=== PATIENT | female | born 2000 | race Asian ===

== ENCOUNTER 2022-08-09 16:42 | Emergency (ER) | payer BC, SELFPAY ==
[2022-08-09 17:17] VITALS: BP 107/71; PULSE 72; RESP 20; TEMP 36.7; O2SAT 100; BMI 38.1
[2022-08-09] MEDS: KETOROLAC 30 MG/ML inj IVP (18:17)
[2022-08-09] MEDS: 0.9 % SODIUM CHLORIDE 500 ML 500 ML IV (18:19)
[2022-08-09] MEDS: ONDANSETRON 2 MG/ML inj 4 MG IVP (18:19)
[2022-08-09] MEDS: diphenhydrAMINE 50 MG/ML inj 25 MG IVP (18:19)
--- NOTE | 2022-08-09 18:35 | ED_ITS ---
HPI - General Adult General Chief complaint: Headache/Migraine Stated complaint: Migraine Time Seen by Provider: 08/09/22 17:04 Source: patient Mode of arrival: ambulatory Limitations: no limitations History of Present Illness HPI narrative: 21-year-old female coming in today complaining of a migraine headache. States that she gets very frequently. States that she does have abortive medicine at home and that about 50% of the time and does not work. She feels that this headache is not unusual or different from her previous migraines. She denies any neurologic deficits. She complains of feeling slightly nauseated, sensitive to light. Related Data Home Medications Medication Instructions Recorded Confirmed buspirone 10 mg tablet mg 08/09/22 clindamycin phosphate 1 % topical topical 08/09/22 solution clonazepam 0.5 mg tablet mg 08/09/22 desvenlafaxine succinate 100 mg mg PO 08/09/22 tablet,extended release 24 hr duloxetine 30 mg capsule,delayed mg PO 08/09/22 release erenumab-aooe 140 mg/mL mg subcut 08/09/22 subcutaneous auto-injector (Aimovig Autoinjector) famotidine 20 mg tablet mg 08/09/22 gabapentin 600 mg tablet mg 08/09/22 methylphenidate 25.9 mg ER,IR mg PO 08/09/22 disintegrating 24 hr tablet (Cotempla XR-ODT) metoprolol succinate 25 mg mg PO 08/09/22 tablet,extended release 24 hr naratriptan 1 mg tablet mg 08/09/22 tacrolimus 0.1 % topical ointment topical 08/09/22 tazarotene 0.1 % topical cream applic topical 08/09/22 topiramate 50 mg tablet mg 08/09/22 Allergies Allergy/AdvReac Type Severity Reaction Status Date / Time No Known Drug Allergies Allergy Verified 08/09/22 17:14 Review of Systems Status of ROS: Reports: 10 or more systems reviewed and unremarkable except as noted in History and below Exam Narrative: Exam Narrative: Overweight, well-developed patient in no acute distress. Alert and oriented. Answers questions appropriately. Mood and affect are appropriate. Thoughts are goal oriented and rational. No tangential or magical thinking noted. Patient speaks in full sentences without needing to catch their breath. Speech is not slurred or pressured. Voice sounds normal. HEENT: Normocephalic atraumatic. Pupils are equally round reactive to light. Extraocular muscles are intact. Conjunctivae are moist without any icterus noted. Moist mucous membranes. Posterior pharynx is normal. Neck is soft without any lymphadenopathy or thyromegaly. No masses are appreciated. Cardiovascular: Heart is regular rate and rhythm S1 and S2 are present without any murmurs. Lungs: Clear to auscultation bilaterally no wheezes rhonchi or rales are appreciated. Patient takes deep breaths without any discomfort. Skin is well perfused without any rashes. Strength is 5/5 of the upper and lower extremities. Reflexes are 2+ and symmetric at the knees. Cranial nerves 3-12 are normal. There is no nystagmus either horizontally or vertically. Gait is normal. Const: Vital Signs, click to edit/add: Vital Signs - 24 hr 08/09/22 17:17 Temperature 98.0 F Pulse Rate [Right Pulse Oximeter] 72 Respiratory Rate 20 Blood Pressure [Ri ght Upper Arm] 107/71 Pulse Oximetry 100 Oxygen Delivery Me thod Room Air Course Course Hospital Course: Patient received IV fluids, Toradol, Zofran, and Benadryl. This helped her symptoms quite a bit and she felt much better. Vital Signs Vital signs: Initial Vital Signs Temperature 98.0 F 08/09/22 17:17 Temperature Source Temporal Artery Scan 08/09/22 17:17 Pulse Rate 72 08/09/22 17:17 Respiratory Rate 20 08/09/22 17:17 Blood Pressure 107/71 08/09/22 17:17 Blood Pressure Mean 83 08/09/22 17:17 Blood Pressure Position Sitting 08/09/22 17:17 Pulse Oximetry 100 08/09/22 17:17 Oxygen Delivery Method 08/09/22 17:17 Vital Signs Temperature 98.0 F 08/09/22 17:17 Pulse Rate 72 08/09/22 17:17 Respiratory Rate 20 08/09/22 17:17 Blood Pressure 107/71 08/09/22 17:17 Pulse Oximetry 100 08/09/22 17:17 Oxygen Delivery Method 08/09/22 17:17 Temperature 98.0 F 08/09/22 17:17 Pulse Rate 72 08/09/22 17:17 Respiratory Rate 20 08/09/22 17:17 Blood Pressure 107/71 08/09/22 17:17 Pulse Oximetry 100 08/09/22 17:17 Oxygen Delivery Method 08/09/22 17:17 Medical Decision Making MDM Narrative Medical decision making narrative: 21-year-old female migraine headache treated per above. Patient discharged in improved condition. Discharge Plan Discharge Clinical Impression: Migraine Patient Disposition: Home, Self-Care Condition: Improved Additional Instructions: Follow-up with primary care provider or neurologist as needed. Prescriptions: No Action gabapentin 600 mg tablet clonazepam 0.5 mg tablet Label Comments: TAKE TWO TABLETS BY MOUTH EVERY NIGHT AT BEDTIME famotidine 20 mg tablet Label Comments: TAKE 1 TABLET BY MOUTH IN THE MORNING AND 1 TABLET IN THE EVENING. tazarotene 0.1 % cream TOPICAL tacrolimus 0.1 % ointment TOPICAL Label Comments: APPLY TWICE A DAY FOR BREAST RASH buspirone 10 mg tablet metoprolol succinate 25 mg tablet extended release 24 hr PO naratriptan 1 mg tablet Label Comments: TAKE 1 TABLET BY MOUTH AT ONSET OF MIGRAINEMAY REPEAT AFTER FOUR HOURS clindamycin phosphate 1 % solution TOPICAL Label Comments: APPLY TWICE A DAY FOR ACTIVE ACNE topiramate 50 mg tablet duloxetine 30 mg capsule,delayed release(DR/EC) PO Label Comments: TAKE 3 CAPSULES BY MOUTH BY MOUTH EVERY MORNING desvenlafaxine succinate 100 mg tablet extended release 24 hr PO Cotempla XR-ODT 25.9 mg tablet,disinteg ER biphase 24h PO Aimovig Autoinjector 140 mg/mL auto-injector SUBCUT Follow Up/Referrals: Marissa Wesley MD [Primary Care Provider] - Stand Alone Forms: [id number] Info Instructions
== END 2022-08-09 19:20 | disposition home or self-care (01) ==
PROVIDERS: Emergency Provider Family Medicine; PCP Internal Medicine
DX: G43.909 Migraine, unspecified, not intractable, without status migrainosus (principal)
CPT/HCPCS: 96361; 96374; 96375; 99283; 99284; J1200; J1885; J2405; J7120

== ENCOUNTER 2022-09-12 15:33 | Emergency (ER) | payer BC, SELFPAY ==
[2022-09-12 15:45] VITALS: BP 106/73; PULSE 83; RESP 20; TEMP 36.8; O2SAT 100; BMI 36.0
--- NOTE | 2022-09-12 16:07 | ED.HA ---
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 She states that this is typical for her headache disorder which she describes as migraine headaches. Pt has no photophobia, nausea or vomiting. No aura of other significant symptoms. Pt took her typical naratriptan and medical marijuana with no improvement. Pt has been in in ER's in the past and treated successfully with saline, reglan, benadryl and toradol and would like a similar intervention today. No aggravating. She has no stiff neck or signs of infection. Severity is 6/10 and sharp. Related Data Home Medications Medication Instructions Recorded Confirmed buspirone 10 mg tablet mg 08/09/22 clindamycin phosphate 1 % topical topical 08/09/22 solution clonazepam 0.5 mg tablet mg 08/09/22 desvenlafaxine succinate 100 mg mg PO 08/09/22 tablet,extended release 24 hr duloxetine 30 mg capsule,delayed mg PO 08/09/22 release erenumab-aooe 140 mg/mL mg subcut 08/09/22 subcutaneous auto-injector (Aimovig Autoinjector) famotidine 20 mg tablet mg 08/09/22 gabapentin 600 mg tablet mg 08/09/22 methylphenidate 25.9 mg ER,IR mg PO 08/09/22 disintegrating 24 hr tablet (Cotempla XR-ODT) metoprolol succinate 25 mg mg PO 08/09/22 tablet,extended release 24 hr naratriptan 1 mg tablet mg 08/09/22 tacrolimus 0.1 % topical ointment topical 08/09/22 tazarotene 0.1 % topical cream applic topical 08/09/22 topiramate 50 mg tablet mg 08/09/22 Allergies Allergy/AdvReac Type Severity Reaction Status Date / Time No Known Drug Allergies Allergy Verified 09/12/22 15:50 Review of Systems Status of ROS: Reports: 10 or more systems reviewed and unremarkable except as noted in History and below [facility] Medical History (Updated 09/12/22 @ 17:11 by Solis Adams MD) Anxiety Stanford-Danlos disease Headache syndrome Social History Smoking Status: Former smoker Do you use any of these nicotine containing products: None Second hand tobacco smoke exposure: No How often do you have a drink containing alcohol: never How often do you have six or more drinks on one occasion: Never AUDIT-C Alcohol total score: 0 Non-prescribed substance use: denies use service: No Exam Narrative: Exam Narrative: EXAM GENERAL: Patient appears comfortable and well. EYES: No scleral icterus. ENT: Tympanic membranes and oropharynx normal. THYROID: no thyroid nodules or thyromegaly. LYMPH: No supraclavicular or cervical lymphadenopathy. SKIN: Visible skin seen during exam normal or with benign process only. EXT: No dependent lower extremity pedal edema. HEART: Regular rate and rhythm with no murmurs, rubs, or gallops. LUNGS: Clear to auscultation bilaterally with no crackles or wheezes. ABD: Soft, non tender, non distended. PSYCH: Good eye contact, speech is not pressured. Neurologic cranial nerves 2-12 grossly intact no focal defects. Const: Vital Signs, click to edit/add: Vital Signs - 24 hr 09/12/22 15:45 Temperature 98.3 F Pulse Rate [Right Pulse Oximeter] 83 Respiratory Rate 20 Blood Pressure [Ri ght Upper Arm] 106/73 Pulse Oximetry 100 Oxygen Delivery Me thod Room Air Course Course Hospital Course: Pt seen and examined. Pt given 1 liter ns, 4 mg of zofran, 30 mg of toradol and 50 mg of benadryl Reevaluation(s) Reevaluation #1: Pt feeling better and is ready to be discharged to home. Time: 17:09 Vital Signs Vital signs: Initial Vital Signs Temperature 98.3 F 09/12/22 15:45 Temperature Source Temporal Artery Scan 09/12/22 15:45 Pulse Rate 83 09/12/22 15:45 Pulse Rhythm 09/12/22 15:45 Respiratory Rate 20 09/12/22 15:45 Blood Pressure 106/73 09/12/22 15:45 Blood Pressure Mean 84 09/12/22 15:45 Blood Pressure Position Sitting 09/12/22 15:45 Pulse Oximetry 100 09/12/22 15:45 Oxygen Delivery Method 09/12/22 15:45 Vital Signs Temperature 98.3 F 09/12/22 15:45 Pulse Rate 83 09/12/22 15:45 Respiratory Rate 20 09/12/22 15:45 Blood Pressure 106/73 09/12/22 15:45 Pulse Oximetry 100 09/12/22 15:45 Oxygen Delivery Method 09/12/22 15:45 Temperature 98.3 F 09/12/22 15:45 Pulse Rate 83 09/12/22 15:45 Respiratory Rate 20 09/12/22 15:45 Blood Pressure 106/73 09/12/22 15:45 Pulse Oximetry 100 09/12/22 15:45 Oxygen Delivery Method 09/12/22 15:45 MDM - Headache MDM Narrative Medical decision making narrative: Pt with a long history of headache disorder presents with typical headache symptoms. Pt tried tryptan and cannabis earlier in the day without effect. Pt had normal vital signs and an unremarkable exam. Pt treated with Zofran, toradol, normal saline, benadryl and discharged to home with outpt follow up. Differential Diagnosis Differential diagnosis: Likely migraine, tension headache, subarachnoid hemorrhage, headache, meningitis and sinusitis Discharge Plan Discharge Clinical Impression: Headache syndrome Condition: Stable Instructions: Acute Headache (ED) Additional Instructions: Resume previous care Follow up with your doctor as needed Activity Level: No Restrictions Discharge Diet: Regular Prescriptions: No Action gabapentin 600 mg tablet clonazepam 0.5 mg tablet Label Comments: TAKE TWO TABLETS BY MOUTH EVERY NIGHT AT BEDTIME famotidine 20 mg tablet Label Comments: TAKE 1 TABLET BY MOUTH IN THE MORNING AND 1 TABLET IN THE EVENING. tazarotene 0.1 % cream TOPICAL tacrolimus 0.1 % ointment TOPICAL Label Comments: APPLY TWICE A DAY FOR BREAST RASH buspirone 10 mg tablet metoprolol succinate 25 mg tablet extended release 24 hr PO naratriptan 1 mg tablet Label Comments: TAKE 1 TABLET BY MOUTH AT ONSET OF MIGRAINEMAY REPEAT AFTER FOUR HOURS clindamycin phosphate 1 % solution TOPICAL Label Comments: APPLY TWICE A DAY FOR ACTIVE ACNE topiramate 50 mg tablet duloxetine 30 mg capsule,delayed release(DR/EC) PO Label Comments: TAKE 3 CAPSULES BY MOUTH BY MOUTH EVERY MORNING desvenlafaxine succinate 100 mg tablet extended release 24 hr PO Cotempla XR-ODT 25.9 mg tablet,disinteg ER biphase 24h PO Aimovig Autoinjector 140 mg/mL auto-injector SUBCUT Follow Up/Referrals: Marissa Wesley MD [Primary Care Provider] - Stand Alone Forms: [employer] Info Instructions
[2022-09-12] MEDS: diphenhydrAMINE 50 MG/ML inj IVP (16:39)
[2022-09-12] MEDS: KETOROLAC 30 MG/ML inj IVP (16:39)
[2022-09-12] MEDS: 0.9 % SODIUM CHLORIDE 1000 ml 1,000 ML IV (16:39)
[2022-09-12] MEDS: ONDANSETRON 2 MG/ML inj 4 MG IVP (16:40)
--- OUTSIDE RECORDS SUMMARY | 2022-09-12 16:41 | XMS_ITS | Encounter Summary ---
:2000 Author Organization [facility] Address [address] [place] [id number] Care Team Providers Name Role Phone Unavailable Primary Care Provider Unavailable Reason for Visit Reason Comments Pre-visit Intake Encounter Details Date Type Department Care Team Description 02/17/2021 Clinical Communication Department of R[facility] Irby [facility] [place] [place] [address] [facility] [address] [place] [phone] Social History Tobacco Use Types Packs/Day Years Used Date Smoking Tobacco: Never Smokeless Tobacco: Never Sex Assigned at Date Recorded Not on file documented as of this encounter Plan of Treatment Upcoming Encounters Date Type Specialty Care Team Description 09/18/2022 Clinical Communication Admitting/Central Scheduling 09/21/2022 Office Visit Neurology Rc Irby M.D. [address] [place] [address] documented as of this encounter Visit Diagnoses Not on filedocumented in this encounter
--- OUTSIDE RECORDS SUMMARY | 2022-09-12 16:41 | XMS_ITS | Encounter Summary ---
:2000 Author Organization [facility] Address [address] [place] [address] Care Team Providers Name Role Phone Unavailable Primary Care Provider Unavailable Reason for Visit Reason Comments COVID Inquiry Encounter Details Date Type Department Care Team Description 12/24/2020 Clinical Communication Department of Rc Irby COVI D Inquiry Neurology in .. [place], [place] [address] [facility] [address] [place] [phone] Social History Tobacco Use Types Packs/Day Years Used Date Smoking Tobacco: Never Smokeless Tobacco: Never Sex Assigned at Date Recorded Not on file documented as of this encounter Miscellaneous Notes Telephone Encounter - Ifrah Gore - 12/24/2020 4:10 PM CST What is the purpose of the call?: Standard Appointment Process Standard Appointment Process Have you tested positive for COVID-19 in the last 20 days OR do you have a pending COVID-19 test because you had symptoms?: No, neither apply What region is the appointment being requested?: More than 20 days [facility], [facility] or [facility] In the past 14 days have you had close contact* with a person who has a LABORATORY CONFIRMED case ofCOVID-19?: No exposure noted. Follow local process (End Screening) Testing Recommendation Endpoint Is testing recommended? : Not recommended to test Plan: Endpoint recommendation: Followed regional OTG *Reminder if sending patient for testing in [facility] or [facility], route encounter to the correct testing pool. 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 [address] [place] [address] documented as of this encounter Visit Diagnoses Not on filedocumented in this encounter
--- OUTSIDE RECORDS SUMMARY | 2022-09-12 16:41 | XMS_ITS | Encounter Summary ---
:2000 Author Organization [facility] Address [address] [place] [address] Care Team Providers Name Role Phone Unavailable Primary Care Provider Unavailable Reason for Referral Outpatient (Routine) - Authorized Specialty Diagnoses / Procedures Referred By Contact Refer red To Contact Neurology Rc Irby M.D. [facility] [address] [place] [phone] Referral ID Status Reason Start Date Expiration Date Visits V isits Requested Authorized [id number] Authorized 08/02/2022 08/01/2025 1 1 Scheduling Instructions 60 minutes Reason for Visit Reason Comments WENDY/Mahamed Encounter Details Date Type Department Care Team Description 07/27/2022 Clinical Communication Department of Neurology Rc Irby [facility]amed in [facility] gela Velasco [address] [place] [address] [place] [phone] Social History Tobacco Use Types Packs/Day Years Used Date Smoking Tobacco: Never Smokeless Tobacco: Never Sex Assigned at Date Recorded Not on file documented as of this encounter Plan of Treatment Upcoming Encounters Date Type Specialty Care Team Description 09/18/2022 Clinical Communication Admitting/Central Scheduling 09/21/2022 Office Visit Neurology Rc Irby M.D. [address] [place] [phone] Scheduled Referrals Name Type Priority Associated Diagnoses Order S [facility] Neurology office Outpatient Referral Routine Expe cted: visit (clinic) 08/02/2022 (Approximate), Expires: 11/01/2023 documented as of this encounter Visit Diagnoses Not on filedocumented in this encounter Additional Health Concerns Assessment Noted Time PHQ-9 Depression Total Score: 3 02/22/2021 12:24 PM CD T documented as of this encounter
--- OUTSIDE RECORDS SUMMARY | 2022-09-12 16:41 | XMS_ITS | Encounter Summary ---
:2000 Author Organization [facility] Address [address] [place] [address] Care Team Providers Name Role Phone Unavailable Primary Care Provider Unavailable Reason for Visit Appointment Request (Routine) - Closed Specialty Diagnoses / Procedures Referred By Contact Refer red To Contact Neurology Diagnoses Migraine Headache Referral ID Status Reason Start Date Expiration Date Visits Requ ested Visits Authorized [id number] Closed 09/19/2020 09/19/2021 1 1 Encounter Details Date Type Department Care Team Description 02/22/2021 Comprehensive Visit Department of Rc Irby Migrain e Headache Neurology in [facility] (Primary Dx) [place], [place] [address] [facility] [address] [place] [phone] Social History Tobacco Use Types Packs/Day Years Used Date Smoking Tobacco: Never Smokeless Tobacco: Never Sex Assigned at Date Recorded Not on file documented as of this encounter Last Filed Vital Signs Vital Sign Reading Time Taken Comments Blood Pressure - - Pulse - - Temperature 36.7 ??C (98.1 ??F) 02/22/2021 12:42 PM CDT Respiratory Rate - - Oxygen Saturation - - Inhaled Oxygen Concentration - - Weight 109 kg (240 lb 4.8 oz) 02/22/2021 12:42 PM CDT Height 167.2 cm (5' 5.83) 02/22/2021 12:42 PM CDT Body Mass Index 38.99 02/22/2021 12:42 PM CDT documented in this encounter Consult Notes Rc Irby M.D. - 02/22/2021 1:00 PM CDT SUBJECTIVE Referring Provider: No ref. provider found CHIEF COMPLAINT / REASON FOR VISIT Beryl Medel is a 20 y.o. female who presents for evaluation of 1. Migraine Headache Chronic HISTORY OF PRESENT ILLNESS She has a history of unprovoked headaches since she was 15 or 16 years old. There is family history of migraine in her sister. Since headache started they have not changed much. She now reports about 20 headache days per month and this has been the frequency for several years. Headaches can be precipitated by weather changes and they start while awake or asleep in both occipital regions. Some headaches day mild but some gradually get to be severe and spread to the whole head with throbbing pain, nausea and sensitivity to light and sound. Although there is no vomiting severe headaches can be worsened by routine physical activity but there is no migraine aura. Without treatment severe headaches willlast all day. She currently denies any Valsalva induced headache or pulsatile tinnitus. She has history of anxietyand depression but she reports them being under good control. She last had a brain MRI October 19, 2020 which was normal. She is currently using Fioricet about 4 5 days per month. She uses Zofran and prochlorperazine as needed for nausea. The Advil is enough to control mild headaches if she treats them early. She has beenon Aimovig 70 mg every month for the last 3 months and this has significantly decrease the frequencyof severe headaches. She is on topiramate at an unclear dose over the last for 5 months but this hasnot clearly helped her. She is not sure about the dose of topiramate. 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 In the past she tried sumatriptan but this transiently exacerbated her headache. She also has tried Toradol, Excedrin and cyproheptadine. The following portions of the patient's history were reviewed and updated as appropriate: allergies,current medications, family history, medical history, social history, surgical history and problem list. Ten point review of systems was completed and was negative other than as noted in the HPI. OBJECTIVE I have reviewed vital signs as recorded in the EPIC record. For details of the neurologic examination, please see the neurologic examination form. In summary: She has a normal neurologic exam. ASSESSMENT / PLAN #1 Chronic migraine without aura I have recommended to discontinue Fioricet because of its high risk for medication overuse headache.She is not really sure topiramate has helped her so she could consider gradually getting off this also. Although she was not sure about the topiramate does a higher dose could potentially cause cognitive difficulties that could interfere with her college studies. For migraine prophylaxis I recommend starting either one of the following agents in decreasing orderof preference: A) she could increase Aimovig to 140 mg every month and see how she does over 3 months. B) she could consider gradually going up on gabapentin, up by 300 mg every week as tolerated and as needed to not more than 900 mg 3 times a day. C) Botox following the PREEMPT treatment paradigm, giving it at least 3 tries with 12 weeks in between injections. An oral prophylactic should be tried one at a time for at least three months at the highest tolerated dose (within the above specified goal dose range) before believing it has failed. A successful preventive is commonly defined as one that decreases the headache frequency and/or intensity by approximately 50%. Once a successful preventive is found, I suggest continuing it for at least 6-24 months before attempting to gradually taper off it. For the acute treatment of mild to moderate headaches, I recommend to continue ibuprofen as needed but this should not be used more than 14 days a month. For headaches that do not respond to this, or for severe headaches from onset, I recommend 2.5 mg of oral naratriptan at onset and this can be repeated every 4 hours if needed (maximum 5 mg/24 hours) and this should not be used more than 9 days a month (2 days per week) to prevent medication overuse headache. I suspect naratriptan will be better tolerated than sumatriptan. For nausea associated with migraine, I recommend to continue antiemetics abida as needed basis under the care of her local neurologist. The patient will follow the above recommendations with her local neurologist per her preference. Shehas an appointment over the next few days with Dr. Fields. PATIENT EDUCATION Ready to learn, no apparent learning barriers were identified; learning preferences include listening. Explained diagnosis and treatment plan; patient expressed understanding of the content. documented in this encounter Plan of Treatment Upcoming Encounters Date Type Specialty Care Team Description 09/18/2022 Clinical Communication Admitting/Central Scheduling 09/21/2022 Office Visit Neurology Rc Irby M.D. [address] [place] [address] documented as of this encounter Visit Diagnoses Diagnosis Migraine Headache Chronic - Primary documented in this encounter Additional Health Concerns Assessment Noted Time PHQ-9 Depression Total Score: 3 02/22/2021 12:24 PM CD T documented as of this encounter
--- OUTSIDE RECORDS SUMMARY | 2022-09-12 16:41 | XMS_ITS | Clinical Summary ---
:2000 Author Organization [facility] Address [address] [place] [address] Care Team Providers Name Role Phone Unavailable Primary Care Provider Unavailable Source Comments Patient records contain information from all sites at [facility]. For routine questions regarding patient records, call [phone] during business hours, M-F 8:00 AM - 5:00 PM Central Time. Record requests for emergency care only can be directed to [phone] at any time.[facility] Allergies Active Allergy Reactions Severity Noted Date Comments Cantaloupe Other (see comments) 11/23/2011 [place] Other (see comments) 11/23/2011 Lamotrigine Hives 12/22/2014 Tree Nut Anaphylaxis, Anxiety, Hives, Itching, High Palpitations, Rash, Shortness of breath Tree Nuts Other (see comments) 09/29/2011 unknown Medications Medication Sig Dispensed Refills Start Date End Date Status medical cannabis Take 1 capsule by 0 Active capsule mouth as needed. 6 mg daily, and other strains/dosages as needed butalbital-acetamino Take 1 capsule by 0 Active phen-caff (Fioricet) mouth as needed. 50-300-40 mg per capsule triamcinolone Apply 1 application 0 12/27/2020 Active (KENALOG) 0.5 % topically as needed. cream tazarotene (TAZORAC) Apply 1 application 0 1 Active 0.1 % cream topically as needed. topiramate (TOPAMAX) Take 50 mg by mouth 0 1 Active 50 mg tablet daily. triamcinolone Administer 2 sprays 0 Active (NASACORT) 55 into nostril(s) as mcg/actuation nasal needed. spray tacrolimus Apply 1 application 0 12/27/2020 Active (PROTOPIC) 0.1 % topically as needed. ointment olopatadine daily. 0 01/28/2021 Active (PATADAY) 0.2 % ophthalmic solution ondansetron ODT Take 4 mg by mouth as 0 Active (Zofran ODT) 4 mg needed. disintegrating tablet mometasone (ELOCON) Apply 1 application 0 11/11/2020 Active 0.1 % cream topically as needed. metoprolol succinate Take 25 mg by mouth 0 1 Active (TOPROL-XL) 25 mg 24 daily. hr tablet Cotempla XR-ODT 25.9 Take 1 tablet by 0 02/01/2021 Active mg tablet,disintig mouth daily. ER biphase 24h levonorgestreL 52 mg by intrauterine 0 Active (Liletta) 20.1 route once. mcg/24 hrs (6 yrs) 52 mg IUD gabapentin Take 600 mg by mouth 0 08/20/2020 Active (NEURONTIN) 600 mg 3 (three) times a tablet day. Aimovig Autoinjector Inject 70 mg under 0 02/07/2021 Active 70 mg/mL injection the skin every 30 (thirty) days. EPINEPHrine 0.3 Inject 0.3 mg 0 09/25/2014 Active mg/0.3 mL injection intramuscularly as syringe needed. econazole nitrate Apply 1 application 0 12/22/2020 Active (SPECTAZOLE) 1 % topically as needed. cream DULoxetine Take 90 mg by mouth 0 02/08/2021 Active (CYMBALTA) [address] every morning. capsule doxycycline Take 100 mg by mouth 0 02/02/2021 Active monohydrate daily. (MONODOX) 100 mg capsule clindamycin Apply 1 application 0 02/15/2021 Active (CLINDAGEL) 1 % gel topically as needed. busPIRone (BUSPAR) Take 10 mg by mouth 0 01/10/2021 Active 10 mg tablet daily. azelastine (ASTELIN) Administer 2 sprays 0 1 Active 137 mcg/spray (0.1 into each nostril %) nasal spray daily. adapalene (DIFFERIN) Apply 1 application 0 0 Active 0.3 % gel topically as needed. benztropine Take 1 mg by mouth as 0 02/12/2021 Active (COGENTIN) 1 mg needed. tablet Active Problems Problem Noted Date Migraine Headache Chronic 02/22/2021 Encounters Date Type Specialty Care Team Description 07/27/2022 Clinical Communication Neurology Rc Irby M.D. [facility] from Last 3 Months Family History Medical History Relation Name Comments Migraines Sister Relation Name Status Comments Sister Social History Tobacco Use Types Packs/Day Years Used Date Smoking Tobacco: Never Smokeless Tobacco: Never Sex Assigned at Date Recorded Not on file Last Filed Vital Signs Vital Sign Reading [...] Mass Index 38.99 02/22/2021 12:42 PM CDT Plan of Treatment Upcoming Encounters Date Type Specialty Care Team Description 09/18/2022 Clinical Communication Admitting/Central Scheduling 09/21/2022 Office Visit Neurology Rc Irby M.D. [address] [place] [address] Health Maintenance Due Date Last Done Comments Anemia/Iron Deficiency 2001 Screening During Well Child Visit (if High Risk Menstruating Female) Chlamydia and Gonorrhea 2001 Screening HIV Screening 2001 Hearing Screening during 2001 Well Child Visit Hepatitis B Vaccines (1 of 3 2001 - 3-dose series) Hepatitis C Screening 2001 1 week Well Child Check-Up 2001 1 month Well Child Check-Up 2001 2 month Well Child Check-Up 01/11/2002 4 month Well Child Check-Up 02/24/2002 6 month Well Child / 04/26/2002 Alternative Check-Up 9 month Well Child Check-Up 07/27/2002 12 month Well Child / 10/26/2002 Alternative Check-Up 15 month Well Child Check-Up 01/24/2003 18 month Well Child 04/26/2003 2 year Well Child Check-Up 10/26/2003 30 month Well Child Check-Up 04/26/2004 3 year Well Child Check-Up 10/26/2004 4 year Well Child Check-Up 10/26/2005 5 year Well Child Check-Up 10/26/2006 6 year Well Child Check-Up 10/26/2007 7 year Well Child / 10/26/2008 Alternative Check-Up 8 year Well Child Check-Up 10/26/2009 9 year Well Child Check-Up 10/26/2010 10 year Well Child Check-Up 10/26/2011 11 year Well Child Check-Up 10/26/2012 12 year Well Child Check-Up 10/26/2013 13 year Well Child Check-Up 10/26/2014 14 year Well Child Check-Up 10/26/2015 Vision Screening during Well 2015 Child Visit 16 year Well Child Check-Up 10/26/2016 16 year Well Child Check-Up 10/26/2017 17 year Well Child Check-Up 10/26/2018 18 year Well Child Check-Up 10/26/2019 19 year Well Child Check-Up 10/26/2020 COVID-19 Vaccine (3 - 04/23/2021 02/26/2021, 02/05/2021 Booster for Pfizer series) 20 year Well Child Check-Up 10/26/2021 Well Child Check-Up ([facility]) 10/26/2021 Depression Screening (Annual 11/19/2021 PHQ-2) Influenza Vaccine (#1) 2022 07/19/2021, 08/31/2020, 08/19/2018, Additional history exists DTaP,Tdap,and Td Vaccines (7 01/02/2023 01/02/2013, 006, - Td or Tdap) 08/10/2003, Additional history exists HPV Vaccines Completed 08/11/2014, 04/10/2014, 02/05/2014 Meningococcal Vaccine Completed 06/21/2018, 01/02/2013 Pneumococcal vaccine (0-64 Aged Out No lo nger eligible years) based on patient 's age to complete this topic Medical Devices Implanted Type Area Basin Cleaner Device Shelf Model / Identifier Expiration Serial / Date Lot Hardware E.G. Pins/Screws/Rods-02/17/2018 Hardware e.g. Mouth Implanted: 02/17/2018 (Quantity not on file) pins/screws/r ods Description: Permanent retainer Intrauterine Device Intrauterine Device Uterus Description: liletta IUD Insurance Payer Benefit Plan / Subscriber ID Effective Dates Phone Addre ss Type Group BLUE CROSS BCBS MD [id number] 2019-[place] [phone] [address] [facility] [address] [place] [address]
[2022-09-12 17:22] VITALS: BP 107/74; O2SAT 99
== END 2022-09-12 17:26 | disposition home or self-care (01) ==
PROVIDERS: Emergency Provider Internal Medicine; PCP Internal Medicine
DX: R51.9 Headache, unspecified (principal)
CPT/HCPCS: 96374; 96375; 99283; J1200; J1885; J2405; J7030

== ENCOUNTER 2022-09-19 14:17 | Emergency (ER) | payer BC, SELFPAY ==
[2022-09-19 14:33] VITALS: BP 111/73; PULSE 91; RESP 16; TEMP 36.3; O2SAT 99; BMI 37.1
[2022-09-19] MEDS: 0.9 % SODIUM CHLORIDE 1000 ml 1,000 ML IV (17:57)
--- OUTSIDE RECORDS SUMMARY | 2022-09-19 17:58 | XMS_ITS | Encounter Summary ---
:2001 Author Organization [facility] Address [address] [place] [address] Care Team Providers Name Role Phone Unavailable Primary Care Provider Unavailable Reason for Referral Outpatient (Routine) - Authorized Specialty Diagnoses / Procedures Referred By Contact Refer red To Contact Neurology Rc Irby M.D. [facility] [address] [place] [phone] Referral ID Status Reason Start Date Expiration Date Visits V isits Requested Authorized [id number] Authorized 08/02/2022 08/01/2025 1 1 Scheduling Instructions 60 minutes Reason for Visit Reason Comments WENDY/Mahamed Encounter Details Date Type Department Care Team Description 07/27/2022 Clinical Communication Department of Neurology Rc Irby [facility]amed in [facility] gela Velasco [address] [place] [address] [place] [phone] Social History Tobacco Use Types Packs/Day Years Used Date Smoking Tobacco: Never Smokeless Tobacco: Never Sex Assigned at Date Recorded Not on file documented as of this encounter Plan of Treatment Upcoming Encounters Date Type Specialty Care Team Description 09/21/2022 Office Visit Neurology Rc Irby M.D . [address] [place] [phone] (Wo rk) Scheduled Referrals Name Type Priority Associated Diagnoses [facility] Outpatient Referral Routine Expe cted: visit (clinic) 08/02/2022 (Approximate), Expires: 11/01/2023 documented as of this encounter Visit Diagnoses Not on filedocumented in this encounter Additional Health Concerns Assessment Noted Time PHQ-9 Depression Total Score: 3 02/22/2021 12:24 PM CD T documented as of this encounter
--- OUTSIDE RECORDS SUMMARY | 2022-09-19 17:58 | XMS_ITS | Encounter Summary ---
:2001 Author Organization [facility] Address [address] [place] [address] Care Team Providers Name Role Phone Unavailable Primary Care Provider Unavailable Reason for Visit Reason Comments COVID Inquiry Encounter Details Date Type Department Care Team Description 12/24/2020 Clinical Communication Department of Rc Irby COVI D Inquiry Neurology in .. 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 [address] [place], [place] [phone] (Wo rk) documented as of this encounter Visit Diagnoses Not on filedocumented in this encounter
--- OUTSIDE RECORDS SUMMARY | 2022-09-19 17:58 | XMS_ITS | Encounter Summary ---
:2001 Author Organization [facility] Address [address] [place] [address] Care Team Providers Name Role Phone Unavailable Primary Care Provider Unavailable Reason for Visit Appointment Request (Routine) - Closed Specialty Diagnoses / Procedures Referred By Contact Refer red To Contact Neurology Diagnoses Migraine Headache Referral ID Status Reason Start Date Expiration Date Visits Requ ested Visits Authorized [id number] Closed 09/19/2020 09/19/2021 1 1 Encounter Details Date Type Department Care Team Description 02/22/2021 Comprehensive Visit Department of Rc Irby Migrain e Headache Neurology in [place] (Primary Dx) [place], [place] [address] [facility] [address] [place] [phone] Social History Tobacco Use Types Packs/Day Years [...] Neurology Rc Irby M.D . [address] [place], [place] [phone] (Wo rk) documented as of this encounter Visit Diagnoses Diagnosis Migraine Headache Chronic - Primary documented in this encounter Additional Health Concerns Assessment Noted Time PHQ-9 Depression Total Score: 3 02/22/2021 12:24 PM CD T documented as of this encounter
--- OUTSIDE RECORDS SUMMARY | 2022-09-19 17:58 | XMS_ITS | Encounter Summary ---
:2001 Author Organization [facility] Address [address] [place] [address] Care Team Providers Name Role Phone Unavailable Primary Care Provider Unavailable Reason for Visit Reason Comments Pre-visit Intake Encounter Details Date Type Department Care Team Description 09/18/2022 Clinical Communication Visit Review in Pr e-visit Intake [place], [place] 200 [place], [place] [address] Social History Tobacco Use Types Packs/Day Years Used Date Smoking Tobacco: Never Smokeless Tobacco: Never Tobacco Cessation: Counseling Given: Not Answered Sex Assigned at Date Recorded Not on file documented as of this encounter Plan of Treatment Upcoming Encounters Date Type Specialty Care Team Description 09/21/2022 Office Visit Neurology Rc Irby M.D . [address] [place] [phone] (Wo rk) documented as of this encounter Visit Diagnoses Not on filedocumented in this encounter Additional Health Concerns Assessment Noted Time PHQ-9 Depression Total Score: 3 02/22/2021 12:24 PM CD T documented as of this encounter
--- OUTSIDE RECORDS SUMMARY | 2022-09-19 17:58 | XMS_ITS | Clinical Summary ---
:2001 Author Organization [facility] Address [address] [place] [address] Care Team Providers Name Role Phone Unavailable Primary Care Provider Unavailable Source Comments Patient records contain information from all sites at [facility]. For routine questions regarding patient records, call [phone] during business hours, M-F 8:00 AM - 5:00 PM Central Time. Record requests for emergency care only can be directed to [phone] at any time.[facility] Allergies Active Allergy Reactions Severity Noted Date Comments Cantaloupe GI intolerance 11/23/2011 [place] GI intolerance 11/23/2011 Lamotrigine Hives 12/22/2014 Nut - Unspecified Anaphylaxis High 12/31/2021 Ragweed Pollen Itching 09/18/2022 Tree Nut Anaphylaxis, Anxiety, Hives, High 07/14/2014 Itching, Palpitations, Rash, Shortness of breath Tree Nuts Other (see comments) 09/29/2011 unknown Tree nuts Medications Medication Sig Dispensed Refills Start Date End Date Status medical cannabis Take 1 capsule by 0 Active capsule mouth as needed. 6 mg daily, and other strains/dosages as needed butalbital-acetamino Take 1 capsule by 0 Active phen-caff (FIORICET) mouth as needed. 50-300-40 mg per capsule triamcinolone Apply 1 application 0 12/27/2020 Active (KENALOG) 0.5 % topically as needed. cream tazarotene (TAZORAC) Apply 1 application 0 Active 0.1 % cream topically as needed. topiramate (TOPAMAX) Take 50 mg by mouth 2 0 021 Active 50 mg tablet (two) times a day. triamcinolone Administer 2 sprays 0 Active (NASACORT) 55 into nostril(s) as mcg/actuation nasal needed. spray tacrolimus Apply 1 application 0 12/27/2020 Active (PROTOPIC) 0.1 % topically as needed. ointment olopatadine daily. 0 01/28/2021 Active (PATADAY) 0.2 % ophthalmic solution ondansetron ODT Take 4 mg by mouth as 0 Active (ZOFRAN-ODT) 4 mg needed. disintegrating tablet mometasone (ELOCON) [...] 02/12/2021 Active (COGENTIN) 1 mg needed. tablet busPIRone (BUSPAR) 0 08/09/2022 Active 10 mg tablet clindamycin (CLEOCIN 0 08/09/2022 Active T) 1 % external solution clonazePAM 0 08/09/2022 Active (KlonoPIN) 0.5 mg tablet Active Problems Problem Noted Date Migraine Headache Chronic 02/22/2021 Encounters Date Type Specialty Care Team Description 09/18/2022 Clinical Communication Admitting/Central Pre-visit Intake Scheduling 07/27/2022 Clinical Communication Neurology Rc Irby WEST/ Mahamed Velasco from Last 3 Months Family History Medical [...] Neurology Rc Irby M.D . [address] [place], [place] [phone] (Wo rk) Health Maintenance Due Date Last Done Comments [...] Well Child Check-Up 10/26/2021 Well Child Check-Up ([facility]) 10/26/2021 Depression Screening (Annual 11/19/2021 [...] this topic Medical Devices Implanted Type Area Relocation Coordinator Device Shelf Model / Identifier Expiration Serial / Date Lot Hardware E.G. Pins/Screws/Rods-02/17/2018 Hardware e.g. Mouth Implanted: 02/17/2018 (Quantity not on file) pins/screws/r ods Description: Permanent retainer Intrauterine Device Intrauterine Device Uterus Description: liletta IUD Insurance Payer Benefit Plan / Subscriber ID Effective Dates Phone Addre ss Type Group BLUE CROSS [facility] [id number] 2019-[place] [phone] [address] [facility] [address] [place] [address]
--- OUTSIDE RECORDS SUMMARY | 2022-09-19 17:59 | XMS_ITS ---
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, Oct, Rash R21 [place] [phone] [facility] [place] [address] [facility], Jan, Sinusitis J32.9 ; [place] [phone] Bronchitis J40 a nd Stanford-Danlos sy ndrome Q79.6 IMMUNIZATIONS No Known Immunizations SOCIAL HISTORY Qualifiers Date Never Smoker REASON FOR REFERRAL FUNCTIONAL STATUS PLAN OF CARE Activity Details Follow Up prn Reason:prn if not needed VITAL SIGNS Height 64.5 in 2018-10-25 Height 64.5 in 2016-01-20 Weight 224 lbs 2018-10-25 Weight 187 lbs 2016-01-20 BMI 37.85 kg/m2 2018-10-25 BMI 31.60 kg/m2 2016-01-20 Temperature 98.7 degrees Fahrenheit 2016-01-20 Heart Rate 72 /min 2018-10-25 Heart Rate 72 /min 2016-01-20 Blood pressure systolic 100 mm HG 2018-10-25 Blood pressure diastolic 80 mm HG 2018-10-25 MEDICATIONS Medication Instructions Dosage Frequency Start End Duration Statu s Date Date Cymbalta 60 MG Orally Once a 1 capsule 24h N ot-Taki day ng Cotempla XR-ODT Orally Once a 1 tablet in 24h Active 25.9 MG day the morning Ondansetron HCl 4 Orally every 6 2 tablets Active MG hours prn Midodrine HCl 2.5 Orally q am and 1 tablet Not-Taki MG noon ng Metoprolol Orally Once a half 24h Active Succinate 25 MG day capsule EpiPen 1 MG/ML Active Metadate CD 40 mg Orally Once a 1 capsule 24h Active day in the morning Cymbalta 30 mg Orally once a 1 capsule 24h N ot-Taki day ng Desvenlafaxine Orally Once a 1 tablet 24h Ac tive Succinate ER 100 day MG Fluticasone Nasally Once a 1 spray in 24h No t-Taki Propionate 50 day each ng MCG/ACT nostril DULoxetine HCl 30 Orally Once a 3 capsule 24h Active MG day Gabapentin 600 MG Orally 4 times 1 capsule Active per day Augmentin 875-125 Orally every 12 1 tablet 12h Jan, 10 da y(s) Not-Taki MG hrs 2015 ng Amantadine HCl Orally q am 2 capsules No t-Taki 100 mg ng Lidocaine & Externally four as directed Oct, days Active Menthol 4-4 % times a day 2017 (qid) SUMAtriptan Orally Once a 1 tablet as 24h Ac tive Succinate 100 MG day needed PROCEDURES No Known procedures RESULTS No Results REASON FOR VISIT Skin reaction, sick Insurance Providers [facility]ly [facility] Health Member Patient Patient Patient Patient Patient Subscriber Subscriber Subscriber Group Insurance Plan Plan Plan Plan ID Relationship Address Phone Name Date of ID Name Date of No Type Insurance Insurance Insurance Coverage to Subscriber Address Phone Name Dates BLUE CROSS [address] BL[employer]OSS [id number] Beryl 2000 [id number] OF [id number] Gianfranco 6 [facility] [id number] BLUE CROSS [address] BLUE CROSS self Beryl 2000 [id number] OF Gianfranco 00 [facility] [id number]
[2022-09-19] MEDS: ONDANSETRON 2 MG/ML inj 4 MG IVP (18:02)
[2022-09-19] MEDS: KETOROLAC 30 MG/ML inj IVP (18:04)
[2022-09-19 18:05] VITALS: BP 119/69
[2022-09-19] MEDS: diphenhydrAMINE 50 MG/ML inj 25 MG IVP (18:05)
--- NOTE | 2022-09-19 18:06 | ED_ITS ---
HPI - General Adult General Chief complaint: Headache/Migraine Stated complaint: Migraine Time Seen by Provider: 09/19/22 17:39 Source: patient Mode of arrival: ambulatory Limitations: no limitations History of Present Illness HPI narrative: 21-year-old female coming in today complaining of migraine started yesterday. Patient states that she does have regular migraines. She took a regular migraine medication and did not work. She denies anything new or different about this particular headache. She denies any neurologic deficits. She has mild nausea but no vomiting. Feels sensitive to lights but not necessarily loud sounds. She denies chest pain, abdominal discomfort, shortness of breath. She feels slightly lightheaded. Related Data Home Medications Medication Instructions Recorded Confirmed buspirone 10 mg tablet mg 08/09/22 clindamycin phosphate 1 % topical topical 08/09/22 solution clonazepam 0.5 mg tablet mg 08/09/22 desvenlafaxine succinate 100 mg mg PO 08/09/22 tablet,extended release 24 hr duloxetine 30 mg capsule,delayed mg PO 08/09/22 release erenumab-aooe 140 mg/mL mg subcut 08/09/22 subcutaneous auto-injector (Aimovig Autoinjector) famotidine 20 mg tablet mg 08/09/22 gabapentin 600 mg tablet mg 08/09/22 methylphenidate 25.9 mg ER,IR mg PO 08/09/22 disintegrating 24 hr tablet (Cotempla XR-ODT) metoprolol succinate 25 mg mg PO 08/09/22 tablet,extended release 24 hr naratriptan 1 mg tablet mg 08/09/22 tacrolimus 0.1 % topical ointment topical 08/09/22 tazarotene 0.1 % topical cream applic topical 08/09/22 topiramate 50 mg tablet mg 08/09/22 Allergies Allergy/AdvReac Type Severity Reaction Status Date / Time No Known Drug Allergies Allergy Verified 09/12/22 15:50 Review of Systems Status of ROS: Reports: 10 or more systems reviewed and unremarkable except as noted in History and below [facility] Medical History Anxiety Stanford-Danlos disease Headache syndrome Social History Smoking Status: Former smoker Do you use any of these nicotine containing products: None Second hand tobacco smoke exposure: No How often do you have a drink containing alcohol: never How often do you have six or more drinks on one occasion: Never AUDIT-C Alcohol total score: 0 Non-prescribed substance use: denies use service: No Exam Narrative: Exam Narrative: Well-nourished well-developed patient in no acute distress. Alert and oriented. Answers questions appropriately. Mood and affect are appropriate. Thoughts are goal oriented and rational. No tangential or magical thinking noted. Patient speaks in full sentences without needing to catch their breath. HEENT: Normocephalic atraumatic. Pupils are equally round reactive to light. Extraocular muscles are intact. Conjunctivae are moist without any icterus noted. Moist mucous membranes. Posterior pharynx is normal. Neck is soft without any lymphadenopathy or thyromegaly. No masses are appreciated. Cardiovascular: Heart is regular rate and rhythm S1 and S2 are present without any murmurs. Lungs: Clear to auscultation bilaterally no wheezes rhonchi or rales are appreciated. Patient takes deep breaths without any discomfort. Abdomen: Soft and nontender nondistended with normal bowel sounds. No guarding or rebound. No masses or organomegaly appreciated. Extremities: Bilateral lower extremities are without edema. Normal DP and PT pulses. Skin: Well perfused without any obvious rashes. Strength is 5/5 of the upper and lower extremities. Cranial nerves 3-12 are grossly normal. There is no nystagmus either horizontally or vertically. Gait is normal. Const: Vital Signs, click to edit/add: Vital Signs - 24 hr 09/19/22 14:33 Temperature 97.3 F L Pulse Rate [Pulse Oximeter] 91 Respiratory Rate 16 Blood Pressure [Ri ght Upper Arm] 111/73 Pulse Oximetry 99 Course Course Hospital Course: IV was established patient received a L of normal saline, Toradol, Zofran, Benadryl. Patient felt improvement after treatment and was ready to go home. Vital Signs Vital signs: Initial Vital Signs Temperature 97.3 F L 09/19/22 14:33 Temperature Source Temporal Artery Scan 09/19/22 14:33 Pulse Rate 91 09/19/22 14:33 Respiratory Rate 16 09/19/22 14:33 Blood Pressure 111/73 09/19/22 14:33 Blood Pressure Mean 85 09/19/22 14:33 Blood Pressure Position Supine 09/19/22 14:33 Pulse Oximetry 99 09/19/22 14:33 Vital Signs Temperature 97.3 F L 09/19/22 14:33 Pulse Rate 91 09/19/22 14:33 Respiratory Rate 16 09/19/22 14:33 Blood Pressure 111/73 09/19/22 14:33 Pulse Oximetry 99 09/19/22 14:33 Temperature 97.3 F L 09/19/22 14:33 Pulse Rate 91 09/19/22 14:33 Respiratory Rate 16 09/19/22 14:33 Blood Pressure 111/73 09/19/22 14:33 Pulse Oximetry 99 09/19/22 14:33 Medical Decision Making MDM Narrative Medical decision making narrative: 21-year-old female with migraine headaches treated per above. Discharged home in improved condition. Follow-up as needed. Discharge Plan Discharge Clinical Impression: Migraine Patient Disposition: Home, Self-Care Condition: Improved Additional Instructions: Follow-up as needed. Prescriptions: No Action gabapentin 600 mg tablet clonazepam 0.5 mg tablet Label Comments: TAKE TWO TABLETS BY MOUTH EVERY NIGHT AT BEDTIME famotidine 20 mg tablet Label Comments: TAKE 1 TABLET BY MOUTH IN THE MORNING AND 1 TABLET IN THE EVENING. tazarotene 0.1 % cream TOPICAL tacrolimus 0.1 % ointment TOPICAL Label Comments: APPLY TWICE A DAY FOR BREAST RASH buspirone 10 mg tablet metoprolol succinate 25 mg tablet extended release 24 hr PO naratriptan 1 mg tablet Label Comments: TAKE 1 TABLET BY MOUTH AT ONSET OF MIGRAINEMAY REPEAT AFTER FOUR HOURS clindamycin phosphate 1 % solution TOPICAL Label Comments: APPLY TWICE A DAY FOR ACTIVE ACNE topiramate 50 mg tablet duloxetine 30 mg capsule,delayed release(DR/EC) PO Label Comments: TAKE 3 CAPSULES BY MOUTH BY MOUTH EVERY MORNING desvenlafaxine succinate 100 mg tablet extended release 24 hr PO Cotempla XR-ODT 25.9 mg tablet,disinteg ER biphase 24h PO Aimovig Autoinjector 140 mg/mL auto-injector SUBCUT Follow Up/Referrals: Marissa Wesley MD [Primary Care Provider] - Stand Alone [facility] Info Inst[facility]
[2022-09-19 18:30] VITALS: BP 116/73; PULSE 76; O2SAT 100
[2022-09-19 19:00] VITALS: PULSE 81; O2SAT 100
== END 2022-09-19 19:08 | disposition home or self-care (01) ==
PROVIDERS: Emergency Provider Family Medicine; PCP Internal Medicine
DX: G43.909 Migraine, unspecified, not intractable, without status migrainosus (principal); Z79.899 Other long term (current) drug therapy
CPT/HCPCS: 96361; 96374; 96375; 99284; J1200; J1885; J2405; J7030

== ENCOUNTER 2023-01-03 10:22 | Emergency (ER) | payer BC, SELFPAY ==
[2023-01-03 10:28] VITALS: BP 122/80; PULSE 73; RESP 18; TEMP 36.2; O2SAT 98; BMI 37.3
--- NOTE | 2023-01-03 11:00 | ED_ITS ---
HPI - Extremity Injury (Upper) General Time Seen by Provider: 11:00 Date Seen: 01/03/23 Chief Complaint: Extremity Pain/Injury, Upper Stated Complaint: Fell out of bed/right arm pain Time Seen by Provider: 01/03/23 11:00 Source: patient, RN notes reviewed and old records reviewed Mode of arrival: ambulatory Limitations: no limitations History of Present Illness HPI narrative: Patient is a very pleasant 22-year-old female from [facility] with a history of Stanford-Danlos, chronic pain syndrome and migraines who comes to the emergency room for evaluation regarding pain in the right elbow and right leg. Patient notes that she fell out of her loft yesterday morning. She states this was about a 4 ft fall. She notes that this has happened once in the past. Of she notes that she woke up on the ground and had right elbow pain and right knee pain. This morning she was able to go to class after taking Tylenol and ibuprofen. Since then she has noticed she now also has swelling in her right ankle. She did not lose consciousness nor has she had any headache or neck pain. She denies any vomiting. In regards to her elbow pain it is mostly on the posterior aspect near the olecranon. She notes that it hurts to straighten out her arm. She states that the pain radiates down the back of her forearm and into her wrist. She states that hurts to move her fingers. She denies any change in sensation. In regards to her leg she has pain on her right knee and has noticed this morning swelling of her ankle and feels that her ankle is sore. She has been walking on that leg since the injury yesterday morning. Patient states that she did have elbow fracture or arm fracture when she was in grade school. This healed without any problem. Related Data Home Medications Medication Instructions Recorded Confirmed clindamycin phosphate 1 % topical topical 08/09/22 10/19/22 solution desvenlafaxine succinate 100 mg mg PO 08/09/22 10/19/22 tablet,extended release 24 hr erenumab-aooe 140 mg/mL mg subcut 08/09/22 10/19/22 subcutaneous auto-injector (Aimovig Autoinjector) tacrolimus 0.1 % topical ointment topical 08/09/22 10/19/22 tazarotene 0.1 % topical cream applic topical 08/09/22 10/19/22 azelastine 137 mcg (0.1 %) nasal ml intranasal 10/19/22 10/19/22 spray aerosol buspirone 10 mg tablet 10 mg PO QDAY 10/19/22 10/19/22 clonazepam 0.5 mg tablet 1 mg PO QHS 10/19/22 10/19/22 duloxetine 30 mg capsule,delayed 90 mg PO QDAY 10/19/22 10/19/22 release famotidine 20 mg tablet 20 mg PO BID 10/19/22 10/19/22 gabapentin 600 mg tablet 600 mg PO QDAY 10/19/22 10/19/22 methylphenidate 25.9 mg ER,IR 25.9 mg PO QDAY 10/19/22 10/19/22 disintegrating 24 hr tablet (Cotempla XR-ODT) metoprolol succinate 25 mg 25 mg PO QDAY 10/19/22 10/19/22 tablet,extended release 24 hr naratriptan 1 mg tablet 1 mg PO PRN 10/19/22 10/19/22 olopatadine 0.7 % eye drops ml ophthalmic (eye) 10/19/22 10/19/22 (Pataday Once Daily Relief) prazosin 1 mg capsule 1 - 2 mg PO QPM 10/19/22 10/19/22 quetiapine 25 mg tablet 25 mg PO QDAY 10/19/22 10/19/22 topiramate 50 mg tablet 50 mg PO QDAY 10/19/22 10/19/22 triamcinolone acetonide 0.5 % g topical 10/19/22 10/19/22 topical cream Allergies Allergy/AdvReac Type Severity Reaction Status Date / Time tree nut Allergy Severe Verified 10/19/22 15:59 lamotrigine Allergy Unknown Verified 10/19/22 15:59 Review of Systems Status of ROS: Reports: 6 or more systems reviewed and unremarkable except as noted in History and below Const: Denies: fever or chills Eyes: Denies: change in vision ENMT: Denies: neck pain Cardio: Reports: swelling of feet/ankles; Denies: chest pain or shortness of breath with exertion Resp: Denies: shortness of breath GI: Denies: abdominal pain, nausea or vomiting Musculo: Reports: extremity pain, extremity swelling and limited range of motion (Right elbow); Denies: back pain or neck pain Neuro: Denies: headache or numbness in extremities [facility] Medical History High vitamin D level (2020) Social History Smoking Status: Never smoker Do you use any of these nicotine containing products: None Second hand tobacco smoke exposure: No How often do you have a drink containing alcohol: monthly or less How often do you have six or more drinks on one occasion: Never AUDIT-C Alcohol total score: 1 Non-prescribed substance use: denies use and marijuana (any form) service: No Exam Narrative: Exam Narrative: Patient is alert and oriented. Mentating normally with a GCS of 15 EOM is full. Head is atraumatic normocephalic. Neck is without discomfort with movement. Range of motion is full. No midline cervical tenderness. Heart with regular rate and rhythm and lungs are clear to auscultation. Palpation down thoracic and lumbar spine without discomfort. Patient has point tenderness noted over the right olecranon. No evidence of edema or ecchymosis here. She is able to extend her arm but not into full extension. She is able to move her fingers and sensation is fully intact. She has discomfort with palpation down arm and wrist. Pelvis stable. Slight pain with palpation over right hip. However range of motion is full. Examination of the right knee shows no ecchymosis no obvious deformity. Patient is able to flex and extend. She has tenderness noted over the tibial plateau and the medial joint line however. No pain with palpation down tibia. She has discomfort noted on the medial malleolus. There is mild swelling compared to the left on the right ankle. Sensation is fully intact. Const: Vital Signs, click to edit/add: Vital Signs - 24 hr 01/03/23 10:28 01/03/23 12:39 Temperature 97.1 F L Pulse Rate [Right Pulse Oximeter] 73 68 Respiratory Rate 18 18 Blood Pressure [Ri ght Upper Arm] 122/80 99/71 Pulse Oximetry 98 100 Oxygen Delivery Me thod Room Air Documenting provider has reviewed patient's vital signs: yes Course Course Hospital Course: Patient has agreed to undergo x-rays of the right elbow forearm wrist as well as right knee and right ankle. Patient denies any possibility of Reevaluation(s) Reevaluation #1: Discussed with patient results of x-ray. They do include a small bony fragment distal to the fibula. Patient has some tenderness there but more tenderness on the distal fibula and malleolus body. Patient does have snuffbox tenderness on examination of the right wrist. No pain with palpation over the radial head. Vital Signs Vital signs: Initial Vital Signs Temperature 97.1 F L 01/03/23 10:28 Temperature Source Temporal Artery Scan 01/03/23 10:28 Pulse Rate 73 01/03/23 10:28 Respiratory Rate 18 01/03/23 10:28 Blood Pressure 122/80 01/03/23 10:28 Blood Pressure Mean 94 01/03/23 10:28 Blood Pressure Position Sitting 01/03/23 10:28 Pulse Oximetry 98 01/03/23 10:28 Oxygen Delivery Method 01/03/23 10:28 Vital Signs Temperature 97.1 F L 01/03/23 10:28 Pulse Rate 73 01/03/23 10:28 Respiratory Rate 18 01/03/23 10:28 Blood Pressure 122/80 01/03/23 10:28 Pulse Oximetry 98 01/03/23 10:28 Oxygen Delivery Method 01/03/23 10:28 Temperature 97.1 F L 01/03/23 10:28 Pulse Rate 68 01/03/23 12:39 Respiratory Rate 18 01/03/23 12:39 Blood Pressure 99/71 01/03/23 12:39 Pulse Oximetry 100 01/03/23 12:39 Oxygen Delivery Method 01/03/23 10:28 MDM - Extremity Injury (Upper) MDM Narrative Medical decision making narrative: 1. Right wrist injury- patient has no obvious fractures noted on x-ray but certainly has right snuffbox tenderness. She is placed in a thumb spica and will follow-up with orthopedic clinic for recheck. Sensation motor is distally intact. 2. Right elbow injury-no evidence of fracture. Patient is having difficulty with full extension. Palpation over radial head without discomfort. 3. Right knee injury-no evidence of fracture. Patient has been ambulating for 24 hours after the initial injury. 4. Right ankle chip fracture-appearance of this small bony fragment appears to be somewhat callus. Radiology notes difficult to know if this is acute verses old. Will place patient in cam boot for more support. She would not be able to use crutches given her right arm injury. 5. [id number]-ag with ortho clinic here in town. Phone number given the patient. Patient may use ibuprofen or Tylenol as needed for discomfort. Dictation done with voice recognition, and as a result, wrong word or [id number] substitutions may have occurred.? There may be errors in the script that have gone undetected.? Please consider this when interpreting information found in this chart. Medical Records Attestation: I reviewed the patient's medical records. Imaging Data Right knee x-ray: Attestation: I have reviewed the pertinent imaging results. My impression: No evidence of fracture. Radiologist's impression: No acute fracture or dislocation. Joint spaces are preserved. No knee joint effusion. Soft tissues are unremarkable. IMPRESSION: No acute findings. Right ankle x-ray: Attestation: I have reviewed the pertinent imaging results. My impression: There is a small bony fragment distal to the lateral malleolus. This does not appear to be acute given its appearance. Radiologist's impression: Findings/Impression: Bones: A fracture is present through an os subfibulare bone fragment. This fracture may or may not be acute. No other osseous abnormality. Bony alignment is normal. Joint spaces: Unremarkable. Soft tissues: Unremarkable. Right elbow x-ray: Attestation: I have reviewed the pertinent imaging results. My impression: I do not note any acute fractures. Radiologist's impression: Findings/Impression: Bones: Alignment is normal. No fractures or bone lesions. No sign of acute injury. Joint spaces: Unremarkable. No joint effusion. Soft tissues: Unremarkabl Right wrist x-ray: Attestation: I have reviewed the pertinent imaging results. My impression: I do not note any fractures. Radiologist's impression: Bones: Alignment is normal. No fractures or bone lesions. Joint spaces: Unremarkable. Soft tissues: Mild soft tissue swelling surrounding the wrist.. Impression: No acute fractures or dislocations. Discharge Plan Discharge Clinical Impression: Injury of right ankle, Injury of right wrist Patient Disposition: Home, Self-Care Condition: Improved Additional Instructions: Recommend follow-up with orthopedic clinic for recheck of elbow, right wrist and right ankle. The phone number is [phone] Ibuprofen or Tylenol may be used for pain. Keep splint on right wrist. Please cover when showering. Cam boot for support when walking. You would not be tolerant of crutches at this time. Please be careful on the ice. Contact your [facility] to let them know your situation which could include difficulty getting to class, difficulty completing homework assignments because it inability to E type with right hand. Prescriptions: No Action quetiapine 25 mg tablet 25 mg PO QDAY azelastine 137 mcg (0.1 %) aerosol,spray intranasal prazosin 1 mg capsule 1 - 2 mg PO QPM Label Comments: TAKE 1 TO 2 CAPSULES BY MOUTH AT BEDTIME Pataday Once Daily Relief 0.7 % drops ophthalmic (eye) Label Comments: INSTILL 1 DROP IN BOTH EYES DAILY. triamcinolone acetonide 0.5 % cream topical Label Comments: APPLY AT BEDTIME FOR THUMBS tazarotene 0.1 % cream TOPICAL tacrolimus 0.1 % ointment TOPICAL Label Comments: APPLY TWICE A DAY FOR BREAST RASH clindamycin phosphate 1 % solution TOPICAL Label Comments: APPLY TWICE A DAY FOR ACTIVE ACNE desvenlafaxine succinate 100 mg tablet extended release 24 hr PO Aimovig Autoinjector 140 mg/mL auto-injector SUBCUT metoprolol succinate 25 mg tablet extended release 24 hr 25 mg PO QDAY gabapentin 600 mg tablet 600 mg PO QDAY naratriptan 1 mg tablet 1 mg PO PRN Label Comments: TAKE 1 TABLET BY MOUTH AT ONSET OF MIGRAINEMAY REPEAT AFTER FOUR HOURS topiramate 50 mg tablet 50 mg PO QDAY Cotempla XR-ODT 25.9 mg tablet,disinteg ER biphase 24h 25.9 mg PO QDAY famotidine 20 mg tablet 20 mg PO BID Label Comments: TAKE 1 TABLET BY MOUTH IN THE MORNING AND 1 TABLET IN THE EVENING. duloxetine 30 mg capsule,delayed release(DR/EC) 90 mg PO QDAY Label Comments: TAKE 3 CAPSULES BY MOUTH BY MOUTH EVERY MORNING buspirone 10 mg tablet 10 mg PO QDAY clonazepam 0.5 mg tablet 1 mg PO QHS Label Comments: TAKE TWO TABLETS BY MOUTH EVERY NIGHT AT BEDTIME Follow Up/Referrals: Marissa Wesley MD [Primary Care Provider] - Stand Alone [facility]
--- NOTE | 2023-01-03 11:07 | CRLHL7_ITS ---
For Patients: As a result of the Century Cures Act, medical imaging exams and procedure reports are released immediately into your electronic medical record. You may view this report before your referring provider. If you have questions, please contact your health care provider. Indication: Fall with pain. Technique: Right elbow 2 views. Comparison: None. Findings/Impression: Bones: Alignment is normal. No fractures or bone lesions. No sign of acute injury. Joint spaces: Unremarkable. No joint effusion. Soft tissues: Unremarkable. Dictated by Anton Del Valle MD @ 01/03/2023 12:54:03 PM (Electronically Signed)
--- NOTE | 2023-01-03 11:07 | CRLHL7_ITS ---
For Patients: As a result of the Cures Act, medical imaging exams and procedure reports are released immediately into your electronic medical record. You may view this report before your referring provider. If you have questions, please contact your health care provider. Indication: Fall with pain from elbow to distal wrist.. Technique: Right wrist, 3 views. Comparison: None. Findings: Bones: Alignment is normal. No fractures or bone lesions. Joint spaces: Unremarkable. Soft tissues: Mild soft tissue swelling surrounding the wrist.. Impression: No acute fractures or dislocations. Dictated by Kendall Paz MD @ 01/03/2023 12:49:59 PM (Electronically Signed)
--- NOTE | 2023-01-03 11:17 | CRLHL7_ITS ---
For Patients: As a result of the Cures Act, medical imaging exams and procedure reports are released immediately into your electronic medical record. You may view this report before your referring provider. If you have questions, please contact your health care provider. Indication: Fall with pain. Technique: Right ankle 3 views. Comparison: None. Findings/Impression: Bones: A fracture is present through an os subfibulare bone fragment. This fracture may or may not be acute. No other osseous abnormality. Bony alignment is normal. Joint spaces: Unremarkable. Soft tissues: Unremarkable. Dictated by Anton Del Valle MD @ 01/03/2023 12:53:01 PM (Electronically Signed)
--- NOTE | 2023-01-03 11:17 | CRLHL7_ITS ---
For Patients: As a result of the Century Cures Act, medical imaging exams and procedure reports are released immediately into your electronic medical record. You may view this report before your referring provider. If you have questions, please contact your health care provider. INDICATION: Fall with medial joint pain. TECHNIQUE: Right knee 2 views. COMPARISON: None. FINDINGS: No acute fracture or dislocation. Joint spaces are preserved. No knee joint effusion. Soft tissues are unremarkable. IMPRESSION: No acute findings. Dictated by Coretta Gibson MD @ 01/03/2023 12:44:11 PM (Electronically Signed)
--- OUTSIDE RECORDS SUMMARY | 2023-01-03 11:20 | XMS_ITS ---
:2001 Author Organization [facility]. Address [address] [place] [address] Care Team Providers Name Role Phone MICHELLE HARRELL Unavailable Unavailable PROBLEMS Type Condition ICD9-CM [id number] Onset Condition SNOMED Cod e Code Code Dates Status Problem Chronic pain G89.4 Active 2388766 06 syndrome Problem Intractable G43.719 Active 88394224 7351491 chronic migraine without aura and without status migrainosus ALLERGIES Substance Reaction Event Type Date Status Tree Nuts Unknown Drug Allergy Jun, Active ENCOUNTERS Encounter Location Date Diagnosis [facility] [address] [facility] Jun, Intractable chronic [address] [place], [place] migraine without aura [place] [address] without status migrainosus G43. 719 and Chronic pain syn drome G89.4 IMMUNIZATIONS No Known Immunizations SOCIAL HISTORY Qualifiers Date Never Smoker REASON FOR REFERRAL FUNCTIONAL STATUS PLAN OF CARE Activity Details Follow Up prn Reason:refered out VITAL SIGNS Heart Rate 73 /min 2022-07-05 Respiratory Rate 16 /min 2022-07-05 Height 66 in 2022-07-05 Weight 221 lbs 2022-07-05 BMI 35.67 kg/m2 2022-07-05 Temperature 97.6 degrees Fahrenheit 2022-07-05 Oximetry 98 % 2022-07-05 Blood pressure systolic 140 mm Hg 2022-07-05 Blood pressure diastolic 78 mm Hg 2022-07-05 MEDICATIONS Medication Instructions Dosage Frequency Start End Duration Statu s Date Date Marijuana Active Desvenlafaxine 30 Active Succinate ER 100 MG Pataday 0.7 % Ophthalmic 1 drop into 24h Act matt Once a day affected eye EPINEPHrine 0.3 as directed Acti ve MG/0.3ML Tazarotene 0.1 % Externally 1 application 24h Active Once a day in the evening Topiramate 50 MG TAKE TWO Active TABLETS BY MOUTH AT BEDTIME Prochlorperazine Rectal Twice a 1 suppository 12h Active 25 MG day as needed busPIRone HCl 10 TAKE ONE 30 Active MG TABLET BY MOUTH TWICE A DAY Co Q-10 100 MG as directed Activ e Azelastine HCl 0.1 INSTILL 2 25 Act matt % SPRAYS INTO EACH NOSTRIL TWICE A DAY ZOLMitriptan 5 MG as directed Ac tive Benztropine Orally Once a 1 tablet 24h 30 day(s) Act matt Mesylate 1 MG day Vitamin B12 1000 Orally Once a 1 tablet 24h 30 day(s ) Active MCG day Naratriptan HCl 1 Orally Once a 1 tablet 24h 1 day(s ) Active MG day DULoxetine HCl 30 TAKE THREE Act matt MG CAPSULES BY MOUTH EVERY MORNING Gabapentin 600 MG TAKE 1 TABLET Active BY MOUTH IN THE MORNING AND 1 TABLET AT NOON AND 1 TABLET BEFORE BEDTIME. clonazePAM 0.5 MG 30 Active Cyproheptadine HCl Orally Once a 1 tablet 24h Active 4 MG day Clindamycin Phos & as directed A ctive Cleanser 1 % Aimovig 140 MG/ML Active Metoprolol Orally Once a 1 capsule 24h 30 day(s) Act matt Succinate 25 MG day Famotidine 20 MG Orally Once a 1 tablet at 24h 30 da y(s) Active day bedtime as needed Ondansetron 4 MG Orally Once a 1 tablet on 24h 30 da y(s) Active day the tongue and allow to dissolve PROCEDURES No Known procedures RESULTS No Results REASON FOR VISIT New patient: Migraines Insurance Providers [facility] Health Member Patient Patient Patient Patient Patient Subscriber Subscriber Subscriber Group Insurance Plan Plan Plan Plan ID Relationship Address Phone Name Date of ID Name Date of No Type Insurance Insurance Insurance Coverage to Subscriber Address Phone Name Dates BHARGAVI CROSS [phone] BLUE CROSS self Beryl 2000 107 [id number] BHARGAVI [id number] BHARGAVI Medel [address] [place] [address] [facility]
--- OUTSIDE RECORDS SUMMARY | 2023-01-03 11:20 | XMS_ITS ---
:2001 Author Organization [facility] [place] Address [address] [place], [place] [address] Care Team Providers Name Role Phone Flavia Chris Unavailable Unavailable PROBLEMS Type Condition ICD9-CM Code [id number] Code Onset Condition SNO MED Code Dates Status Problem Bronchitis J40 Active 13544342 Problem Sinusitis J32.9 Active 30858165 Problem Stanford-Danlos Q79.6 Active 636316 001 syndrome ALLERGIES No Known Allergies ENCOUNTERS Encounter Location Date Diagnosis Chris [place] [address] [facility], Oct, Rash R21 [place] [phone] Chris [place] [address] [facility], Jan, Sinusitis J32.9 ; [place] [id number] Bronchitis J40 a nd Stanford-Danlos sy ndrome [...] FOR VISIT Skin reaction, sick Insurance Providers [facility] Health Member Patient Patient Patient Patient Patient Subscriber Subscriber Subscriber Group Insurance Plan Plan Plan Plan ID Relationship Address Phone Name Date of ID Name Date of No Type Insurance Insurance Insurance Coverage to Subscriber Address Phone Name Dates BLUE CROSS [phone] BLUE CROSS [id number] Beryl 2000 [id number] OF [id number] Gianfranco 6 [facility] [id number] BLUE CROSS [address] BLUE CROSS self Beryl 2000 [id number] OF Gian[address]anco 00 [facility] [id number]
[2023-01-03 12:39] VITALS: BP 99/71; PULSE 68; RESP 18; O2SAT 100
== END 2023-01-03 13:18 | disposition home or self-care (01) ==
PROVIDERS: Emergency Provider Family Medicine; PCP Internal Medicine
DX: S59.901A Unspecified injury of right elbow, initial encounter (principal); S69.91XA Unspecified injury of right wrist, hand and finger(s), initial encounter; S89.91XA Unspecified injury of right lower leg, initial encounter; S99.911A Unspecified injury of right ankle, initial encounter; W17.89XA Other fall from one level to another, initial encounter
CPT/HCPCS: 29125; 73070; 73110; 73560; 73610; 99283

== ENCOUNTER 2023-01-25 09:12 | Emergency (ER) | payer BC, SELFPAY ==
[2023-01-25 09:18] VITALS: BP 103/67; PULSE 66; RESP 18; TEMP 36.3; BMI 36.3
--- NOTE | 2023-01-25 09:33 | ED_ITS ---
HPI - Headache General Chief Complaint: Headache/Migraine Stated Complaint: Migraine Time Seen by Provider: 01/25/23 09:16 History of Present Illness HPI Narrative: Pt is a 22 year old woman with a long history of migraine headaches who presents with right sided headache involving the posterior, top and front portion of her head. This is a typical migraine for her with the exception that her usual triptan did not help with the pain. Pain is moderate and dull. No radiation. Pt has mild nausea but no vomiting. She has photophobia. Pt has been seen in the ED with previous headaches and has done well with typical treatment. Pt has no concerning change in the quality or character of today's headache. Related Data Home Medications Medication Instructions Recorded Confirmed clindamycin phosphate 1 % topical topical 08/09/22 01/09/23 solution desvenlafaxine succinate 100 mg mg PO 08/09/22 01/09/23 tablet,extended release 24 hr erenumab-aooe 140 mg/mL mg subcut 08/09/22 01/09/23 subcutaneous auto-injector ([employer] Autoinjector) tacrolimus 0.1 % topical ointment topical 08/09/22 01/09/23 tazarotene 0.1 % topical cream applic topical 08/09/22 01/09/23 azelastine 137 mcg (0.1 %) nasal ml intranasal 10/19/22 01/09/23 spray aerosol buspirone 10 mg tablet 10 mg PO QDAY 10/19/22 01/09/23 clonazepam 0.5 mg tablet 1 mg PO QHS 10/19/22 01/09/23 duloxetine 30 mg capsule,delayed 90 mg PO QDAY 10/19/22 01/09/23 release famotidine 20 mg tablet 20 mg PO BID 10/19/22 01/09/23 gabapentin 600 mg tablet 600 mg PO QDAY 10/19/22 01/09/23 methylphenidate 25.9 mg ER,IR 25.9 mg PO QDAY 10/19/22 01/09/23 disintegrating 24 hr tablet (Cotempla XR-ODT) metoprolol succinate 25 mg 25 mg PO QDAY 10/19/22 01/09/23 tablet,extended release 24 hr naratriptan 1 mg tablet 1 mg PO PRN 10/19/22 01/09/23 olopatadine 0.7 % eye drops ml ophthalmic (eye) 10/19/22 01/09/23 (Pataday Once Daily Relief) prazosin 1 mg capsule 1 - 2 mg PO QPM 10/19/22 01/09/23 quetiapine 25 mg tablet 25 mg PO QDAY 10/19/22 01/09/23 topiramate 50 mg tablet 50 mg PO QDAY 10/19/22 01/09/23 triamcinolone acetonide 0.5 % g topical 10/19/22 01/09/23 topical cream Allergies Allergy/AdvReac Type Severity Reaction Status Date / Time tree nut Allergy Severe Verified 01/25/23 09:18 lamotrigine Allergy Unknown Verified 01/25/23 09:18 Review of Systems Status of ROS: Reports: 10 or more systems reviewed and unremarkable except as noted in History and below [facility] Medical History (Updated 01/25/23 @ 10:40 by Solis Adams MD) Stanford-Danlos syndrome, type 3 Generalized anxiety disorder with panic attacks High vitamin D level (2020) Migraine without aura Obesity with body mass index 30 or greater Postural orthostatic tachycardia syndrome Social History Smoking Status: Never smoker Do you use any of these nicotine containing products: None Second hand tobacco smoke exposure: No How often do you have a drink containing alcohol: monthly or less How often do you have six or more drinks on one occasion: Never AUDIT-C Alcohol total score: 1 Non-prescribed substance use: marijuana (any form) Non-prescribed substance use details: medical use service: No Exam Narrative: Exam Narrative: EXAM GENERAL: Patient appears comfortable and well. EYES: No scleral icterus. ENT: Tympanic membranes and oropharynx normal. THYROID: no thyroid nodules or thyromegaly. LYMPH: No supraclavicular or cervical lymphadenopathy. SKIN: Visible skin seen during exam normal or with benign process only. EXT: No dependent lower extremity pedal edema. HEART: Regular rate and rhythm with no murmurs, rubs, or gallops. LUNGS: Clear to auscultation bilaterally with no crackles or wheezes. ABD: Soft, non tender, non distended. PSYCH: Good eye contact, speech is not pressured. Neurologic cranial nerves 2-12 grossly intact no focal neurologic defects. Const: Vital Signs, click to edit/add: Vital Signs - 24 hr 01/25/23 09:18 Temperature 97.4 F L Pulse Rate [Pulse Oximeter] 66 Respiratory Rate 18 Blood Pressure [Ri ght Upper Arm] 103/67 Oxygen Delivery Me thod Room Air Course Course Hospital Course: Pt seen and examined. No focal neurological defects. Pt given Zofran 4 mg, NS 1L, Benadry 25 and Toradol 30 mg IV. Reevaluation(s) Reevaluation #1: Pt feeling much better and would like to go home. Time: 10:37 Vital Signs Vital signs: Initial Vital Signs Temperature 97.4 F L 01/25/23 09:18 Temperature Source Temporal Artery Scan 01/25/23 09:18 Pulse Rate 66 01/25/23 09:18 Pulse Rhythm 01/25/23 09:18 Respiratory Rate 18 01/25/23 09:18 Blood Pressure 103/67 01/25/23 09:18 Blood Pressure Mean 79 01/25/23 09:18 Blood Pressure Position Supine 01/25/23 09:18 Oxygen Delivery Method 01/25/23 09:18 Vital Signs Temperature 97.4 F L 01/25/23 09:18 Pulse Rate 66 01/25/23 09:18 Respiratory Rate 18 01/25/23 09:18 Blood Pressure 103/67 01/25/23 09:18 Oxygen Delivery Method 01/25/23 09:18 Temperature 97.4 F L 01/25/23 09:18 Pulse Rate 66 01/25/23 09:18 Respiratory Rate 18 01/25/23 09:18 Blood Pressure 103/67 01/25/23 09:18 Oxygen Delivery Method 01/25/23 09:18 MDM - Headache MDM Narrative Medical decision making narrative: Pt is a 22 year old woman who presents with a typical headache for her with the exception that her tryptan did not help with the symptoms today. Pt has no concerning neurological findings. Pt feels much better after Toradol, Zofran, Benadryl and Saline. Ready for discharge. Differential Diagnosis Differential diagnosis: Likely migraine, tension headache, subarachnoid hemorrhage, headache, meningitis and sinusitis Medical Records Attestation: I reviewed the patient's medical records. Discharge Plan Discharge Clinical Impression: Migraine without aura Condition: Stable Instructions: Migraine Headache (ED) Additional Instructions: Continue current medications Rest Follow up with your neurologist if symtoms persist. Activity Level: No Restrictions Discharge Diet: Regular Prescriptions: No Action quetiapine 25 mg tablet 25 mg PO QDAY azelastine 137 mcg (0.1 %) aerosol,spray intranasal prazosin 1 mg capsule 1 - 2 mg PO QPM Label Comments: TAKE 1 TO 2 CAPSULES BY MOUTH AT BEDTIME Pataday Once Daily Relief 0.7 % drops ophthalmic (eye) Label Comments: INSTILL 1 DROP IN BOTH EYES DAILY. triamcinolone acetonide 0.5 % cream topical Label Comments: APPLY AT BEDTIME FOR THUMBS tazarotene 0.1 % cream TOPICAL tacrolimus 0.1 % ointment TOPICAL Label Comments: APPLY TWICE A DAY FOR BREAST RASH clindamycin phosphate 1 % solution TOPICAL Label Comments: APPLY TWICE A DAY FOR ACTIVE ACNE desvenlafaxine succinate 100 mg tablet extended release 24 hr PO Aimovig Autoinjector 140 mg/mL auto-injector SUBCUT metoprolol succinate 25 mg tablet extended release 24 hr 25 mg PO QDAY gabapentin 600 mg tablet 600 mg PO QDAY naratriptan 1 mg tablet 1 mg PO PRN Label Comments: TAKE 1 TABLET BY MOUTH AT ONSET OF MIGRAINEMAY REPEAT AFTER FOUR HOURS topiramate 50 mg tablet 50 mg PO QDAY Cotempla XR-ODT 25.9 mg tablet,disinteg ER biphase 24h 25.9 mg PO QDAY famotidine 20 mg tablet 20 mg PO BID Label Comments: TAKE 1 TABLET BY MOUTH IN THE MORNING AND 1 TABLET IN THE EVENING. duloxetine 30 mg capsule,delayed release(DR/EC) 90 mg PO QDAY Label Comments: TAKE 3 CAPSULES BY MOUTH BY MOUTH EVERY MORNING buspirone 10 mg tablet 10 mg PO QDAY clonazepam 0.5 mg tablet 1 mg PO QHS Label Comments: TAKE TWO TABLETS BY MOUTH EVERY NIGHT AT BEDTIME Follow Up/Referrals: Marissa Wesley MD [Primary Care Provider] - Stand Alone Forms: [facility] Info Instructions
--- OUTSIDE RECORDS SUMMARY | 2023-01-25 09:46 | XMS_ITS ---
:2001 Author Organization [facility]. Address [address] [place] [address] Care Team Providers Name Role Phone MICHELLE HARRELL Unavailable Unavailable PROBLEMS Type Condition ICD9-CM [id number] Onset Condition SNOMED Cod e Code Code Dates Status Problem Chronic pain G89.4 Active 4729841 06 syndrome Problem Intractable G43.719 Active 98945518 7145363 chronic migraine without aura and without status migrainosus ALLERGIES Substance Reaction Event Type Date Status Tree Nuts Unknown Drug Allergy Jun, Active ENCOUNTERS Encounter Location Date Diagnosis [facility] [address] [facility] Jun, Intractable chronic [address] [place], [place] migraine without aura and [address] without status migrainosus G43. 719 and Chronic [...] FOR VISIT New patient: Migraines Insurance Providers [facility] Health Member Patient Patient Patient Patient Patient Subscriber Subscriber Subscriber Group Insurance Plan Plan Plan Plan ID Relationship Address Phone Name Date of ID Name Date of No Type Insurance Insurance Insurance Coverage to Subscriber Address Phone Name Dates BHARGAVI CROSS [phone] BLUE CROSS self Beryl 2000 107 [id number] BHARGAVI [id number] BHARGAVI Medel [address] [place] [address] [facility]
--- OUTSIDE RECORDS SUMMARY | 2023-01-25 09:46 | XMS_ITS ---
:2001 Author Organization Chris Alejandro [facility] [place] Address [address] [place], [place] [phone] Care Team Providers Name Role Phone Flavia Chris Unavailable Unavailable PROBLEMS Type Condition ICD9-CM Code [id number] Code Onset Condition SNO MED Code Dates Status Problem Bronchitis J40 Active 16401998 Problem Sinusitis J32.9 Active 38951589 Problem Stanford-Danlos Q79.6 Active 675547 001 syndrome ALLERGIES No Known Allergies ENCOUNTERS Encounter Location Date Diagnosis Chris Alejandro MD [place] [address] [facility], Oct, Rash R21 [place] [phone] Chris Alejandro MD [place] [address] [facility], Jan, Sinusitis J32.9 ; [place] [phone] Bronchitis J40 a nd Stanford-Danlos sy ndrome [...] FOR VISIT Skin reaction, sick Insurance Providers [facility] Health Member Patient Patient Patient Patient Patient Subscriber Subscriber Subscriber Group Insurance Plan Plan Plan Plan ID Relationship Address Phone Name Date of ID Name Date of No Type Insurance Insurance Insurance Coverage to Subscriber Address Phone Name Dates BLUE CROSS [phone] BLUE CROSS self Beryl 2000 [address] [id number] 88 OF Gianfranco 00 [facility] [id number] BLUE CROSS [phone] BLUE CROSS [id number] Beryl [id number] OF [id number] Gianfranco 6 [facility] [id number]
[2023-01-25] MEDS: ONDANSETRON 2 MG/ML inj 4 MG IVP (09:57)
[2023-01-25] MEDS: KETOROLAC 30 MG/ML inj IVP (09:57)
[2023-01-25] MEDS: diphenhydrAMINE 50 MG/ML inj 25 MG IVP (09:57)
[2023-01-25] MEDS: 0.9 % SODIUM CHLORIDE 1000 ml 1,000 ML IV (09:57)
[2023-01-25 10:02] VITALS: PULSE 61; O2SAT 100
[2023-01-25 10:03] VITALS: BP 109/75; PULSE 78; O2SAT 97
[2023-01-25 10:15] VITALS: PULSE 60; O2SAT 100
[2023-01-25 10:30] VITALS: PULSE 71; O2SAT 100
[2023-01-25 10:31] VITALS: BP 116/75; PULSE 71; O2SAT 100
== END 2023-01-25 10:45 | disposition home or self-care (01) ==
PROVIDERS: Emergency Provider Internal Medicine; PCP Internal Medicine
DX: G43.009 Migraine without aura, not intractable, without status migrainosus (principal)
CPT/HCPCS: 96374; 96375; 99283; 99284; J1200; J1885; J2405; J7030

== ENCOUNTER 2023-02-04 17:54 | Emergency (ER) | payer BC, SELFPAY ==
[2023-02-04 17:56] VITALS: BP 121/79; RESP 18; TEMP 36.3; O2SAT 100; BMI 36.0
--- NOTE | 2023-02-04 18:10 | ED.GENADULT ---
HPI - General Adult General Chief complaint: Headache/Migraine Stated complaint: Migraine Time Seen by Provider: 02/04/23 17:58 Source: patient Mode of arrival: ambulatory Limitations: no limitations History of Present Illness HPI narrative: 22-year-old female coming in today complaining of a migraine headache. Describes it as her typical migraines. Patient ran out of her triptans and has been having a 5 day long headache. States that she has not yet called her doctor for a refill. Denies any neurologic deficits. No fevers or chills. Related Data Home Medications Medication Instructions Recorded Confirmed clindamycin phosphate 1 % topical topical 08/09/22 01/30/23 solution desvenlafaxine succinate 100 mg mg PO 08/09/22 01/30/23 tablet,extended release 24 hr erenumab-aooe 140 mg/mL mg subcut 08/09/22 01/30/23 subcutaneous auto-injector ([employer] Autoinjector) tacrolimus 0.1 % topical ointment topical 08/09/22 01/30/23 tazarotene 0.1 % topical cream applic topical 08/09/22 01/30/23 azelastine 137 mcg (0.1 %) nasal ml intranasal 10/19/22 01/30/23 spray aerosol buspirone 10 mg tablet 10 mg PO QDAY 10/19/22 01/30/23 clonazepam 0.5 mg tablet 1 mg PO QHS 10/19/22 01/30/23 duloxetine 30 mg capsule,delayed 90 mg PO QDAY 10/19/22 01/30/23 release famotidine 20 mg tablet 20 mg PO BID 10/19/22 01/30/23 gabapentin 600 mg tablet 600 mg PO QDAY 10/19/22 01/30/23 methylphenidate 25.9 mg ER,IR 25.9 mg PO QDAY 10/19/22 01/30/23 disintegrating 24 hr tablet (Cotempla XR-ODT) metoprolol succinate 25 mg 25 mg PO QDAY 10/19/22 01/30/23 tablet,extended release 24 hr naratriptan 1 mg tablet 1 mg PO PRN 10/19/22 01/30/23 olopatadine 0.7 % eye drops ml ophthalmic (eye) 10/19/22 01/30/23 (Pataday Once Daily Relief) prazosin 1 mg capsule 1 - 2 mg PO QPM 10/19/22 01/30/23 quetiapine 25 mg tablet 25 mg PO QDAY 10/19/22 01/30/23 topiramate 50 mg tablet 50 mg PO QDAY 10/19/22 01/30/23 triamcinolone acetonide 0.5 % g topical 10/19/22 01/30/23 topical cream Allergies Allergy/AdvReac Type Severity Reaction Status Date / Time tree nut Allergy Severe Verified 02/04/23 17:59 lamotrigine Allergy Unknown Verified 02/04/23 17:59 Review of Systems Status of ROS: Reports: 10 or more systems reviewed and unremarkable except as noted in History and below [facility] Medical History Stanford-Danlos syndrome, type 3 Generalized anxiety disorder with panic attacks High vitamin D level (2020) Migraine without aura Obesity with body mass index 30 or greater Postural orthostatic tachycardia syndrome Social History Smoking Status: Never smoker Do you use any of these nicotine containing products: None Second hand tobacco smoke exposure: No How often do you have a drink containing alcohol: monthly or less How often do you have six or more drinks on one occasion: Never AUDIT-C Alcohol total score: 1 Non-prescribed substance use: marijuana (any form) Non-prescribed substance use details: medical use service: No Exam Narrative: Exam Narrative: Overweight, well-developed patient in no acute distress. Alert and oriented. Answers questions appropriately. Mood and affect are appropriate. Thoughts are goal oriented and rational. No tangential or magical thinking noted. Patient speaks in full sentences without needing to catch her breath. Speech is not slurred or pressured. HEENT: Normocephalic atraumatic. Pupils are equally round reactive to light. Extraocular muscles are intact. Conjunctivae are moist without any icterus noted. Moist mucous membranes. Cardiovascular: Heart is regular rate and rhythm S1 and S2 are present without any murmurs. Lungs: Clear to auscultation bilaterally no wheezes rhonchi or rales are appreciated. Patient takes deep breaths without any discomfort. Skin: Well perfused without any obvious rashes. Const: Vital Signs, click to edit/add: Vital Signs - 24 hr 02/04/23 17:56 Temperature 97.4 F L Respiratory Rate 18 Blood Pressure [Ri ght Upper Arm] 121/79 Pulse Oximetry 100 Oxygen Delivery Me thod Room Air Course Course Hospital Course: IV was established. Patient received 500 mL of normal saline, Zofran, Toradol and Benadryl. Vital Signs Vital signs: Initial Vital Signs Temperature 97.4 F L 02/04/23 17:56 Temperature Source Temporal Artery Scan 02/04/23 17:56 Respiratory Rate 18 02/04/23 17:56 Blood Pressure 121/79 02/04/23 17:56 Blood Pressure Mean 93 02/04/23 17:56 Blood Pressure Position Sitting 02/04/23 17:56 Pulse Oximetry 100 02/04/23 17:56 Oxygen Delivery Method 02/04/23 17:56 Vital Signs Temperature 97.4 F L 02/04/23 17:56 Respiratory Rate 18 02/04/23 17:56 Blood Pressure 121/79 02/04/23 17:56 Pulse Oximetry 100 02/04/23 17:56 Oxygen Delivery Method 02/04/23 17:56 Temperature 97.4 F L 02/04/23 17:56 Respiratory Rate 18 02/04/23 17:56 Blood Pressure 121/79 02/04/23 17:56 Pulse Oximetry 100 02/04/23 17:56 Oxygen Delivery Method 02/04/23 17:56 Medical Decision Making MDM Narrative Medical decision making narrative: 22-year-old female for current migraine headaches. Relieved with treatment above. Patient instructed to call her physician for medication refill. Discharge Plan Discharge Clinical Impression: Migraine Patient Disposition: Home, Self-Care Condition: Improved Additional Instructions: Follow-up with your provider for medication refill. Prescriptions: No Action quetiapine 25 mg tablet 25 mg PO QDAY azelastine 137 mcg (0.1 %) aerosol,spray intranasal prazosin 1 mg capsule 1 - 2 mg PO QPM Label Comments: TAKE 1 TO 2 CAPSULES BY MOUTH AT BEDTIME Pataday Once Daily Relief 0.7 % drops ophthalmic (eye) Label Comments: INSTILL 1 DROP IN BOTH EYES DAILY. triamcinolone acetonide 0.5 % cream topical Label Comments: APPLY AT BEDTIME FOR THUMBS tazarotene 0.1 % cream TOPICAL tacrolimus 0.1 % ointment TOPICAL Label Comments: APPLY TWICE A DAY FOR BREAST RASH clindamycin phosphate 1 % solution TOPICAL Label Comments: APPLY TWICE A DAY FOR ACTIVE ACNE desvenlafaxine succinate 100 mg tablet extended release 24 hr PO Aimovig Autoinjector 140 mg/mL auto-injector SUBCUT metoprolol succinate 25 mg tablet extended release 24 hr 25 mg PO QDAY gabapentin 600 mg tablet 600 mg PO QDAY naratriptan 1 mg tablet 1 mg PO PRN Label Comments: TAKE 1 TABLET BY MOUTH AT ONSET OF MIGRAINEMAY REPEAT AFTER FOUR HOURS topiramate 50 mg tablet 50 mg PO QDAY Cotempla XR-ODT 25.9 mg tablet,disinteg ER biphase 24h 25.9 mg PO QDAY famotidine 20 mg tablet 20 mg PO BID Label Comments: TAKE 1 TABLET BY MOUTH IN THE MORNING AND 1 TABLET IN THE EVENING. duloxetine 30 mg capsule,delayed release(DR/EC) 90 mg PO QDAY Label Comments: TAKE 3 CAPSULES BY MOUTH BY MOUTH EVERY MORNING buspirone 10 mg tablet 10 mg PO QDAY clonazepam 0.5 mg tablet 1 mg PO QHS Label Comments: TAKE TWO TABLETS BY MOUTH EVERY NIGHT AT BEDTIME Follow Up/Referrals: Marissa Wesley MD [Primary Care Provider] - Stand Alone Forms: [facility] Info Instructions
[2023-02-04] MEDS: diphenhydrAMINE 50 MG/ML inj 25 MG IVP (18:22)
[2023-02-04] MEDS: 0.9 % SODIUM CHLORIDE 500 ML 500 ML IV (18:22)
[2023-02-04] MEDS: ONDANSETRON 2 MG/ML inj 4 MG IVP (18:22)
[2023-02-04] MEDS: KETOROLAC 30 MG/ML inj IVP (18:22)
[2023-02-04 18:36] VITALS: PULSE 78; O2SAT 100
--- OUTSIDE RECORDS SUMMARY | 2023-02-04 18:38 | XMS_ITS ---
:2000 Author Organization Chris Alejandro MD [place] Address [address] [place], [place] [id number] Care Team Providers Name Role Phone Flavia Chris Unavailable Unavailable PROBLEMS Type Condition ICD9-CM Code EQZ72-GD Code Onset Condition SNO MED Code Dates Status Problem Bronchitis J40 Active 21812797 Problem Sinusitis J32.9 Active 95964236 Problem Stanford-Danlos Q79.6 Active 304364 001 syndrome ALLERGIES No Known Allergies ENCOUNTERS Encounter Location Date Diagnosis Chris Alejandro [place] [address] [facility], Oct, Rash R[address] [place] [phone] Chris Alejandro [place] [address] [facility], Jan, Sinusitis J32.9 ; [place] [id number] Bronchitis J40 a nd Stanford-Danlos sy ndrome [...] FOR VISIT Skin reaction, sick Insurance Providers [facility] Health Member Patient Patient Patient Patient Patient Subscriber Subscriber Subscriber Group Insurance Plan Plan Plan Plan ID Relationship Address Phone Name Date of ID Name Date of No Type Insurance Insurance Insurance Coverage to Subscriber Address Phone Name Dates BLUE CROSS [phone] BLUE CROSS self Beryl 2000 [id number] [address] OF [address] [facility] [id number] BLUE CROSS [phone] BLUE CROSS [id number] Beryl [id number] OF [id number] [facility] [id number]
--- OUTSIDE RECORDS SUMMARY | 2023-02-04 18:38 | XMS_ITS ---
:2000 Author Organization [facility]. Address [address] [place] [address] Care Team Providers Name Role Phone MICHELLE HARRELL Unavailable Unavailable PROBLEMS Type Condition ICD9-CM FRX66-KB Onset Condition SNOMED Cod e Code Code Dates Status Problem Chronic pain G89.4 Active 1016437 06 syndrome Problem Intractable G43.719 Active 77553506 [id number] chronic migraine without aura and without status migrainosus ALLERGIES Substance Reaction Event Type Date Status Tree Nuts Unknown Drug Allergy Jun, Active ENCOUNTERS Encounter Location Date Diagnosis [facility] [address] [facility] Jun, Intractable chronic [address] [place], [place] migraine without aura and [id number] without status migrainosus G43. 719 and Chronic [...] [phone] BLUE CROSS self Beryl 2001 107 [id number] BHARGAVI [id number] BHARGAVI Medel [address] [place] [id number] [facility]
[2023-02-04 18:45] VITALS: PULSE 75; O2SAT 100
== END 2023-02-04 19:00 | disposition home or self-care (01) ==
LOC: ED 18:36
PROVIDERS: Emergency Provider Family Medicine; PCP Internal Medicine
DX: G43.909 Migraine, unspecified, not intractable, without status migrainosus (principal)
CPT/HCPCS: 96374; 96375; 99283; 99284; J1200; J1885; J2405; J7120

== ENCOUNTER 2023-03-01 09:34 | Emergency (ER) | payer BC, SELFPAY ==
[2023-03-01 09:43] VITALS: BP 116/75; PULSE 96; RESP 18; TEMP 36.6; O2SAT 78; BMI 36.0
--- NOTE | 2023-03-01 09:59 | ED.HA ---
HPI - Headache General Chief Complaint: Headache/Migraine Stated Complaint: migraine Time Seen by Provider: 03/01/23 09:49 History of Present Illness HPI Narrative: Patient is a 22-year-old woman with chronic migraine headaches who unfortunately has refractory headache. She has been on triptan ends at home with no improvement. She has no focal neurologic symptoms or headaches are bitemporal and similar to previous headaches. She has no other focal neurologic complaints or concerns. Patient has had no nausea no vomiting or photophobia. Is a good outcomes with normal saline Zofran Toradol and Benadryl in the emergency room in the past. She is otherwise in her usual state of health with no other concerns. She states the pain is severe. Related Data Home Medications Medication Instructions Recorded Confirmed clindamycin phosphate 1 % topical topical 08/09/22 01/30/23 solution desvenlafaxine succinate 100 mg mg PO 08/09/22 01/30/23 tablet,extended release 24 hr erenumab-aooe 140 mg/mL mg subcut 08/09/22 01/30/23 subcutaneous auto-injector (Gooddlerovig Autoinjector) tacrolimus 0.1 % topical ointment topical 08/09/22 01/30/23 tazarotene 0.1 % topical cream applic topical 08/09/22 01/30/23 azelastine 137 mcg (0.1 %) nasal ml intranasal 10/19/22 01/30/23 spray aerosol buspirone 10 mg tablet 10 mg PO QDAY 10/19/22 01/30/23 clonazepam 0.5 mg tablet 1 mg PO QHS 10/19/22 01/30/23 duloxetine 30 mg capsule,delayed 90 mg PO QDAY 10/19/22 01/30/23 release famotidine 20 mg tablet 20 mg PO BID 10/19/22 01/30/23 gabapentin 600 mg tablet 600 mg PO QDAY 10/19/22 01/30/23 methylphenidate 25.9 mg ER,IR 25.9 mg PO QDAY 10/19/22 01/30/23 disintegrating 24 hr tablet (Cotempla XR-ODT) metoprolol succinate 25 mg 25 mg PO QDAY 10/19/22 01/30/23 tablet,extended release 24 hr naratriptan 1 mg tablet 1 mg PO PRN 10/19/22 01/30/23 olopatadine 0.7 % eye drops ml ophthalmic (eye) 10/19/22 01/30/23 (Pataday Once Daily Relief) prazosin 1 mg capsule 1 - 2 mg PO QPM 10/19/22 01/30/23 quetiapine 25 mg tablet 25 mg PO QDAY 10/19/22 01/30/23 topiramate 50 mg tablet 50 mg PO QDAY 10/19/22 01/30/23 triamcinolone acetonide 0.5 % g topical 10/19/22 01/30/23 topical cream Allergies Allergy/AdvReac Type Severity Reaction Status Date / Time tree nut Allergy Severe Verified 02/04/23 17:59 lamotrigine Allergy Unknown Verified 02/04/23 17:59 Review of Systems Status of ROS: Reports: 6 or more systems reviewed and unremarkable except as noted in History and below [facility] Medical History Stanford-Danlos syndrome, 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.62 - Hypermobile Stanford-Danlos syndrome (ICD-10) Generalized anxiety disorder with panic attacks ?F41.1 - Generalized anxiety disorder (ICD-10) ?F41.0 - Panic disorder [episodic paroxysmal anxiety] (ICD-10) High vitamin D level (2020) ?E67.3 - Hypervitaminosis D (ICD-10) Migraine without aura ?G43.009 - Migraine without aura, not intractable, without status migrainosus (ICD-10) Obesity with body mass index 30 or greater ?E66.9 - Obesity, unspecified (ICD-10) Postural orthostatic tachycardia syndrome ?G90.A - Postural orthostatic tachycardia syndrome [POTS] (ICD-10) Social History Smoking Status: Never smoker Do you use any of these nicotine containing products: None Second hand tobacco smoke exposure: No How often do you have a drink containing alcohol: monthly or less How often do you have six or more drinks on one occasion: Never AUDIT-C Alcohol total score: 1 Non-prescribed substance use: marijuana (any form) Non-prescribed substance use details: medical use edibles service: No Exam Narrative: Exam Narrative: EXAM GENERAL: Patient appears comfortable and well. EYES: No scleral icterus. LYMPH: No supraclavicular or cervical lymphadenopathy. SKIN: Visible skin seen during exam normal or with benign process only. EXT: No dependent lower extremity pedal edema. HEART: Regular rate and rhythm with no murmurs, rubs, or gallops. LUNGS: Clear to auscultation bilaterally with no crackles or wheezes. ABD: Soft, non tender, non distended. PSYCH: Good eye contact, speech is not pressured. Const: Vital Signs, click to edit/add: Vital Signs - 24 hr 03/01/23 09:43 Temperature 97.8 F Pulse Rate [Pulse Oximeter] 96 Respiratory Rate 18 [facility]] 116/75 Pulse Oximetry 78 L Oxygen Delivery Me thod Room Air Course Vital Signs Vital signs: Initial Vital Signs Temperature 97.8 F 03/01/23 09:43 Temperature Source Temporal Artery Scan 03/01/23 09:43 Pulse Rate 96 03/01/23 09:43 Respiratory Rate 18 03/01/23 09:43 Blood Pressure 116/75 03/01/23 09:43 Blood Pressure Mean 88 03/01/23 09:43 Blood Pressure Position Supine 03/01/23 09:43 Pulse Oximetry 78 L 03/01/23 09:43 Oxygen Delivery Method Room Air 03/01/23 09:43 Vital Signs Temperature 97.8 F 03/01/23 09:43 Pulse Rate 96 03/01/23 09:43 Respiratory Rate 18 03/01/23 09:43 Blood Pressure 116/75 03/01/23 09:43 Pulse Oximetry 78 L 03/01/23 09:43 Oxygen Delivery Method Room Air 03/01/23 09:43 Temperature 97.8 F 03/01/23 09:43 Pulse Rate 96 03/01/23 09:43 Respiratory Rate 18 03/01/23 09:43 Blood Pressure 116/75 03/01/23 09:43 Pulse Oximetry 78 L 03/01/23 09:43 Oxygen Delivery Method Room Air 03/01/23 09:43 MDM - Headache MDM Narrative Medical decision making narrative: Patient is a 22-year-old woman who comes in with a very typical migraine headache. She has failed tripped hands and in the past has done well with intravenous medications as above. We did provide her with Toradol 30 mg Zofran 4 mg Benadryl 25 mg and 1 L of normal saline IV. She will be discharged home to follow-up with primary physician continue her outpatient care. No there are no unusual or concerning findings on today's presentation. Differential Diagnosis Differential diagnosis: Likely migraine, tension headache, subarachnoid hemorrhage, headache, meningitis and sinusitis Discharge Plan Discharge Clinical Impression: Migraine without aura Patient Disposition: Home, Self-Care Condition: Stable Instructions: Migraine Headache (ED) Additional Instructions: Continue current cares Follow-up with your doctor Activity Level: No Restrictions Discharge Diet: Regular Prescriptions: No Action quetiapine 25 mg tablet 25 mg PO QDAY azelastine 137 mcg (0.1 %) aerosol,spray intranasal prazosin 1 mg capsule 1 - 2 mg PO QPM Patient Comments: TAKE 1 TO 2 CAPSULES BY MOUTH AT BEDTIME Pataday Once Daily Relief 0.7 % drops ophthalmic (eye) Patient Comments: INSTILL 1 DROP IN BOTH EYES DAILY. triamcinolone acetonide 0.5 % cream topical Patient Comments: APPLY AT BEDTIME FOR THUMBS tazarotene 0.1 % cream TOPICAL tacrolimus 0.1 % ointment TOPICAL Patient Comments: APPLY TWICE A DAY FOR BREAST RASH clindamycin phosphate 1 % solution TOPICAL Patient Comments: APPLY TWICE A DAY FOR ACTIVE ACNE desvenlafaxine succinate 100 mg tablet extended release 24 hr PO Aimovig Autoinjector 140 mg/mL auto-injector SUBCUT metoprolol succinate 25 mg tablet extended release 24 hr 25 mg PO QDAY gabapentin 600 mg tablet 600 mg PO QDAY naratriptan 1 mg tablet 1 mg PO PRN Patient Comments: TAKE 1 TABLET BY MOUTH AT ONSET OF MIGRAINEMAY REPEAT AFTER FOUR HOURS topiramate 50 mg tablet 50 mg PO QDAY Cotempla XR-ODT 25.9 mg tablet,disinteg ER biphase 24h 25.9 mg PO QDAY famotidine 20 mg tablet 20 mg PO BID Patient Comments: TAKE 1 TABLET BY MOUTH IN THE MORNING AND 1 TABLET IN THE EVENING. duloxetine 30 mg capsule,delayed release(DR/EC) 90 mg PO QDAY Patient Comments: TAKE 3 CAPSULES BY MOUTH BY MOUTH EVERY MORNING buspirone 10 mg tablet 10 mg PO QDAY clonazepam 0.5 mg tablet 1 mg PO QHS Patient Comments: TAKE TWO TABLETS BY MOUTH EVERY NIGHT AT BEDTIME Follow Up/Referrals: Marissa Wesley MD [Primary Care Provider] - Stand Alone Forms: [employer] Info Instructions
--- OUTSIDE RECORDS SUMMARY | 2023-03-01 10:12 | XMS_ITS ---
Author Name Chris Alejandro Address [address] [place], [place] [id number] Organization [facility] [place] Address [address] [place], [place] [id number] Care Team Providers Care Drill Rig Operator Name Role Phone Chris Alejandro Unavailable [phone] PROBLEMS Type Condition ICD9-CM Code [id number] Code Onset Dates Condition Status SNOMED Code Problem Bronchitis J40 Active 81417746 Problem Sinusitis J32.9 Active 41424913 Problem Stanford-Danlos syndrome Q79.6 Active 790701798 ALLERGIES No Known Allergies ENCOUNTERS Encounter Location Date Diagnosis [facility] [address] [place], [place] [id number] Oct, Rash R21 [facility] [place] [address] [place], [place] [id number] Jan, Sinusitis J32.9 ; Bronchitis J40 and Stanford-Danlos syndrome Q79.6 IMMUNIZATIONS No Known Immunizations SOCIAL HISTORY Qualifiers Date Never Smoker REASON FOR REFERRAL FUNCTIONAL STATUS PLAN OF CARE Activity Details VITAL SIGNS Height 64.5 in 2018-10-25 Height 64.5 in 2016-01-20 Weight 224 lbs 2018-10-25 Weight 187 lbs 2016-01-20 BMI 37.85 kg/m2 2018-10-25 BMI 31.60 kg/m2 2016-01-20 Temperature 98.7 degrees Fahrenheit Heart Rate 72 /min 2018-10-25 Heart Rate 72 /min 2016-01-20 Blood pressure systolic 100 mm HG Blood pressure diastolic 80 mm HG 2018-10 MEDICATIONS Medication Instructions Dosage Frequency Start Date End Date Duration Status Cymbalta 60 MG Orally Once a day 1 capsule 24h Not-Taki ng Cotempla XR-ODT 25.9 MG Orally Once a day 1 tablet in the morning 24h Active Ondansetron HCl 4 MG Orally every 6 hours prn 2 tablets Active Midodrine HCl 2.5 MG Orally q am and noon 1 tablet Not-Taki ng Metoprolol Succinate 25 MG Orally Once a day half capsule 24h Active EpiPen 1 MG/ML A ctive Metadate CD 40 mg Orally Once a day 1 capsule in the morning 24h Active Cymbalta 30 mg Orally once a day 1 capsule 24h Not-Taki ng Desvenlafaxine Succinate ER 100 MG Orally Once a day 1 tablet 24h Active Fluticasone Propionate 50 MCG/ACT Nasally Once a day 1 spray in each nostril 24h Not-Taki ng DULoxetine HCl 30 MG Orally Once a day 3 capsule 24h Active Gabapentin 600 MG Orally 4 times per day 1 capsule Active Augmentin 875-125 MG Orally every 12 hrs 1 tablet 12h Jan, 10 day(s) Not-Taki ng Amantadine HCl 100 mg Orally q am 2 capsules Not-Buck i ng Lidocaine & Menthol 4-4 % Externally four times a day (qid) as directed Oct, 10 days Active SUMAtriptan Succinate 100 MG Orally Once a day 1 tablet as needed 24h Active PROCEDURES No Known procedures RESULTS No Results REASON FOR VISIT Skin reaction, sick Insurance Providers Health Insurance Type Health Plan Insurance Address Health Plan Insurance Phone Health Plan Insurance Name Health Plan Coverage Dates Member ID Patient Relationship to Subscriber Patient Address Patient Phone Patient Name Patient Date of Subscriber ID Subscriber Name Subscriber Date of Group No [facility] [address] [facility] [id number] [facility] joy Medel [id number] [facility] [address] [facility] [id number] 88 [facility] [id number] Beryl Medel [id number]
--- OUTSIDE RECORDS SUMMARY | 2023-03-01 10:12 | XMS_ITS ---
Author Name MICHELLE HARRELL Address [address] [place] [address] Organization [facility]. Address [address] [place] [address] Care Team Providers Care Teacher Theater Arts Name Role Phone SHADIALEORandolphMICHELLE Unavailable [phone] PROBLEMS Type Condition ICD9-CM Code CSA87-AS Code Onset Dates Condition Status SNOMED Code Problem Chronic pain syndrome G89.4 Active 481196413 Problem Intractable chronic migraine without aura and without status migrainosus G43.719 Active [id number] ALLERGIES Substance Reaction Event Type Date Status Tree Nuts Unknown Drug Allergy Jun, Active ENCOUNTERS Encounter Location Date Diagnosis [facility]. [address] [facility] [address] [place] [address] Jun, Intractable chronic migraine without aura and without status migrainosus G43.719 and Chronic pain syndrome G89.4 IMMUNIZATIONS No Known Immunizations SOCIAL HISTORY Qualifiers Date Never Smoker REASON FOR REFERRAL FUNCTIONAL STATUS PLAN OF CARE Activity Details VITAL SIGNS Heart Rate 73 /min 2022-07-05 Respiratory Rate 16 /min 2022-07-05 Height 66 in 2022-07-05 Weight 221 lbs 2022-07-05 BMI 35.67 kg/m2 2022-07-05 Temperature 97.6 degrees Fahrenheit Oximetry 98 % 2022-07-05 Blood pressure systolic 140 mm Hg Blood pressure diastolic 78 mm Hg 2022-06 MEDICATIONS Medication Instructions Dosage Frequency Start Date End Date Duration Status Marijuana Active Desvenlafaxine Succinate ER 100 MG 30 Active Pataday 0.7 % Ophthalmic Once a day 1 drop into affected eye 24h Active EPINEPHrine 0.3 MG/0.3ML as directed Active Tazarotene 0.1 % Externally Once a day 1 application in the evening 24h Active Topiramate 50 MG TAKE TWO TABLETS BY MOUTH AT BEDTIME Active Prochlorperazine 25 MG Rectal Twice a day 1 suppository as needed 12h Active busPIRone HCl 10 MG TAKE ONE TABLET BY MOUTH TWICE A DAY 30 Active Co Q-10 100 MG as directed Active Azelastine HCl 0.1 % INSTILL 2 SPRAYS INTO EACH NOSTRIL TWICE A DAY 25 Active ZOLMitriptan 5 MG as directed Active Benztropine Mesylate 1 MG Orally Once a day 1 tablet 24h 30 day(s) Active Vitamin B12 1000 MCG Orally Once a day 1 tablet 24h 30 day(s) Active Naratriptan HCl 1 MG Orally Once a day 1 tablet 24h 1 day(s) Active DULoxetine HCl 30 MG TAKE THREE CAPSULES BY MOUTH EVERY MORNING Active Gabapentin 600 MG TAKE 1 TABLET BY MOUTH IN THE MORNING AND 1 TABLET AT NOON AND 1 TABLET BEFORE BEDTIME. Active clonazePAM 0.5 MG 30 Active Cyproheptadine HCl 4 MG Orally Once a day 1 tablet 24h Active Clindamycin Phos & Cleanser 1 % as directed Activ e Aimovig 140 MG/ML Active Metoprolol Succinate 25 MG Orally Once a day 1 capsule 24h 30 day(s) Active Famotidine 20 MG Orally Once a day 1 tablet at bedtime as needed 24h 30 day(s) Active Ondansetron 4 MG Orally Once a day 1 tablet on the tongue and allow to dissolve 24h 30 day(s) Active PROCEDURES No Known procedures RESULTS No Results REASON FOR VISIT New patient: Migraines Insurance Providers Health Insurance Type Health Plan Insurance Address Health Plan Insurance Phone Health Plan Insurance Name Health Plan Coverage Dates Member ID Patient Relationship to Subscriber Patient Address Patient Phone Patient Name Patient Date of Subscriber ID Subscriber Name Subscriber Date of Group No [employer] [facility] [address] [facility] [address] [facility] self Beryl Medel [id number]
[2023-03-01] MEDS: KETOROLAC 30 MG/ML inj IVP (10:20)
[2023-03-01] MEDS: 0.9 % SODIUM CHLORIDE 1000 ml 1,000 ML IV (10:20)
[2023-03-01] MEDS: diphenhydrAMINE 50 MG/ML inj 25 MG IVP (10:21)
[2023-03-01] MEDS: ONDANSETRON 2 MG/ML inj 4 MG IVP (10:21)
[2023-03-01 10:32] VITALS: PULSE 77; RESP 18; O2SAT 98
== END 2023-03-01 11:15 | disposition home or self-care (01) ==
LOC: ED 10:10
PROVIDERS: Emergency Provider Internal Medicine; PCP Internal Medicine
DX: G43.009 Migraine without aura, not intractable, without status migrainosus (principal)
CPT/HCPCS: 96374; 96375; 99283; 99284; J1200; J1885; J2405; J7030

== ENCOUNTER 2023-03-07 10:05 | Emergency (ER) | payer BC, SELFPAY ==
[2023-03-07 10:16] VITALS: BP 111/80; PULSE 79; RESP 18; TEMP 36; O2SAT 98; BMI 36.0
--- NOTE | 2023-03-07 10:28 | ED.GENADULT ---
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 This is been present now about 3 days. Has photophobia and mild nausea. Not been vomiting. She was treated in this department about 6 days ago and notes that headache did resolve at that time. Does have a diagnosis of migraines and early this week used her triptan and does not feel she can use it anymore. She has tried otherwise ibuprofen and acetaminophen. Headache is described as severe in her eye sockets radiating to her temples and broadly over the top of her head stopping above the occiput. Has not had any fever or apparent rashes. She does struggle with seasonal allergies and think those might be going on now. [place] after a shower earlier that she might have some fluid in her ears and notes that had trouble with that once in the past. Feels buzzing in her head at the moment. Otherwise no numbness or tingling. Week somewhat due to recent injuries to her right leg an arm --sprained. The other thing that might be aggravating her headaches is that she had left her Aimovig monthly injection in [place]. Last taken in December. Mother has mailed it to her as of today. This is not an atypical headache for her. Related Data Home Medications Medication Instructions Recorded Confirmed clindamycin phosphate 1 % topical topical 08/09/22 01/30/23 solution desvenlafaxine succinate 100 mg mg PO 08/09/22 01/30/23 tablet,extended release 24 hr erenumab-aooe 140 mg/mL mg subcut 08/09/22 01/30/23 subcutaneous auto-injector (Aimovig Autoinjector) tacrolimus 0.1 % topical ointment topical 08/09/22 01/30/23 tazarotene 0.1 % topical cream applic topical 08/09/22 01/30/23 azelastine 137 mcg (0.1 %) nasal ml intranasal 10/19/22 01/30/23 spray aerosol buspirone 10 mg tablet 10 mg PO QDAY 10/19/22 01/30/23 clonazepam 0.5 mg tablet 1 mg PO QHS 10/19/22 01/30/23 duloxetine 30 mg capsule,delayed 90 mg PO QDAY 10/19/22 01/30/23 release famotidine 20 mg tablet 20 mg PO BID 10/19/22 01/30/23 gabapentin 600 mg tablet 600 mg PO QDAY 10/19/22 01/30/23 methylphenidate 25.9 mg ER,IR 25.9 mg PO QDAY 10/19/22 01/30/23 disintegrating 24 hr tablet (Cotempla XR-ODT) metoprolol succinate 25 mg 25 mg PO QDAY 10/19/22 01/30/23 tablet,extended release 24 hr naratriptan 1 mg tablet 1 mg PO PRN 10/19/22 01/30/23 olopatadine 0.7 % eye drops ml ophthalmic (eye) 10/19/22 01/30/23 (Pataday Once Daily Relief) prazosin 1 mg capsule 1 - 2 mg PO QPM 10/19/22 01/30/23 quetiapine 25 mg tablet 25 mg PO QDAY 10/19/22 01/30/23 topiramate 50 mg tablet 50 mg PO QDAY 10/19/22 01/30/23 triamcinolone acetonide 0.5 % g topical 10/19/22 01/30/23 topical cream Allergies Allergy/AdvReac Type Severity Reaction Status Date / Time tree nut Allergy Severe Verified 02/04/23 17:59 lamotrigine Allergy Unknown Verified 02/04/23 17:59 Review of Systems Status of ROS: Reports: 6 or more systems reviewed and unremarkable except as noted in History and below [facility] Medical History Stanford-Danlos syndrome, type 3 ?Q79.62 - Hypermobile Stanford-Danlos syndrome (ICD-10) Generalized anxiety disorder with panic attacks ?F41.1 - Generalized anxiety disorder (ICD-10) ?F41.0 - Panic disorder [episodic paroxysmal anxiety] (ICD-10) High vitamin D level (2020) ?E67.3 - Hypervitaminosis D (ICD-10) Migraine without aura ?G43.009 - Migraine without aura, not intractable, without status migrainosus (ICD-10) Obesity with body mass index 30 or greater ?E66.9 - Obesity, unspecified (ICD-10) Postural orthostatic tachycardia syndrome ?G90.A - Postural orthostatic tachycardia syndrome [POTS] (ICD-10) Social History Smoking Status: Never smoker Do you use any of these nicotine containing products: None Second hand tobacco smoke exposure: No How often do you have a drink containing alcohol: monthly or less How often do you have six or more drinks on one occasion: Never AUDIT-C Alcohol total score: 1 Non-prescribed substance use: marijuana (any form) Non-prescribed substance use details: medical use edibles service: No Exam Narrative: Exam Narrative: Pleasant. NAD. Photophobia demonstrated. Looks a little uncomfortable. Cranial nerves 2-12 look to be intact. Well perfused peripherally. Moving all extremities without difficulty though she does have a cam boot on her right leg. Is breathing easily. Lungs appear to be clear. Heart in regular rate and rhythm. Skin is warm and dry. Neck is supple. Const: Vital Signs, click to edit/add: Vital Signs - 24 hr 03/07/23 10:16 Temperature 96.8 F L Pulse Rate [Right Pulse Oximeter] 79 Respiratory Rate 18 Blood Pressure [Ri ght Upper Arm] 111/80 Pulse Oximetry 98 Oxygen Delivery Me thod Room Air Documenting provider has reviewed patient's vital signs: yes Course Vital Signs Vital signs: Initial Vital Signs Temperature 96.8 F L 03/07/23 10:16 Temperature Source Temporal Artery Scan 03/07/23 10:16 Pulse Rate 79 03/07/23 10:16 Respiratory Rate 18 03/07/23 10:16 Blood Pressure 111/80 03/07/23 10:16 Blood Pressure Mean 90 03/07/23 10:16 Blood Pressure Position Sitting 03/07/23 10:16 Pulse Oximetry 98 03/07/23 10:16 Oxygen Delivery Method Room Air 03/07/23 10:16 Vital Signs Temperature 96.8 F L 03/07/23 10:16 Pulse Rate 79 03/07/23 10:16 Respiratory Rate 18 03/07/23 10:16 Blood Pressure 111/80 03/07/23 10:16 Pulse Oximetry 98 03/07/23 10:16 Oxygen Delivery Method Room Air 03/07/23 10:16 Temperature 96.8 F L 03/07/23 10:16 Pulse Rate 79 03/07/23 10:16 Respiratory Rate 18 03/07/23 10:16 Blood Pressure 111/80 03/07/23 10:16 Pulse Oximetry 98 03/07/23 10:16 Oxygen Delivery Method Room Air 03/07/23 10:16 Medical Decision Making MDM Narrative Medical decision making narrative: This is not an unusual headache for Beryl. Does not appear to have infectious etiology i.e. meningitis. Is not demonstrating meningeal signs. This point will treat with usual in a cocktail. Might add dexamethasone; will discuss further. On re-evaluation has overall improved. Given the recurrence do discuss potential dexamethasone benefit; she would like to proceed with that. This is given prior to departure. See patient discharge plan Discharge Plan Discharge Clinical Impression: Migraine Patient Disposition: Home, Self-Care Condition: Improved Additional Instructions: Continue to focus on hydration. Try to get in a little heart pumping exercise daily. Restart your Aimovig when it arrives. Return as needed. Prescriptions: No Action quetiapine 25 mg tablet 25 mg PO QDAY azelastine 137 mcg (0.1 %) aerosol,spray intranasal prazosin 1 mg capsule 1 - 2 mg PO QPM Patient Comments: TAKE 1 TO 2 CAPSULES BY MOUTH AT BEDTIME Pataday Once Daily Relief 0.7 % drops ophthalmic (eye) Patient Comments: INSTILL 1 DROP IN BOTH EYES DAILY. triamcinolone acetonide 0.5 % cream topical Patient Comments: APPLY AT BEDTIME FOR THUMBS tazarotene 0.1 % cream TOPICAL tacrolimus 0.1 % ointment TOPICAL Patient Comments: APPLY TWICE A DAY FOR BREAST RASH clindamycin phosphate 1 % solution TOPICAL Patient Comments: APPLY TWICE A DAY FOR ACTIVE ACNE desvenlafaxine succinate 100 mg tablet extended release 24 hr PO Aimovig Autoinjector 140 mg/mL auto-injector SUBCUT metoprolol succinate 25 mg tablet extended release 24 hr 25 mg PO QDAY gabapentin 600 mg tablet 600 mg PO QDAY naratriptan 1 mg tablet 1 mg PO PRN Patient Comments: TAKE 1 TABLET BY MOUTH AT ONSET OF MIGRAINEMAY REPEAT AFTER FOUR HOURS topiramate 50 mg tablet 50 mg PO QDAY Cotempla XR-ODT 25.9 mg tablet,disinteg ER biphase 24h 25.9 mg PO QDAY famotidine 20 mg tablet 20 mg PO BID Patient Comments: TAKE 1 TABLET BY MOUTH IN THE MORNING AND 1 TABLET IN THE EVENING. duloxetine 30 mg capsule,delayed release(DR/EC) 90 mg PO QDAY Patient Comments: TAKE 3 CAPSULES BY MOUTH BY MOUTH EVERY MORNING buspirone 10 mg tablet 10 mg PO QDAY clonazepam 0.5 mg tablet 1 mg PO QHS Patient Comments: TAKE TWO TABLETS BY MOUTH EVERY NIGHT AT BEDTIME Follow Up/Referrals: Marissa Wesley MD [Primary Care Provider] - Stand Alone Forms: [employer] Info Instructions
--- OUTSIDE RECORDS SUMMARY | 2023-03-07 12:16 | XMS_ITS ---
Author Name Chris Alejandro Address [address], [place] [id number] Organization Chris aMson [place] Address [address], [place] [address] Care Team Providers Care Hog Trader Name Role Phone Chris Alejandro Unavailable [phone] PROBLEMS Type Condition ICD9-CM Code ZWS94-GB Code Onset Dates Condition Status SNOMED Code Problem Bronchitis J40 Active 01599281 Problem Sinusitis J32.9 Active 78364057 Problem Stanford-Danlos syndrome Q79.6 Active 289399587 ALLERGIES No Known Allergies ENCOUNTERS Encounter Location Date Diagnosis Chris Alej[facility] [address] [place], [place] [id number] Oct, Rash R21 Chris Alejandro [facility] [address] [place], [place] [id number] Jan, Sinusitis J32.9 ; Bronchitis J40 and [...] Subscriber Name Subscriber Date of Group No [facility] [address] [facility] [id number] [facility] [id number] Beryl Medel [id number] [facility] [address] [facility] [id number] [facility] Beryl Medel [id number]
--- OUTSIDE RECORDS SUMMARY | 2023-03-07 12:16 | XMS_ITS ---
Author Name MICHELLE HARRELL Address [address] [place] [address] Organization [facility]. Address [address] [place] [address] Care Team Providers Care Asian Art Curator Name Role Phone SHADIALEORandolphMICHELLE Unavailable [phone] PROBLEMS Type Condition ICD9-CM Code TOF43-SN Code Onset Dates Condition Status SNOMED Code Problem Chronic pain syndrome G89.4 Active 162335331 Problem Intractable chronic migraine without aura and without status migrainosus G43.719 Active 381133063578514 ALLERGIES Substance Reaction Event Type Date Status Tree Nuts Unknown Drug Allergy Jun, Active ENCOUNTERS Encounter Location Date Diagnosis [facility]. [address] [facility] [address] [place] [address] Jun, Intractable chronic migraine without aura and [...] Subscriber Date of Group No [facility] [address] [facility] [address] [facility] self Beryl Medel [id number]
[2023-03-07] MEDS: KETOROLAC 30 MG/ML inj IVP (12:37)
[2023-03-07] MEDS: ONDANSETRON 2 MG/ML inj 4 MG IVP (12:38)
[2023-03-07] MEDS: dexAMETHasone 10 MG/ML inj IVP (13:35)
== END 2023-03-07 13:41 | disposition home or self-care (01) ==
PROVIDERS: Emergency Provider Family Medicine; PCP Internal Medicine
DX: G43.909 Migraine, unspecified, not intractable, without status migrainosus (principal)
CPT/HCPCS: 96374; 96375; 99283; 99284; J1100; J1885; J2405

== ENCOUNTER 2023-03-16 11:18 | Emergency (ER) | payer BC, SELFPAY ==
[2023-03-16 11:39] VITALS: BP 113/70; PULSE 76; RESP 20; TEMP 36.8; O2SAT 97; BMI 36.0
--- NOTE | 2023-03-16 11:55 | ED_ITS ---
HPI - Headache General Chief Complaint: Headache/Migraine Stated Complaint: Migraine Time Seen by Provider: 03/16/23 11:23 History of Present Illness HPI Narrative: This 22-year-old female comes in with recurrent migraine headache. She states that this headache started 4 days ago. She has been having headaches every week or 2 such that she has come in here for recurrent treatments. She states that this headache is similar to previous and does not report any neurologic deficit her other symptoms. She does have sensitivity to light and has had some nausea and vomiting. She misplaced her migraine medicine in [place] which contributed its to some of the previous visits but states that she now has this medicine and has been taking it as prescribed. Related Data Home Medications Medication Instructions Recorded Confirmed clindamycin phosphate 1 % topical topical 08/09/22 01/30/23 solution desvenlafaxine succinate 100 mg mg PO 08/09/22 01/30/23 tablet,extended release 24 hr erenumab-aooe 140 mg/mL mg subcut 08/09/22 01/30/23 subcutaneous auto-injector (NumberFour Autoinjector) tacrolimus 0.1 % topical ointment topical 08/09/22 01/30/23 tazarotene 0.1 % topical cream applic topical 08/09/22 01/30/23 azelastine 137 mcg (0.1 %) nasal ml intranasal 10/19/22 01/30/23 spray aerosol buspirone 10 mg tablet 10 mg PO QDAY 10/19/22 01/30/23 clonazepam 0.5 mg tablet 1 mg PO QHS 10/19/22 01/30/23 duloxetine 30 mg capsule,delayed 90 mg PO QDAY 10/19/22 01/30/23 release famotidine 20 mg tablet 20 mg PO BID 10/19/22 01/30/23 gabapentin 600 mg tablet 600 mg PO QDAY 10/19/22 01/30/23 methylphenidate 25.9 mg ER,IR 25.9 mg PO QDAY 10/19/22 01/30/23 disintegrating 24 hr tablet (Cotempla XR-ODT) metoprolol succinate 25 mg 25 mg PO QDAY 10/19/22 01/30/23 tablet,extended release 24 hr naratriptan 1 mg tablet 1 mg PO PRN 10/19/22 01/30/23 olopatadine 0.7 % eye drops ml ophthalmic (eye) 10/19/22 01/30/23 (Pataday Once Daily Relief) prazosin 1 mg capsule 1 - 2 mg PO QPM 10/19/22 01/30/23 quetiapine 25 mg tablet 25 mg PO QDAY 10/19/22 01/30/23 topiramate 50 mg tablet 50 mg PO QDAY 10/19/22 01/30/23 triamcinolone acetonide 0.5 % g topical 10/19/22 01/30/23 topical cream Allergies Allergy/AdvReac Type Severity Reaction Status Date / Time tree nut Allergy Severe Verified 02/04/23 17:59 lamotrigine Allergy Unknown Verified 02/04/23 17:59 Review of Systems Status of ROS: Reports: 10 or more systems reviewed and unremarkable except as noted in History and below Narrative: Constitutional: No fevers, no weight gain or loss. Eyes: No discharge. No vision changes. Photophobia. HENT: No congestion, no sore throat, no ear pain. Cardiovascular: No chest pain, no palpitations. Respiratory: No shortness of breath, no wheezes, no cough. Gastrointestinal: No abdominal pain, no diarrhea. Nausea with vomiting related to the headache. Genitourinary: No dysuria, no hematuria. Musculoskeletal: Normal range of motion. Skin: No rashes, no pruritis. Neurological: No dizziness, weakness, sensory change, speech change. Endo/Heme/Allergies: No bruising or bleeding. No polydipsia. Pysch: no suicidality, no anxiety, no insomnia. All other systems reviewed and are negative. 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 (ICD-10) Generalized anxiety disorder with panic attacks ?F41.1 - Generalized anxiety disorder (ICD-10) ?F41.0 - Panic disorder [episodic paroxysmal anxiety] (ICD-10) High vitamin D level (2020) ?E67.3 - Hypervitaminosis D (ICD-10) Migraine without aura ?G43.009 - Migraine without aura, not intractable, without status migrainosus (ICD-10) Obesity with body mass index 30 or greater ?E66.9 - Obesity, unspecified (ICD-10) Postural orthostatic tachycardia syndrome ?G90.A - Postural orthostatic tachycardia syndrome [POTS] (ICD-10) Social History Smoking Status: Never smoker Do you use any of these nicotine containing products: None Second hand tobacco smoke exposure: No How often do you have a drink containing alcohol: monthly or less How often do you have six or more drinks on one occasion: Never AUDIT-C Alcohol total score: 1 Non-prescribed substance use: marijuana (any form) Non-prescribed substance use details: medical use edibles service: No Exam Narrative: Exam Narrative: Constitutional: Well-developed, well-nourished, no acute distress. HEENT: Normocephalic, atraumatic. Neck: Normal range of motion. Nontender. Supple. Heart: Regular. No murmurs. Normal rate. Intact distal pulses. Lungs: Clear to auscultation. No chest discomfort. No wheezes, rhonchi, or rales. Abdomen: Normal bowel sounds. Nontender. No rebound tenderness. Genitalia: Deferred. Back: No midline tenderness. Normal range of motion. Extremities: Normal range of motion. No injury. Skin: Intact. No rash. Warm. No erythema or pallor. Neurologic: No altered sensation. No weakness. Alert and oriented. Psychiatric: No suicidality. No anxiety or depression. No insomnia. Nursing notes and vitals signs are reviewed. Const: Vital Signs, click to edit/add: Vital Signs - 24 hr 03/16/23 11:39 Temperature 98.2 F Pulse Rate [Pulse Oximeter] 76 Respiratory Rate 20 Blood Pressure [Ri ght Upper Arm] 113/70 Pulse Oximetry 97 Oxygen Delivery Me thod Room Air Course Vital Signs Vital signs: Initial Vital Signs Temperature 98.2 F 03/16/23 11:39 Temperature Source Temporal Artery Scan 03/16/23 11:39 Pulse Rate 76 03/16/23 11:39 Pulse Rhythm Regular 03/16/23 11:39 Respiratory Rate 20 03/16/23 11:39 Blood Pressure 113/70 03/16/23 11:39 Blood Pressure Mean 84 03/16/23 11:39 Pulse Oximetry 97 03/16/23 11:39 Oxygen Delivery Method Room Air 03/16/23 11:39 Vital Signs Temperature 98.2 F 03/16/23 11:39 Pulse Rate 76 03/16/23 11:39 Respiratory Rate 20 03/16/23 11:39 Blood Pressure 113/70 03/16/23 11:39 Pulse Oximetry 97 03/16/23 11:39 Oxygen Delivery Method Room Air 03/16/23 11:39 Temperature 98.2 F 03/16/23 11:39 Pulse Rate 76 03/16/23 11:39 Respiratory Rate 20 03/16/23 11:39 Blood Pressure 113/70 03/16/23 11:39 Pulse Oximetry 97 03/16/23 11:39 Oxygen Delivery Method Room Air 03/16/23 11:39 MDM - Headache MDM Narrative Medical decision making narrative: This patient comes in with recurrent migraine symptoms. These are typical for other times that she has presented here which is been more frequently over the past couple months. An IV was established and she received normal saline 500 mL, Toradol 30 mg, Zofran 25 mg, and Zofran 4 mg. This brought sufficient relief to her symptoms. She is okay to be discharged home to resume current plans. Discharge Plan Discharge Clinical Impression: Migraine Patient Disposition: Home, Self-Care Condition: Improved Additional Instructions: Use current medicines as needed and directed. Follow up with MD or return if worsening. Prescriptions: No Action quetiapine 25 mg tablet 25 mg PO QDAY azelastine 137 mcg (0.1 %) aerosol,spray intranasal prazosin 1 mg capsule 1 - 2 mg PO QPM Patient Comments: TAKE 1 TO 2 CAPSULES BY MOUTH AT BEDTIME Pataday Once Daily Relief 0.7 % drops ophthalmic (eye) Patient Comments: INSTILL 1 DROP IN BOTH EYES DAILY. triamcinolone acetonide 0.5 % cream topical Patient Comments: APPLY AT BEDTIME FOR THUMBS tazarotene 0.1 % cream TOPICAL tacrolimus 0.1 % ointment TOPICAL Patient Comments: APPLY TWICE A DAY FOR BREAST RASH clindamycin phosphate 1 % solution TOPICAL Patient Comments: APPLY TWICE A DAY FOR ACTIVE ACNE desvenlafaxine succinate 100 mg tablet extended release 24 hr PO Aimovig Autoinjector 140 mg/mL auto-injector SUBCUT metoprolol succinate 25 mg tablet extended release 24 hr 25 mg PO QDAY gabapentin 600 mg tablet 600 mg PO QDAY naratriptan 1 mg tablet 1 mg PO PRN Patient Comments: TAKE 1 TABLET BY MOUTH AT ONSET OF MIGRAINEMAY REPEAT AFTER FOUR HOURS topiramate 50 mg tablet 50 mg PO QDAY Cotempla XR-ODT 25.9 mg tablet,disinteg ER biphase 24h 25.9 mg PO QDAY famotidine 20 mg tablet 20 mg PO BID Patient Comments: TAKE 1 TABLET BY MOUTH IN THE MORNING AND 1 TABLET IN THE EVENING. duloxetine 30 mg capsule,delayed release(DR/EC) 90 mg PO QDAY Patient Comments: TAKE 3 CAPSULES BY MOUTH BY MOUTH EVERY MORNING buspirone 10 mg tablet 10 mg PO QDAY clonazepam 0.5 mg tablet 1 mg PO QHS Patient Comments: TAKE TWO TABLETS BY MOUTH EVERY NIGHT AT BEDTIME Follow Up/Referrals: Marissa Wesley MD [Primary Care Provider] - Stand Alone Forms: [facility] Info Instructions
[2023-03-16] MEDS: diphenhydrAMINE 50 MG/ML inj 25 MG IVP (12:09)
[2023-03-16] MEDS: KETOROLAC 30 MG/ML inj IVP (12:09)
[2023-03-16] MEDS: ONDANSETRON 2 MG/ML inj 4 MG IVP (12:09)
[2023-03-16] MEDS: 0.9 % SODIUM CHLORIDE 500 ML 500 ML IV (12:09)
--- OUTSIDE RECORDS SUMMARY | 2023-03-16 12:24 | XMS_ITS ---
Author Name Chris Alejandro Address [address] [place], [place] [address] Organization Chris Mason [place] Address [address], [place] [address] Care Team Providers Care Transfer Professor Name Role Phone Chris Alejandro Unavailable [phone] PROBLEMS Type Condition ICD9-CM Code XWK54-QL Code Onset Dates Condition Status SNOMED Code Problem Bronchitis J40 Active 62881626 Problem Sinusitis J32.9 Active 27313711 Problem Stanford-Danlos syndrome Q79.6 Active 497318598 ALLERGIES No Known Allergies ENCOUNTERS Encounter Location Date Diagnosis Chris [place]andro [place] [address] [place], [place] [id number] Oct, Rash R21 Chris [place] [address] [place], [place] [id number] Jan, Sinusitis J32.9 ; Bronchitis J40 and [...] Subscriber Name Subscriber Date of Group No [facility] [id number] [facility] [id number] [facility] joy Medel [id number] [facility] [address] [facility] [id number] [facility] [id number] d6c Beryl Medel [id number]
--- OUTSIDE RECORDS SUMMARY | 2023-03-16 12:24 | XMS_ITS ---
Author Name MICHELLE HARRELL Address [address] [place] [address] Organization [facility]. Address [address] [place] [address] Care Team Providers Care Ton Container Filler Name Role Phone SHADIALEORandolphMICHELLE Unavailable [phone] PROBLEMS Type Condition ICD9-CM Code RUY91-GQ Code Onset Dates Condition Status SNOMED Code Problem Chronic pain syndrome G89.4 Active 190182282 Problem Intractable chronic migraine without aura and without status migrainosus G43.719 Active 713658628904234 ALLERGIES Substance Reaction Event Type Date Status Tree Nuts Unknown Drug Allergy Jun, Active ENCOUNTERS Encounter Location Date Diagnosis [facility]. [address] [facility] [address] [place] [address] Jun, Intractable chronic migraine without aura and [...] Subscriber Date of Group No [facility] [address] [facility] [address] [facility] self Beryl Medel [id number]
== END 2023-03-16 13:06 | disposition home or self-care (01) ==
PROVIDERS: Emergency Provider Emergency Medicine Emergency Medical Services; PCP Internal Medicine
DX: G43.909 Migraine, unspecified, not intractable, without status migrainosus (principal)
CPT/HCPCS: 96374; 96375; 99284; J1200; J1885; J2405; J7120

== ENCOUNTER 2023-03-23 15:28 | Emergency (ER) | payer BC, SELFPAY ==
[2023-03-23 15:44] VITALS: BP 100/73; PULSE 87; RESP 16; TEMP 35.9; O2SAT 97; BMI 36.0
[2023-03-23 17:05] VITALS: BP 125/80; PULSE 88; RESP 16; TEMP 36.8; O2SAT 98
--- NOTE | 2023-03-23 20:02 | ED_ITS ---
HPI - Headache General Chief Complaint: Headache/Migraine Stated Complaint: Migraine Time Seen by Provider: 03/23/23 19:57 History of Present Illness HPI Narrative: Patient is a 22-year-old woman with long history of chronic migraine headaches. She presents today with a 12 hours of unremitting headache. She has had some nausea and some mild photophobia but there are no unusual findings today's migraine versus previous. She is taking her home medications including her medical marijuana with no affect. She has had no other neurologic symptoms no numbness tingling no confusion no headaches no stiff neck no recent trauma no other recent complaints or concerns. Related Data Home Medications Medication Instructions Recorded Confirmed clindamycin phosphate 1 % topical 1 applic topical 08/09/22 01/30/23 solution desvenlafaxine succinate 100 mg 100 mg PO 08/09/22 01/30/23 tablet,extended release 24 hr erenumab-aooe 140 mg/mL 140 mg subcut 08/09/22 01/30/23 subcutaneous auto-injector (Aimovig Autoinjector) tacrolimus 0.1 % topical ointment 1 applic topical 08/09/22 01/30/23 tazarotene 0.1 % topical cream 1 applic topical 08/09/22 01/30/23 azelastine 137 mcg (0.1 %) nasal 1 spray intranasal 10/19/22 01/30/23 spray aerosol buspirone 10 mg tablet 10 mg PO QDAY 10/19/22 03/23/23 clonazepam 0.5 mg tablet 1 mg PO QHS 10/19/22 03/23/23 duloxetine 30 mg capsule,delayed 90 mg PO QDAY 10/19/22 03/23/23 release famotidine 20 mg tablet 20 mg PO BID 10/19/22 03/23/23 gabapentin 600 mg tablet 600 mg PO QDAY 10/19/22 03/23/23 methylphenidate 25.9 mg ER,IR 25.9 mg PO QDAY 10/19/22 03/23/23 disintegrating 24 hr tablet (Cotempla XR-ODT) metoprolol succinate 25 mg 25 mg PO QDAY 10/19/22 03/23/23 tablet,extended release 24 hr naratriptan 1 mg tablet 1 mg PO Q4H PRN 10/19/22 03/23/23 olopatadine 0.7 % eye drops ml ophthalmic (eye) 10/19/22 01/30/23 (Pataday Once Daily Relief) prazosin 1 mg capsule 1 - 2 mg PO QPM 10/19/22 03/23/23 quetiapine 25 mg tablet 25 mg PO QDAY 10/19/22 03/23/23 topiramate 50 mg tablet 50 mg PO QDAY 10/19/22 03/23/23 triamcinolone acetonide 0.5 % 1 applic topical 10/19/22 01/30/23 topical cream Allergies Allergy/AdvReac Type Severity Reaction Status Date / Time tree nut Allergy Severe Verified 03/23/23 15:50 lamotrigine Allergy Unknown Verified 03/23/23 15:50 Review of Systems Status of ROS: Reports: 10 or more systems reviewed and unremarkable except as noted in History and below [facility] Medical History Obesity with body mass index 30 or greater ?E66.9 - Obesity, unspecified (ICD-10) Postural orthostatic tachycardia syndrome ?G90.A - Postural orthostatic tachycardia syndrome [POTS] (ICD-10) Migraine without aura ?G43.009 - Migraine without aura, not intractable, without status migrainosus (ICD-10) High vitamin D level (2020) ?E67.3 - Hypervitaminosis D (ICD-10) Generalized anxiety disorder with panic attacks ?F41.1 - Generalized anxiety disorder (ICD-10) ?F41.0 - Panic disorder [episodic paroxysmal anxiety] (ICD-10) Stanford-Danlos syndrome, 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 EYES: No scleral icterus. LYMPH: No supraclavicular or cervical lymphadenopathy. SKIN: Visible skin seen during exam normal or with benign process only. EXT: No dependent lower extremity pedal edema. HEART: Regular rate and rhythm with no murmurs, rubs, or gallops. LUNGS: Clear to auscultation bilaterally with no crackles or wheezes. ABD: Soft, non tender, non distended. PSYCH: Good eye contact, speech is not pressured. Const: Vital Signs, click to edit/add: Vital Signs - 24 hr 03/23/23 15:44 03/23/23 17:05 Temperature 96.7 F L 98.2 F Pulse Rate [Pulse Oximeter] 87 88 Respiratory Rate 16 16 Blood Pressure [[facility] Upper Arm] 100/73 125/80 Pulse Oximetry 97 98 Oxygen Delivery Me thod Room Air Room Air Course Course Hospital Course: Patient presents with a typical migraine for her. Patient given 1 L of normal saline 4 mg of IV Zofran 50 mg of IV Benadryl 30 mg of IV Toradol. Vital Signs Vital signs: Initial Vital Signs Temperature 96.7 F L 03/23/23 15:44 Temperature Source Temporal Artery Scan 03/23/23 15:44 Pulse Rate 87 03/23/23 15:44 Pulse Rhythm Regular 03/23/23 15:44 Pulse Strength 3+ Normal 03/23/23 15:44 Respiratory Rate 16 03/23/23 15:44 Blood Pressure 100/73 03/23/23 15:44 Blood Pressure Mean 82 03/23/23 15:44 Blood Pressure Position Sitting 03/23/23 15:44 Pulse Oximetry 97 03/23/23 15:44 Oxygen Delivery Method Room Air 03/23/23 15:44 Vital Signs Temperature 96.7 F L 03/23/23 15:44 Pulse Rate 87 03/23/23 15:44 Respiratory Rate 16 03/23/23 15:44 Blood Pressure 100/73 03/23/23 15:44 Pulse Oximetry 97 03/23/23 15:44 Oxygen Delivery Method Room Air 03/23/23 15:44 Temperature 98.2 F 03/23/23 17:05 Pulse Rate 88 03/23/23 17:05 Respiratory Rate 16 03/23/23 17:05 Blood Pressure 125/80 03/23/23 17:05 Pulse Oximetry 98 03/23/23 17:05 Oxygen Delivery Method Room Air 03/23/23 17:05 MDM - Headache MDM Narrative Medical decision making narrative: Patient presents with a typical migraine in the setting of chronic migraine headaches. There are no focal neurologic signs. Neurological exam is normal. Rest exam is normal. Vital signs are all stable. Medications are carefully reviewed. Patient's medical record carefully reviewed. Differential includes migraine headache cluster headache tumor sepsis meningitis. Patient given 1 L of normal saline 4 mg of Zofran 30 mg of Toradol 50 mg of Benadryl. Patient feeling better will follow up with her neurologist on Sunday which point they are discussing Botox injections. Differential Diagnosis Differential diagnosis: Likely migraine, tension headache, subarachnoid hemorrhage, headache, meningitis and sinusitis Discharge Plan Discharge Clinical Impression: Migraine Patient Disposition: Home, Self-Care Condition: Stable Instructions: Migraine Headache (ED) Additional Instructions: Continue current medications Follow-up with neurology on Sunday. Return if symptoms worsen. Activity Level: Activity as Tolerated Discharge Diet: Regular Prescriptions: No Action quetiapine 25 mg tablet 25 mg PO QDAY azelastine 137 mcg (0.1 %) aerosol,spray 1 spray intranasal prazosin 1 mg capsule 1 - 2 mg PO QPM Patient Comments: TAKE 1 TO 2 CAPSULES BY MOUTH AT BEDTIME Pataday Once Daily Relief 0.7 % drops ophthalmic (eye) Patient Comments: INSTILL 1 DROP IN BOTH EYES DAILY. triamcinolone acetonide 0.5 % cream 1 applic topical Patient Comments: APPLY AT BEDTIME FOR THUMBS tazarotene 0.1 % cream 1 applic TOPICAL tacrolimus 0.1 % ointment 1 applic TOPICAL Patient Comments: APPLY TWICE A DAY FOR BREAST RASH clindamycin phosphate 1 % solution 1 applic TOPICAL Patient Comments: APPLY TWICE A DAY FOR ACTIVE ACNE desvenlafaxine succinate 100 mg tablet extended release 24 hr 100 mg PO Aimovig Autoinjector 140 mg/mL auto-injector 140 mg SUBCUT metoprolol succinate 25 mg tablet extended release 24 hr 25 mg PO QDAY gabapentin 600 mg tablet 600 mg PO QDAY naratriptan 1 mg tablet 1 mg PO Q4H PRN Patient Comments: TAKE 1 TABLET BY MOUTH AT ONSET OF MIGRAINEMAY REPEAT AFTER FOUR HOURS topiramate 50 mg tablet 50 mg PO QDAY Cotempla XR-ODT 25.9 mg tablet,disinteg ER biphase 24h 25.9 mg PO QDAY famotidine 20 mg tablet 20 mg PO BID Patient Comments: TAKE 1 TABLET BY MOUTH IN THE MORNING AND 1 TABLET IN THE EVENING. duloxetine 30 mg capsule,delayed release(DR/EC) 90 mg PO QDAY Patient Comments: TAKE 3 CAPSULES BY MOUTH BY MOUTH EVERY MORNING buspirone 10 mg tablet 10 mg PO QDAY clonazepam 0.5 mg tablet 1 mg PO QHS Patient Comments: TAKE TWO TABLETS BY MOUTH EVERY NIGHT AT BEDTIME Follow Up/Referrals: Marissa Wesley MD [Primary Care Provider] - Stand Alone Forms: [facility] Info Instructions
[2023-03-23] MEDS: 0.9 % SODIUM CHLORIDE 1000 ml 1,000 ML IV (20:19)
[2023-03-23] MEDS: diphenhydrAMINE 50 MG/ML inj IVP (20:19)
[2023-03-23] MEDS: KETOROLAC 30 MG/ML inj IVP (20:19)
[2023-03-23] MEDS: ONDANSETRON 2 MG/ML inj 4 MG IVP (20:19)
--- OUTSIDE RECORDS SUMMARY | 2023-03-23 20:54 | XMS_ITS ---
Author Name Chris Alejandro Address [address] [place], [place] [id number] Organization Chris Mason [place] Address [address] [place], [place] [address] Care Team Providers Care Manager Agricultural Name Role Phone Chris Alejandro Unavailable [phone] PROBLEMS Type Condition ICD9-CM Code DAG67-NF Code Onset Dates Condition Status SNOMED Code Problem Bronchitis J40 Active 79873008 Problem Sinusitis J32.9 Active 83024864 Problem Stanford-Danlos syndrome Q79.6 Active 931318675 ALLERGIES No Known Allergies ENCOUNTERS Encounter Location Date Diagnosis Chris [facility]andro [facility] [place] [address] [place], [place] [id number] Oct, Rash R21 Chris Ale[place]andro [place] [address] [place], [place] [id number] Jan, Sinusitis J32.9 ; Bronchitis J40 and Stanford-Danlos syndrome Q79.6 IMMUNIZATIONS No Known Immunizations SOCIAL HISTORY Qualifiers Date Never Smoker REASON FOR REFERRAL FUNCTIONAL STATUS PLAN OF CARE Activity Details Follow Up prn Reason:prn if no t needed VITAL SIGNS Height 64.5 in 2018-10-25 [...] Subscriber Name Subscriber Date of Group No [facility] [address] [facility] [id number] [facility] [id number] Beryl Medel [id number] [facility] [address] [facility] [id number] [facility] Beryl Medel [id number]
--- OUTSIDE RECORDS SUMMARY | 2023-03-23 20:54 | XMS_ITS ---
Author Name MICHELLE HARRELL Address [address] [place] [address] Organization [facility]. Address [address] [place] [address] Care Team Providers Care C Wpf Developer Name Role Phone SHADIALEORandolphMICHELLE Unavailable [phone] PROBLEMS Type Condition ICD9-CM Code DYB70-RS Code Onset Dates Condition Status SNOMED Code Problem Chronic pain syndrome G89.4 Active 609557011 Problem Intractable chronic migraine without aura and without status migrainosus G43.719 Active [id number] ALLERGIES Substance Reaction Event Type Date Status Tree Nuts Unknown Drug Allergy Jun, Active ENCOUNTERS Encounter Location Date Diagnosis [facility]. [address] [facility] [address] [place] [address] Jun, Intractable chronic migraine without aura and without status migrainosus G43.719 and Chronic pain syndrome G89.4 IMMUNIZATIONS No Known Immunizations SOCIAL HISTORY Qualifiers Date Never Smoker REASON FOR REFERRAL FUNCTIONAL STATUS PLAN OF CARE Activity Details Follow Up prn Reason:refered o ut VITAL SIGNS Heart Rate 73 /min 2022-07-05 [...] Subscriber Date of Group No [facility] [address] [facility] [address] [facility] self Beryl Medel [id number]
[2023-03-23 21:03] VITALS: BP 118/76; PULSE 64; RESP 16; TEMP 36.9
== END 2023-03-23 21:04 | disposition home or self-care (01) ==
LOC: ED 20:51
PROVIDERS: Emergency Provider Internal Medicine; PCP Internal Medicine
DX: G43.909 Migraine, unspecified, not intractable, without status migrainosus (principal)
CPT/HCPCS: 96374; 96375; 99283; J1200; J1885; J2405; J7030

== ENCOUNTER 2023-09-08 18:50 | Emergency (ER) | payer BC, SELFPAY ==
[2023-09-08 18:54] VITALS: BP 126/83; PULSE 70; RESP 18; TEMP 36.2; O2SAT 99; BMI 35.9
--- NOTE | 2023-09-08 19:13 | ED.HA ---
HPI - Headache General Date Seen: 09/08/23 Chief Complaint: Headache/Migraine Stated Complaint: migraine Time Seen by Provider: 09/08/23 18:51 Source: patient Mode of arrival: ambulatory Limitations: no limitations History of Present Illness HPI Narrative: Patient is a 22-year-old female with history of earlier stand low syndrome, migraines presenting to the emergency department for a headache. She states this has been going on for about a week. States it feels like a previous migraines. She has previously been emergency department several times for her migraines insert was given a migraine cocktail and symptoms resolved. Says the headaches starts of PI under eyes and goes to her forehead around to the back of her head. States this feels just like her previous migraines. Denies any lightheadedness, dizziness, vision changes, weakness, numbness, chest pain, shortness of breath. No other complaints at this time. Related Data Home Medications Medication Instructions Recorded Confirmed clindamycin phosphate 1 % topical 1 applic topical 08/09/22 01/30/23 solution desvenlafaxine succinate 100 mg 100 mg PO 08/09/22 01/30/23 tablet,extended release 24 hr erenumab-aooe 140 mg/mL 140 mg subcut 08/09/22 01/30/23 subcutaneous auto-injector (Aimovig Autoinjector) tacrolimus 0.1 % topical ointment 1 applic topical 08/09/22 01/30/23 tazarotene 0.1 % topical cream 1 applic topical 08/09/22 01/30/23 azelastine 137 mcg (0.1 %) nasal 1 spray intranasal 10/19/22 01/30/23 spray aerosol buspirone 10 mg tablet 10 mg PO QDAY 10/19/22 03/23/23 clonazepam 0.5 mg tablet 1 mg PO QHS 10/19/22 03/23/23 duloxetine 30 mg capsule,delayed 90 mg PO QDAY 10/19/22 03/23/23 release famotidine 20 mg tablet 20 mg PO BID 10/19/22 03/23/23 gabapentin 600 mg tablet 600 mg PO QDAY 10/19/22 03/23/23 methylphenidate 25.9 mg ER,IR 25.9 mg PO QDAY 10/19/22 03/23/23 disintegrating 24 hr tablet (Cotempla XR-ODT) metoprolol succinate 25 mg 25 mg PO QDAY 10/19/22 03/23/23 tablet,extended release 24 hr naratriptan 1 mg tablet 1 mg PO Q4H PRN 10/19/22 03/23/23 olopatadine 0.7 % eye drops ml ophthalmic (eye) 10/19/22 01/30/23 (Pataday Once Daily Relief) prazosin 1 mg capsule 1 - 2 mg PO QPM 10/19/22 03/23/23 quetiapine 25 mg tablet 25 mg PO QDAY 10/19/22 03/23/23 topiramate 50 mg tablet 50 mg PO QDAY 10/19/22 03/23/23 triamcinolone acetonide 0.5 % 1 applic topical 10/19/22 01/30/23 topical cream Allergies Allergy/AdvReac Type Severity Reaction Status Date / Time tree nut Allergy Severe Verified 04/06/23 14:28 lamotrigine Allergy Unknown Verified 04/06/23 14:28 Review of Systems Status of ROS: Reports: 10 or more systems reviewed and unremarkable except as noted in History and below [facility] Medical History Obesity with body mass index 30 or greater ?E66.9 - Obesity, unspecified (ICD-10) Postural orthostatic tachycardia syndrome ?G90.A - Postural orthostatic tachycardia syndrome [POTS] (ICD-10) Migraine without aura ?G43.009 - Migraine without aura, not intractable, without status migrainosus (ICD-10) High vitamin D level (2020) ?E67.3 - Hypervitaminosis D (ICD-10) Generalized anxiety disorder with panic attacks ?F41.1 - Generalized anxiety disorder (ICD-10) ?F41.0 - Panic disorder [episodic paroxysmal anxiety] (ICD-10) Stanford-Danlos syndrome, type 3 ?Q79.62 - Hypermobile Stanford-Danlos syndrome (ICD-10) Social History Smoking Status: Never smoker Do you use any of these nicotine containing products: None Second hand tobacco smoke exposure: No How often do you have a drink containing alcohol: monthly or less How often do you have six or more drinks on one occasion: Never AUDIT-C Alcohol total score: 1 Non-prescribed substance use: marijuana (any form) Non-prescribed substance use details: medical use edibles service: No Exam Narrative: Exam Narrative: Const: Well-nourished, Well-developed, in mild distress Eyes: PERRL, no conjunctival injection, and symmetrical lids HENT: Atraumatic external nose and ears. Moist mucous membranes. Neck: Symmetric, trachea midline, No thyromegaly. CVS: RRR, No murmurs or gallops. Peripheral pulses 2+ and equal in all extremities RESP: Unlabored respiratory effort. Clear to auscultation bilaterally. GI: Nontender/Nondistended, No rebound or guarding. MSK:Extremities w/o deformity, Normal Active ROM Skin: Warm, Dry. No rashes or lesions. Neuro: Normal Muscle tone, No focal neurological deficits. Psych: Awake, Alert, & Oriented x3. Appropriate mood and affect. Const: Vital Signs, click to edit/add: Vital Signs - 24 hr 09/08/23 18:54 Temperature 97.2 F L Pulse Rate [Right Pulse Oximeter] 70 Respiratory Rate 18 Blood Pressure [Ri ght Upper Arm] 126/83 Pulse Oximetry 99 Oxygen Delivery Me thod Room Air Course Vital Signs Vital signs: Initial Vital Signs Temperature 97.2 F L 09/08/23 18:54 Temperature Source Temporal Artery Scan 09/08/23 18:54 Pulse Rate 70 09/08/23 18:54 Respiratory Rate 18 09/08/23 18:54 Blood Pressure 126/83 09/08/23 18:54 Blood Pressure Mean 97 09/08/23 18:54 Blood Pressure Position Sitting 09/08/23 18:54 Pulse Oximetry 99 09/08/23 18:54 Oxygen Delivery Method Room Air 09/08/23 18:54 Vital Signs Temperature 97.2 F L 09/08/23 18:54 Pulse Rate 70 09/08/23 18:54 Respiratory Rate 18 09/08/23 18:54 Blood Pressure 126/83 09/08/23 18:54 Pulse Oximetry 99 09/08/23 18:54 Oxygen Delivery Method Room Air 09/08/23 18:54 Temperature 97.2 F L 09/08/23 18:54 Pulse Rate 70 09/08/23 18:54 Respiratory Rate 18 09/08/23 18:54 Blood Pressure 126/83 09/08/23 18:54 Pulse Oximetry 99 09/08/23 18:54 Oxygen Delivery Method Room Air 09/08/23 18:54 MDM - Headache MDM Narrative Medical decision making narrative: Patient is doing year old female presenting emergency department for headache. This is just like a previous headache she states. Has been going on for a week. Since this is like her previous headaches is not necessary to get head imaging at this time. We will give her fluids, Reglan, Benadryl, Toradol. Patient's symptoms resolved with a migraine cocktail. She is doing well now and would like to be discharged home. Discharge Plan Discharge Clinical Impression: Headache Patient Disposition: Home, Self-Care Condition: Improved Instructions: Acute Headache (DC) Additional Instructions: Take Tylenol ibuprofen for pain. Follow up with the primary care provider if symptoms persist. Return for new worsening symptoms Prescriptions: No Action quetiapine 25 mg tablet 25 mg PO QDAY azelastine 137 mcg (0.1 %) aerosol,spray 1 spray intranasal prazosin 1 mg capsule 1 - 2 mg PO QPM Patient Comments: TAKE 1 TO 2 CAPSULES BY MOUTH AT BEDTIME Pataday Once Daily Relief 0.7 % drops ophthalmic (eye) Patient Comments: INSTILL 1 DROP IN BOTH EYES DAILY. triamcinolone acetonide 0.5 % cream 1 applic topical Patient Comments: APPLY AT BEDTIME FOR THUMBS tazarotene 0.1 % cream 1 applic TOPICAL tacrolimus 0.1 % ointment 1 applic TOPICAL Patient Comments: APPLY TWICE A DAY FOR BREAST RASH clindamycin phosphate 1 % solution 1 applic TOPICAL Patient Comments: APPLY TWICE A DAY FOR ACTIVE ACNE desvenlafaxine succinate 100 mg tablet extended release 24 hr 100 mg PO Aimovig Autoinjector 140 mg/mL auto-injector 140 mg SUBCUT metoprolol succinate 25 mg tablet extended release 24 hr 25 mg PO QDAY gabapentin 600 mg tablet 600 mg PO QDAY naratriptan 1 mg tablet 1 mg PO Q4H PRN Patient Comments: TAKE 1 TABLET BY MOUTH AT ONSET OF MIGRAINEMAY REPEAT AFTER FOUR HOURS topiramate 50 mg tablet 50 mg PO QDAY Cotempla XR-ODT 25.9 mg tablet,disinteg ER biphase 24h 25.9 mg PO QDAY famotidine 20 mg tablet 20 mg PO BID Patient Comments: TAKE 1 TABLET BY MOUTH IN THE MORNING AND 1 TABLET IN THE EVENING. duloxetine 30 mg capsule,delayed release(DR/EC) 90 mg PO QDAY Patient Comments: TAKE 3 CAPSULES BY MOUTH BY MOUTH EVERY MORNING buspirone 10 mg tablet 10 mg PO QDAY clonazepam 0.5 mg tablet 1 mg PO QHS Patient Comments: TAKE TWO TABLETS BY MOUTH EVERY NIGHT AT BEDTIME Follow Up/Referrals: Marissa Wesley MD [Primary Care Provider] - Stand Alone Forms: Tangible Play Info Instructions
--- OUTSIDE RECORDS SUMMARY | 2023-09-08 19:14 | XMS_ITS | Continuity of Care Document ---
Author Name Unknown Organization [facility] Address [address] [place] [address] Care Team Providers Care Packer Fuser Name Role Phone Doctor, Unknown Primary Care Physician Unavailab le Encounter [facility] [phone] Date(s): 05/23/23 - 05/23/23 [place] [address] [place], [place] [address] Encounter Diagnosis Headache disorder(Discharge Diagnosis) - 05/23/23 Discharge Disposition: Home or Self Care Attending Physician: Valerio Londono MD Referring Physician: Valerio Londono MD Allergies, Adverse Reactions, Alerts No Known Medication Allergies Substance Reaction Severity Status Nuts Anaphylactic reaction Severe Active Assessment and Plan Extracted from: Title:Headache Author:Kenneth Caceres MD Date:05/23 Impression and Plan Diagnosis Headache disorder ([id number] R51.9, Discharge, Medical) Plan Condition: Improved, Stable. Disposition: Medically cleared, Discharged: to home. Patient was given the following educational materials: Self-Care for Headaches, Self-Care for Headaches. Follow up with: ; Return to Emergency Department Return to ED if symptoms worsen.. Counseled: Patient, Regarding diagnosis, Regarding diagnostic results, Regarding treatment plan, Patient indicated understanding of instructions. Orders: Launch Orders Patient Care: Discharge Patient (Order): 05/23/2023 16:55 CDT. Medications adapalene 0.3% topical gel 1 ge, TOP, HS, # 45 gm, 0 Refill(s) Start Date: 05/14/23 Status: Ordered Aimovig SureClick Autoinjector Subcutaneous, qMonth, 0 Refill(s) Start Date: 05/14/23 Status: Ordered benztropine 1 mg oral tablet mg tab(s), Oral, BID, 0 Refill(s) Start Date: 05/14/23 Status: Ordered Clindagel 1% topical gel TOP, BID, 0 Refill(s) Start Date: 05/14/23 Status: Ordered Cotempla XR-ODT 25.9 mg oral tablet, disintegrating, extended release mg tab(s), Oral, qAM, 0 Refill(s) Start Date: 05/14/23 Status: Ordered desvenlafaxine (as succinate) 100 mg oral tablet, extended release 100 mg = 1 tab(s), Oral, Daily, # 30 tab(s), 0 Refill(s) Start Date: 05/14/23 Status: Ordered DULoxetine 30 mg oral delayed release capsule 30 mg = 1 cap(s), Oral, BID, (do not crush or chew), # 60 cap(s), 0 Refill(s) Start Date: 05/14/23 Status: Ordered EpiPen 2-Akira mg, IM, Once, 0 Refill(s) Start Date: 05/14/23 Status: Ordered gabapentin 600 mg oral tablet mg tab(s), Oral, TID, 0 Refill(s) Start Date: 05/14/23 Status: Ordered metoprolol succinate 25 mg oral tablet, extended release mg tab(s), Oral, Daily, 0 Refill(s) Start Date: 05/14/23 Status: Ordered Mirena 52 mg intrauterine device 52 mg = 1 EA, Intrauteral, Once, # 1 EA, 0 Refill(s) Start Date: 05/14/23 Status: Ordered naratriptan Oral, Daily, 0 Refill(s) Start Date: 05/14/23 Status: Ordered prochlorperazine 25 mg rectal suppository 25 mg = 1 supp(s), NE, BID, for nausea/vomiting, # 12 supp(s), 0 Refill(s) Start Date: 05/14/23 Status: Ordered tacrolimus 0.1% topical ointment TOP, BID, 0 Refill(s) Start Date: 05/14/23 Status: Ordered tazarotene 0.1% topical cream TOP, qPM, 0 Refill(s) Start Date: 05/14/23 Status: Ordered topiramate Oral, 0 Refill(s) Start Date: 05/14/23 Status: Ordered Vitamin D3 0 Refill(s) Start Date: 05/14/23 Status: Ordered Zofran 0 Refill(s) Start Date: 05/14/23 Status: Ordered Problem List Diagnosis Diagnosis Type Effective Dates Health Status Cl inical Service Informant Headache disorder Discharge Diagnosis 05/23/23 Non-Specified Vital Signs Most recent to oldest [Reference Range]: 1 Temperature Oral [35.8-37.3 DegC] 36.7 D egC (05/23/23 3:53 PM) Peripheral Pulse Rate [60-100 bpm] 72 bp m (05/23/23 3:53 PM) Blood Pressure [90-140/60-90 mmHg] 111/7 9mmHg (05/23/23 3:53 PM) Respiratory Rate [14-20 br/min] 18 br/mi n (05/23/23 3:53 PM) SpO2 [89 %] 98 % (05/23/23 3:53 PM) Social History Social History Type Response Smoking Status Never (less than 100 in lifetime); Type: Cigarettes; Cessation Counseling Intervention None entered on: 05/23/23 Sex Female Hospital Discharge Instructions Patient Education 05/23/2023 16:55:19 Self-Care for Headaches Self-Care for Headaches Most headaches aren't serious and can be relieved with self-care. But some headaches may be a sign of another health problem like eye trouble or high blood pressure. To find the best treatment, learnwhat kind of headaches you get. For tension headaches, self-care will usually help. To treat migraines, ask your??healthcare provider??for advice. It's also possible to get both tension and migraine headaches. Self-care involves relieving the pain and avoiding headache triggers if you can. Ways to reduce pain and tension Try these steps: ???Apply a cold compress or ice pack to the pain site. ???Drink fluids. If nausea makes it hard to drink, try sucking on ice. ???Rest. Protect yourself from bright light and loud noises. ???Calm your emotions by imagining a peaceful scene. ???Massage tight neck, shoulder, and head muscles. ???To relax muscles, soak in a hot bath or use a hot shower. Use medicines Aspirin or other vbso-skc-ipwvwmh (OTC) pain medicines such as ibuprofen and acetaminophen can relieve headache. Remember: Never give aspirin to anyone 18 years old or younger because of the risk of getting Kim syndrome. Use pain medicines only when needed. Certain prescription and OTC medicines can lead to rebound headaches if they are taken too often. Check with your healthcare provider or pharmacist about your medicines. Track your headaches Keeping a headache diary can help you and your??healthcare provider??identify what's causing your headaches: ???Note when each headache happens. ???Identify your activities and the foods you've eaten??6 to 8??hours before the headache began. ???Look for any trends or triggers. ???Bring the information to your next medical appointment. Signs of tension headache Any of the following can be signs: ???Dull pain or feeling of pressure in a tight band around your head ???Pain in your neck or shoulders ???Headache without a definite beginning or end ???Headache after an activity such as driving or working on a computer Signs of migraine Any of the following can be signs: ???Throbbing pain on one or both sides of your head ???Nausea or vomiting ???Extreme sensitivity to light, sound, and smells ???Bright spots, flashes, or other visual changes ???Pain or nausea so severe that you can't continue your daily activities When to call your??healthcare provider?? Call your healthcare provider if any of these occur: ???A headache that lingers after a recent injury or bump to the head ???A headache that lasts for more than??3 days ???Frequent headaches,??especially in the morning Get medical care right away if you have: ???A headache along with slurred speech, changes in your vision, or numbness or weakness in your arms or legs ???Headaches with seizures ???A fever with a stiff neck or pain when you bend your head toward your chest ???A headache that you would call the worst headache you have ever had or a severe, persistent headache that gets worse or doesn't get better with treatment ?? [employer]. All rights reserved. This information is not intended as a substitute for professional medical care. Always follow your healthcare professional's instructions. Emergency department Discharge summary * Casey Morris RN: SIGN Casey Morris RN: SIGN, PERFORM Casey Morris RN: PERFORM, SIGN Casey Morris RN: SIGN, VERIFY Casey Morris RN: Dedra Michelle RN: SIGN Event Display: ED Patient Summary Authored Date: [id number] Emergency Department [address] [place], [place] [id number] Patient Visit Summary: Name: TRIXIE DIANA Age: 22 Years Date of : 2000 Patient Phone#: Patient Address: [address] [place] [phone] Care Provider: Doctor, Unknown Care Contact: Follow-up Instructions: With: Address: When: Return to Emergency Department Comments: Return to ED if symptoms worsen. Dear: WEI DIANALA, Thank you for choosing [facility] for your care. The examination and treatment you have received in the emergency department today have been rendered on an emergency basis only & are not intended to be a substitute for an effort to provide complete medical care. You should contact your follow-upphysician as it is important that you let him/her check you & report any new or remaining problems since it is impossible to recognize & treat all elements of an injury or illness in a single emergency care visit. Diagnosis: Headache disorder Allergies: - No Known Medication Allergies - Nuts(Anaphylactic reaction) Diagnostic Tests Performed: Laboratory Orders No Laboratory Orders Were Placed Radiology Orders No Radiology Orders Were Placed Medication Information: [facility] ED Physicians provided this patient with a complete list of medications post discharge. If this patient has been instructed to stop taking a medication, please ensure this patient also follow up with this information to his/her Primary Care Physician. Unless otherwise noted, this patient will continue to take medications as prescribed prior to the emergency room visit. Any specific questions regarding this patients? chronic medications & dosages should be discussed with his/her physician(s) & pharmacist. Thank You. Medications that have not changed Other Medications adapalene topical (adapalene 0.3% topical gel) 1 Application Topical once a day (at bedtime). Last Dose: benztropine (benztropine 1 mg oral tablet) Oral 2 times a day. Last Dose: cholecalciferol (Vitamin D3) Last Dose: clindamycin topical (Clindagel 1% topical gel) Topical 2 times a day. Last Dose: desvenlafaxine (desvenlafaxine (as succinate) 100 mg oral tablet, extended release) 1 Tab(s) Oral every day. Last Dose: DULoxetine (DULoxetine 30 mg oral delayed release capsule) 1 Capsule(s) Oral 2 times a day. (do notcrush or chew). Last Dose: EPINEPHrine (EpiPen 2-Akira) Intramuscular once. Last Dose: erenumab (Aimovig SureClick Autoinjector) Subcutaneous once a month. Last Dose: gabapentin (gabapentin 600 mg oral tablet) Oral 3 times a day. Last Dose: levonorgestrel (Mirena 52 mg intrauterine device) 1 Each Intrauteral once for 1 Dose(s). Last Dose: methylphenidate (Cotempla XR-ODT 25.9 mg oral tablet, disintegrating, extended release) Oral once aday (in the morning). Last Dose: metoprolol (metoprolol succinate 25 mg oral tablet, extended release) Oral every day. Last Dose: naratriptan Oral every day. Last Dose: ondansetron (Zofran) Last Dose: prochlorperazine (prochlorperazine 25 mg rectal suppository) 1 Suppository(ies) Per rectum 2 times a day as needed for nausea/vomiting. Last Dose: tacrolimus topical (tacrolimus 0.1% topical ointment) Topical 2 times a day. Last Dose: tazarotene topical (tazarotene 0.1% topical cream) Topical once a day (in the evening). Last Dose: topiramate Oral. Last Dose: Patient Education Materials: Self-Care for Headaches Most headaches aren't serious and can be relieved with self-care. But some headaches may be a sign of another health problem like eye trouble or high blood pressure. To find the best treatment, learnwhat kind of headaches you get. For tension headaches, self-care will usually help. To treat migraines, ask your??healthcare provider??for advice. It's also possible to get both tension and migraine headaches. Self-care involves relieving the pain and avoiding headache triggers if you can. Ways to reduce pain and tension Try these steps: ???Apply a cold compress or ice pack to the pain site. ???Drink fluids. If nausea makes it hard to drink, try sucking on ice. ???Rest. Protect yourself from bright light and loud noises. ???Calm your emotions by imagining a peaceful scene. ???Massage tight neck, shoulder, and head muscles. ???To relax muscles, soak in a hot bath or use a hot shower. Use medicines Aspirin or other iyxl-gzq-dyujaax (OTC) pain medicines such as ibuprofen and acetaminophen can relieve headache. Remember: Never give aspirin to anyone 18 years old or younger because of the risk of getting Kim syndrome. Use pain medicines only when needed. Certain prescription and OTC medicines can lead to rebound headaches if they are taken too often. Check with your healthcare provider or pharmacist about your medicines. Track your headaches Keeping a headache diary can help you and your??healthcare provider??identify what's causing your headaches: ???Note when each headache happens. ???Identify your activities and the foods you've eaten??6 to 8??hours before the headache began. ???Look for any trends or triggers. ???Bring the information to your next medical appointment. Signs of tension headache Any of the following can be signs: ???Dull pain or feeling of pressure in a tight band around your head ???Pain in your neck or shoulders ???Headache without a definite beginning or end ???Headache after an activity such as driving or working on a computer Signs of migraine Any of the following can be signs: ???Throbbing pain on one or both sides of your head ???Nausea or vomiting ???Extreme sensitivity to light, sound, and smells ???Bright spots, flashes, or other visual changes ???Pain or nausea so severe that you can't continue your daily activities When to call your??healthcare provider?? Call your healthcare provider if any of these occur: ???A headache that lingers after a recent injury or bump to the head ???A headache that lasts for more than??3 days ???Frequent headaches,??especially in the morning Get medical care right away if you have: ???A headache along with slurred speech, changes in your vision, or numbness or weakness in your arms or legs ???Headaches with seizures ???A fever with a stiff neck or pain when you bend your head toward your chest ???A headache that you would call the worst headache you have ever had or a severe, persistent headache that gets worse or doesn't get better with treatment ?? [employer]. All rights reserved. This information is not intended as a substitute for professional medical care. Always follow your healthcare professional's instructions. How to Correctly Dispose of Medications: ?- Remove or rosmery over labels, including all personal information. ?- If available, take all unused medication to a designated drop off site. ?- If unable to take to a drop off site, crush or dissolve your medication as much as possible. ??Then place it in an unappealing ?substance like coffee grounds or cat litter, sealed in a discrete sealed bag or container& placed in the garbage. ?- If possible, reduce the amount of medications. Use all medications as prescribed & onlybuy the amount needed of any ?etdi-ldn-tdbhuzi medications. How NOT to Dispose of Your Medications: ?- Do not flush down the toilet or put down the drain. ?- Do not throw medication in the trash in its original form ??? follow recommendations on this sheet. ?- Do not burn medication. Medication Drop Off Locations: Turn in old prescriptions, samples & ifeb-wwb-byteijq medications at the following locations. Chemotherapy drugs, sharps & illegal substances are not allowed. [facility] Police Department?[facility] Police Department [address] [place] [address]???Open 24/7?[address] [facility]???Open M-F 8am-4pm [place] Police Department?[facility] [address]???Open 24/7?[address] [place]???Open 24/7 [facility]?[place] Police Department [address]???Open business hrs?[address] [place]???Open 24/7 [place] Police Department?[place] [employer] [address]???Open 24/7?[address] [place]???Open business [facility] Department?[place] [address] [facility]???Open M-F 8am- 5pm?[address] [facility]???Open 24/7 [facility]???s Department?[facility] Police District Station [address] [facility]???Open M-F 8am- 5pm?[address] [place]???Open M-F 8am-5pm [place] Police Department?[address] [facility]???Open M-F 8am- 5pm?[address] [place]???Open [facility] Police Department?[place] Police Department [address] [facility]???Open 24/7?[address] [place]???Open M-F 8am-5pm How to Dispose of Sharps: ?- If available, pickle processor a designated sharps container from a participating pharmacy. ?- If unable to get a sharps container, put used sharps in a plastic container, such as a laundry detergent bottle or coffee ?container, No soda or milk containers. ?- Place all sharps, even those that retract or very small ones such as lancets,in the container.?? When the designated container ?is full, seal it & return it to the participating pharmacy & obtain a new container. ?- If using your own container, when it is ?? full, put a lid on it, seal it with duct tape and label ???DO NOT RECYCLE?? . [place] residents - bring to a registered sharps collection station. [place] residents - place the container in the trash. Pharmacies in [place] to Drop Off Sharps: ?-??[facility] ?-??[facility] ?-??[facility] pharmacies (require proof of residency) ?-??[facility] ?-[facility] ?-??[place] Pharmacies in Other Areas to Drop Off Sharps: ?-??[facility] ??? [place], [place], [place] ?-??[facility] ?-??[facility] There are currently no sharps drop off sites in [place] or [place] Medication safety???it???s your responsibility! ED Discharge Instructions: The emergency department is for people experiencing an emergency medical condition. An emergency medical condition is defined as a condition that is new and presents in a severe way such that absenceof immediate medical attention could reasonably be expected to result in placing the individual???shealth (or health of an unborn child) in serious jeopardy, serious impairment of bodily functions, or serious dysfunction of bodily organs. Some available options for non-urgent medical conditions are doctor offices, convenient care and immediate care. A non-emergency medical condition is defined as a condition for which a delay of several hours would not increase the likelihood of an adverse outcome. What is MyHealth? MyHealth is an online patient health-management tool provided by [employer]. MyHealth empowers you to more effectively manage your health in one secure,convenient location. MyHealth allows you to send secure messages to your providers, request medication refills, view most lab results & request appointments. How do I sign up for MyHealth? You can sign up for MyHealth by using our self-enrollment feature at this website - [email or web address] You will need to have your Medical Record Number which is listed on the bottom of each page of this Patient Visit Summary. You can also sign up for MyHealth at any Registration desk at any [facility] location. How do I access MyHealth? Once you have an account set up, you can access [employer] anywhere you have Internet. Simply log on to [email or web address]??from home, work, school, the library, etc. Emergency Department [address] [place], [place] [id number] ??Name: ?ADALGISA,??TRIXIE ??Date??of??: ?2000 ??Patient??Phone: ?[phone] ??Patient??Address: ?[address] ?[place], [place]??[id number] ??Provider??Name: ?Bry??,??Valerio ??Provider??Fax: ?[phone] * Alexandra VAZQUEZ, Casey: SIGN Alexandra VAZQUEZ, Casey: SIGN, PERFORM Alexandra VAZQUEZ, Casey: PERFORM, SIGN Alexandra VAZQUEZ, Casey: SIGN, VERIFY Alexandra VAZQUEZ, Casey: VERIFY Christi VAZQUEZ, Dedra: SIGN Event Display: ED Clinical Summary Authored Date: [id number] Emergency Department [address] [place], [place] [id number] Transfer of Care: Name: TRIXIE DIANA Age: 22 Years Date of : 2000 Patient Phone#: Patient Address: [facility] [place] [id number] Care Provider: Doctor, Unknown Care Contact: Please take this Transition of Care Summary & give it to your PCP or Provider you were referredto. [facility] would like to thank you for allowing us to assist you with your healthcare needs. Checkin date/time:?05/23/23 15:40:03 Checkout date/time: 05/23/23 17:10:00 Diagnosis: Headache disorder Allergies: - No Known Medication Allergies - Nuts(Anaphylactic reaction) Medication List: Medications that have not changed Other Medications adapalene topical (adapalene 0.3% topical gel) 1 Application Topical once a day (at bedtime). Last Dose: benztropine (benztropine 1 mg oral tablet) Oral 2 times a day. Last Dose: cholecalciferol (Vitamin D3) Last Dose: clindamycin topical (Clindagel 1% topical gel) Topical 2 times a day. Last Dose: desvenlafaxine (desvenlafaxine (as succinate) 100 mg oral tablet, extended release) 1 Tab(s) Oral every day. Last Dose: DULoxetine (DULoxetine 30 mg oral delayed release capsule) 1 Capsule(s) Oral 2 times a day. (do notcrush or chew). Last Dose: EPINEPHrine (EpiPen 2-Akira) Intramuscular once. Last Dose: erenumab (Aimovig SureClick Autoinjector) Subcutaneous once a month. Last Dose: gabapentin (gabapentin 600 mg oral tablet) Oral 3 times a day. Last Dose: levonorgestrel (Mirena 52 mg intrauterine device) 1 Each Intrauteral once for 1 Dose(s). Last Dose: methylphenidate (Cotempla XR-ODT 25.9 mg oral tablet, disintegrating, extended release) Oral once aday (in the morning). Last Dose: metoprolol (metoprolol succinate 25 mg oral tablet, extended release) Oral every day. Last Dose: naratriptan Oral every day. Last Dose: ondansetron (Zofran) Last Dose: prochlorperazine (prochlorperazine 25 mg rectal suppository) 1 Suppository(ies) Per rectum 2 times a day as needed for nausea/vomiting. Last Dose: tacrolimus topical (tacrolimus 0.1% topical ointment) Topical 2 times a day. Last Dose: tazarotene topical (tazarotene 0.1% topical cream) Topical once a day (in the evening). Last Dose: topiramate Oral. Last Dose: Problems & Health Issues: -No Problems or Health Issues where Documented Immunizations: -No Immunizations are Documented Procedures: -No Procedures are Documented ?Immunology/Serology ?05/14/23 16:15:00 ?Urine POC:??Negative??a Tobacco Use: -Never (less than 100 in lifetime) Vitals: Measurement Result Timestamp ?Temp??Oral ?98??`F ?05/23/23??15:53:30 ?Blood??Pressure ?111??/??79 ?05/23/23??15:53:30 Follow-Up: With: Address: When: Return to Emergency Department Comments: Return to ED if symptoms worsen. Care Plan Team: -?PCP: Doctor, Unknown -?Admitting Doc: -?Attending Doc:Valerio Londono MD -?Consulting Doc: Impression and Plan Diagnosis Headache disorder (JSO30-ZS R51.9, Discharge, Medical) Plan Condition: Improved, Stable. Disposition: Medically cleared, Discharged: to home. Patient was given the following educational materials: Self-Care for Headaches, Self-Care for Headaches. Follow up with: ; Return to Emergency Department Return to ED if symptoms worsen.. Counseled: Patient, Regarding diagnosis, Regarding diagnostic results, Regarding treatment plan, Patient indicated understanding of instructions. Orders: Launch Orders Patient Care: Discharge Patient (Order): 05/23/2023 16:55 CDT. Emergency department Education note * Alexandra VAZQUEZ, Casey: TYLER Morris RN, Casey: SIGN PERFORM Alexandra VAZQUEZ, Casey: PERFORM, SIGN Alexandra VAZQUEZ, Casey: SIGN, VERIFY Alexandra VAZQUEZ, Casey: VERIFY, SIGN Morris HIDALGO, Kenneth: SIGN Miryam VAZQUEZ, Lizandro: Dedra Mcdonald RN: SIGN Event Display: ED Patient Education Note Authored Date: [id number] Patient Education Materials Follows: Self-Care for Headaches Most headaches aren't serious and can be relieved with self-care. But some headaches may be a sign of another health problem like eye trouble or high blood pressure. To find the best treatment, learnwhat kind of headaches you get. For tension headaches, self-care will usually help. To treat migraines, ask your??healthcare provider??for advice. It's also possible to get both tension and migraine headaches. Self-care involves relieving the pain and avoiding headache triggers if you can. Ways to reduce pain and tension Try these steps: ???Apply a cold compress or ice pack to the pain site. ???Drink fluids. If nausea makes it hard to drink, try sucking on ice. ???Rest. Protect yourself from bright light and loud noises. ???Calm your emotions by imagining a peaceful scene. ???Massage tight neck, shoulder, and head muscles. ???To relax muscles, soak in a hot bath or use a hot shower. Use medicines Aspirin or other tnuk-kie-xbafpvn (OTC) pain medicines such as ibuprofen and acetaminophen can relieve headache. Remember: Never give aspirin to anyone 18 years old or younger because of the risk of getting Kim syndrome. Use pain medicines only when needed. Certain prescription and OTC medicines can lead to rebound headaches if they are taken too often. Check with your healthcare provider or pharmacist about your medicines. Track your headaches Keeping a headache diary can help you and your??healthcare provider??identify what's causing your headaches: ???Note when each headache happens. ???Identify your activities and the foods you've eaten??6 to 8??hours before the headache began. ???Look for any trends or triggers. ???Bring the information to your next medical appointment. Signs of tension headache Any of the following can be signs: ???Dull pain or feeling of pressure in a tight band around your head ???Pain in your neck or shoulders ???Headache without a definite beginning or end ???Headache after an activity such as driving or working on a computer Signs of migraine Any of the following can be signs: ???Throbbing pain on one or both sides of your head ???Nausea or vomiting ???Extreme sensitivity to light, sound, and smells ???Bright spots, flashes, or other visual changes ???Pain or nausea so severe that you can't continue your daily activities When to call your??healthcare provider?? Call your healthcare provider if any of these occur: ???A headache that lingers after a recent injury or bump to the head ???A headache that lasts for more than??3 days ???Frequent headaches,??especially in the morning Get medical care right away if you have: ???A headache along with slurred speech, changes in your vision, or numbness or weakness in your arms or legs ???Headaches with seizures ???A fever with a stiff neck or pain when you bend your head toward your chest ???A headache that you would call the worst headache you have ever had or a severe, persistent headache that gets worse or doesn't get better with treatment ?? [employer] All rights reserved. This information is not intended as a substitute for professional medical care. Always follow your healthcare professional's instructions. Patient Care team information Care Team Personnel Name: Doctor, Unknown Position: Physician Member Role: Primary Care Physician Name: Lizandro Witt RN Position: ED Charge Nurse Member Role: ED Nurse Name: Kenneth Caceres MD Position: Physician - ED Member Role: ED Physician Address: Address: [address] [phone] [place] [address] Name: Casey Morris RN Position: ED Nurse Member Role: ED Nurse Care Team Related Persons Name: SUJATHA LONG Address: Home Name: ADALGISA RODRIGUEZ
--- OUTSIDE RECORDS SUMMARY | 2023-09-08 19:14 | XMS_ITS | Patient Health Record ---
Author Name Unknown Organization [facility] Address [address] [place] [id number] Care Team Providers Care Sports Anchor Name Role Phone Dalia Narvaez MD Primary Care Provider MICHELLE Hudson Unavailable [phone] ALLERGIES Allergen (clinical drug ingredient) Drug/Non Drug Allergy documented on EMR Reaction Allergy Type Onset Date Status Tree Nuts Unknown Allergy Active REASON FOR REFERRAL No Information MEDICATIONS Medication SIG (Take, Route, Frequency, Duration) Notes Start Date End Date Status Topiramate 50 MG TAKE TWO TABLETS BY MOUTH AT BEDTIME Oral Active Metoprolol Succinate 25 MG 1 capsule Ora lly Once a day for 30 day(s) Active Marijuana Active Pataday 0.7 % 1 drop into affected eye Ophthalmic Once a day Active Benztropine Mesylate 1 MG 1 tablet Orall y Once a day for 30 day(s) Active Prochlorperazine 25 MG 1 suppository as needed Rectal Twice a day Active Clindamycin Phos & Cleanser 1 % as directed Externally Activ e Gabapentin 600 MG TAKE 1 TABLET BY MATY TH IN THE MORNING AND 1 TABLET AT NOON AND 1 TABLET BEFORE BEDTIME. Oral Active Naratriptan HCl 1 MG 1 tablet Orally Onc e a day for 1 day(s) Active Co Q-10 100 MG as directed Orally Active DULoxetine HCl 30 MG TAKE THREE CAPSULES BY MOUTH EVERY MORNING Oral Active Tazarotene 0.1 % 1 application in the evening Externally Once a day Active Vitamin B12 1000 MCG 1 tablet Orally Onc e a day for 30 day(s) Active clonazePAM 0.5 MG Oral for 30 Active Aimovig 140 MG/ML Subcutaneous Active EPINEPHrine 0.3 MG/0.3ML as directed Injection Active Azelastine HCl 0.1 % INSTILL 2 SPRAYS IN TO EACH NOSTRIL TWICE A DAY Nasal for 25 Active Famotidine 20 MG 1 tablet at bedtime as needed Orally Once a day for 30 day(s) Active busPIRone HCl 10 MG TAKE ONE TABLET BY M OUTH TWICE A DAY Oral for 30 Active Cyproheptadine HCl 4 MG 1 tablet Orally Once a day Active Ondansetron 4 MG 1 tablet on the tong ue and allow to dissolve Orally Once a day for 30 day(s) Active Desvenlafaxine Succinate ER 100 MG Oral for 30 Active ZOLMitriptan 5 MG as directed Nasally Active SOCIAL HISTORY Tobacco Use: Social History Observation Description Date Details (start date - stop date) Never Smoker NA - NA Sex Assigned At : Social History Observation Description Sex Assigned At Unknown Tobacco Use/Smoking Question Answer Notes Are you a nonsmoker PROBLEMS Problem Type ICD Code Onset Dates Problem Status W/U Status Risk SNOMED Code Notes Problem Intractable chronic migraine without aura and without status migrainosus (G43.719) Active confirmed 977750685544981 Problem Chronic pain syndrome (G89.4) Active confirmed [id number] PLAN OF TREATMENT No Information Insurance Providers Payer Name Payer Address Payer Phone Subscriber Number Group Number Insured Name Patient Relationship to Insured Coverage Start Date Coverage End Date [facility] [address] [place] [address] [phone] [id number] Beryl Medel Self - patient is the insured MEDICAL (GENERAL) HISTORY Medical History History ICD Code Head Injury Migraines Anxiety Depression Insomnia Ehlos-Danlos syndrome POTS Chronic pain Spinal instability chronic dizziness and nausea ADD PTSD Insomnia Foramination Surgical History Surgery Date(Month/Year)
--- OUTSIDE RECORDS SUMMARY | 2023-09-08 19:14 | XMS_ITS | Patient Health Record ---
Author Name Unknown Organization [facility] Address [address], [place] [id number] Care Team Providers Care Guitar Technician Name Role Phone Sapphire Coleman MD Primary Care Provider Unavaila ble REASON FOR REFERRAL No Information MEDICATIONS Medication SIG (Take, Route, Frequency, Duration) Notes Start Date End Date Status Metoprolol Succinate 25 MG half capsule Orally Once a day Active SUMAtriptan Succinate 100 MG 1 tablet as needed Orally Once a day Active Cymbalta 60 MG 1 capsule Orally Onc e a day Not-Taking Cotempla XR-ODT 25.9 MG 1 tablet in the morning Orally Once a day Active Cymbalta 30 mg 1 capsule Orally onc e a day Not-Taking EpiPen 1 MG/ML Intramuscular A ctive Amantadine HCl 100 mg 2 capsules Orally q am Not-Taking Gabapentin 600 MG 1 capsule Orally 4 times per day Active Fluticasone Propionate 50 MCG/ACT 1 spray in each nostril Nasally Once a day Not-Taking Metadate CD 40 mg 1 capsule in the morning Orally Once a day Active DULoxetine HCl 30 MG 3 capsule Orally On ce a day Active Midodrine HCl 2.5 MG 1 tablet Orally q a m and noon Not-Taking Desvenlafaxine Succinate ER 100 MG 1 tablet Orally Once a day Active Augmentin 875-125 MG 1 tablet Orally sita ry 12 hrs for 10 day(s) 01/20/2016 Not-Taking Lidocaine & Menthol 4-4 % as directed Ex ternally four times a day (qid) for 10 days 10/25/2018 Active Ondansetron HCl 4 MG 2 tablets Orally ev jose cruz 6 hours prn Active SOCIAL HISTORY Tobacco Use: Social History Observation Description Date Details (start date - stop date) Never Smoker NA - NA Sex Assigned At : Social History Observation Description Sex Assigned At Unknown TOBACCO USE - Question Answer Notes Are you a: never Tobacco user Alcohol Screen Question Answer Notes Did you have a drink containing alcohol in the p ast year? 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
--- OUTSIDE RECORDS SUMMARY | 2023-09-08 19:14 | XMS_ITS | Continuity of Care Document ---
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 [place], [place] [address] Encounter Diagnosis Acute confusional migraine(Discharge Diagnosis) - 05/14/23 Discharge Disposition: Home or Self Care Attending Physician: Lul Anaya MD Referring Physician: Lul Anaya MD Allergies, Adverse Reactions, Alerts No Known Medication Allergies Substance Reaction Severity Status Nuts Anaphylactic reaction Severe Active Assessment and Plan Extracted from: Title:ED Visit Note *ED Author:Valerio Londono MD te:05/14/23 Impression and Plan Diagnosis Acute confusional migraine (EHM11-DH G43.909, Discharge, Medical) Plan Patient was given the following educational materials: Headache, Migraine, Classic. Follow up with: Stevan Cano; Return to Emergency Department Return to ED if symptoms worsen especially if you develop confusion, vision changes, vomiting, numbness or weakness. Continue your previously prescribed migraine medications and follow-up with your primary care provider for long-term management.. Medications adapalene 0.3% topical gel 1 ge, [...] rectal suppository 25 mg = 1 supp(s), NC, BID, for nausea/vomiting, # 12 supp(s), 0 [...] 0 Refill(s) Start Date: 05/14/23 Status: Ordered Mental Status 05/14/23 Level of Consciousness Alert Orientation Assessment Oriented x 4 Problem List Diagnosis Diagnosis Type Effective Dates Health Status Clinical Service Informant Acute confusional migraine Discharge Diagnosis 05/14/23 Non-Specified Results Most recent to oldest [Reference Range]: 1 Urine POC Negative (05/14/23 4:15 PM) Vital Signs Most recent to oldest [Reference Range]: 1 2 Temperature Oral [35.8-37.3 DegC] 36.8 D egC (05/14/23 3:46 PM) Peripheral Pulse Rate [60-100 bpm] 67 bp m (05/14/23 4:09 PM) 75 bpm (05/14/23 3:46 PM) Blood Pressure [90-140/60-90 mmHg] 111/6 1mmHg (05/14/23 4:09 PM) Systolic Blood Pressure [90-140 mmHg] 10 4 mmHg (05/14/23 3:46 PM) Mean Arterial Pressure, Cuff 78 mmHg (05/14/23 4:09 PM) Respiratory Rate [14-20 br/min] 14 br/mi n (05/14/23 4:09 PM) 16 br/min (05/14/23 3:46 PM) SpO2 [89 %] 98 % (05/14/23 4:09 PM) 99 % (05/14/23 3:46 PM) Social History Social History Type Response Sex Female Hospital Discharge Instructions Patient Education 05/14/2023 16:23:50 Headache, Migraine, Classic Migraine Headache?? A migraine headache is an often severe type of headache. It's different from other types of headaches in that symptoms other than pain occur with the it. For instance, a classic migraine headache means visual symptoms (or aura) such as flashes of light, blind spots or other vision changes, warns you a headache is coming on. Nausea and vomiting, lightheadedness, sensitivity to light or sound, and other visual disturbances are common migraine symptoms.??The pain may last from a few hours to several days. It's not clear why migraines occur, but certain factors called triggers can raise the risk of having a migraine attack.??A migraine may be triggered by emotional stress??or depression, or by h ormone changes during the menstrual cycle. Other triggers include certain control pills, overuse of migraine medicines, alcohol or caffeine, foods with tyramine such as aged cheese and wine, eyestrain, weather changes, missed meals,??or too little or too much sleep. Home care Follow these tips when taking care of yourself at home: ???Don???t drive yourself home if you were given pain medicine for your headache or are having visual symptoms. Instead, have someone else drive you home. Try to sleep when you get home. You should feel much better when you wake up. ???Cold can help ease migraine symptoms. Put an ice pack wrapped in a thin towel on your forehead or at the base of your skull. Put heat on the back of your neck to help ease any neck spasm. ???Drink only clear liquids or eat a light diet until your symptoms get better. This will help you prevent nausea and vomiting. How to prevent migraines Pay attention to what seems to trigger your headache. Try to stay away from the triggers when you can. If you have headaches often, consider keeping a headache diary. In it, write down what you were doing, feeling, or eating in the hours before each headache. Show this to your healthcare provider to help find the cause of your headaches. If stress seems to be a trigger for your headaches, figure out what is causing stress in your life.Learn new ways to handle your stress. Ideas include regular exercise, biofeedback, self-hypnosis, yoga, and meditation. Talk with your healthcare provider to find out more information about managing stress. Many books and digital media are also available on this subject. Tyramine is a substance found in many foods. It can trigger a migraine in some people. These foods contain tyramine: ???Chocolate ???Yogurt ???All cheeses, but especially aged cheeses ???Smoked or pickled fish and meat, including kan, caviar, bologna, pepperoni, and salami ???Liver ???Avocados ???Bananas ???Figs ???Raisins ???Red wine Try staying away from these foods for 1 to 2 months to see if you have fewer headaches. How to treat future headaches ???Take time out at the first sign of a headache, if possible. Find a quiet, dark, comfortable place to sit or lie down. Let yourself relax or sleep. ???Put an ice pack wrapped in a thin towel on your forehead or on the area of greatest pain. A heating pad and massage may help if you are having a muscle spasm and tightness in your neck. ???If you have been prescribed a medicine to stop a migraine headache, use this at the first warning sign of the headache for best results. First signs may be an aura or pain. ???If you have been prescribed a medicine to prevent the headaches, it's important to take the medicine as directed. Many of these medicines may take a few weeks to start preventing headaches, so it's important to not give up on them right away. If you continue to have just as many headaches after taking these medicines for a while, talk with your doctor to see if the dose needs to be changed or if a different medicine is advised. ???If you need to take medicine often for your migraine, talk with your healthcare provider about other ways to prevent your headaches. Follow-up care Follow up with your healthcare provider, or as advised. Talk with your provider if you have frequent headaches. He or she can figure out a treatment plan. Ask if you can have medicine to take at homethe next time you get a bad headache. This may keep you from having to visit the emergency department in the future. You may need to see a headache specialist (neurologist) if you continue to have headaches. When to seek medical advice Call your healthcare provider right away??if any of these occur: ???Your head pain gets worse, or doesn???t get better within 24 hours ???You can???t keep liquids down (repeated vomiting) ???Pain in your sinuses, ears, or throat ???Fever of 100.4?? F (38?? C) or higher, or as directed by your healthcare provider ???Stiff neck ???Extreme drowsiness, confusion, or fainting ???Dizziness, or dizziness with spinning sensation (vertigo) ???Weakness or trouble feeling in an arm or leg, or on one side of your face ???Trouble talking or seeing ?? [id number] [employer]. All rights reserved. This information is not intended as a substitute for professional medical care. Always follow your healthcare professional's instructions. Emergency department Discharge summary * Rayne Francisco RN: SIGN, SIGN, SIGN, PERFORM, SIGN, VERIFY, SIGN Event Display: ED Patient Summary Authored Date: [id number] [place], [place] [id number] Patient Visit Summary: Name: TRIXIE DIANA Age: 22 Years Date of : 2000 Patient Phone#: Patient Address: [address] [place] [phone] Care Provider: Doctor, Unknown Care Contact: Follow-up Instructions: With: Address: When: Return to Emergency Department Comments: Return to ED if symptoms worsen especially if you develop confusion, vision changes, vomiting, numbness or weakness. Continue your previously prescribed migraine medications and follow-up with your primary care provider for long-term management. With: Address: When: Stevan Cano Dear: TRIXIE DIANA, Thank you for choosing [facility] for your care. The examination and [...] in a single emergency care visit. Diagnosis: Acute confusional migraine Allergies: - No Known Medication Allergies - Nuts(Anaphylactic reaction) Diagnostic Tests Performed: Laboratory Orders No Laboratory Orders Were Placed Radiology Orders No Radiology Orders Were Placed Medication Information: [facility] ED Physicians provided this patient with a [...] topiramate Oral. Last Dose: Patient Education Materials: Migraine Headache?? A migraine headache is an often severe type of headache. It's different from other types of headaches in that symptoms other than pain occur with the it. For instance, a classic migraine headache means visual symptoms (or aura) such as flashes of light, blind spots or other vision changes, warns you a headache is coming on. Nausea and vomiting, lightheadedness, sensitivity to light or sound, and other visual disturbances are common migraine symptoms.??The pain may last from a few hours to several days. It's not clear why migraines occur, but certain factors called triggers can raise the risk of having a migraine attack.??A migraine may be triggered by emotional stress??or depression, or by h ormone changes during the menstrual cycle. Other triggers include certain control pills, overuse of migraine medicines, alcohol or caffeine, foods with tyramine such as aged cheese and wine, eyestrain, weather changes, missed meals,??or too little or too much sleep. Home care Follow these tips when taking care of yourself at home: ???Don???t drive yourself home if you were given pain medicine for your headache or are having visual symptoms. Instead, have someone else drive you home. Try to sleep when you get home. You should feel much better when you wake up. ???Cold can help ease migraine symptoms. Put an ice pack wrapped in a thin towel on your forehead or at the base of your skull. Put heat on the back of your neck to help ease any neck spasm. ???Drink only clear liquids or eat a light diet until your symptoms get better. This will help you prevent nausea and vomiting. How to prevent migraines Pay attention to what seems to trigger your headache. Try to stay away from the triggers when you can. If you have headaches often, consider keeping a headache diary. In it, write down what you were doing, feeling, or eating in the hours before each headache. Show this to your healthcare provider to help find the cause of your headaches. If stress seems to be a trigger for your headaches, figure out what is causing stress in your life.Learn new ways to handle your stress. Ideas include regular exercise, biofeedback, self-hypnosis, yoga, and meditation. Talk with your healthcare provider to find out more information about managing stress. Many books and digital media are also available on this subject. Tyramine is a substance found in many foods. It can trigger a migraine in some people. These foods contain tyramine: ???Chocolate ???Yogurt ???All cheeses, but especially aged cheeses ???Smoked or pickled fish and meat, including kan, caviar, bologna, pepperoni, and salami ???Liver ???Avocados ???Bananas ???Figs ???Raisins ???Red wine Try staying away from these foods for 1 to 2 months to see if you have fewer headaches. How to treat future headaches ???Take time out at the first sign of a headache, if possible. Find a quiet, dark, comfortable place to sit or lie down. Let yourself relax or sleep. ???Put an ice pack wrapped in a thin towel on your forehead or on the area of greatest pain. A heating pad and massage may help if you are having a muscle spasm and tightness in your neck. ???If you have been prescribed a medicine to stop a migraine headache, use this at the first warning sign of the headache for best results. First signs may be an aura or pain. ???If you have been prescribed a medicine to prevent the headaches, it's important to take the medicine as directed. Many of these medicines may take a few weeks to start preventing headaches, so it's important to not give up on them right away. If you continue to have just as many headaches after taking these medicines for a while, talk with your doctor to see if the dose needs to be changed or if a different medicine is advised. ???If you need to take medicine often for your migraine, talk with your healthcare provider about other ways to prevent your headaches. Follow-up care Follow up with your healthcare provider, or as advised. Talk with your provider if you have frequent headaches. He or she can figure out a treatment plan. Ask if you can have medicine to take at homethe next time you get a bad headache. This may keep you from having to visit the emergency department in the future. You may need to see a headache specialist (neurologist) if you continue to have headaches. When to seek medical advice Call your healthcare provider right away??if any of these occur: ???Your head pain gets worse, or doesn???t get better within 24 hours ???You can???t keep liquids down (repeated vomiting) ???Pain in your sinuses, ears, or throat ???Fever of 100.4?? F (38?? C) or higher, or as directed by your healthcare provider ???Stiff neck ???Extreme drowsiness, confusion, or fainting ???Dizziness, or dizziness with spinning sensation (vertigo) ???Weakness or trouble feeling in an arm or leg, or on one side of your face ???Trouble talking or seeing ?? [employer]. All rights reserved. This information is not [...] & onlybuy the amount needed of any ?kxsh-qes-qhqhsqh medications. How NOT to Dispose of Your Medications: ?- Do not flush down the toilet or put down the drain. ?- Do not throw medication in the trash in its original form ??? follow recommendations on this sheet. ?- Do not burn medication. Medication Drop Off Locations: Turn in old prescriptions, samples & tnyd-bly-sscadys medications at the following locations. Chemotherapy drugs, sharps & illegal substances are not allowed. [facility] Police Department?[facility] Police Department [address] [place] [address]???Open /7?[address] [facility]???Open M-F 8am-4pm [place] Police Department?[facility] [address]???Open 24/7?[address] [place]???Open 24/7 [facility]?[place] Police Department [address]???Open business hrs?[address] [place]???Open 24/7 [place] Police Department?[place] [employer] Department [address]???Open 24/7?[address] [place]???Open business [facility] Health Department?[address] [facility]???Open M-F 8am- 5pm?[address] [facility]???Open 24/7 [facility]???s Department?[facility] Police District Station [address] [facility]???Open M-F 8am- 5pm?[address] [place]???Open M-F 8am-5pm [place] Police Department?[address] [facility]???Open M-F 8am- 5pm?[address] [place]???Open [facility] Police Department?[place] Police Department [address] [facility]???Open 24/7?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 . [place] residents - bring to a registered sharps collection station. [place] residents - place the container in the trash. Pharmacies in [place] to Drop Off Sharps: ?-??[facility] ?-[facility] ?-??[facility] pharmacies (require proof of residency) ?-??[facility] ?-[facility] ?-??[facility] Pharmacies in Other Areas to Drop Off Sharps: ?-??[facility] ??? [place], [place], [place] ?-??[facility] ?-??[facility] There are currently no sharps drop off sites in [place] or [place] Medication safety???it???s your responsibility! ED Discharge Instructions: [...] an online patient health-management tool provided by [place] [employer] [facility]. MyHealth empowers you to more effectively manage your health in one secure,convenient location. MyHealth allows you to send secure messages to your providers, request medication refills, view most lab results & request appointments. How do I sign up for MyHealth? You can sign up for MyHealth by using our self-enrollment feature at this website - [email or web address]?? You will need to have your Medical Record Number which is listed on the bottom of each page of this Patient Visit Summary. You can also sign up for MyHealth at any Registration desk at any [facility] location. How do I access MyHealth? Once you have an account set up, you can access MyHealth anywhere you have Internet. Simply log on to [email or web address]??from home, work, school, the library, etc. Emergency Department [address] [place], [place] [id number] ??Name: ?ADALGISA,??TRIXIE ??Date??of??: ?2000 ??Patient??Phone: ?[phone] ??Patient??Address: ?[address]??[id number] ??Provider??Name: ?Jaclyn??,??Lul ??Provider??Fax: ?[phone] * Rayne Francisco RN: SIGN, SIGN, SIGN, SIGN, PERFORM, SIGN, VERIFY Event Display: ED Clinical Summary Authored Date: [id number] Emergency Department [address] [place], [place] [id number] Transfer of Care: Name: TRIXIE DIANA Age: 22 Years Date of : 2000 Patient Phone#: Patient Address: [address] [place] [phone] Care Provider: Doctor, Unknown Care Contact: Please take this Transition of Care Summary & give it to your PCP or Provider you were referredto. [facility] would like to thank you for allowing us to assist you with your healthcare needs. Checkin date/time:?05/14/23 15:31:52 Checkout date/time: 05/14/23 17:29:00 Diagnosis: Acute confusional migraine Allergies: - No Known Medication Allergies - [...] ?Immunology/Serology ?05/14/23 16:15:00 ?Urine POC:??Negative??a Tobacco Use: -No Tobacco Use Documented Vitals: Measurement Result Timestamp ?Temp??Oral ?98??`F ?05/14/23??15:46:06 ?Blood??Pressure ?111??/??61 ?05/14/23??16:10:17 Follow-Up: With: Address: When: Return to Emergency Department Comments: Return to ED if symptoms worsen especially if you develop confusion, vision changes, vomiting, numbness or weakness. Continue your previously prescribed migraine medications and follow-up with your primary care provider for long-term management. With: Address: When: Stevan Cano Care Plan Team: -?PCP: Doctor, Unknown -?Admitting Doc: -?Attending Doc:Lul Anaya MD -?Consulting Doc: Impression and Plan Diagnosis Acute confusional migraine (CPS08-LL G43.909, Discharge, Medical) Plan Patient was given the following educational materials: Headache, Migraine, Classic. Follow up with: Stevan Cano; Return to Emergency Department Return to ED if symptoms worsen especially if you develop confusion, vision changes, vomiting, numbness or weakness. Continue your previously prescribed migraine medications and follow-up with your primary care provider for long-term management.. Emergency department Education note * Valerio Londono MD: SIGN Valerio Londono MD: SIGN, SIGN, SIGN, PERFORM, SIGN, VERIFY, SIGN Rayne Francisco RN: SIGN Event Display: ED Patient Education Note Authored Date: [id number] Patient Education Materials Follows: Migraine Headache?? A migraine headache is an often severe type of headache. It's different from other types of headaches in that symptoms other than pain occur with the it. For instance, a classic migraine headache means visual symptoms (or aura) such as flashes of light, blind spots or other vision changes, warns you a headache is coming on. Nausea and vomiting, lightheadedness, sensitivity to light or sound, and other visual disturbances are common migraine symptoms.??The pain may last from a few hours to several days. It's not clear why migraines occur, but certain factors called triggers can raise the risk of having a migraine attack.??A migraine may be triggered by emotional stress??or depression, or by h ormone changes during the menstrual cycle. Other triggers include certain control pills, overuse of migraine medicines, alcohol or caffeine, foods with tyramine such as aged cheese and wine, eyestrain, weather changes, missed meals,??or too little or too much sleep. Home care Follow these tips when taking care of yourself at home: ???Don???t drive yourself home if you were given pain medicine for your headache or are having visual symptoms. Instead, have someone else drive you home. Try to sleep when you get home. You should feel much better when you wake up. ???Cold can help ease migraine symptoms. Put an ice pack wrapped in a thin towel on your forehead or at the base of your skull. Put heat on the back of your neck to help ease any neck spasm. ???Drink only clear liquids or eat a light diet until your symptoms get better. This will help you prevent nausea and vomiting. How to prevent migraines Pay attention to what seems to trigger your headache. Try to stay away from the triggers when you can. If you have headaches often, consider keeping a headache diary. In it, write down what you were doing, feeling, or eating in the hours before each headache. Show this to your healthcare provider to help find the cause of your headaches. If stress seems to be a trigger for your headaches, figure out what is causing stress in your life.Learn new ways to handle your stress. Ideas include regular exercise, biofeedback, self-hypnosis, yoga, and meditation. Talk with your healthcare provider to find out more information about managing stress. Many books and digital media are also available on this subject. Tyramine is a substance found in many foods. It can trigger a migraine in some people. These foods contain tyramine: ???Chocolate ???Yogurt ???All cheeses, but especially aged cheeses ???Smoked or pickled fish and meat, including kan, caviar, bologna, pepperoni, and salami ???Liver ???Avocados ???Bananas ???Figs ???Raisins ???Red wine Try staying away from these foods for 1 to 2 months to see if you have fewer headaches. How to treat future headaches ???Take time out at the first sign of a headache, if possible. Find a quiet, dark, comfortable place to sit or lie down. Let yourself relax or sleep. ???Put an ice pack wrapped in a thin towel on your forehead or on the area of greatest pain. A heating pad and massage may help if you are having a muscle spasm and tightness in your neck. ???If you have been prescribed a medicine to stop a migraine headache, use this at the first warning sign of the headache for best results. First signs may be an aura or pain. ???If you have been prescribed a medicine to prevent the headaches, it's important to take the medicine as directed. Many of these medicines may take a few weeks to start preventing headaches, so it's important to not give up on them right away. If you continue to have just as many headaches after taking these medicines for a while, talk with your doctor to see if the dose needs to be changed or if a different medicine is advised. ???If you need to take medicine often for your migraine, talk with your healthcare provider about other ways to prevent your headaches. Follow-up care Follow up with your healthcare provider, or as advised. Talk with your provider if you have frequent headaches. He or she can figure out a treatment plan. Ask if you can have medicine to take at homethe next time you get a bad headache. This may keep you from having to visit the emergency department in the future. You may need to see a headache specialist (neurologist) if you continue to have headaches. When to seek medical advice Call your healthcare provider right away??if any of these occur: ???Your head pain gets worse, or doesn???t get better within 24 hours ???You can???t keep liquids down (repeated vomiting) ???Pain in your sinuses, ears, or throat ???Fever of 100.4?? F (38?? C) or higher, or as directed by your healthcare provider ???Stiff neck ???Extreme drowsiness, confusion, or fainting ???Dizziness, or dizziness with spinning sensation (vertigo) ???Weakness or trouble feeling in an arm or leg, or on one side of your face ???Trouble talking or seeing ?? [id number] [employer]. All rights reserved. This information is not intended as a substitute for professional medical care. Always follow your healthcare professional's instructions. Patient Care team information Care Team Personnel Name: Doctor, Unknown Position: Physician Member Role: Primary Care Physician Name: Rayne Francisco RN Position: ED Nurse Member Role: ED Nurse Name: Valerio Londono MD Position: Physician - ED Member Role: ED Physician Address: Address: [facility] [address] [facility] [address] [phone] F [phone] [place], [place] [address] Care Team Related Persons Name: SUJATHA LONG Address: Home
[2023-09-08] MEDS: LACTATED RINGERS 1000 ML 1,000 ML IV (19:23)
[2023-09-08] MEDS: KETOROLAC 15 MG/ML inj IVP (19:24)
[2023-09-08] MEDS: diphenhydrAMINE 50 MG/ML inj 25 MG IVP (19:24)
[2023-09-08] MEDS: METOCLOPRAMIDE HCL 5 MG/ML INJ 10 MG IVP (19:24)
[2023-09-08 20:44] VITALS: TEMP 36.2
[2023-09-08 20:55] VITALS: BP 118/74; PULSE 74; RESP 18; TEMP 36.8; O2SAT 99
== END 2023-09-08 20:49 | disposition home or self-care (01) ==
PROVIDERS: Emergency Provider Student in an Organized Health Care Education/Training Program; PCP Internal Medicine
DX: R51.9 Headache, unspecified (principal)
CPT/HCPCS: 96374; 96375; 99282; 99283; J1200; J1885; J2765; J7120

== ENCOUNTER 2023-10-17 11:17 | Emergency (ER) | payer BC, SELFPAY ==
[2023-10-17 11:29] VITALS: BP 108/75; PULSE 81; RESP 16; TEMP 36.2; O2SAT 98; BMI 34.7
--- NOTE | 2023-10-17 13:20 | ED.GENADULT ---
HPI - General Adult General Time Seen by Provider: 13:20 <Nedra Soriano - Last Filed: 10/17/23 14:41> Date Seen: 10/17/23 <Nedra Soriano Last Filed: 10/17/23 14:41> Chief complaint: Headache/Migraine <Nedra Soriano Last Filed: 10/17/23 14:41> Stated complaint: Migraine <Nedra Soriano Last Filed: 10/17/23 14:41> Time Seen by Provider: 10/17/23 11:19 <Nedra Soriano Last Filed: 10/17/23 14:41> Source: patient <Nedra Soriano Last Filed: 10/17/23 14:41> Mode of arrival: ambulatory <Nedra Soriano Filed: 10/17/23 14:41> Limitations: no limitations <Nedra Soriano Filed: 10/17/23 14:41> History of Present Illness HPI narrative: 22 yo female with a hx of migraines presents for a headache that started last night. She reports this is similar to her prior migraines and is currently 9/10 pain and that she is sensitive to light. Yesterday she took naratriptan, Advil, ibuprofen and benadryl without the relief. She describes the headache as behind her eyes and sinuses and radiating down the back of her head. She denies any recent falls or hitting her head. She reports that she has been congested the last two days with clear mucus production. She denies fever, sore throat or cough. She has felt a bit nauseous but denies vomiting and reports that she hasn't remembered to drink as much water as she usually does but has been able to eat and drink without difficulty. She does note mild dizziness and some ringing in her ears. <Nedra García Last Filed: 10/17/23 14:41> Related Data Home medications: Home Medications Medication Instructions Recorded Confirmed clindamycin phosphate 1 % topical 1 applic topical 08/09/22 09/18/23 solution desvenlafaxine succinate 100 mg 100 mg PO 08/09/22 09/18/23 tablet,extended release 24 hr erenumab-aooe 140 mg/mL 140 mg subcut 08/09/22 09/18/23 subcutaneous auto-injector (Aimovig Autoinjector) tacrolimus 0.1 % topical ointment 1 applic topical 08/09/22 09/18/23 tazarotene 0.1 % topical cream 1 applic topical 08/09/22 09/18/23 azelastine 137 mcg (0.1 %) nasal 1 spray intranasal 10/19/22 09/18/23 spray aerosol buspirone 10 mg tablet 10 mg PO QDAY 10/19/22 09/18/23 duloxetine 30 mg capsule,delayed 90 mg PO QDAY 10/19/22 09/18/23 release famotidine 20 mg tablet 20 mg PO BID 10/19/22 09/18/23 gabapentin 600 mg tablet 600 mg PO QDAY 10/19/22 09/18/23 methylphenidate 25.9 mg ER,IR 25.9 mg PO QDAY 10/19/22 09/18/23 disintegrating 24 hr tablet (Cotempla XR-ODT) metoprolol succinate 25 mg 25 mg PO QDAY 10/19/22 09/18/23 tablet,extended release 24 hr olopatadine 0.7 % eye drops ml ophthalmic (eye) 10/19/22 09/18/23 (Pataday Once Daily Relief) prazosin 1 mg capsule 1 - 2 mg PO QPM 10/19/22 09/18/23 topiramate 50 mg tablet 50 mg PO QDAY 10/19/22 09/18/23 triamcinolone acetonide 0.5 % 1 applic topical 10/19/22 09/18/23 topical cream methylphenidate HCl 10 mg tablet mg PO 09/18/23 09/18/23 naratriptan 2.5 mg tablet 2.5 mg PO ONCE PRN 09/18/23 09/18/23 <Nedra Bo - Last Filed: 10/17/23 14:41> Allergies/adverse reactions: Allergies Allergy/AdvReac Type Severity Reaction Status Date / Time tree nut Allergy Severe Verified 09/18/23 13:30 lamotrigine Allergy Unknown Verified 09/18/23 13:30 <Nedra [place] - Last Filed: 10/17/23 14:41> Review of Systems Status of ROS: Reports: 10 or more systems reviewed and unremarkable except as noted in History and below <Nedra Bo - Last Filed: 10/17/23 14:41> [facility] Medical History: Medical History (Updated 10/17/23 @ 15:17 by Homer Escobar DO) High vitamin D level (2020) ?E67.3 - Hypervitaminosis D (ICD-10) <Nedra Clark Last Filed: 10/17/23 14:41> Surgical History: Surgical History (Updated 09/18/23 @ 13:58 by Marissa Wesley MD) History of ankle surgery ?Z98.890 - Other specified postprocedural states (ICD-10) < Last Filed: 10/17/23 14:41> Social History: Social History Smoking Status: Never smoker Do you use any of these nicotine containing products: None Second hand tobacco smoke exposure: No How often do you have a drink containing alcohol: monthly or less How often do you have six or more drinks on one occasion: Never AUDIT-C Alcohol total score: 1 Non-prescribed substance use: marijuana (any form) Non-prescribed substance use details: medical use edibles service: No <Nedra Last Filed: 10/17/23 14:41> Exam Narrative: Exam Narrative: General: Lying down in a dark room, she is A&O x3 HEENT: PEERL, EOMi, b/l TM nml, mild tenderness to palpation over maxillary sinuses Cardiac: RRR, no M/R/G Lungs: CTAB Abdomen: Soft, nontender, +BS < Last Filed: 10/17/23 14:41> Const: Vital Signs, click to edit/add: Vital Signs - 24 hr 10/17/23 11:29 Temperature 97.2 F L Pulse Rate [Pulse Oximeter] 81 Respiratory Rate 16 Blood Pressure [Ri ght Upper Arm] 108/75 Pulse Oximetry 98 Oxygen Delivery Me thod Room Air <Nedra Last Filed: 10/17/23 14:41> Vital Signs, click to edit/add: Vital Signs - 24 hr 10/17/23 11:29 Temperature 97.2 F L Pulse Rate [Pulse Oximeter] 81 Respiratory Rate 16 Blood Pressure [Ri ght Upper Arm] 108/75 Pulse Oximetry 98 Oxygen Delivery Me thod Room Air <Homer Escobar DO - Last Filed: 10/17/23 15:17> Course Vital Signs Vital signs: Initial Vital Signs Temperature 97.2 F L 10/17/23 11:29 Temperature Source Temporal Artery Scan 10/17/23 11:29 Pulse Rate 81 10/17/23 11:29 Pulse Rhythm Regular 10/17/23 11:29 Respiratory Rate 16 10/17/23 11:29 Blood Pressure 108/75 10/17/23 11:29 Blood Pressure Mean 86 10/17/23 11:29 Blood Pressure Position Sitting 10/17/23 11:29 Pulse Oximetry 98 10/17/23 11:29 Oxygen Delivery Method Room Air 10/17/23 11:29 Vital Signs Temperature 97.2 F L 10/17/23 11:29 Pulse Rate 81 10/17/23 11:29 Respiratory Rate 16 10/17/23 11:29 Blood Pressure 108/75 10/17/23 11:29 Pulse Oximetry 98 10/17/23 11:29 Oxygen Delivery Method Room Air 10/17/23 11:29 Temperature 97.2 F L 10/17/23 11:29 Pulse Rate 81 10/17/23 11:29 Respiratory Rate 16 10/17/23 11:29 Blood Pressure 108/75 10/17/23 11:29 Pulse Oximetry 98 10/17/23 11:29 Oxygen Delivery Method Room Air 10/17/23 11:29 <Nedra Bo - Last Filed: 10/17/23 14:41> Initial Vital Signs Temperature 97.2 F L 10/17/23 11:29 Temperature Source Temporal Artery Scan 10/17/23 11:29 Pulse Rate 81 10/17/23 11:29 Pulse Rhythm Regular 10/17/23 11:29 Respiratory Rate 16 10/17/23 11:29 Blood Pressure 108/75 10/17/23 11:29 Blood Pressure Mean 86 10/17/23 11:29 Blood Pressure Position Sitting 10/17/23 11:29 Pulse Oximetry 98 10/17/23 11:29 Oxygen Delivery Method Room Air 10/17/23 11:29 Vital Signs Temperature 97.2 F L 10/17/23 11:29 Pulse Rate 81 10/17/23 11:29 Respiratory Rate 16 10/17/23 11:29 Blood Pressure 108/75 10/17/23 11:29 Pulse Oximetry 98 10/17/23 11:29 Oxygen Delivery Method Room Air 10/17/23 11:29 Temperature 97.2 F L 10/17/23 11:29 Pulse Rate 81 10/17/23 11:29 Respiratory Rate 16 10/17/23 11:29 Blood Pressure 108/75 10/17/23 11:29 Pulse Oximetry 98 10/17/23 11:29 Oxygen Delivery Method Room Air 10/17/23 11:29 <Homer Escobar DO - Last Filed: 10/17/23 15:17> Medications Administered Medications: Discontinued Medications Generic Name Dose Route Start Last Admin Trade Name Freq PRN Reason Stop Dose Admin Diphenhydramine HCl 25 mg 10/17/23 13:35 10/17/23 14:20 Diphenhydramine 50 Mg/Ml Inj IVP 10/17/23 13:36 25 mg ONCE ONE Administration Lactated Ringer's 1,000 mls @ 1,000 mls/hr 10/17/23 13:35 10/17/23 14:05 Lactated Ringers 1000 Ml IV 10/17/23 14:34 1,000 mls/hr .Q1H ONE Administration Ketorolac Tromethamine 15 mg 10/17/23 13:35 10/17/23 14:20 Ketorolac 15 Mg/Ml Inj IVP 10/17/23 13:36 15 mg ONCE ONE Administration Metoclopramide HCl 10 mg 10/17/23 13:35 10/17/23 14:20 Metoclopramide Hcl 5 Mg/Ml Inj IVP 10/17/23 13:36 10 mg ONCE ONE Administration <Nedra Soriano - Last Filed: 10/17/23 14:41> Discontinued Medications Generic Name Dose Route Start Last Admin Trade Name Freq PRN Reason Stop Dose Admin Diphenhydramine HCl 25 mg 10/17/23 13:35 10/17/23 14:20 Diphenhydramine 50 Mg/Ml Inj IVP 10/17/23 13:36 25 mg ONCE ONE Administration Lactated Ringer's 1,000 mls @ 1,000 mls/hr 10/17/23 13:35 10/17/23 14:05 Lactated Ringers 1000 Ml IV 10/17/23 14:34 1,000 mls/hr .Q1H ONE Administration Ketorolac Tromethamine 15 mg 10/17/23 13:35 10/17/23 14:20 Ketorolac 15 Mg/Ml Inj IVP 10/17/23 13:36 15 mg ONCE ONE Administration Metoclopramide HCl 10 mg 10/17/23 13:35 10/17/23 14:20 Metoclopramide Hcl 5 Mg/Ml Inj IVP 10/17/23 13:36 10 mg ONCE ONE Administration <Homer Escobar DO - Last Filed: 10/17/23 15:17> Medical Decision Making MDM Narrative Medical decision making narrative: 22 yo female w/ a hx of migraines presented with a migraine similar to previous ones that started last night and continued into the early afternoon today. Her vitals were stable and we gave a migraine cocktail of Toradol, Reglan, benadryl, and IVF with improvement. She has had two days of congestion and is mildly tender to palpation over the maxillary sinuses, we discussed that this is likely viral and may be contributing to the headache as well and that this can be treated symptomatically with hydration, Tylenol, ibuprofen, and decongestants OTC. Pt will return to the ED if she experiences a sudden onset headache that is worse/different that her prior migraines. She may follow up with her PCP if her congestion and sinus pressure does not improve within 10 days. <Nedra Soriano - Last Filed: 10/17/23 14:41> 22 yo female w/ a hx of migraines presented with a migraine similar to previous ones that started last night and continued into the early afternoon today. Her vitals were stable and we gave a migraine cocktail of Toradol, Reglan, benadryl, and IVF with improvement. She has had two days of congestion and is mildly tender to palpation over the maxillary sinuses, we discussed that this is likely viral and may be contributing to the headache as well and that this can be treated symptomatically with hydration, Tylenol, ibuprofen, and decongestants OTC. Pt will return to the ED if she experiences a sudden onset headache that is worse/different that her prior migraines. She may follow up with her PCP if her congestion and sinus pressure does not improve within 10 days. <Homer Escobar DO - Last Filed: 10/17/23 15:17> Discharge Plan Discharge Clinical Impression: Migraine Qualifiers: Migraine type: unspecified Status migrainosus presence: without status migrainosus Intractability: not intractable Qualified Code(s): G43.909 - Migraine, unspecified, not intractable, without status migrainosus Sinusitis Qualifiers: Sinusitis location: maxillary Chronicity: acute Recurrence: non-recurrent Qualified Code(s): J01.00 - Acute maxillary sinusitis, unspecified <Sefas Innovationan MiCarga Last Filed: 10/17/23 14:41> Patient Disposition: Home, Self-Care <Sefas Innovationan Last Filed: 10/17/23 14:41> Condition: Improved <Sefas Innovationan Last Filed: 10/17/23 14:41> Instructions: Migraine Headache (ED) <Sefas Innovationan MiCarga Filed: 10/17/23 14:41> Additional Instructions: Take Tylenol or ibuprofen for your headache. Also believe your having some sinusitis on the left. Symptoms persist for 10 days consider following up with the PCP for treatment for the sinusitis. Return for new worsening symptoms <Sefas Innovationan MiCarga Filed: 10/17/23 14:41> Prescriptions: No Action methylphenidate HCl 10 mg tablet PO naratriptan 2.5 mg tablet 2.5 mg PO ONCE PRN azelastine 137 mcg (0.1 %) aerosol,spray 1 spray intranasal prazosin 1 mg capsule 1 - 2 mg PO QPM Patient Comments: TAKE 1 TO 2 CAPSULES BY MOUTH AT BEDTIME Pataday Once Daily Relief 0.7 % drops ophthalmic (eye) Patient Comments: INSTILL 1 DROP IN BOTH EYES DAILY. triamcinolone acetonide 0.5 % cream 1 applic topical Patient Comments: APPLY AT BEDTIME FOR THUMBS tazarotene 0.1 % cream 1 applic TOPICAL tacrolimus 0.1 % ointment 1 applic TOPICAL Patient Comments: APPLY TWICE A DAY FOR BREAST RASH clindamycin phosphate 1 % solution 1 applic TOPICAL Patient Comments: APPLY TWICE A DAY FOR ACTIVE ACNE desvenlafaxine succinate 100 mg tablet extended release 24 hr 100 mg PO Aimovig Autoinjector 140 mg/mL auto-injector 140 mg SUBCUT metoprolol succinate 25 mg tablet extended release 24 hr 25 mg PO QDAY gabapentin 600 mg tablet 600 mg PO QDAY topiramate 50 mg tablet 50 mg PO QDAY Cotempla XR-ODT 25.9 mg tablet,disinteg ER biphase 24h 25.9 mg PO QDAY famotidine 20 mg tablet 20 mg PO BID Patient Comments: TAKE 1 TABLET BY MOUTH IN THE MORNING AND 1 TABLET IN THE EVENING. duloxetine 30 mg capsule,delayed release(DR/EC) 90 mg PO QDAY Patient Comments: TAKE 3 CAPSULES BY MOUTH BY MOUTH EVERY MORNING buspirone 10 mg tablet 10 mg PO QDAY <Nedra Soriano - Last Filed: 10/17/23 14:41> Follow Up/Referrals: Marissa Wesley MD [Primary Care Provider] - <Nedra Soriano - Last Filed: 10/17/23 14:41> Stand Alone Forms: [employer] Info Instructions <Nedra Soriano - Last Filed: 10/17/23 14:41>
--- OUTSIDE RECORDS SUMMARY | 2023-10-17 13:26 | XMS_ITS | Patient Health Record ---
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
[2023-10-17] MEDS: LACTATED RINGERS 1000 ML 1,000 ML IV (14:05)
[2023-10-17] MEDS: METOCLOPRAMIDE HCL 5 MG/ML INJ 10 MG IVP (14:20)
[2023-10-17] MEDS: diphenhydrAMINE 50 MG/ML inj 25 MG IVP (14:20)
[2023-10-17] MEDS: KETOROLAC 15 MG/ML inj IVP (14:20)
[2023-10-17 15:18] VITALS: BP 110/63; PULSE 71; RESP 16; O2SAT 97
== END 2023-10-17 15:22 | disposition home or self-care (01) ==
PROVIDERS: Emergency Provider Student in an Organized Health Care Education/Training Program; PCP Internal Medicine
DX: G43.909 Migraine, unspecified, not intractable, without status migrainosus (principal); J01.00 Acute maxillary sinusitis, unspecified
CPT/HCPCS: 96374; 96375; 99282; 99283; J1200; J1885; J2765; J7120

== ENCOUNTER 2023-12-16 13:14 | Emergency (ER) | payer BC, SELFPAY ==
[2023-12-16 13:36] VITALS: BP 103/69; PULSE 79; RESP 18; TEMP 36.3; O2SAT 97; BMI 34.7
--- NOTE | 2023-12-16 16:26 | ED.GENADULT ---
HPI - General Adult General Date Seen: 12/16/23 Chief complaint: Head Injury/Pain Stated complaint: hit head Time Seen by Provider: 12/16/23 16:25 History of Present Illness HPI narrative: This is a 23-year-old female with a past medical history migraine headaches, anxiety, chronic pain, POTS, Stanford-Danlos. She presents to the ER today for headache. She has hit her head twice in the past 2 weeks. During the 1st incident she hit her head against the wall of the bathroom getting off the toilet. She hit her head on a bathroom cabinet 2 days ago on Sunday. Since then she has been having headaches. She notes that activities such as reading on her phone her cause pain. Her headaches feel like a pressure. She is having a little bit of trouble thinking. She did smoke marijuana and drank alcohol on Sunday (half a beer and 1 hit of marijuana) but does not think her persistent headache and foggy thinking should be related to a hangover from that activity. She is not having any numbness or tingling in his face arms or legs. No weakness. No falls. No vomiting. She is not anticoagulated or coagulopathic. Related Data Home Medications Medication Instructions Recorded Confirmed clindamycin phosphate 1 % topical 1 applic topical 08/09/22 11/20/23 solution desvenlafaxine succinate 100 mg 100 mg PO 08/09/22 11/20/23 tablet,extended release 24 hr erenumab-aooe 140 mg/mL 140 mg subcut 08/09/22 11/20/23 subcutaneous auto-injector (Aimovig Autoinjector) tacrolimus 0.1 % topical ointment 1 applic topical 08/09/22 11/20/23 tazarotene 0.1 % topical cream 1 applic topical 08/09/22 11/20/23 azelastine 137 mcg (0.1 %) nasal 1 spray intranasal 10/19/22 11/20/23 spray aerosol buspirone 10 mg tablet 10 mg PO QDAY 10/19/22 12/16/23 duloxetine 30 mg capsule,delayed 90 mg PO QDAY 10/19/22 12/16/23 release famotidine 20 mg tablet 20 mg PO BID 10/19/22 12/16/23 gabapentin 600 mg tablet 600 mg PO QDAY 10/19/22 12/16/23 methylphenidate 25.9 mg ER,IR 25.9 mg PO QDAY 10/19/22 12/16/23 disintegrating 24 hr tablet (Cotempla XR-ODT) metoprolol succinate 25 mg 25 mg PO QDAY 10/19/22 12/16/23 tablet,extended release 24 hr olopatadine 0.7 % eye drops ml ophthalmic (eye) 10/19/22 11/20/23 (Pataday Once Daily Relief) prazosin 1 mg capsule 1 - 2 mg PO QPM 10/19/22 12/16/23 topiramate 50 mg tablet 50 mg PO QDAY 10/19/22 12/16/23 triamcinolone acetonide 0.5 % 1 applic topical 10/19/22 11/20/23 topical cream methylphenidate HCl 10 mg tablet mg PO 09/18/23 11/20/23 naratriptan 2.5 mg tablet 2.5 mg PO ONCE PRN 09/18/23 12/16/23 Allergies Allergy/AdvReac Type Severity Reaction Status Date / Time tree nut Allergy Severe Verified 12/16/23 13:42 lamotrigine Allergy Unknown Verified 12/16/23 13:42 [facility] Medical History (Updated 12/16/23 @ 18:45 by Obie Boucher MD) High vitamin D level (2020) ?E67.3 - Hypervitaminosis D (ICD-10) Surgical History (Updated 09/18/23 @ 13:58 by Marissa Wesley MD) History of ankle surgery ?Z98.890 - Other specified postprocedural states (ICD-10) Social History Smoking Status: Never smoker Do you use any of these nicotine containing products: None Second hand tobacco smoke exposure: No How often do you have a drink containing alcohol: monthly or less How often do you have six or more drinks on one occasion: Never AUDIT-C Alcohol total score: 1 Non-prescribed substance use: marijuana (any form) Non-prescribed substance use details: medical use edibles service: No Exam Narrative: Exam Narrative: Constitutional: Appears well-developed and well-nourished. Alert. Conversant. Non toxic. HENT: Head: Atraumatic. No depressed skull fracture, Raccoon Eyes, Tate's sign, or hemotympanum. Face normal. TMs normal Nose: Nose normal. Mouth/Throat: Oral mucosa is clear and moist. no trismus. Pharynx normal. Tonsils symmetric. No tonsillar enlargement, erythema, or exudate. Eyes: Conjunctivae normal. EOM normal. Pupils equal, round, and reactive to light. No scleral icterus. Neck: Normal range of motion. Neck supple. No tracheal deviation present. Cardiovascular: Normal rate, regular rhythm. No gallop. No friction rub. No murmur heard. Symmetric radial artery pulses Pulmonary/Chest: Effort normal. No stridor. No respiratory distress. No wheezes. No rales. No rhonchi . No tenderness. Abdominal: Soft. Bowel sounds normal. No distension. No mass. No tenderness. No rebound. No guarding. Musculoskeletal: RUE: Normal range of motion. No tenderness. No deformity LUE: Normal range of motion. No tenderness. No deformity RLE: Normal range of motion. No edema. No tenderness. No deformity LLE: Normal range of motion. No edema. No tenderness. No deformity Neurological: Mental status normal. Attention normal. Alert and oriented x3. GCS 15. Memory normal. Speech fluent. Cognition normal. Cranial Nerves intact II-XII except I did not formally test gag or visual acuity. EOMI. Palate elevates symmetrically and tongue protrudes in the midline. Strength: 5/5 trapezius on the right and left 5/5 deltoid on the right and left 5/5 biceps on the right and left 5/5 triceps on the right and left 5/5 optical instrument repairer on the right and left 5/5 thumb opposition on the right and left 5/5 finger abduction on the right and left 5/5 hip flexors (L3) on the right and left 5/5 quadriceps (L4) on the right and left 5/5 tibialis anterior on the right and left 5/5 EHL (L5) on the right and left 5/5 gastrocnemius (S1) on the right and left 5/5 hamstring on the right and left Sensation intact to light touch in both upper extremities (C4-T1) Sensation intact to light touch in Both lower extremities (L4-S1). Finger to nose and coordination normal. Gait normal. Skin: Skin is warm and dry. No rash noted. No pallor. Normal capillary refill. Psychiatric: Normal mood. Normal affect. Const: Vital Signs, click to edit/add: Vital Signs - 24 hr 12/16/23 13:36 Temperature 97.4 F L Pulse Rate [Pulse Oximeter] 79 Respiratory Rate 18 Blood Pressure [Ri ght Upper Arm] 103/69 Pulse Oximetry 97 Oxygen Delivery Me thod Room Air Course Vital Signs Vital signs: Initial Vital Signs Temperature 97.4 F L 12/16/23 13:36 Temperature Source Temporal Artery Scan 12/16/23 13:36 Pulse Rate 79 12/16/23 13:36 Respiratory Rate 18 12/16/23 13:36 Blood Pressure 103/69 12/16/23 13:36 Blood Pressure Mean 80 12/16/23 13:36 Blood Pressure Position Sitting 12/16/23 13:36 Pulse Oximetry 97 12/16/23 13:36 Oxygen Delivery Method Room Air 12/16/23 13:36 Vital Signs Temperature 97.4 F L 12/16/23 13:36 Pulse Rate 79 12/16/23 13:36 Respiratory Rate 18 12/16/23 13:36 Blood Pressure 103/69 12/16/23 13:36 Pulse Oximetry 97 12/16/23 13:36 Oxygen Delivery Method Room Air 12/16/23 13:36 Temperature 97.4 F L 12/16/23 13:36 Pulse Rate 79 12/16/23 13:36 Respiratory Rate 18 12/16/23 13:36 Blood Pressure 103/69 12/16/23 13:36 Pulse Oximetry 97 12/16/23 13:36 Oxygen Delivery Method Room Air 12/16/23 13:36 Medications Administered Medications: Discontinued Medications Generic Name Dose Route Start Last Admin Trade Name Freq PRN Reason Stop Dose Admin Diphenhydramine HCl 25 mg 12/16/23 16:44 12/16/23 17:06 Diphenhydramine 50 Mg/Ml Inj IVP 12/16/23 16:45 25 mg ONCE ONE Administration Sodium Chloride 500 mls @ 500 mls/hr 12/16/23 16:44 12/16/23 17:58 0.9 % Sodium Chloride 500 Ml IV 12/16/23 17:43 Infused .Q1H ONE Infusion Ketorolac Tromethamine 15 mg 12/16/23 16:44 12/16/23 17:07 Ketorolac 15 Mg/Ml Inj IVP 12/16/23 16:45 15 mg ONCE ONE Administration Metoclopramide HCl 10 mg 12/16/23 16:44 12/16/23 17:07 Metoclopramide Hcl 5 Mg/Ml Inj IVP 12/16/23 16:45 10 mg ONCE ONE Administration Medical Decision Making MDM Narrative Medical decision making narrative: This patient presents with blunt head trauma two nights ago on Sunday. Differential includes intracranial injuries (e.g. skull fracture, epidural hematoma, subdural hematoma, intracerebral hemorrhage, and traumatic subarachnoid hemorrhage), verses concussion or other traumatic brain injury. However clinical presentation is highly suggestive for concussion. Patient is low risk by the [place] head CT rules so will hold off on head CT imaging for now. At this time it appears that the patient's symptoms are due to a concussion. She did have ongoing headache here in the ER which was treated with a migraine cocktail with very good effect. She is feeling much better. The patient/family understand that they must return if any red flags appear/develop in the coming hours/days, as this may represent an indication to perform a repeat CT scan or further evaluation. I have noted that red flags include: headaches that get worse, increased drowsiness, strange behavior, repetitive speech, seizures, repeated vomiting, growing confusion, increased irritability, slurred speech, weakness or numbness, and loss of responsiveness. This information will also be provided in writing at discharge. I have discussed the second impact syndrome, and the importance of not sustaining repeated concussion in the next 1-2 weeks. Post concussive syndrome is also discussed. The patient's questions have been answered. They have a responsible adult to accompany them home. Discharge Plan Discharge Clinical Impression: Concussion, Headache Patient Disposition: Home, Self-Care Condition: Stable Instructions: Concussion (ED) Additional Instructions: As we discussed, please come back to the ER right away if you have worsening headache, confusion, vomiting, or any problems. It will take time for concussion to heal. Light activities are okay but avoid strenuous activities or any activities that are dangerous and might lead to another head injury. Try to limit screens, computers, and other activities that take a lot of concentration. Use Tylenol or ibuprofen or your regular medications for headaches. Please follow-up with your doctor for recheck within the next 5-7 days. Activity Level: No Restrictions Discharge Diet: Regular Prescriptions: No Action methylphenidate HCl 10 mg tablet PO naratriptan 2.5 mg tablet 2.5 mg PO ONCE PRN azelastine 137 mcg (0.1 %) aerosol,spray 1 spray intranasal prazosin 1 mg capsule 1 - 2 mg PO QPM Patient Comments: TAKE 1 TO 2 CAPSULES BY MOUTH AT BEDTIME Pataday Once Daily Relief 0.7 % drops ophthalmic (eye) Patient Comments: INSTILL 1 DROP IN BOTH EYES DAILY. triamcinolone acetonide 0.5 % cream 1 applic topical Patient Comments: APPLY AT BEDTIME FOR THUMBS tazarotene 0.1 % cream 1 applic TOPICAL tacrolimus 0.1 % ointment 1 applic TOPICAL Patient Comments: APPLY TWICE A DAY FOR BREAST RASH clindamycin phosphate 1 % solution 1 applic TOPICAL Patient Comments: APPLY TWICE A DAY FOR ACTIVE ACNE desvenlafaxine succinate 100 mg tablet extended release 24 hr 100 mg PO Aimovig Autoinjector 140 mg/mL auto-injector 140 mg SUBCUT metoprolol succinate 25 mg tablet extended release 24 hr 25 mg PO QDAY gabapentin 600 mg tablet 600 mg PO QDAY topiramate 50 mg tablet 50 mg PO QDAY Cotempla XR-ODT 25.9 mg tablet,disinteg ER biphase 24h 25.9 mg PO QDAY famotidine 20 mg tablet 20 mg PO BID Patient Comments: TAKE 1 TABLET BY MOUTH IN THE MORNING AND 1 TABLET IN THE EVENING. duloxetine 30 mg capsule,delayed release(DR/EC) 90 mg PO QDAY Patient Comments: TAKE 3 CAPSULES BY MOUTH BY MOUTH EVERY MORNING buspirone 10 mg tablet 10 mg PO QDAY Follow Up/Referrals: Marissa Wesley MD [Primary Care Provider] - Stand Alone Forms: [facility] Info Instructions
--- OUTSIDE RECORDS SUMMARY | 2023-12-16 17:00 | XMS_ITS | Clinical Summary ---
Author Name Unknown Organization [facility] Address [address] [place] [id number] Care Team Providers Care Die Cast Engineer Name Role Phone Unavailable Unavailable Unavailable Ifrah Gooden Primary Care Provider [phone] Ifrah Gooden Unavailable Demetria Giles Unavailable [phone] Allergies No known active allergies Medications Medication Sig Dispensed Refills Start Date End Date Status PRISTIQ 100 mg Oral 0 06/09/2015 Activ e Norgestimate-Ethiny l Estradiol (ORTHO-CYCLEN 28) 0.25-35 mg-mcg Oral tablet 0 06/10/2015 Active methylphenidate CD (METADATE CD) 40 mg Oral capsule 0 06/09/2015 Active GABAPENTIN (GRALISE ORAL) by Oral route. 0 Active CLONAZEPAM ORAL by Oral route. 0 Activ e DULoxetine delayed release (CYMBALTA) 20 mg Oral capsule by Oral route daily. 0 Active GABAPENTIN/DIETARY SUPPL NO.11 (GABAPENTIN-DIET. SUPP 11 ORAL) by Oral route daily. 0 A ctive amantadine HCl (SYMMETREL) 100 mg Oral cap 0 05/23/2016 Active metoprolol-XL (TOPROL-XL) 25 mg Oral extended-release tablet 0 05/23/2016 Active midodrine 2.5 mg Oral tab 0 05/23/2016 Active cetirizine (ZYRTEC) 10 mg Oral tablet by Oral route. 0 Act matt diphenhydrAMINE (BENADRYL) 25 mg Oral capsule by Oral route. 0 Active EPINEPHrine (EPIPEN) 0.3 mg/0.3 mL Inj injection by Intramuscular route. 0 09/25/2014 Active fluticasone (FLONASE) 50 mcg/Actuation NASAL nasal spray 2 sprays by Each Nare route daily. 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 Social History Tobacco Use Types Packs/Day Years Used Date Smoking Tobacco: Never Smokeless Tobacco: Never Sex and Gender Information Value Date Recorded Sex Assigned at Not on file Gender Identity Not on file Sexual Orientation Not on file Last Filed Vital Signs Vital Sign Reading Time Taken Comments Blood Pressure 120/75 10/08/2020 8:09 AM [employer] Pulse 83 10/08/2020 8:09 AM [employer] Temperature 36.1 ??C (97 ??F) 10/08/2020 8:09 AM [employer] Respiratory Rate - - Oxygen Saturation - - Inhaled Oxygen Concentration - - Weight 112.1 kg (247 lb 3.2 oz) 10/08/2020 8:09 AM [employer] Height 167.6 cm (5' 6) 10/08/2020 8:09 AM [employer] Body Mass Index 39.9 10/08/2020 8:09 AM [employer] Plan of Treatment Health Maintenance Due Date Last Done Comments CERVICAL CANCER SCREENING 2001 HEPATITIS C SCREENING 2001 COVID-19 VACCINE (#1) 05/26/2002 HPV VACCINE (1 - 2-dose series) 2012 TDAP/TD VACCINE (1 - Tdap) 2012 DEPRESSION SCREENING 2013 HIV SCREENING 2016 INFLUENZA VACCINE (#1) 2023 , 08/19/2018, 11/23/2017, Additional history exists ZOSTER SERIES VACCINE (1 of 2) 2051 Pneumococcal Vaccine: Childhood and At-Risk Adult <65 yo Series Aged Out No longer eligible based on patient's age to complete this topic Care Teams Die Cast Engineer Relationship Specialty Start Date End Date Ifrah Gooden [address] [place] [address] PCP - General 10/08/20 Referring Provider 08/31/15 Ifrah Gooden [facility] [place] [id number] Referring Provider Pediatrics 10/08/20 Demetria Giles, P.A. [address] [facility] [address] [place] [phone] Referring Provider Neurosurgery 10/08/20
--- OUTSIDE RECORDS SUMMARY | 2023-12-16 17:00 | XMS_ITS | Clinical Summary ---
Author Name Unknown Organization [facility] Address [address] [place] [address] Care Team Providers Care Coke Oven Mason Name Role Phone Sapphire Coleman MD Primary Care Provider Unavaila ble Allergies Active Allergy Reactions Criticality Noted Date Comments Tree Nut Anaphylaxis High 07/14/2014 Medications Medication Sig Dispensed Refills Start Date End Date Status cetirizine (ZYRTEC) 10 mg PO Tablet Tablet take 10 mg by mouth QHS Reported on 01/11/2017, 0 Active montelukast (SINGULAIR) 5 mg PO Tablet, Chewable take 1 tablet by mouth QPM. 30 tablet 6 07/18/2011 Active Additional Information Patient not taking.Reported on 01/04/2016 DULoxetine (CYMBALTA) 30 mg PO capsule,delayed release(DR/EC) take 90 mg by mouth 3 (three) times daily , 0 Active clonazePAM (KLONOPIN) 0.5 mg PO tablet take 0.5 mg by mouth daily. 0 Active diphenhydrAMINE (BENADRYL) 25 mg PO capsuleIndications:i tching take 25 mg by mouth Q6H PRN. Indications: itching 0 Active gabapentin (GRALISE) 600 mg PO tablet extended release 24 hr take 1,200 mg by mouth 4 (four) times a day , 0 Active hydrocortisone 1 % TP CreamIndications:itc mg by Topical route as needed. Apply to affected area as instructed. Indications: itching 0 Active triamcinolone (KENALOG) 0.1 % TP CreamIndications:con tact dermatitis Apply to affected area ( neck / arms) two times daily Indications: CONTACT DERMATITIS 90 g 0 02/24/2014 Active Additional Information Patient not taking.Reported on 07/02/2018 Levalbuterol Tartrate (XOPENEX HFA) 45 mcg/actuation Inhalation HFA Aerosol Inhaler inhale 2 puffs by mouth every 8 (eight) hours as needed (coughing, wheezing, shortness of breath). 1 Inhaler 0 07/14/2014 Active Additional Information Patient not taking.Reported on 01/04/2016 metoprolol (TOPROL-XL) 25 mg Oral tablet extended release 24 hr , 0 12/12/2015 Active Desvenlafaxine ER (PRISTIQ) 100 mg Oral tablet extended release 24 hr TABLET 0 06/21/2018 Acti ve COTEMPLA XR-ODT 25.9 mg Oral tablet,disinteg ER biphase 24h 0 06/25/2018 Active sumatriptan (IMITREX) 50 mg Oral tablet 1 07/01/2018 Active EPINEPHrine 0.3 mg/0.3 mL Injection auto-injectorIndicat ions:allergic reaction 0.3 mLs by Intramuscular route as needed, for Anaphylaxis 2 Syringe 6 07/02/2018 Active fluticasone (FLONASE) 50 mcg/Actuation Nasal spray,suspensionIndi cations:allergic rhinitis 2 sprays by Each Nare route daily Aim out toward ear, stop if nasal bleeding and call office, 1 Bottle 6 07/02/2018 Active olopatadine (PATANOL) 0.1 % Ophthalmic dropsIndications:all ergic conjunctivitis Place 1 drop in the eye 2 (two) times daily. An appointment is needed for more refills. 1 Bottle 0 07/29/2019 Active Active Problems Problem Noted Date Diagnosed Date Recurrent sinus infections 01/11/2011 Allergic rhinitis Overview: t,g,rw,w,dm,c,d,( 1 cat in home) Nut allergy Overview: RAST pos 2010 Worst rxn - at 4yo - loss of consciousness Anxiety attack Overview: depression Family History Medical History Relation Name Comments Genetic Disorder Father Diabetes Maternal Aunt Arthritis/Joint Maternal Grandfather Respiratory Maternal Grandfather Arthritis/Joint Maternal Grandmother Cancer Maternal Grandmother High Blood Pressure Maternal Grandmother Diabetes Mother Heart Disease Mother High Blood Pressure Mother Respiratory Other uncle Cancer Paternal Grandfather Blood disorder Paternal Grandmother Kidney Disease Paternal Grandmother Mental health problem Paternal Grandmother Thyroid Disease Paternal Grandmother Genetic Disorder Sister Headache Sister Respiratory Sister Relation Name Status Comments Father Maternal Aunt Maternal Grandfather Maternal Grandmother Mother Other uncle Alive Paternal Grandfather Paternal Grandmother Sister Social History Tobacco Use Types Packs/Day Years Used Date Smoking Tobacco: Never Smokeless Tobacco: Never Sex and Gender Information Value Date Recorded Sex Assigned at Not on file Gender Identity Not on file Sexual Orientation Not on file Last Filed Vital Signs Vital Sign Reading Time Taken Comments Blood Pressure 110/80 07/14/2014 4:15 PM CDT Pulse 104 07/02/2018 3:38 PM CDT Temperature 36.9 ??C (98.4 ??F) 01/24/2011 5:05 PM CS T Respiratory Rate - - Oxygen Saturation 99% 07/02/2018 3:38 PM CDT Inhaled Oxygen Concentration - - Weight 110.5 kg (243 lb 11.2 oz) 07/02/2018 3:38 PM CDT Height 167.6 cm (5' 6) 07/02/2018 3:38 PM CDT Body Mass Index 39.33 07/02/2018 3:38 PM CDT Plan of Treatment Health Maintenance Due Date Last Done Comments COVID-19 Vaccine (#1) 05/26/2002 HPV VACCINES (1 - 2-dose series) 2012 CHLAMYDIA SCREENING 2016 DTAP/TDAP/TD VACCINES (1 - Tdap) 2020 CERVICAL CANCER SCREENING 3 YEARS 2022 INFLUENZA VACCINE 07/20/2023 Pneumococcal Vaccine: Pediat rics (0 to 5 Years) and At-Risk Patients (6+ Years) Aged Out No longer eligible b ased on patient's age to complete this topic Care Teams Coke Oven Mason Relationship Specialty Start Date End Date Sapphire Coleman MD PCP - General 03/27/17
--- OUTSIDE RECORDS SUMMARY | 2023-12-16 17:01 | XMS_ITS | Patient Health Record ---
Author Name Unknown Organization [facility] Address [address] [place] [id number] Care Team Providers Care Prepress Proofer Name Role Phone Brice HIDALGO, Dalia Primary Care Provider MICHELLE Hudson Unavailable [phone] ALLERGIES Allergen (clinical drug ingredient) Drug/Non Drug [...] and without status migrainosus (G43.719) Active confirmed [id number] Problem Chronic pain syndrome (G89.4) Active confirmed [id number] Encounters Encounter Location Date Provider Diagnosis [facility] [address] [place] [address] 11/17/2023 MICHELLE HARRELL PLAN OF TREATMENT No Information Insurance Providers Payer Name Payer Address Payer Phone Subscriber Number Group Number Insured Name Patient Relationship to Insured Coverage Start Date Coverage End Date [facility] [address] [place] [address] [id number] Beryl Medel Self - patient is the insured MEDICAL (GENERAL) HISTORY Medical History History ICD Code Head Injury Migraines Anxiety Depression Insomnia Ehlos-Danlos syndrome POTS Chronic pain Spinal instability chronic dizziness and nausea ADD PTSD Insomnia Foramination Surgical History Surgery Date(Month/Year)
--- OUTSIDE RECORDS SUMMARY | 2023-12-16 17:01 | XMS_ITS | Encounter Summary ---
Author Name Unknown Organization [facility] Address [address] [place] [address] Care Team Providers Care Small Products Ii Assembler Name Role Phone Unavailable Primary Care Provider Unavailabl e Encounter Details Date Type Department Care Team (Late st Contact Info) Description 11/05/2023 12:00 PM FBI INVESTIGATOR Telemedicine Department of Nutrition and Diabetes Education in [place], [place] [address] [place] [phone] Veronica Garvin M.B., Ch.B. [address] [place] [phone] Ruth Ann Ruiz M.S., RDN, LD [address] [place] [phone] Obesity Body Mass Index 30-39.9 Adult Social History Tobacco Use Types Packs/Day Years Used Date Smoking Tobacco: Never Smokeless Tobacco: Never Alcohol Use Standard Drinks/Week Comments Not Currently 2 (1 standard drink = 0.6 oz pur e alcohol) Humiliation, Afraid, Rape, and Kick questionnair e Answer Date Recorded Within the last year, have y ou been afraid of your partner or ex-partner? No 04/12/2023 Within the last year, have y ou been humiliated or emotionally abused in other ways by your partner or ex-partner? No Within the last year, have y ou been kicked, hit, slapped, or otherwise physically hurt by your partner or ex-partner? No 04/12/2023 Within the last year, have y ou been raped or forced to have any kind of sexual activity by your partner or ex-partner? No 04/12/2023 Social Connection and Isolat ion Panel [NHANES] Answer Date Recorded In a typical week, how many times do you talk on the phone with family, friends, or neighbors? Twice a week 04/12/2023 How often do you get togethe r with friends or relatives? Twice a week 04/12/2023 How often do you attend chur or muslim services? More than 4 times per year 04/12/2023 Do you belong to any clubs o r organizations such as confucianism groups, unions, fraternal or athletic groups, or school groups? Yes 04/12/2023 How often do you attend meet ings of the clubs or organizations you belong to? More than 4 times per year 04/12/2023 Are you , , di vorced, , never , or living with a partner? Never 04/12/2023 AUDIT-C Answer Date Recorded Q1: How often do you have a drink containing alc ohol? Monthly or less 04/12/2023 Q2: How many drinks containi ng alcohol do you have on a typical day when you are drinking? 1 or 2 04/12/2023 Q3: How often do you have si x or more drinks on one occasion? Never 04/12/2023 Overall Financial Resource Strain (CARDIA) Answe r Date Recorded How hard is it for you to pa y for the very basics like food, housing, medical care, and heating? Not hard at all 04/12/2023 PHQ-2 Answer Date Recorded PHQ-2 Score 1 09/21/2022 [facility] - Occupational Stress Questionnaire Answer Date Recorded Do you feel stress - tense, restless, nervous, or anxious, or unable to sleep at night because your mind is troubled all the time - these days? Very much 04/12/2023 Exercise Vital Sign Answer Date Recorde d On average, how many days pe r week do you engage in moderate to strenuous exercise (like a brisk walk)? 2 days 04/12/2023 On average, how many minutes do you engage in exercise at this level? 20 min 04/12/2023 Hunger Vital Sign Answer Date Recorded Within the past 12 months, y ou worried that your food would run out before you got the money to buy more. Never true 04/12/20 23 Within the past 12 months, t he food you bought just didn't last and you didn't have money to get more. Never true 04/12/2023 PRAPARE - Transportation Answer Date Re corded In the past 12 months, has l ack of transportation kept you from medical appointments or from getting medications? Yes 03/20 In the past 12 months, has l ack of transportation kept you from meetings, work, or from getting things needed for daily living? Yes 04/12/2023 Housing Stability Vital Sign Answer Gabriel e Recorded In the last 12 months, was t here a time when you were not able to pay the mortgage or rent on time? No 04/12/2023 In the last 12 months, how many places have you lived? 3 04/12/2023 In the last 12 months, was t here a time when you did not have a steady place to sleep or slept in a custodial (including now)? No 04/12/2023 Depression Answer Date Recor ded PHQ-9 Total Score (max 27) 8 09/21 Nutrition Answer Date Recorded Nutrition: EVOO Fat Source No 04/12 On average, how many serving s of fruits and vegetables do you eat per day (serving size is equal to 1 cup or approximately the size of a tennis ball)? 2-3 04/12/2023 Dental Answer Date Recorded Dental: Regular Dentist Yes 09/21/20 Employment Answer Date Recorded Employment status Unemployed/not in th e paid workforce and NOT seeking employment 04/12/2023 Education Answer Date Recorded What is the highest level of school you have completed or the highest degree you have received? Some college, no degree 04/12/2023 Sex and Gender Information Value Date Recorded Sex Assigned at Female 09/21/2022 9:38 AM CDT Gender Identity Female 02/15/2021 2:30 PM CDT Sexual Orientation Bisexual 09/21/2022 9: 38 AM CDT documented as of this encounter Last Filed Vital Signs Vital Sign Reading Time Taken Comments Blood Pressure - - Pulse - - Temperature - - Respiratory Rate - - Oxygen Saturation - - Inhaled Oxygen Concentration - - Weight 98.2 kg (216 lb 7.9 oz) 11/05/2023 1:31 P M FBI INVESTIGATOR Height - - Body Mass Index 35.34 04/12/2023 12:53 PM CDT documented in this encounter Miscellaneous Notes * Group Note - Ruth Ann Ruiz M.S., SHELTON WOLFF - 11/05/2023 12:00 PM FBI INVESTIGATOR 11/05/2023 Start Time: 12:00 PM End Time: 1:00 PM Him Assistant: Ruth Ann Ruiz M.S., SHELTON WOLFF Today's Weight: 216 pounds The patient attended LEAD behavioral weight management group today. Individuals introduced themselves to the group, and limits to confidentiality were reviewed. Today's topic(s) included cognitive restructuring . At the end of this class group members should be able to identify how negative thoughts impact emotions and behavior, identify strategies for challenging negative thoughts, and understand how to maintain a positive attitude and build confidence. . Evidence of learning was demonstrated through appropriate questions and overall interaction during class. Progress towards previous goals: is eating at consistent times half of the time Patient's goal for next week: do PT exercises 4 times per week and walk 2 times per week Patient Census: 9 Total Group Time: 60 minutes The patient attended a virtual group class via real-time audio/video technology by Ruth Ann Ruiz M.S., SHELTON WOLFF in [facility] to patient in patient home. I introduced myself to the group and limits to confidentially were reviewed. INVESTIGATOR documented in this encounter Plan of Treatment Upcoming Encounters Date Type Department Care Team (Late st Contact Info) Description 12/18/2023 8:00 AM FBI INVESTIGATOR Telemedicine Department of Nutrition and Diabetes Education in [place], [place] [address] [place] [phone] Veronica Garvin M.B., Ch.B. [address] [place] [phone] 12/25/2023 8:00 AM FBI INVESTIGATOR Telemedicine Department of Nutrition and Diabetes Education in [place], [place] [address] [place] [phone] Veronica Garvin M.B., Ch.B. [address] [place] [phone] 01/07/2024 12:00 PM FBI INVESTIGATOR Telemedicine Department of Nutrition and Diabetes Education in [place], [place] [address] [place] [phone] Veronica Garvin M.B., Ch.B. [address] [place] [phone] 03/10/2024 12:00 PM CDT Telemedicine Department of Nutrition and Diabetes Education in [place], [place] [address] [place] [phone] Veronica Garvin M.B., Ch.B. [address] [place] [phone] 03/17/2024 12:00 PM CDT Telemedicine Department of Nutrition and Diabetes Education in [place], [place] [address] [place] [phone] Veronica Garvin M.B., Ch.B. [address] [place] [phone] documented as of this encounter Visit Diagnoses Diagnosis Obesity Body Mass Index 30-39.9 Adult documented in this encounter Additional Health Concerns Assessment Noted Time PHQ-9 Depression Total Score: 8 09/21/20 22 9:29 AM CDT documented as of this encounter
--- OUTSIDE RECORDS SUMMARY | 2023-12-16 17:01 | XMS_ITS | Clinical Summary ---
Author Name Unknown Organization [facility] Address [address] [place] [address] Care Team Providers Care Ditch Digger Name Role Phone Unavailable Primary Care Provider Unavailabl e Source Comments Patient records contain information from all sites at [facility]. For routine questions regarding patient records, call [phone] during business hours, M-F 8:00 AM - 5:00 PM Central Time. Record requests for emergency care only can be directed to [phone] at any time.[facility] Allergies Active Allergy Reactions Criticality Noted Date Comments Cantaloupe GI intolerance 11/23/2011 Worcester GI intolerance 11/23/2011 Lamotrigine Hives (Reselect Reaction) 12/22/2014 Nut - Unspecified Anaphylaxis High 12/31/2021 Ragweed Pollen Itching 09/18/2022 Tree Nut Anaphylaxis,Anxiety, Hive s (Reselect Reaction),Itching,Palpit ations,Rash,Shortness of breath (Reselect Reaction) High 07/14/2014 Tree Nuts Other (see comments) 09/29/2011 unknown Tree nuts Medications Medication Sig Dispensed Refills Start Date End Date Status medical cannabis capsule Take 1 capsule by mouth as needed. 6 mg daily, and other strains/dosages as needed 0 Active triamcinolone (KENALOG) 0.5 % cream Apply 1 application topically as needed. 0 12/27/2020 Active tazarotene (TAZORAC) 0.1 % cream Apply 1 application topically as needed. 0 12/27/2020 Active topiramate (TOPAMAX) 50 mg tablet Take 50 mg by mouth 2 (two) times a day. 0 01/31/2021 Active triamcinolone (NASACORT) 55 mcg/actuation nasal spray Administer 2 sprays into nostril(s) as needed. 0 Active tacrolimus (PROTOPIC) 0.1 % ointment Apply 1 application topically as needed. 0 12/27/2020 Active olopatadine (PATADAY) 0.2 % ophthalmic solution daily. 0 01/28/2021 Activ e ondansetron ODT (ZOFRAN-ODT) 4 mg disintegrating tablet Take 4 mg by mouth as needed. 0 Active mometasone (ELOCON) 0.1 % cream Apply 1 application topically as needed. 0 11/11/2020 Active metoprolol succinate (TOPROL-XL) 25 mg 24 hr tablet Take 25 mg by mouth daily. 0 11/27/2020 Active Cotempla XR-ODT 25.9 mg tablet,disintig ER biphase 24h Take 1 tablet by mouth daily. 0 02/01/2021 Active levonorgestreL (Liletta) 20.1 mcg/24 hrs (6 yrs) 52 mg IUD 52 mg by intrauterine route once. 0 Active gabapentin (NEURONTIN) 600 mg tablet Take 600 mg by mouth 3 (three) times a day. 0 08/20/2020 Active Aimovig Autoinjector 70 mg/mL injection Inject 70 mg under the skin every 30 (thirty) days. 0 02/07/2021 Active EPINEPHrine 0.3 mg/0.3 mL injection syringe Inject 0.3 mg intramuscularly as needed. 0 09/25/2014 Active econazole nitrate (SPECTAZOLE) 1 % cream Apply 1 application topically as needed. 0 12/22/2020 Active DULoxetine (CYMBALTA) [address] capsule Take 90 mg by mouth every morning. 0 02/08/2021 Active clindamycin (CLINDAGEL) 1 % gel Apply 1 application topically as needed. 0 02/15/2021 Active busPIRone (BUSPAR) 10 mg tablet Take 10 mg by mouth daily. 0 01/10/2021 Active azelastine (ASTELIN) 137 mcg/spray (0.1 %) nasal spray Administer 2 sprays into each nostril daily. 0 12/27/2020 Active adapalene (DIFFERIN) 0.3 % gel Apply 1 application topically as needed. 0 11/11/2020 Active benztropine (COGENTIN) 1 mg tablet Take 1 mg by mouth as needed. 0 02/12/2021 Active clindamycin (CLEOCIN T) 1 % external solution 0 08/09/2022 Active coenzyme Z78-mrdtzlb E 100-5 mg-unit capsule Take by mouth daily. 0 Acti ve riboflavin (VITAMIN B2) 100 mg tablet Take 100 mg by mouth daily. 0 Active QUEtiapine (SEROquel) 25 mg tablet Take 25 mg by mouth 2 (two) times a day. 0 Active naratriptan (AMERGE) 1 mg tablet as needed. 0 07/18/2021 Active fexofenadine (CAITLIN) 180 mg tablet Take 180 mg by mouth daily. 0 Active famotidine (PEPCID) 20 mg tablet Take 20 mg by mouth 2 (two) times a day. 0 12/18/2022 Active desvenlafaxine (PRISTIQ) 100 mg 24 hr tablet Take 100 mg by mouth every morning. 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 We will continue with active surveillance. Anxiety Disorder Unspecified 10/31/2011 Dizziness 10/31/2011 Overview: Last Assessment & Plan: As above. Encounters Date Type Department Care Team Description 12/11/2023 8:00 AM DATA LEAD Telemedicine Department of Nutrition and Diabetes Education in [place], [place] [address] [place] [phone] Veronica Garvin M.B., Baudilio. Petar Maria RDN, LD Obesity Body Mass Index 30-39.9 Adult 12/04/2023 8:00 AM DATA LEAD Telemedicine Department of Nutrition and Diabetes Education in [place], [place] [address] [place] [phone] Veronica Garvin M.B., Baudilio. Maria, Petar M, RDN, LD Obesity Body Mass Index 30-39.9 Adult 11/14/2023 2:00 PM DATA LEAD Telemedicine Department of Nutrition and Diabetes Education in [place], [place] [address] [place] [address] Veronica Garvin M.B., Ch.B. Fabio Lugo, NEW, LD Obesity Body Mass Index 30-39.9 Adult 11/05/2023 12:00 PM DATA LEAD Telemedicine Department of Nutrition and Diabetes Education in [place], [place] [address] [place] [phone] Veronica Garvin M.B., Ch.B. Ruth Ann Ruiz M.S., RDN, LD Obesity Body Mass Index 30-39.9 Adult from Last 3 Months Family History Medical History Relation Name Comments Anxiety disorder Father Lukass Depression Father Lukass Genetic disease Father Lukass stanford-danlo s syndrome Hyperlipidemia Father Lukass Hypertension Father Lukass Thyroid disease Father Lukass taking thyro id meds Anxiety disorder Maternal Grandmother [place]oe Breast cancer Maternal Grandmother [place] Depression Maternal Grandmother [place] Hyperlipidemia Maternal Grandmother [place] Hypertension Maternal Grandmother [place] Rheum arthritis Maternal Grandmother [place] ADD Mother Lorie Anxiety disorder Mother Lorie Asthma Mother Lorie Depression Mother Lorie Diabetes Mother Lorie type 2 on insul in Gestational diabetes Mother Lorie insulin during pregnacies to treat Hyperlipidemia Mother Lorie Hypertension Mother Lorie Obesity Mother Lorie Rheum arthritis Mother Lorie Anxiety disorder Paternal Grandfather Darnell Asthma Paternal Grandfather Darnell materna l grandfather Dementia Paternal Grandfather Darnell Prostate cancer Paternal Grandfather Darnell Tuberculosis Paternal Grandfather Darnell Anxiety disorder Paternal Grandmother Edite Depression Paternal Grandmother Edite Hypertension Paternal Grandmother Edite Thyroid disease Paternal Grandmother Edite Tuberculosis Paternal Grandmother Edite ADD Sister tija Anxiety disorder Sister tija Asthma Sister tija Genetic disease Sister tija Migraines Sister tija Obesity Sister tija Relation Name Status Comments Father Lukass Maternal Grandmother [place] Mother Lorie Paternal Grandfather Darnell Paternal Grandmother Edite Sister tija Social History Tobacco Use Types Packs/Day Years Used Date Smoking Tobacco: Never Smokeless Tobacco: Never Tobacco Cessation:Counseling Given: Not Answered Alcohol Use Standard Drinks/Week Comments Not Currently [...] week 04/12/2023 How often do you attend [facility] or lutheran services? More than 4 times per year 04/12/2023 Do you belong to any clubs o r organizations such as baptist groups, unions, fraternal or athletic groups, or [...] Answer Date Recorded PHQ-2 Score 1 09/21/2022 [facility] - Occupational [...] place to sleep or slept in a correction (including now)? No 04/12/2023 Depression Answer Date [...] Orientation Bisexual 09/21/2022 9: 38 AM CDT Last Filed Vital Signs Vital Sign Reading Time Taken Comments Blood Pressure 115/72 04/09/2023 1:52 PM CDT Pulse 76 04/09/2023 1:52 PM CDT Temperature 36.7 ??C (98.1 ??F) 02/22/2021 12:42 PM C DT Respiratory Rate - - Oxygen Saturation - - Inhaled Oxygen Concentration - - Weight 97.5 kg (215 lb) 12/11/2023 9:22 AM DATA LEAD Height 166.7 cm (5' 5.63) 04/12/2023 12:53 PM C DT Body Mass Index 35.09 04/12/2023 12:53 PM CDT Plan of Treatment Upcoming Encounters Date Type Department Care Team (Late st Contact Info) Description 12/18/2023 8:00 AM DATA LEAD Telemedicine Department of Nutrition and Diabetes Education in [place], [place] [address] [place] [phone] Veronica Garvin M.B., Ch.B. [address] [place] [phone] 12/25/2023 8:00 AM DATA LEAD Telemedicine Department of Nutrition and Diabetes Education in [place], [place] [address] [place] [phone] Veronica Garvin M.B., Ch.B. [address] [place] [phone] 01/07/2024 12:00 PM DATA LEAD Telemedicine Department of Nutrition and Diabetes Education in [place], [place] [address] [place] [phone] Veronica Garvin M.B., Ch.B. [address] [place] [phone] 03/10/2024 12:00 PM CDT Telemedicine Department of Nutrition and Diabetes Education in [place], [place] [address] [place] [phone] Veronica Garvin M.B., Ch.B. [address] [place] [phone] 03/17/2024 12:00 PM CDT Telemedicine Department of Nutrition and Diabetes Education in [place], [place] [address] [place] [address] Veronica Garvin M.B., Ch.B. [address] [place] [phone] Health Maintenance Due Date Last Done Comments Cervical Cancer Screening 2001 Hepatitis B Vaccines (1 of 3 - 3-dose series) 2001 Hepatitis C Screening 2001 COVID-19 Vaccine ( season) 2023 08/31/2022, 10/21/2021, 02/26/2021, Additional history exists Influenza Vaccine (#1) 2023 , 07/19/2021, 08/31/2020, Additional history exists Depression Screening (Annual PHQ-2) 11/19/2023 Glucose Test for Med Monitoring 04/09/2024 04/09/2023, 04/09/2023, 06/04/2022 DTaP,Tdap,and Td Vaccines (8 - Td or Tdap) 10/04/2031 10/04/2021, 01/02/2013, 07/13/2006, Additional history exists HPV Vaccines Completed 08/11/2014, 03/20, 02/05/2014 Meningococcal Vaccine Completed 06/21/2018, 013 Pneumococcal vaccine (0-64 years) Aged Out No longer eligible based on patient's age to complete this topic Medical Devices Implanted Type Area Structural Steel Erection Supervisor Device Identifier Shelf Expiration Date Model / Serial / Lot Hardware E.G. Pins/Screws/Mike s-02/17/2018 Implanted:02/17 (Quantity not on file) Hardware e.g. pins/screws/mike s Mouth Description:Permanent retain er Intrauterine Device Intrauterine Device Uterus Description:emersonetta IUD
--- OUTSIDE RECORDS SUMMARY | 2023-12-16 17:01 | XMS_ITS | Referral Summary ---
Author Name Unknown Organization [facility] Address [address] [facility] [address] Care Team Providers Care Jewelry Cutter Name Role Phone Marissa Wesley MD Primary Care Provider Allergies Active Allergy Reactions Criticality Noted Date Comments Food 05/01/2022 Cantalope, cucumber, tree nuts. Lamotrigine 05/01/2022 Nuts Anaphylaxis High 12/31/2021 Medications Medication Sig Dispensed Refills Start Date End Date Status levonorgestrel (LILETTA, 52 MG,) 20.1 MCG/DAY IUD 52 mg by Intrauterine route 0 Active medical cannabis (Patient's own supply) Take 1 capsule by mouth 0 Active adapalene (DIFFERIN) 0.3 % external gel Apply 1 Application topically 0 11/11/2020 Active azelastine (ASTELIN) 0.1 % nasal spray [place] 2 sprays in nostril 0 12/27/2020 Active benztropine (COGENTIN) 1 MG tablet Take 1 mg by mouth 0 02/12/2021 Active busPIRone (BUSPAR) 10 MG tablet 0 06/02/2020 Active busPIRone (BUSPAR) 10 MG tablet Take 10 mg by mouth 2 times daily 0 04/19/2022 Active clindamycin (CLEOCIN T) 1 % external solution 0 Active clonazePAM (KLONOPIN) 0.5 MG tablet 2 at bedtime 0 01/27/2022 Active co-enzyme Q-10 100 MG CAPS capsule 0 Active vitamin B-12 (CYANOCOBALAMIN) 100 MCG tablet Take 100 mcg by mouth 0 Active cyproheptadine (PERIACTIN) 4 MG tablet 1 bid 0 08/20/2020 Active desvenlafaxine (PRISTIQ) 100 MG 24 hr tablet Take 100 mg by mouth every morning 0 04/26/2022 Active econazole nitrate 1 % external cream Apply 1 Application topically 0 12/22/2020 Active EPINEPHrine (ANY BX GENERIC EQUIV) 0.3 MG/0.3ML injection 2-pack Inject 0.3 mg into the muscle 0 06/21/2020 Active erenumab-aooe (AIMOVIG) 70 MG/ML injection Inject 70 mg Subcutaneous every 30 days 0 02/07/2021 Active fexofenadine (CAITLIN) 180 MG tablet Take 180 mg by mouth 0 Acti ve gabapentin (NEURONTIN) 600 MG tablet Take 1 tablet by mouth 3 times daily 0 08/20/2020 Active Methylphenidate 25.9 MG TBED Take 25.9 mg by mouth 0 02/01/2021 Active metoprolol succinate ER (TOPROL XL) 25 MG 24 hr tablet 1 tab qam 0 11/27/2020 Active mometasone (ELOCON) 0.1 % external cream Apply 1 Application topically 0 11/11/2020 Active naratriptan (AMERGE) 1 MG tablet Take 1 tablet by mouth at onset of migraine. May repeat after 4 hours if needed. 0 07/18/2021 Active olopatadine (PATADAY) 0.2 % ophthalmic solution 0 06/12/2020 Activ e ondansetron (ZOFRAN ODT) 4 MG ODT tab Take 4 mg by mouth 0 Active prazosin (MINIPRESS) 1 MG capsule TAKE 1 TO 2 CAPSULES BY MOUTH AT BEDTIME 0 01/06/2022 Active prochlorperazine (COMPAZINE) [address] 25 mg rectally 0 Act matt vitamin B-2 (RIBOFLAVIN) 100 MG TABS tablet Take 100 mg by mouth 0 Act matt tacrolimus (PROTOPIC) 0.1 % external ointment 0 12/27/2020 Active tazarotene (TAZORAC) 0.1 % external cream Apply 1 Application topically 0 12/27/2020 Active triamcinolone (ARISTOCORT HP) 0.5 % external cream Apply 1 Application topically 0 12/27/2020 Active ZOLMitriptan (ZOMIG) 5 MG nasal spray [place] 1 spray in nostril 0 09/01/2021 Active topiramate (TOPAMAX) 50 MG tablet TAKE TWO TABLETS BY MOUTH AT BEDTIME 0 01/31/2021 Active triamcinolone (NASACORT) 55 MCG/ACT nasal aerosol [place] 2 sprays in nostril 0 Active DULoxetine (CYMBALTA) 30 MG capsule Take 90 mg by mouth 0 02/08/2021 Activ e Active Problems No known active problems Social History Tobacco Use Types Packs/Day Years Used Date Smoking Tobacco: Never Assessed Adolescent Education Answer Date Record ed Getting School Help Needed Not on file 08/11 Sex and Gender Information Value Date Recorded Sex Assigned at Not on file Gender Identity Not on file Sexual Orientation Not on file Last Filed Vital Signs Vital Sign Reading Time Taken Comments Blood Pressure 117/77 06/04/2022 1:55 PM CDT Pulse 62 06/04/2022 1:55 PM CDT Temperature 36.3 ??C (97.3 ??F) 06/04/2022 9:39 AM CD T Respiratory Rate 18 06/04/2022 9:39 AM CDT Oxygen Saturation 100% 06/04/2022 1:55 PM CDT Inhaled Oxygen Concentration - - Weight 104.3 kg (230 lb) 06/04/2022 9:39 AM CDT Height 167.6 cm (5' 6) 05/26/2022 1:45 PM CDT Body Mass Index 37.12 05/26/2022 1:45 PM CDT Plan of Treatment Not on file Care Teams Jewelry Cutter Relationship Specialty Start Date End Date Marissa Wesley MD [facility] [address] [place], [place] [id number] PCP - General Internal Medicine 12/31/21
--- OUTSIDE RECORDS SUMMARY | 2023-12-16 17:01 | XMS_ITS | Referral Summary ---
Author Name Unknown Organization [facility] Address [address] [place] [address] Care Team Providers Care Drywall Mechanic Name Role Phone Unavailable Primary Care Provider Unavailabl e Source Comments Patient records contain information from all sites at [facility]. For routine questions regarding patient records, call [phone] during business hours, M-F 8:00 AM - 5:00 PM Central Time. Record requests for emergency care only can be directed to [phone] at any time.[facility] Encounters Date Type Department Care Team Description 12/11/2023 8:00 AM OPTICAL LABORATORY MECHANIC Telemedicine Department of Nutrition and Diabetes Education in [place], [place] [address] [place] [address] Veronica Garvin M.B., Ch.B. Petar Maria RDN, LD Obesity Body Mass Index 30-39.9 Adult 12/04/2023 8:00 AM OPTICAL LABORATORY MECHANIC Telemedicine Department of Nutrition and Diabetes Education in [place], [place] [address] [place] [address] Veronica Garvin M.B., Ch.B. Petar Maria RDN, LD Obesity Body Mass Index 30-39.9 Adult 11/14/2023 2:00 PM OPTICAL LABORATORY MECHANIC Telemedicine Department of Nutrition and Diabetes Education in [place], [place] [address] [place] [address] Veronica Garvin M.B., Ch.B. Fabio Lugo, NEW, LD Obesity Body Mass Index 30-39.9 Adult 11/05/2023 12:00 PM OPTICAL LABORATORY MECHANIC Telemedicine Department of Nutrition and Diabetes Education in [place], [place] [address] [place] [address] Veronica Garvin M.B., Ch.B. Ruth Ann Ruiz MKarriS., RDN, LD Obesity Body Mass Index 30-39.9 Adult from Last 3 Months Allergies Active Allergy Reactions Criticality Noted Date Comments Cantaloupe GI intolerance 11/23/2011 Eva GI intolerance 11/23/2011 Lamotrigine Hives (Reselect Reaction) [...] % external solution 0 08/09/2022 Active coenzyme [id number] E 100-5 mg-unit capsule Take by mouth [...] Overview: Last Assessment & Plan: As above. Social History Tobacco Use Types Packs/Day Years [...] week 04/12/2023 How often do you attend [facility] or judaism services? More than 4 times per year 04/12/2023 Do you belong to any clubs o r organizations such as confucianist groups, unions, fraternal or athletic groups, or [...] Answer Date Recorded PHQ-2 Score 1 09/21/2022 [facility] - Occupational Stress Questionnaire Answer Date Recorded [...] place to sleep or slept in a skilled nursing (including now)? No 04/12/2023 Depression Answer Date [...] Answer Date Recorded Employment status Unemployed/not in [employer] paid workforce and NOT seeking employment 04/12/2023 [...] 97.5 kg (215 lb) 12/11/2023 9:22 AM OPTICAL LABORATORY MECHANIC Height 166.7 cm (5' 5.63) 04/12/2023 12:53 PM C DT Body Mass Index 35.09 04/12/2023 12:53 PM CDT Plan of Treatment Upcoming Encounters Date Type Department Care Team (Late st Contact Info) Description 12/18/2023 8:00 AM OPTICAL LABORATORY MECHANIC Telemedicine Department of Nutrition and Diabetes Education in [place], [place] [address] [place] [address] Veronica Garvin M.B., Ch.B. [address] [place] [phone] 12/25/2023 8:00 AM OPTICAL LABORATORY MECHANIC Telemedicine Department of Nutrition and Diabetes Education in [place], [place] [address] [place] [phone] Veronica Garvin M.B., Ch.B. [address] [place] [phone] 01/07/2024 12:00 PM OPTICAL LABORATORY MECHANIC Telemedicine Department of Nutrition and Diabetes Education in [place], [place] [address] [place] [phone] Veronica Garvin M.B., Ch.B. [address] [place] [phone] 03/10/2024 12:00 PM CDT Telemedicine Department of Nutrition and Diabetes Education in [place], [place] [address] [place] [phone] Veronica Garvin M.B., Ch.B. [address] [place] [phone] 03/17/2024 12:00 PM CDT Telemedicine Department of Nutrition and Diabetes Education in [address] [phone] Veronica Garvin M.B., Ch.B. [address] [place] [phone] Medical Devices Implanted Type Area Telecommunications Specialist Device Identifier Shelf Expiration Date Model / Serial / Lot Hardware E.G. Pins/Screws/Mike s-02/17/2018 Implanted:02/17 (Quantity not on file) Hardware e.g. pins/screws/mike s Mouth Description:Permanent retain er Intrauterine Device Intrauterine Device Uterus Description:liletta IUD
--- OUTSIDE RECORDS SUMMARY | 2023-12-16 17:01 | XMS_ITS | Encounter Summary ---
Author Name Unknown Organization [facility] Address [address] [place] [address] Care Team Providers Care Palliative Care Nurse Name Role Phone Unavailable Primary Care Provider Unavailabl e Encounter Details Date Type Department Care Team (Late st Contact Info) Description 12/11/2023 8:00 AM STAVE JOINTER Telemedicine Department of Nutrition and Diabetes Education in [place], [place] [address] [place] [phone] Veronica Garvin M.B., Ch.B. [address] [place] [phone] Petar Maria, LAURENN, LD [address] [place] [phone] Obesity Body Mass Index 30-39.9 Adult Social [...] often do you attend [facility] or advent services? More than 4 times per year 04/12/2023 Do you belong to any clubs o r organizations such as orthodoxy groups, unions, fraternal or athletic groups, or [...] Answer Date Recorded PHQ-2 Score 1 09/21/2022 [facility] - Occupational Stress [...] money to buy more. Never true 04/12/20 Within the past 12 months, t he [...] place to sleep or slept in a fpc (including now)? No 04/12/2023 Depression Answer Date [...] 97.5 kg (215 lb) 12/11/2023 9:22 AM STAVE JOINTER Height - - Body Mass Index 35.09 04/12/2023 12:53 PM CDT documented in this encounter Progress Notes * Petar Maria RDN, SHELTON - 12/11/2023 8:00 AM CST Today's Weight: Wt 97.5 kg The patient attended [facility] behavioral weight management group today. Individuals introduced themselves to the group, and limits to confidentiality were reviewed. Today's topic(s) included behavior chain and relapse prevention. At the end of this class group members should be able to work through overcoming or preventing undesirable habits, as shown in a behavior chain; distinguish between lapse and relapse, identify high risk situations, and brainstorm a potential plan. . Evidence of learning was demonstrated through appropriate questions and overall interaction during class. Progress towards previous goals: Actively grocery shopped for ingredients to make a new recipes. Patient reports it took longer than she thought it would- time for planning and executing Patient's goal for next week: Aim to exercise 3 days next week- PT exercises and muscle strengthening exercises Patient Census: 9 Total Group Time: 60 minutes The patient attended a virtual group class via real-time audio/video technology by Esa Maria RDN, SHELTON in [facility] to patient in patient home. I introduced myself to the group and limits to confidentially were reviewed. E JOINTER documented in this encounter Plan of Treatment Upcoming Encounters Date Type Department Care Team (Late st Contact Info) Description 12/18/2023 8:00 AM STAVE JOINTER Telemedicine Department of Nutrition and Diabetes Education in [place], [place] [address] [place] [address] Veronica Garvin M.B., Ch.B. [address] [place] [phone] 12/25/2023 8:00 AM STAVE JOINTER Telemedicine Department of Nutrition and Diabetes Education in [place], [place] [address] [place] [address] Veronica Garvin M.B., Ch.B. [address] [place] [address] 01/07/2024 12:00 PM STAVE JOINTER Telemedicine Department of Nutrition and Diabetes Education in [place], [place] [address] [place] [phone] Veronica Garvin M.B., Ch.B. [address] [place] [phone] 03/10/2024 12:00 PM CDT Telemedicine Department of Nutrition and Diabetes Education in [place], [place] [address] [place] [phone] Veronica Garvin M.B., Ch.B. [address] [place] [phone] 03/17/2024 12:00 PM CDT Telemedicine Department of Nutrition and Diabetes Education in [place], [place] [address] [place] [phone] Veronica Garvin M.B., Ch.B. [address] [place] [phone] documented as of this encounter Visit Diagnoses Diagnosis Obesity Body Mass Index 30-39.9 Adult documented in this encounter Additional Health Concerns Assessment Noted Time PHQ-9 Depression Total Score: 8 09/21/20 22 9:29 AM CDT documented as of this encounter
--- OUTSIDE RECORDS SUMMARY | 2023-12-16 17:01 | XMS_ITS ---
Author Name Unknown Organization [facility] Address [address] [place] [address] Care Team Providers Care Bookmaker'S Clerk Name Role Phone Unavailable Unavailable Unavailable Surgery Details Not on file Complications Check Surgery Details section. Procedure Estimated Blood Loss Check Surgery Details section. Procedure Findings Check Surgery Details section. Procedure Specimens Taken Check Surgery Details section.
--- OUTSIDE RECORDS SUMMARY | 2023-12-16 17:01 | XMS_ITS | Encounter Summary ---
Author Name Unknown Organization [facility] Address [address] [place] [address] Care Team Providers Care Boat Officer Name Role Phone Unavailable Primary Care Provider Unavailabl e Encounter Details Date Type Department Care Team (Late st Contact Info) Description 12/04/2023 8:00 AM COMPLIANCE PROJECT MANAGER Telemedicine Department of Nutrition and Diabetes Education in [place], [place] [address] [place] [phone] Veronica Garvin M.B., Ch.B. [address] [place] [phone] Petar Maria, LAURENN, LD [address] [place] [phone] Obesity Body Mass Index 30-39.9 Adult Social [...] week 04/12/2023 How often do you attend [facility] or methodist services? More than 4 times per year 04/12/2023 Do you belong to any clubs o r organizations such as orthodox groups, unions, fraternal or athletic groups, or [...] Answer Date Recorded PHQ-2 Score 1 09/21/2022 [facility] - Occupational [...] place to sleep or slept in a halfway (including now)? No 04/12/2023 Depression Answer Date [...] AM CDT documented as of this encounter Progress Notes * Petar Maria, NEW, LD - 12/04/2023 8:00 AM CST Today's Weight: WT: - no weight today The patient attended [facility] behavioral weight management group today. Individuals introduced themselves to the group, and limits to confidentiality were reviewed. Today's topic(s) included support systems. At the end of this class group members should be able to understand the different types of support and identify the differences between solo and social changers and what fits your style best. . Evidence of learning was demonstrated through appropriate questions and overall interaction during class. Progress towards previous goals: Did PT exercise twice over the last 2 weeks. Also shoveled to helpwith increased exercise. Patient's goal for next week: Intentional shop at the grocery store for ingredients for 2 new recipes Patient Census: 7 Total Group Time: 60 minutes The patient attended a virtual group class via real-time audio/video technology by Esa Maria RDN, SHELTON in [facility] to patient in patient home. I introduced myself to the group and limits to confidentially were reviewed. LIANCE PROJECT MANAGER documented in this encounter Plan of Treatment Upcoming Encounters Date Type Department Care Team (Late st Contact Info) Description 12/18/2023 8:00 AM COMPLIANCE PROJECT MANAGER Telemedicine Department of Nutrition and Diabetes Education in [place], [place] [address] [place] [phone] Veronica Garvin M.B., Ch.B. [address] [place] [phone] 12/25/2023 8:00 AM COMPLIANCE PROJECT MANAGER Telemedicine Department of Nutrition and Diabetes Education in [place], [place] [address] [place] [phone] Veronica Garvin M.B., Ch.B. [address] [place] [phone] 01/07/2024 12:00 PM COMPLIANCE PROJECT MANAGER Telemedicine Department of Nutrition and Diabetes Education in [place], [place] [address] [place] [phone] Veronica Garvin M.B., Ch.B. [address] [place] [phone] 03/10/2024 12:00 PM CDT Telemedicine Department of Nutrition and Diabetes Education in [place], [place] [address] [place] [phone] Veronica Garvin M.B., Ch.B. [address] [place] [phone] 03/17/2024 12:00 PM CDT Telemedicine Department of Nutrition and Diabetes Education in [place], [place] [address] [place] [address] Veronica Garvin M.B., Ch.B. [address] [place] [phone] documented as of this encounter Visit Diagnoses Diagnosis Obesity Body Mass Index 30-39.9 Adult documented in this encounter Additional Health Concerns Assessment Noted Time PHQ-9 Depression Total Score: 8 09/21/20 22 9:29 AM CDT documented as of this encounter
--- OUTSIDE RECORDS SUMMARY | 2023-12-16 17:01 | XMS_ITS | Clinical Summary ---
Author Name Unknown Organization [facility] Address [address] [facility] [place] [address] Care Team Providers Care Fuel Agent Name Role Phone Marissa Wesley MD Primary Care Provider [phone] Allergies Active Allergy Reactions Criticality Noted Date [...] Active azelastine (ASTELIN) 0.1 % nasal spray [place] 2 sprays in nostril 0 12/27/2020 Active [...] Active ZOLMitriptan (ZOMIG) 5 MG nasal spray [place] 1 spray in nostril 0 09/01/2021 Active topiramate (TOPAMAX) 50 MG tablet TAKE TWO TABLETS BY MOUTH AT BEDTIME 0 01/31/2021 Active triamcinolone (NASACORT) 55 MCG/ACT nasal aerosol [place] 2 sprays in nostril 0 Active DULoxetine [...] 05/26/2022 1:45 PM CDT Plan of Treatment Health Maintenance Due Date Last Done Comments ADVANCE CARE PLANNING 2001 ANNUAL REVIEW OF HM ORDERS 2001 HIV SCREENING 2016 HEPATITIS C SCREENING 2019 YEARLY PREVENTIVE VISIT 07/18/2022 07/18/2021, 06/21 PAP 2022 CHLAMYDIA SCREENING 06/04/2023 06/04/2022 COVID-19 Vaccine ( season) 2023 10/21/2021, 02/26/2021, 02/05/2021 INFLUENZA VACCINE (#1) 2023 , 08/31/2020, 08/15/2019, Additional history exists PHQ-2 (once per calendar year) 2023 DTAP/TDAP/TD IMMUNIZATION (8 - Td or Tdap) 10/04/2031 10/04/2021, 01/02/2013, 07/13/2006, Additional history exists HEPATITIS B IMMUNIZATION Completed 002, 01/21/2002, 2001 IPV IMMUNIZATION Completed 03/20/2012, , 09/01/2002, Additional history exists HPV IMMUNIZATION Completed 08/11/2014, , 02/05/2014 MENINGITIS IMMUNIZATION Completed 06/21/2018, 01/02 Pneumococcal Vaccine: Pediatrics (0 to 5 Years) and At-Risk Patients (6 to 64 Years) Aged Out No longer eligible based on patient's age to complete this topic RSV MONOCLONAL ANTIBODY Aged Out No l onger eligible based on patient's age to complete this topic Care Teams Fuel Agent Relationship Specialty Start Date End Date Marissa Wesley MD [facility] [address] [place] [address] PCP - General Internal Medicine 12/31/21
--- OUTSIDE RECORDS SUMMARY | 2023-12-16 17:01 | XMS_ITS | Encounter Summary ---
Author Name Unknown Organization [facility] Address [address] [place] [address] Care Team Providers Care Cable Inspector Name Role Phone Joseph Erickson M.D. Primary Care Provider [phone] Unavailable Unavailable Unavailable Ifrah Gooden Primary Care Provider [phone] Ifrah Gooden L Unavailable Demetria Giles Unavailable [phone] Encounter Details Date Type Department Care Team (Late st Contact Info) Description 03/12/2017 Orders Only [facility] [address] [place] [phone] Li Hamilton R.N. 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 [facility] [address] [phone] PCP - General 07/01/15 10/07/20 Ifrah Gooden [address] [place] [address] PCP - General 10/08/20 Referring Provider 08/31/15 Ifrah Gooden [address] [place] [phone] Referring Provider Pediatrics 10/08/20 Demetria Giles, P.A. [address] [facility] [address] [place] [phone] Referring Provider Neurosurgery 10/08/20 documented as of this encounter
--- OUTSIDE RECORDS SUMMARY | 2023-12-16 17:01 | XMS_ITS | Encounter Summary ---
Author Name Unknown Organization [facility] Address [address] [facility] [place] [address] Care Team Providers Care Municipal Engineer Name Role Phone Marissa Wesley MD Primary Care Provider [phone] Encounter Details Date Type Department Care Team (Late st Contact Info) Description 12/31/2021 Documentation Only INTERFACED REPORT Unknown, Provider Social History Tobacco Use Types Packs/Day Years Used Date Smoking Tobacco: Never Assessed Sex and Gender Information Value Date Recorded Sex Assigned at Not on file Gender Identity Not on file Sexual Orientation Not on file COVID-19 Exposure Response Date Recorded In the last month, have you been in contact with someone who was confirmed or suspected to have Coronavirus / COVID-19? No / Unsure 12/31/2021 5:11 PM SIZE CHANGER documented as of this encounter Plan of Treatment Not on file documented as of this encounter Visit Diagnoses Not on filedocumented in this encounter Care Teams Municipal Engineer Relationship Specialty Start Date End Date Marissa Wesley MD [facility] [address] [place] [address] PCP - General Internal Medicine 12/31/21 documented as of this encounter
--- OUTSIDE RECORDS SUMMARY | 2023-12-16 17:01 | XMS_ITS | Encounter Summary ---
Author Name Unknown Organization [facility] Address [address] [place] [id number] Care Team Providers Care Double Bass Player Name Role Phone Unavailable Primary Care Provider Unavailabl e Reason for Referral * Outpatient (Routine) - Authorized Specialty Diagnoses / Procedures Referred By Contac t Referred To Contact Tomer Laurent D.C. [address] [place] [phone] [facility] Referral ID Status Reason Start Date Expiration Date V isits Requested Visits Authorized [id number] Authorized 07/25/2023 07/24/2026 1 1 Reason for Visit * Outpatient (Routine) - Closed Specialty Diagnoses / Procedures Referred By Contac t Referred To Contact Tomer Laurent D.C. [address] [place] [phone] [facility] Referral ID Status Reason Start Date Expiration Date Visits Re quested Visits Authorized [id number] Closed 06/26/2023 06/25/2026 1 1 Encounter Details Date Type Department Care Team (Late st Contact Info) Description 07/25/2023 1:00 PM CDT Office Visit Department of Spine in [place], [place] [address] [place] [phone] Tomer George D.C. [address] [place] [phone] Pain Myofascial (Primary Dx); Cervicogenic Headache; Dysfunction Somatic Thoracic Region Social History Tobacco Use Types Packs/Day Years [...] How often do you attend chur or judaism services? More than 4 times per year 04/12/2023 Do you belong to any clubs o r organizations such as gnosticist groups, unions, fraternal or athletic groups, or [...] Date Recorded PHQ-2 Score 1 09/21/2022 [facility] - Occupational Stress Questionnaire Answer Date Recorded [...] place to sleep or slept in a retirement (including now)? No 04/12/2023 Depression Answer Date [...] Answer Date Recorded Employment status Unemployed/not in e paid workforce and NOT seeking employment [...] as of this encounter Progress Notes * Tomer George D.C. - 07/25/2023 1:00 PM CDT SUBJECTIVE HISTORY OF PRESENT ILLNESS Beryl is a 22 y.o. female who presents today for primary complaints of neck pain, upper shoulder and upper back pain with headache. She states that these are similar to what she has experienced in the past. She was last seen for care program resident 01/17/2023. She found the treatment provided to be helpful. She continues to have headaches that originate in the neck. She denies any radiation of symptoms to the arm or hands. She is not had any changes in her vision, speech, swallow, balance, or coordination. She denies any recent trauma to the head or neck. OBJECTIVE PHYSICAL EXAM GENERAL: 22 y.o. female in no acute distress. MUSCULOSKELETAL EXAM: Cervical rotation, flexion, and lateral flexion are provocative of contralateral pain. Myofascial restriction upper trapezius medially at the cervicothoracic junction, the suboccipital soft tissues bilaterally, and the cervicothoracic paraspinal connective tissue extending to t he level of T3. Restriction is noted at the C7-T3 motion segments in a prone position. NEUROLOGICAL EXAM: Gross neurological function is normal in the extremities. Observation of gait and balance is within normal limits. ASSESSMENT / PLAN #1 Pain Myofascial #2 Cervicogenic Headache #3 Dysfunction Somatic Thoracic Region Treatment today consisted of diversified manual manipulation to the C7-T3 motion segments in a prone position. Fascial manipulation was performed to the involved connective tissues as indicated in the physical examination. No complications with today's visit. We did review self mobilization exercises that have been prescribed in the past. Recommended chiropractic recheck in 3-4 weeks. documented in this encounter Plan of Treatment Upcoming Encounters Date Type Department Care Team (Late st Contact Info) Description 12/18/2023 8:00 AM MECHANICAL APPLICATIONS ENGINEER Telemedicine Department of Nutrition and Diabetes Education in [place], [place] [address] [place] [phone] Veronica Garvin M.B., Ch.B. [address] [place] [phone] 12/25/2023 8:00 AM MECHANICAL APPLICATIONS ENGINEER Telemedicine Department of Nutrition and Diabetes Education in [address] [phone] Veronica Garvin M.B., Ch.B. [address] [place] [phone] 01/07/2024 12:00 PM MECHANICAL APPLICATIONS ENGINEER Telemedicine Department of Nutrition and Diabetes Education in [place], [place] [address] [place] [phone] Veronica Garvin M.B., Ch.B. [address] [place] [phone] 03/10/2024 12:00 PM CDT Telemedicine Department of Nutrition and Diabetes Education in [address] [phone] Veronica Garvin M.B., Ch.B. [address] [place] [phone] 03/17/2024 12:00 PM CDT Telemedicine Department of Nutrition and Diabetes Education in [address] [phone] Veronica Garvin M.B., Ch.B. [address] [place] [phone] Scheduled Referrals Name Type Priority Associated Diagnoses Orde r Schedule Spine office visit (clinic) Outpatient Referral Routine Expected: 08/24/2023 (Approximate), Expires: 10/24/2024 documented as of this encounter Visit Diagnoses Diagnosis Pain Myofascial- Primary Cervicogenic Headache Dysfunction Somatic Thoracic Region documented in this encounter Additional Health Concerns Assessment Noted Time PHQ-9 Depression Total Score: 8 09/21/20 22 9:29 AM CDT documented as of this encounter
--- OUTSIDE RECORDS SUMMARY | 2023-12-16 17:01 | XMS_ITS | Encounter Summary ---
Author Name Unknown Organization [facility] Address [address] [place] [address] Care Team Providers Care Telephone Operator Receptionist Name Role Phone Unavailable Primary Care Provider Unavailabl e Encounter Details Date Type Department Care Team (Late st Contact Info) Description 11/14/2023 2:00 PM SUBSTANCE ABUSE COUNSELOR Telemedicine Department of Nutrition and Diabetes Education in [place], [place] [address] [place] [phone] Veronica Garvin M.B., Ch.B. [address] [place] [phone] Fabio Lugo RDN, LD [address] [place] [phone] Obesity Body Mass Index 30-39.9 Adult Social [...] How often do you attend chur or congregation services? More than 4 times per year 04/12/2023 Do you belong to any clubs o r organizations such as scientologist groups, unions, fraternal or athletic groups, or [...] Date Recorded PHQ-2 Score 1 09/21/2022 [facility] - [...] place to sleep or slept in a usp (including now)? No 04/12/2023 Depression Answer Date [...] as of this encounter Progress Notes * Fabio Lugo, NEW, LD - 11/14/2023 2:00 PM CST Today's Weight: WT: Not reported The patient attended [facility] [...] interaction during class. Progress towards previous goals: Walked three times over the last week and stayed active with moving furniture Patient's goal for next week: Plan to walk 2 times per week and PT exercises 3 times per week Patient Census: 8 Total Group Time: 55 minutes The patient attended a virtual group class via real-time audio/video technology by Fabio Lugo RDN, LD in [facility] to patient in patient home. I introduced myself to the group and limits to confidentially were reviewed. TANCE ABUSE COUNSELOR documented in this encounter Plan of Treatment Upcoming Encounters Date Type Department Care Team (Late st Contact Info) Description 12/18/2023 8:00 AM SUBSTANCE ABUSE COUNSELOR Telemedicine Department of Nutrition and Diabetes Education in [place], [place] [address] [place] [phone] Veronica Garvin M.B., Ch.B. [address] [place] [phone] 12/25/2023 8:00 AM SUBSTANCE ABUSE COUNSELOR Telemedicine Department of Nutrition and Diabetes Education in [place], [place] [address] [place] [phone] Veronica Garvin M.B., Ch.B. [address] [place] [phone] 01/07/2024 12:00 PM SUBSTANCE ABUSE COUNSELOR Telemedicine Department of Nutrition and Diabetes Education in [place], [place] [address] [place] [phone] Veronica Garvin M.B., Ch.B. [address] [place] [phone] 03/10/2024 12:00 PM CDT Telemedicine Department of Nutrition and Diabetes Education in [place], [place] [address] [place] [phone] Veronica Garvin M.B., Ch.B. [address] [place] [phone] 03/17/2024 12:00 PM CDT Telemedicine Department of Nutrition and Diabetes Education in [place], [place] [address] [place] [phone] Veronica Garvin M.B., Ch.B. [address] [place] [phone] documented as of this encounter Visit Diagnoses Diagnosis Obesity Body Mass Index 30-39.9 Adult documented in this encounter Additional Health Concerns Assessment Noted Time PHQ-9 Depression Total Score: 8 09/21/20 22 9:29 AM CDT documented as of this encounter
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
--- OUTSIDE RECORDS SUMMARY | 2023-12-16 17:02 | XMS_ITS | Encounter Summary ---
Author Name Unknown Organization [facility] Address [address] [place] [address] Care Team Providers Care Field Technical Specialist Name Role Phone Unavailable Primary Care Provider Unavailabl e Encounter Details Date Type Department Care Team (Late st Contact Info) Description 07/02/2023 12:00 PM CDT Telemedicine Department of Nutrition and Diabetes Education in [place], [place] [address] [place] [phone] Veronica Garvin M.B., Ch.B. [address] [place] [phone] Mulugeta Pike M.S., RDN, LD [address] [place] [phone] Obesity Body Mass Index 30-39.9 Adult Social [...] How often do you attend chur or tenriism services? More than 4 times per year 04/12/2023 Do you belong to any clubs o r organizations such as anabaptism groups, unions, fraternal or athletic groups, or [...] Answer Date Recorded PHQ-2 Score 1 09/21/2022 [facility] of Occupat ional Health - [...] place to sleep or slept in a nursing home (including now)? No 04/12/2023 Depression Answer Date [...] Concentration - - Weight 104 kg (229 lb) 07/02/2023 2:06 PM CDT Height - - Body Mass Index 37.38 04/12/2023 12:53 PM CDT documented in this encounter Miscellaneous Notes * Group Note - Mulugeta Pike RDN, LD - 07/02/2023 12:00 PM CDT 07/02/2023 Start Time: 12:00 PM End Time: 1:00 PM Play Writer: Mulugeta Pike RDN, LD Today's Weight: 229 lbs The patient attended [facility] behavioral weight management group today. Individuals introduced themselves to the group, and limits to confidentiality were reviewed. Today's topic(s) included selecting a healthy nutrition plan . At the end of this class group members should be able to select a nutrient-dense healthy nutrition that aligns with patient-centered goals. . Evidence of learning was demonstrated through appropriate questions and overall interaction during class. Progress towards previous goals: New this week. Welcome! Reviewed class procedures with patient. Patient's goal for next week: Cook 2 dinners for family that meet nutrition goals. Patient Census: 8 Total Group Time: 60 minutes The patient attended a virtual group class via real-time audio/video technology by Felice Pike RDN, LD in [facility] to patient in patient home. I introduced myself to the group and limits to confidentially were reviewed. documented in this encounter Plan of Treatment Upcoming Encounters Date Type Department Care Team (Late st Contact Info) Description 12/18/2023 8:00 AM OXYGEN TANK FILLER Telemedicine Department of Nutrition and Diabetes Education in [place], [place] [address] [place] [address] Veronica Garvin M.B., Ch.B. [address] [place] [phone] 12/25/2023 8:00 AM OXYGEN TANK FILLER Telemedicine Department of Nutrition and Diabetes Education in [place], [place] [address] [place] [address] Veronica Garvin M.B., Ch.B. [address] [place] [phone] 01/07/2024 12:00 PM OXYGEN TANK FILLER Telemedicine Department of Nutrition and Diabetes Education in [place], [place] [address] [place] [address] Veronica Garvin M.B., Ch.B. [address] [place] [phone] 03/10/2024 12:00 PM CDT Telemedicine Department of Nutrition and Diabetes Education in [place], [place] [address] [place] [address] Veronica Garvin M.B., Ch.B. [address] [place] [phone] 03/17/2024 12:00 PM CDT Telemedicine Department of Nutrition and Diabetes Education in [place], [place] [address] [place] [address] Veronica Garvin M.B., Ch.B. [address] [place] [phone] documented as of this encounter Visit Diagnoses Diagnosis Obesity Body Mass Index 30-39.9 Adult documented in this encounter Additional Health Concerns Assessment Noted Time PHQ-9 Depression Total Score: 8 09/21/20 22 9:29 AM CDT documented as of this encounter
--- OUTSIDE RECORDS SUMMARY | 2023-12-16 17:02 | XMS_ITS | Encounter Summary ---
Author Name Unknown Organization [facility] Address [address] [place] [address] Care Team Providers Care Leg Breaker Name Role Phone Unavailable Primary Care Provider Unavailabl e Encounter Details Date Type Department Care Team (Latest Contact Info) Description 07/20/2023 2:30 PM CDT Clinical Communication Virtual Review in [place], [place] 200 [place], [place] [phone] Social History Tobacco Use Types Packs/Day Years [...] 04/12/2023 How often do you attend chur ch or anabaptist services? More than 4 times per year 04/12/2023 Do you belong to any clubs o r organizations such as jain groups, unions, fraternal or athletic groups, or [...] Answer Date Recorded PHQ-2 Score 1 09/21/2022 [facility]at [facility] - Occupational Stress Questionnaire Answer Date [...] place to sleep or slept in a residential (including now)? No 04/12/2023 Depression Answer Date [...] Answer Date Recorded Employment status Unemployed/not in [employer] paid workforce and NOT seeking employment 04/12/2023 [...] AM CDT documented as of this encounter Plan of Treatment Upcoming Encounters Date Type Department Care Team (Late st Contact Info) Description 12/18/2023 8:00 AM PEST CONTROL CHEMICAL TECHNICIAN Telemedicine Department of Nutrition and Diabetes Education in [place], [place] [address] [place] [address] Veronica Garvin M.B., Ch.B. [address] [place] [phone] 12/25/2023 8:00 AM PEST CONTROL CHEMICAL TECHNICIAN Telemedicine Department of Nutrition and Diabetes Education in [place], [place] [address] [place] [address] Veronica Garvin M.B., Ch.B. [address] [place] [phone] 01/07/2024 12:00 PM PEST CONTROL CHEMICAL TECHNICIAN Telemedicine Department of Nutrition and Diabetes Education in [place], [place] [address] [place] [phone] Veronica Garvin M.B., Ch.B. [address] [place] [phone] 03/10/2024 12:00 PM CDT Telemedicine Department of Nutrition and Diabetes Education in [place], [place] [address] [place] [phone] Veronica Garvin M.B., Ch.B. [address] [place] [phone] 03/17/2024 12:00 PM CDT Telemedicine Department of Nutrition and Diabetes Education in [address] [phone] Veronica Garvin M.B., Ch.B. [address] [place] [phone] documented as of this encounter Visit Diagnoses Not on filedocumented in this encounter Additional Health Concerns Assessment Noted Time PHQ-9 Depression Total Score: 8 09/21/20 22 9:29 AM CDT documented as of this encounter
--- OUTSIDE RECORDS SUMMARY | 2023-12-16 17:02 | XMS_ITS | Encounter Summary ---
Author Name Unknown Organization [facility] Address [address] [place] [address] Care Team Providers Care Hog Tender Name Role Phone Unavailable Primary Care Provider Unavailabl e Encounter Details Date Type Department Care Team (Late st Contact Info) Description 07/24/2023 8:00 AM CDT Telemedicine Department of Nutrition and Diabetes Education in [place], [place] [address] [place] [phone] Veronica Gravin M.B., Ch.B. [address] [place] [phone] Ruth Ann Ruiz M.S., RDN, LD [address] [place] [phone] Obesity Body Mass Index 30-39.9 Adult Social [...] How often do you attend chur or zoroastrianism services? More than 4 times per year [...] Answer Date Recorded PHQ-2 Score 1 09/21/2022 [facility] - Occupational [...] place to sleep or slept in a fdc (including now)? No 04/12/2023 Depression Answer Date [...] AM CDT documented as of this encounter Miscellaneous Notes * Group Note - Ruth Ann Ruiz M.S., RDN, LD - 07/24/2023 8:00 AM CDT 07/24/2023 Start Time: 8:00 AM End Time: 9:00 AM Plasma Center Technician: Ruth Ann Ruiz M.S., SHELTON WOLFF Today's Weight: no update The patient attended LEAD behavioral weight management group today. Individuals introduced themselves to the group, and limits to confidentiality were reviewed. Today's topic(s) included physical activity . At the end of this class group members should be able to state the benefits of finding activities that are enjoyable, define NEAT, and work through common barriers of intentional exercise. . Evidence of learning was demonstrated through appropriate questions and overall interaction during class. Progress towards previous goals: ate fruit instead of refined carbs 50% of the time Patient's goal for next week: track food intake on ge Patient Census: 7 Total Group Time: 60 minutes The patient attended a virtual group class via real-time audio/video technology by Ruth Ann Ruiz M.S., SHEL[place] WOLFF in [facility] to patient in patient home. I introduced myself to the group and limits to confidentially were reviewed. documented in this encounter Plan of Treatment Upcoming Encounters Date Type Department Care Team (Late st Contact Info) Description 12/18/2023 8:00 AM DIGITAL LIBRARIAN Telemedicine Department of Nutrition and Diabetes Education in [place], [place] [address] [place] [phone] Veronica Garvin M.B., Ch.B. [address] [place] [phone] 12/25/2023 8:00 AM DIGITAL LIBRARIAN Telemedicine Department of Nutrition and Diabetes Education in [place], [place] [address] [place] [phone] Veronica Garvin M.B., Ch.B. [address] [place] [phone] 01/07/2024 12:00 PM DIGITAL LIBRARIAN Telemedicine Department of Nutrition and Diabetes Education in [place], [place] [address] [place] [phone] Veronica Garvin M.B., Ch.B. [address] [place] [phone] 03/10/2024 12:00 PM CDT Telemedicine Department of Nutrition and Diabetes Education in [place], [place] [address] [place] [phone] Veronica Garvin M.B., Ch.B. [address] [place] [phone] 03/17/2024 12:00 PM CDT Telemedicine Department of Nutrition and Diabetes Education in [place], [place] [address] [place] [phone] Veronica Garvin M.B., Ch.B. [address] [place] [phone] documented as of this encounter Visit Diagnoses Diagnosis Obesity Body Mass Index 30-39.9 Adult documented in this encounter Additional Health Concerns Assessment Noted Time PHQ-9 Depression Total Score: 8 09/21/20 22 9:29 AM CDT documented as of this encounter
--- OUTSIDE RECORDS SUMMARY | 2023-12-16 17:02 | XMS_ITS | Encounter Summary ---
Author Name Unknown Organization [facility] Address [address] [place] [address] Care Team Providers Care Rubber Calender Helper Name Role Phone Unavailable Primary Care Provider Unavailabl e Reason for Referral * Outpatient (Routine) - Closed Specialty Diagnoses / Procedures Referred By Contac t Referred To Contact Spine Tomer George D.C. [address] [place] [phone] [facility] Referral ID Status Reason Start Date Expiration Date Visits Re quested Visits Authorized [id number] Closed 01/02/2023 01/01/2026 1 1 GEBACK ANALYST Reason for Visit * Outpatient (Routine) - Closed Specialty Diagnoses / Procedures Referred By Contac t Referred To Contact Spine Diagnoses Pain Back Lumbar Remy Hunt APRN, C.N.P. [address] [place] [phone] [facility] Referral ID Status Reason Start Date Expiration Date Visits Re quested Visits Authorized [id number] Closed 12/21/2022 12/21/2023 1 1 Encounter Details Date Type Department Care Team (Latest Contact Info) Description 01/02/2023 11:00 AM CHARGEBACK ANALYST Comprehensive Visit Department of Spine in [place], [place] [address] [place] [phone] Remy Hunt APRN, C.N.P. [address] [place] [phone] Tomer George D.C. [address] [place] [phone] Headache Cervicogenic (Primary Dx); Pain Myofascial; Dysfunction Somatic Thoracic Region Social History Tobacco [...] often do you attend chur ch or druze services? 1 to 4 times per year 09/21/2022 Do you belong to any clubs o r organizations such as religion groups, unions, fraternal or athletic groups, or [...] Answer Date Recorded PHQ-2 Score 1 09/21/2022 [facility] Occupat ional Health - [...] place to sleep or slept in a jail (including now)? No 09/21/2022 Depression Answer Date [...] AM CDT documented as of this encounter Consult Notes * Tomer George D.C. - 01/02/2023 11:00 AM CST SUBJECTIVE HISTORY OF PRESENT ILLNESS Beryl is a 22 y.o. female who presents today for primary complaints neck and upper back pain with headache. She describes ongoing symptoms since the age of 6. She describes her current pain as a stiffness and tightness to the upper back with a sharp pain and generalized soreness that is aggravated with sitting, standing, transitions, lying down, and bending. She does find some relief with use of medication, ice and heat, generalized exercise, and rest. Past interventions include physical therapy without significant improvement. She has had cortisone injections with short-term improvement. She has found improvement with use of chiropractic treatment. Acupuncture and pain medications provide relief. She has not had relief with Botox injections. REVIEW OF SYSTEMS Negative for recent fevers or chills. Negative for weight loss. Negative for night pain. Negative for recent changes in her bowel or bladder function. MEDICATIONS Current Outpatient Medications: adapalene (DIFFERIN) 0.3 % gel, Apply 1 application topically as needed., Disp: , Rfl: Aimovig Autoinjector 70 mg/mL injection, Inject 70 mg under the skin every 30 (thirty) days., Disp:, Rfl: azelastine (ASTELIN) 137 mcg/spray (0.1 %) nasal spray, Administer 2 sprays into each nostril daily. , Disp: , Rfl: benztropine (COGENTIN) 1 mg tablet, Take 1 mg by mouth as needed., Disp: , Rfl: busPIRone (BUSPAR) 10 mg tablet, Take 10 mg by mouth daily., Disp: , Rfl: busPIRone (BUSPAR) 10 mg tablet, , Disp: , Rfl: silnjgjslb-zhoyyjeqcpigs-jsxu (FIORICET) 50-300-40 mg per capsule, Take 1 capsule by mouth as needed., Disp: , Rfl: clindamycin (CLEOCIN T) 1 % external solution, , Disp: , Rfl: clindamycin (CLINDAGEL) 1 % gel, Apply 1 application topically as needed., Disp: , Rfl: clonazePAM (KlonoPIN) 0.5 mg tablet, , Disp: , Rfl: Cotempla XR-ODT 25.9 mg tablet,disintig ER biphase 24h, Take 1 tablet by mouth daily., Disp: , Rfl: doxycycline monohydrate (MONODOX) 100 mg capsule, Take 100 mg by mouth daily., Disp: , Rfl: DULoxetine (CYMBALTA) [address] capsule, Take 90 mg by mouth every morning., Disp: , Rfl: econazole nitrate (SPECTAZOLE) 1 % cream, Apply 1 application topically as needed., Disp: , Rfl: EPINEPHrine 0.3 mg/0.3 mL injection syringe, Inject 0.3 mg intramuscularly as needed., Disp: , Rfl: gabapentin (NEURONTIN) 600 mg tablet, Take 600 mg by mouth 3 (three) times a day., Disp: , Rfl: levonorgestreL (Liletta) 20.1 mcg/24 hrs (6 yrs) 52 mg IUD, 52 mg by intrauterine route once., Disp: , Rfl: medical cannabis capsule, Take 1 capsule by mouth as needed. 6 mg daily, and other strains/dosages as needed , Disp: , Rfl: metoprolol succinate (TOPROL-XL) 25 mg 24 hr tablet, Take 25 mg by mouth daily., Disp: , Rfl: mometasone (ELOCON) 0.1 % cream, Apply 1 application topically as needed., Disp: , Rfl: olopatadine (PATADAY) 0.2 % ophthalmic solution, daily., Disp: , Rfl: ondansetron ODT (ZOFRAN-ODT) 4 mg disintegrating tablet, Take 4 mg by mouth as needed. , Disp: , Rfl: tacrolimus (PROTOPIC) 0.1 % ointment, Apply 1 application topically as needed., Disp: , Rfl: tazarotene (TAZORAC) 0.1 % cream, Apply 1 application topically as needed., Disp: , Rfl: topiramate (TOPAMAX) 50 mg tablet, Take 50 mg by mouth 2 (two) times a day., Disp: , Rfl: triamcinolone (KENALOG) 0.5 % cream, Apply 1 application topically as needed., Disp: , Rfl: triamcinolone (NASACORT) 55 mcg/actuation nasal spray, Administer 2 sprays into nostril(s) as needed., Disp: , Rfl: ALLERGIES Allergies Allergen Reactions Nut - Unspecified Anaphylaxis Tree Nut Anaphylaxis, Anxiety, Hives, Itching, Palpitations, Rash and Shortness of breath Cantaloupe GI intolerance Leo GI intolerance Lamotrigine Hives Ragweed Pollen Itching Tree Nuts Other (see comments) unknown Tree nuts PAST MEDICAL HISTORY Past Medical History: Diagnosis Date Attention Deficit Disorder Inattentive Depression Anxiety Dermatitis Eczema Earl Danlos Syndrome Unspecified (HCC) Gastroesophageal Reflux Disease NOS Migraine Headache Other Injury Of Unspecified Body Region 2004 Postural Tachycardia Syndrome With Orthostatic Hypotension Psoriasis Patient Active Problem List Diagnosis Migraine Headache Chronic Anxiety Disorder Unspecified Deficit Attention Or Concentration Dizziness Earl Danlos Syndrome Unspecified (HCC) SURGICAL HISTORY Past Surgical History: Procedure Laterality Date OTHER SURGICAL HISTORY 01/17/2022 toe margin removal FAMILY HISTORY Family History Problem Relation Age of Onset Migraines Sister Asthma Sister Anxiety disorder Sister Obesity Sister Genetic disease Sister ADD Sister Rheum arthritis Mother Depression Mother Diabetes Mother type 2 on insulin Hypertension Mother Hyperlipidemia Mother Asthma Mother Anxiety disorder Mother Obesity Mother Gestational diabetes Mother insulin during pregnacies to treat ADD Mother Depression Father Hypertension Father Thyroid disease Father taking thyroid meds Hyperlipidemia Father Anxiety disorder Father Genetic disease Father earl-danlos syndrome Rheum arthritis Maternal Grandmother Depression Maternal Grandmother Hypertension Maternal Grandmother Hyperlipidemia Maternal Grandmother Anxiety disorder Maternal Grandmother Breast cancer Maternal Grandmother Tuberculosis Paternal Grandfather Dementia Paternal Grandfather Asthma Paternal Grandfather maternal grandfather Anxiety disorder Paternal Grandfather Prostate cancer Paternal Grandfather Depression Paternal Grandmother Tuberculosis Paternal Grandmother Hypertension Paternal Grandmother Thyroid disease Paternal Grandmother Anxiety disorder Paternal Grandmother SOCIAL HISTORY Social History Tobacco Use Smoking status: Never Smokeless tobacco: Never Vaping Use Vaping Use: never used Substance Use Topics Alcohol use: Not Currently Alcohol/week: 2.0 standard drinks Types: 1 Shots of liquor, 1 Standard drinks or equivalent per week Drug use: Yes Frequency: 3.0 times per week Types: Marijuana OBJECTIVE PHYSICAL EXAM GENERAL: 22 y.o. female in no acute distress with appropriate affect. SKIN: Inspection of the skin does not reveal any rashes or lesions to the neck or upper back. CARDIOVASCULAR: No upper or lower extremity edema is noted. MUSCULOSKELETAL EXAM: Cervical rotation and lateral flexion are provocative of contralateral neck pain. She has moderate to severe myofascial restriction noted bilaterally to the upper trapezius medially at the cervicothoracic junction, the distal levator scapula bilaterally, and the splenius cervicalis bilaterally. Soft tissue changes are consistent with reproduction of neck pain and headache. She is restricted mobility at the T3-5 motion segments. NEUROLOGICAL EXAM: Reflexes of the upper and lower extremity are within normal limits. Observation of gait balance is within normal limits. Cranial nerves 2-12 were observed and appear normal. ASSESSMENT / PLAN #1 Pain Back Lumbar Beryl does pass the COVID-19 outpatient screening prior to entrance of the clinic today. She is wearing a mask. Treatment today consisted of diversified manual manipulation to the T3-5 motion segments in a prone position. Fascial manipulation was performed to the involved connective tissues as indicated in the physical examination. We discussed the importance of healthy posture for reducing strain to the neck and upper back. Given the history of Earl-Danlos syndrome we will defer stretching exercises as I think these are counter productive for Beryl. She can continue with some of the stabilization exercises that she has learned in physical therapy. Recommended recheck in 2 weeks. Beryl anne agreement with this plan. PRO Scores: 10/27/2022 01/02/2023 [facility] PROMIS-CAT: Anxiety 58 (mild) PROMIS-CAT: Depression 60 (mild) PROMIS-CAT: Fatigue 71 (severe) PROMIS-CAT: Sleep disturbance 57 (mild) PROMIS-CAT: Pain interference 69 (moderate) PROMIS-CAT: Ability to participate social roles 33 (moderate dysfunction) PROMIS-CAT: Physical function 41 (mild dysfunction) PROMIS SHORT FORM (Pain Intensity): Pain rating (avg.) 7 7 Multiple values from one day are sorted in reverse-chronological order GEBACK ANALYST documented in this encounter Plan of Treatment Upcoming Encounters Date Type Department Care Team (Late st Contact Info) Description 12/18/2023 8:00 AM CHARGEBACK ANALYST Telemedicine Department of Nutrition and Diabetes Education in [place], [place] [address] [place] [phone] Veronica Garvin M.B., Ch.B. [address] [place] [phone] 12/25/2023 8:00 AM CHARGEBACK ANALYST Telemedicine Department of Nutrition and Diabetes Education in [place], [place] [address] [place] [phone] Veronica Garvin M.B., Ch.B. [address] [place] [phone] 01/07/2024 12:00 PM CHARGEBACK ANALYST Telemedicine Department of Nutrition and Diabetes Education in [place], [place] [address] [place] [phone] Veronica Garvin M.B., Ch.B. [address] [place] [phone] 03/10/2024 12:00 PM CDT Telemedicine Department of Nutrition and Diabetes Education in [place], [place] [address] [place] [phone] Veronica Garvin M.B., Ch.B. [address] [place] [phone] 03/17/2024 12:00 PM CDT Telemedicine Department of Nutrition and Diabetes Education in [place], [place] [address] [place] [phone] Veronica Garvin M.B., Ch.B. [address] [place] [phone] Scheduled Referrals Name Type Priority Associated Diagnoses Orde r Schedule Spine office visit (clinic) Outpatient Referral Routine Expected: 01/09/2023 (Approximate), Expires: 04/01/2024 documented as of this encounter Visit Diagnoses Diagnosis Cervicogenic Headache- Primary Pain Myofascial Dysfunction Somatic Thoracic Region documented in this encounter Additional Health Concerns Assessment Noted Time PHQ-9 Depression Total Score: 8 09/21/20 22 9:29 AM CDT documented as of this encounter
--- OUTSIDE RECORDS SUMMARY | 2023-12-16 17:02 | XMS_ITS | Encounter Summary ---
Author Name Unknown Organization [facility] Address [address] [place] [address] Care Team Providers Care Registered Dietitian Name Role Phone Unavailable Primary Care Provider Unavailabl e Encounter Details Date Type Department Care Team (Latest Contact Info) Description 04/09/2023 3:05 PM CDT - 04/09/2023 11:59 PM CDT Hospital Encounter Department of Laboratory Medicine and Pathology, [facility] in [place], [place] [address] [place] [phone] Veronica Garvin M.B., Ch.B. [address] [place] [address] Obesity Body Mass Index 30-39.9 Adult Discharge Disposition: Home or Self Care Social History Tobacco Use Types Packs/Day Years [...] 09/21/2022 How often do you attend chur or gnosticist services? 1 to 4 times per year 09/21/2022 Do you belong to any clubs o r organizations such as restoration groups, unions, fraternal or athletic groups, or [...] Answer Date Recorded PHQ-2 Score 1 09/21/2022 [facility]mn [facility] - Occupational Stress Questionnaire Answer Date [...] money to buy more. Never true 09/21/20 Within the past 12 months, t he [...] place to sleep or slept in a longterm (including now)? No 09/21/2022 Depression Answer Date [...] AM CDT documented as of this encounter Medications at Time of Discharge Medication Sig Dispensed Refills Start Date End Date adapalene (DIFFERIN) 0.3 % gel Apply 1 application topically as needed. 0 11/11/2020 Aimovig Autoinjector 70 mg/mL injection Inject 70 mg under the skin every 30 (thirty) days. 0 02/07/2021 azelastine (ASTELIN) 137 mcg/spray (0.1 %) nasal spray Administer 2 sprays into each nostril daily. 0 12/27/2020 benztropine (COGENTIN) 1 mg tablet Take 1 mg by mouth as needed. 0 02/12/2021 busPIRone (BUSPAR) 10 mg tablet Take 10 mg by mouth daily. 0 01/10/2021 clindamycin (CLEOCIN T) 1 % external solution 0 08/09/2022 clindamycin (CLINDAGEL) 1 % gel Apply 1 application topically as needed. 0 02/15/2021 coenzyme [id number] 100-5 mg-unit capsule Take by mouth daily. 0 Cotempla XR-ODT 25.9 mg tablet,disintig ER biphase 24h Take 1 tablet by mouth daily. 0 02/01/2021 desvenlafaxine (PRISTIQ) 100 mg 24 hr tablet Take 100 mg by mouth every morning. 0 01/19/2023 DULoxetine (CYMBALTA) [address] capsule Take 90 mg by mouth every morning. 0 02/08/2021 econazole nitrate (SPECTAZOLE) 1 % cream Apply 1 application topically as needed. 0 12/22/2020 EPINEPHrine 0.3 mg/0.3 mL injection syringe Inject 0.3 mg intramuscularly as needed. 0 09/25/2014 famotidine (PEPCID) 20 mg tablet Take 20 mg by mouth 2 (two) times a day. 0 12/18/2022 fexofenadine (CAITLIN) 180 mg tablet Take 180 mg by mouth daily. 0 gabapentin (NEURONTIN) 600 mg tablet Take 600 mg by mouth 3 (three) times a day. 0 08/20/2020 levonorgestreL (Liletta) 20.1 mcg/24 hrs (6 yrs) 52 mg IUD 52 mg by intrauterine route once. 0 medical cannabis capsule Take 1 capsule by mouth as needed. 6 mg daily, and other strains/dosages as needed 0 metoprolol succinate (TOPROL-XL) 25 mg 24 hr tablet Take 25 mg by mouth daily. 0 11/27/2020 mometasone (ELOCON) 0.1 % cream Apply 1 application topically as needed. 0 11/11/2020 naratriptan (AMERGE) 1 mg tablet as needed. 0 07/18/2021 olopatadine (PATADAY) 0.2 % ophthalmic solution daily. 0 01/28/2021 ondansetron ODT (ZOFRAN-ODT) 4 mg disintegrating tablet Take 4 mg by mouth as needed. 0 QUEtiapine (SEROquel) 25 mg tablet Take 25 mg by mouth 2 (two) times a day. 0 riboflavin (VITAMIN B2) 100 mg tablet Take 100 mg by mouth daily. 0 tacrolimus (PROTOPIC) 0.1 % ointment Apply 1 application topically as needed. 0 12/27/2020 tazarotene (TAZORAC) 0.1 % cream Apply 1 application topically as needed. 0 12/27/2020 topiramate (TOPAMAX) 50 mg tablet Take 50 mg by mouth 2 (two) times a day. 0 01/31/2021 triamcinolone (KENALOG) 0.5 % cream Apply 1 application topically as needed. 0 12/27/2020 triamcinolone (NASACORT) 55 mcg/actuation nasal spray Administer 2 sprays into nostril(s) as needed. 0 documented as of this encounter Plan of Treatment Upcoming Encounters Date Type Department Care Team (Late st Contact Info) Description 12/18/2023 8:00 AM ROOF PLUMBER Telemedicine Department of Nutrition and Diabetes Education in [place], [place] [address] [place] [phone] Veronica Garvin M.B., Ch.B. [address] [place] [phone] 12/25/2023 8:00 AM ROOF PLUMBER Telemedicine Department of Nutrition and Diabetes Education in [place], [place] [address] [place] [phone] Veronica Garvin M.B., Ch.B. [address] [place] [phone] 01/07/2024 12:00 PM ROOF PLUMBER Telemedicine Department of Nutrition and Diabetes Education in [place], [place] [address] [place] [phone] Veronica Garvin M.B., Ch.B. [address] [place] [phone] 03/10/2024 12:00 PM CDT Telemedicine Department of Nutrition and Diabetes Education in [place], [place] [address] [place] [address] Veronica Garvin M.B., Ch.B. [address] [place] [phone] 03/17/2024 12:00 PM CDT Telemedicine Department of Nutrition and Diabetes Education in [place], [place] [address] [place] [phone] Veronica Garvin M.B., Ch.B. [address] [place] [phone] documented as of this encounter Procedures Procedure Name Priority Date/Time Associated Diagnosis Comments HEMOGLOBIN A1C, B Routine 04/09/2023 3:2 2 PM CDT Obesity Body Mass Index 30-39.9 Adult GLUCOSE, FASTING, S/P Routine 04/09/2023 3:22 PM CDT Obesity Body Mass Index 30-39.9 Adult documented in this encounter Results * Hemoglobin A1c (04/09/2023 3:22 PM CDT) Hemoglobin A1c, B 5.6 4.0 - 5.6 % 04/09/2023 4:18 PM CDT DTL Blood (Blood, Venous) 04/09/2023 3:22 PM CDT 04/09/2023 3:44 PM CDT Veronica Perry, Ch.B. LAB BLOOD ADD-ON [facility] [address] [place] [address], [place] DTL [facility] [address] [place] [address] * Glucose, Fasting (04/09/2023 3:22 PM CDT) Glucose, P 91 70 - 100 mg/dL 04/09/2023 5:22 PM CDT DTL Last Intake 6 hr 04/09/2023 5:05 PM CDT DTL Blood (Blood, Venous) 04/09/2023 3:22 PM CDT 04/09/2023 5:05 PM CDT Veronica Perry, Ch.B. LAB BLOOD NON ADD -ON [facility] [address] [place] [address], [facility] [address] [place] [address] documented in this encounter Visit Diagnoses Diagnosis Obesity Body Mass Index 30-39.9 Adult documented in this encounter Additional Health Concerns Assessment Noted Time PHQ-9 Depression Total Score: 8 09/21/20 22 9:29 AM CDT documented as of this encounter
--- OUTSIDE RECORDS SUMMARY | 2023-12-16 17:02 | XMS_ITS | Encounter Summary ---
Author Name Unknown Organization [facility] Address [address] [place] [address] Care Team Providers Care Bench Worker Name Role Phone Unavailable Primary Care Provider Unavailabl e Reason for Visit * Outpatient (Routine) - Closed Specialty Diagnoses / Procedures Referred By Last t Referred To Contact Nutrition Diagnoses Obesity Body Mass Index 30-39.9 Adult Remy Hunt APRN, C.N.P. [address] [place] [phone] [facility] Referral ID Status Reason Start Date Expiration Date Visits Re quested Visits Authorized [id number] Closed 12/21/2022 12/21/2023 1 1 Encounter Details Date Type Department Care Team (Late st Contact Info) Description 04/12/2023 1:00 PM CDT Telemedicine Department of Nutrition and Diabetes Education in [place], [place] [address] [place] [phone] Remy Hunt APRN, C.N.P. [address] [place] [phone] Ruth Ann Ruiz M.S., RDN, LD [address] [place] [phone] Obesity Body Mass Index 30-39.9 Adult Social [...] week 04/12/2023 How often do you attend [facility] or quaker services? More than 4 times per year 04/12/2023 Do you belong to any clubs o r organizations such as islam groups, unions, fraternal or athletic groups, or [...] Answer Date Recorded PHQ-2 Score 1 09/21/2022 [facility] - Occupational [...] Yes 04/12/2023 Housing Stability Vital Sign Answer Gabrile e Recorded In the last 12 months, [...] place to sleep or slept in a [facility]p (including now)? No 04/12/2023 Depression Answer Date [...] - Inhaled Oxygen Concentration - - Weight - - Height 166.7 cm (5' 5.63) 04/12/2023 12:53 PM C DT Body Mass Index - - documented in this encounter Patient Instructions * Attachments The following attachments cannot be sent through Care Everywhere. * Take Action To Lose Weight (Upper Sorbian) documented in this encounter Progress Notes * Ruth Ann Ruiz M.S., NEW, [place] - 04/12/2023 1:00 PM CDT CHIEF COMPLAINT/REASON FOR VISIT Nutrition-Weight Management Consult Met with patient Consult conducted via real-time audio/video technology by Ruth Ann Ruiz M.S., NEW, [place] in [facility] to the patient in Patient's Home ASSESSMENT Food/Nutrition Related History Dieting experience: She has done some food journal and elimination diets previously. Eating environment: Many meals at campus cafeteria. She is home now for the summer near [place]. She does a lot of the cooking and grocery shopping due to moms leukemia diagnosis. Limited fast food/restaurants. Typical Daily Intake Breakfast (8 am): toast/croatian muffin with butter/peanut butter, whatever fruit is available in the School's cafeteria (normally grapes and watermelon), a muffin or small somali, and a cup of black tea (no sugar or cream) Morning Snack: maybe a croissant and or apple if I can find an apple Noon Meal: varies greatly I try to avoid eggs and meat in the Caf for environmental reasons and thefact that they upset my stomach a lot more than the vegan options. I often eat the pasta with marinara sauce adding sauteed onions if they are available and fresh tomatoes on top. I'll sometimes add vincentian fries or a salad of lettuce, cucumbers, tomatoes and feta cheese with balsamic vinegar. Afternoon Snack: not much if really hungry will just eat dinner early which looks really almost identical to lunch. Sometimes I eat from the vegan line instead and that often consists of rice and a whaley like thing with potatoes and lentils or something like that Evening meal (4 pm): Dinner is often pasta again with the salad or fries and a piece of cake or a cookie. I'll most often vary from my non-meat meals in the evenings to a burger with spicy aioli ,andlettuce ,and banana peppers, and tomato. Evening Snack (9 pm): This is often ramen or a cookie or chips from the vending machine Beverages: water (60 oz), tea, bubblr occasionally Alcohol intake: once per month Physical activity: Beryl Medel reports last semester she was taking long walks due a certain class she was taking. She has a twisted ankle currently so activity as been limited. Stationary bike when at home. PT exercises for 10 minutes 4-5 days per week. Weight History Ht Readings from Last 1 Encounters: 04/09/23 166.7 cm Wt Readings from Last 1 Encounters: 04/09/23 104 kg BMI Readings from Last 1 Encounters: 04/09/23 37.53 kg/m?? Estimation of Nutritional Needs 1600 calories for weight loss (MSJ + 20% -500) NUTRITION DIAGNOSIS Overweight/Obesity related to imbalance between energy intake and energy expenditure as evidenced by patient's intake, activity report, and BMI > 30 Nutrition Prescription/Recommendation We discussed the following weight management strategies: Consistently consume 3 well-balanced mealseach day, aim not to skip meals, aim for home prepared meals, be mindful about snacking habits and portion sizes, read nutrition labels, limit foods and beverages with a high fat/added sugar content,follow a calorie deficit diet, consider tracking intake and activity, increase planned physical activity as able, maintain hydration status INTERVENTION Education: Weight Control See Patient Education Record for information regarding education materials covered today. MONITORING AND EVALUATION: Nutrition parameter to monitor: Weight Desired Outcome: establish healthy lifestyle changes; gradual weight reduction Patient Goal(s): 1. Aim for 3 meals per day that contain 3 food groups (protein + fiber) -Discussed things such as OWYN and Fairlife protein shakes, Healthy Choice meals (plant based options), tuna pouches, canned beans + bagged salad + whole grain wrap, etc.) 2. Increase activity as able 3. Consider tracking intake on Lose It ge for 1600 calories FOLLOW UP PLAN: Provided name and phone number if questions should arise Time spent with patient (minutes): 40 documented in this encounter Plan of Treatment Upcoming Encounters Date Type Department Care Team (Late st Contact Info) Description 12/18/2023 8:00 AM MILIEU TECHNICIAN Telemedicine Department of Nutrition and Diabetes Education in [address] [phone] Veronica Garvin M.B., Ch.B. [address] [place] [phone] 12/25/2023 8:00 AM MILIEU TECHNICIAN Telemedicine Department of Nutrition and Diabetes Education in [place], [place] [address] [place] [phone] Veronica Garvin M.B., Ch.B. [address] [place] [phone] 01/07/2024 12:00 PM MILIEU TECHNICIAN Telemedicine Department of Nutrition and Diabetes Education in [place], [place] [address] [place] [phone] Veronica Garvin M.B., Ch.B. [address] [place] [phone] 03/10/2024 12:00 PM CDT Telemedicine Department of Nutrition and Diabetes Education in [place], [place] [address] [place] [phone] Veronica Garvin M.B., Ch.B. [address] [place] [phone] 03/17/2024 12:00 PM CDT Telemedicine Department of Nutrition and Diabetes Education in [place], [place] [address] [place] [address] Veronica Garvin M.B., Ch.B. [address] [place] [phone] documented as of this encounter Visit Diagnoses Diagnosis Obesity Body Mass Index 30-39.9 Adult documented in this encounter Additional Health Concerns Assessment Noted Time PHQ-9 Depression Total Score: 8 09/21/20 22 9:29 AM CDT documented as of this encounter
--- OUTSIDE RECORDS SUMMARY | 2023-12-16 17:02 | XMS_ITS | Patient Health Record ---
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
--- OUTSIDE RECORDS SUMMARY | 2023-12-16 17:02 | XMS_ITS | Encounter Summary ---
Author Name Unknown Organization [facility] Address [address] [place] [address] Care Team Providers Care Feller Buncher Operator Name Role Phone Unavailable Primary Care Provider Unavailabl e Reason for Visit * Outpatient (Routine) - Closed Specialty Diagnoses / Procedures Referred By Last t Referred To Contact Spine Tomer George D.C. [address] [place] [phone] [facility] Referral ID Status Reason Start Date Expiration Date Visits Re quested Visits Authorized [id number] Closed 01/02/2023 01/01/2026 1 1 Encounter Details Date Type Department Care Team (Late st Contact Info) Description 01/17/2023 4:00 PM PRODUCT PLANNER Office Visit Department of Spine in [place], [place] [address] [place] [phone] Tomer George D.C. [address] [place] [phone] Pain Myofascial (Primary Dx); Headache Cervicogenic; Dysfunction Somatic Thoracic Region Social History Tobacco [...] How often do you attend chur or christian services? 1 to 4 times per year [...] Answer Date Recorded PHQ-2 Score 1 09/21/2022 [facility] Occupat ional Health - Occupational Stress [...] Progress Notes * Tomer George D.C. - 01/17/2023 4:00 PM CST SUBJECTIVE HISTORY OF PRESENT ILLNESS Beryl is a 22 y.o. female who presents today for recheck of neck pain, upper back pain, and headaches. She reports that her headaches have been a little bit more manageable. She also notes that she has not had to go to the emergency room for headaches since her initial visit. She does point to the upper shoulders bilaterally as the location pain. She is a mild headache as she presents today. It is bilateral in its location in the shoulders with radiation to the suboccipital region bilaterally. OBJECTIVE PHYSICAL EXAM GENERAL: 22 y.o. female in no acute distress. MUSCULOSKELETAL EXAM: Cervical lateral flexion is bilaterally provocative of contralateral neck pain. Shoulder elevation is provocative of suprascapular pain. Cervical flexion is without difficulty. Cervical extension is without provocation of symptoms. Myofascial restriction is noted bilaterally to the distal levator scapula, the medial upper trapezius at the cervicothoracic junction bilaterally, and the thoracic paraspinal connective tissue at the level of T1-3. Soft tissue changes are consistent with reproduction of symptom complaint. Restricted mobility noted at the T1-3 motion segments. NEUROLOGICAL EXAM: Observation of gait and balance are within normal limits. Gross neurological function is normal in the extremities. Cranial nerves 2-12 were observed and appear normal. ASSESSMENT / PLAN #1 Pain Myofascial #2 Headache Cervicogenic #3 Dysfunction Somatic Thoracic Region Beryl does pass the COVID-19 outpatient screening prior to entrance of the clinic today. She is wearing a mask. Treatment today consisted of diversified manual manipulation to the T1-3 motion segments in a prone position. Fascial manipulation was performed to the involved connective tissues as indicated in the physical examination. No complications noted with today's visit. She reports an absenceof headache and neck pain post treatment. Continue with previously prescribed self mobilization exercises for the involved regions. Recheck in 2 weeks. documented in this encounter Plan of Treatment Upcoming Encounters Date Type Department Care Team (Late st Contact Info) Description 12/18/2023 8:00 AM PRODUCT PLANNER Telemedicine Department of Nutrition and Diabetes Education in [place], [place] [address] [place] [phone] Veronica Garvin M.B., Ch.B. [address] [place] [phone] 12/25/2023 8:00 AM PRODUCT PLANNER Telemedicine Department of Nutrition and Diabetes Education in [place], [place] [address] [place] [phone] Veronica Garvin M.B., Ch.B. [address] [place] [phone] 01/07/2024 12:00 PM PRODUCT PLANNER Telemedicine Department of Nutrition and Diabetes Education in [place], [place] [address] [place] [address] Veronica Garvin M.B., Ch.B. [address] [place] [phone] 03/10/2024 12:00 PM CDT Telemedicine Department of Nutrition and Diabetes Education in [place], [place] [address] [place] [phone] Veronica Garvin M.B., Ch.B. [address] [place] [phone] 03/17/2024 12:00 PM CDT Telemedicine Department of Nutrition and Diabetes Education in [place], [place] [address] [place] [phone] Veronica Garvin M.B., Ch.B. [address] [place] [phone] documented as of this encounter Visit Diagnoses Diagnosis Pain Myofascial- Primary Cervicogenic Headache Dysfunction Somatic Thoracic Region documented in this encounter Additional Health Concerns Assessment Noted Time PHQ-9 Depression Total Score: 8 09/21/20 22 9:29 AM CDT documented as of this encounter
--- OUTSIDE RECORDS SUMMARY | 2023-12-16 17:02 | XMS_ITS | Encounter Summary ---
Author Name Unknown Organization [facility] Address [address] [place] [address] Care Team Providers Care Computer Science Instructor Name Role Phone Unavailable Primary Care Provider Unavailabl e Reason for Referral * Outpatient (Routine) - Closed Specialty Diagnoses / Procedures Referred By Contac t Referred To Contact Nutrition Diagnoses Obesity Body Mass Index 30-39.9 Adult Remy Hunt APRN, C.N.P. [address] [place] [phone] [facility] Referral ID Status Reason Start Date Expiration Date Visits Re quested Visits Authorized [id number] Closed 12/21/2022 12/21/2023 1 1 FACTURING EXECUTIVE * Outpatient (Routine) - Closed Specialty Diagnoses / Procedures Referred By Contac t Referred To Contact Endocrinology Diagnoses Obesity Body Mass Index 30-39.9 Adult Remy Hunt APRN, C.N.P. 200 [place] [phone] [facility] Referral ID Status Reason Start Date Expiration Date Visits Re quested Visits Authorized [id number] Closed 12/21/2022 12/21/2023 1 1 FACTURING EXECUTIVE * Outpatient (Routine) - Closed Specialty Diagnoses / Procedures Referred By Contac t Referred To Contact Spine Diagnoses Pain Back Lumbar Kadlec, Remy J, HANDY MAN, C.N.P. [address] [place] [phone] [facility] Referral ID Status Reason Start Date Expiration Date Visits Re quested Visits Authorized [id number] Closed 12/21/2022 12/21/2023 1 1 Scheduling Instructions Please schedule with Dr. George FACTURING EXECUTIVE Encounter Details Date Type Department Care Team (Late st Contact Info) Description 12/21/2022 Orders Only Department of Spine in [place], [place] [address] [place] [phone] Remy Hunt APRN, C.N.P. [address] [place] [phone] Pain Back Lumbar (Primary Dx); Obesity Body Mass Index 30-39.9 Adult Social [...] often do you attend chur ch or amish services? 1 to 4 times per year 09/21/2022 Do you belong to any clubs o r organizations such as pentecostalism groups, unions, fraternal or athletic groups, or [...] Answer Date Recorded PHQ-2 Score 1 09/21/2022 [facility] - Occupational [...] in a nursing home (including now)? No 09/21/2022 Depression Answer Date [...] - - Weight 104 kg (229 lb 4.5 oz) 12/21/2022 2:18 PM MANUFACTURING EXECUTIVE Height 166.4 cm (5' 5.51) 12/21/2022 2:18 PM CS T Body Mass Index 37.56 12/21/2022 2:18 PM MANUFACTURING EXECUTIVE documented in this encounter Plan of Treatment Upcoming Encounters Date Type Department Care Team (Late st Contact Info) Description 12/18/2023 8:00 AM MANUFACTURING EXECUTIVE Telemedicine Department of Nutrition and Diabetes Education in [place], [place] [address] [place] [phone] Veronica Garvin M.B., Ch.B. [address] [place] [phone] 12/25/2023 8:00 AM MANUFACTURING EXECUTIVE Telemedicine Department of Nutrition and Diabetes Education in [place], [place] [address] [place] [phone] Veronica Garvin M.B., Ch.B. [address] [place] [phone] 01/07/2024 12:00 PM MANUFACTURING EXECUTIVE Telemedicine Department of Nutrition and Diabetes Education in [place], [place] [address] [place] [phone] Veronica Garvin M.B., Ch.B. [address] [place] [phone] 03/10/2024 12:00 PM CDT Telemedicine Department of Nutrition and Diabetes Education in [place], [place] [address] [place] [phone] Veronica Garvin M.B., Ch.B. [address] [place] [phone] 03/17/2024 12:00 PM CDT Telemedicine Department of Nutrition and Diabetes Education in [place], [place] [address] [place] [phone] Veronica Garvin M.B., Ch.B. [address] [place] [phone] Scheduled Referrals Name Type Priority Associated Diagnoses Order Schedule Spine Center - General consult (clinic) Outpatient Referral Routine Pain Back Lumbar Expected: 12/21/2022 (Approximate), Expires: 03/20/2024 Endocrinology - Weight management consult (clinic) Outpatient Referral Routine Obesity Body Mass Index 30-39.9 Adult Expected: 12/21/2022 (Approximate), Expires: 03/20/2024 Nutrition - Weight management medical nutrition therapy overweight/obesity consult (clinic) Outpatient Referral Routine Obesity Body Mass Index 30-39.9 Adult Expected: 12/21/2022 (Approximate), Expires: 03/20/2024 documented as of this encounter Visit Diagnoses Diagnosis Pain Back Lumbar- Primary Obesity Body Mass Index 30-39.9 Adult documented in this encounter Additional Health Concerns Assessment Noted Time PHQ-9 Depression Total Score: 8 09/21/20 22 9:29 AM CDT documented as of this encounter
--- OUTSIDE RECORDS SUMMARY | 2023-12-16 17:02 | XMS_ITS | Encounter Summary ---
Author Name Unknown Organization [facility] Address [address] [place] [address] Care Team Providers Care Lab Support Service Tech Name Role Phone Unavailable Primary Care Provider Unavailabl e Reason for Referral * Outpatient (Routine) - Closed Specialty Diagnoses / Procedures Referred By Last t Referred To Contact Spine Tomer George D.C. [address] [place] [phone] [facility] Referral ID Status Reason Start Date Expiration Date Visits Re quested Visits Authorized [id number] Closed 06/26/2023 06/25/2026 1 1 Reason for Visit * Reason Onset Date Comments Communication 06/25/2023 Encounter Details Date Type Department Care Team (Late st Contact Info) Description 06/25/2023 Clinical Communication Department of Spine in [place], [place] [address] [place] [phone] Tomer George D.C. [address] [place] [phone] Communication Social History Tobacco Use Types Packs/Day Years [...] often do you attend chur ch or mormon services? More than 4 times per year 04/12/2023 Do you belong to any clubs o r organizations such as uatsdin groups, unions, fraternal or athletic groups, or [...] Answer Date Recorded PHQ-2 Score 1 09/21/2022 [facility] Occupat ional Health - Occupational Stress [...] place to sleep or slept in a half-way (including now)? No 04/12/2023 Depression Answer Date [...] st Contact Info) Description 12/18/2023 8:00 AM SERVER SECURITY ADMINISTRATOR Telemedicine Department of Nutrition and Diabetes Education in [place], [place] [address] [place] [phone] Veronica Garvin M.B., Ch.B. [address] [place] [phone] 12/25/2023 8:00 AM SERVER SECURITY ADMINISTRATOR Telemedicine Department of Nutrition and Diabetes Education in [place], [place] [address] [place] [phone] Veronica Garvin M.B., Ch.B. [address] [place] [phone] 01/07/2024 12:00 PM SERVER SECURITY ADMINISTRATOR Telemedicine Department of Nutrition and Diabetes Education in [place], [place] [address] [place] [phone] Veronica Garvin M.B., Ch.B. [address] [place] [phone] 03/10/2024 12:00 PM CDT Telemedicine Department of Nutrition and Diabetes Education in [place], [place] [address] [place] [phone] Veronica Garvin M.B., Ch.B. [address] [place] [phone] 03/17/2024 12:00 PM CDT Telemedicine Department of Nutrition and Diabetes Education in [place], [place] [address] [place] [phone] Veronica Garvin M.B., Ch.B. [address] [place] [phone] Scheduled Referrals Name Type Priority Associated Diagnoses Orde r Schedule Spine office visit (clinic) Outpatient Referral Routine Expected: 06/26/2023 (Approximate), Expires: 09/26/2024 documented as of this encounter Visit Diagnoses Not on filedocumented in this encounter Additional Health Concerns Assessment Noted Time PHQ-9 Depression Total Score: 8 09/21/20 22 9:29 AM CDT documented as of this encounter
--- OUTSIDE RECORDS SUMMARY | 2023-12-16 17:02 | XMS_ITS | Encounter Summary ---
Author Name Unknown Organization [facility] Address [address] [place] [address] Care Team Providers Care Student Counsellor Name Role Phone Unavailable Primary Care Provider Unavailabl e Encounter Details Date Type Department Care Team (Late st Contact Info) Description 07/09/2023 12:00 PM CDT Telemedicine Department of Nutrition and Diabetes Education in [place], [place] [address] [place] [phone] Veronica Garvin M.B., Ch.B. [address] [place] [phone] Ruth Ann Ruiz M.S., RDN, LD [address] [place] [phone] Obesity Body Mass Index 30-39.9 Adult Social [...] How often do you attend chur or scientologist services? More than 4 times per year [...] Recorded PHQ-2 Score 1 09/21/2022 [facility] of Occupat ional Health - [...] place to sleep or slept in a detention (including now)? No 04/12/2023 Depression Answer Date [...] Ruth Ann Ruiz M.S., RDN, LD - 07/09/2023 12:00 PM CDT 07/09/2023 Start Time: 12:00 PM End Time: 1:00 PM Home Health Care Case Manager: Ruth Ann Ruiz M.S., NEW, SHEL[place] Today's Weight: no update this week The patient attended [facility] today. Individuals introduced themselves to the group, and limits to confidentiality were reviewed. Today's topic(s) included self-monitoring and goal-setting. At the end of this class group members should be able to understand the benefits of self-monitoring including selecting a tool and practice SMART goal-setting. . Evidence of learn ing was demonstrated through appropriate questions and overall interaction during class. Progress towards previous goals: cooked 2 meals last week Patient's goal for next week: replace processed sugar with fruit Patient Census: 7 Total Group Time: 60 minutes The patient attended a virtual group class via real-time audio/video technology by Ruth Ann Ruiz M.S., SHELTON WOLFF in [facility] to patient in patient home. I introduced myself to the group and limits to confidentially were reviewed. documented in this encounter Plan of Treatment Upcoming Encounters Date Type Department Care Team (Late st Contact Info) Description 12/18/2023 8:00 AM TRANSFORMATION ARCHITECT Telemedicine Department of Nutrition and Diabetes Education in [place], [place] [address] [place] [phone] Veronica Garvin M.B., Ch.B. [address] [place] [phone] 12/25/2023 8:00 AM TRANSFORMATION ARCHITECT Telemedicine Department of Nutrition and Diabetes Education in [place], [place] [address] [place] [address] Veronica Garvin M.B., Ch.B. [address] [place] [phone] 01/07/2024 12:00 PM TRANSFORMATION ARCHITECT Telemedicine Department of Nutrition and Diabetes Education in [place], [place] [address] [place] [phone] Veronica Garvin M.B., Ch.B. [address] [place] [phone] 03/10/2024 12:00 PM CDT Telemedicine Department of Nutrition and Diabetes Education in [place], [place] [address] [place] [phone] Veronica Garvin M.B., Ch.B. [address] [place] [phone] 03/17/2024 12:00 PM CDT Telemedicine Department of Nutrition and Diabetes Education in [place], [place] [address] [place] [phone] Veronica Garvin M.B., Ch.B. [address] [place] [phone] documented as of this encounter Visit Diagnoses Diagnosis Obesity Body Mass Index 30-39.9 Adult documented in this encounter Additional Health Concerns Assessment Noted Time PHQ-9 Depression Total Score: 8 09/21/20 22 9:29 AM CDT documented as of this encounter
[2023-12-16] MEDS: diphenhydrAMINE 50 MG/ML inj 25 MG IVP (17:06)
[2023-12-16] MEDS: 0.9 % SODIUM CHLORIDE 500 ML 500 ML IV (17:06)
[2023-12-16] MEDS: METOCLOPRAMIDE HCL 5 MG/ML INJ 10 MG IVP (17:07)
[2023-12-16] MEDS: KETOROLAC 15 MG/ML inj IVP (17:07)
== END 2023-12-16 18:55 | disposition home or self-care (01) ==
PROVIDERS: Emergency Provider Emergency Medicine; PCP Internal Medicine
DX: S06.0X0A Concussion without loss of consciousness, initial encounter (principal); R51.9 Headache, unspecified; W22.8XXA Striking against or struck by other objects, initial encounter
CPT/HCPCS: 96374; 96375; 99283; 99284; J1200; J1885; J2765; J7030

== ENCOUNTER 2023-12-26 09:15 | Outpatient (RCR) | payer BC, SELFPAY | END 2023-12-26 13:38 | disposition home or self-care (01) | PROVIDERS: PCP Internal Medicine; Visit Provider Podiatrist | DX: Z98.890 Other specified postprocedural states (principal); M25.571 Pain in right ankle and joints of right foot; M25.671 Stiffness of right ankle, not elsewhere classified; M62.81 Muscle weakness (generalized); R26.2 Difficulty in walking, not elsewhere classified; Z51.89 Encounter for other specified aftercare | CPT/HCPCS: 97110; 97112; 97116; 97140; 97162 ==

== ENCOUNTER 2024-03-03 09:21 | Outpatient (CLI) | payer BC, SELFPAY ==
--- OUTSIDE RECORDS SUMMARY | 2024-03-07 00:55 | XMS_ITS | Clinical Summary ---
Author Name Unknown Organization [facility] Address [address] [place] [address] Care Team Providers Care Salesperson Toy Trains And Accessories Name Role Phone Unavailable Primary Care Provider Unavailabl e Source Comments Patient records contain information from all sites at [facility]. For routine questions regarding patient records, call [phone] during business hours, M-F 8:00 AM - 5:00 PM Central Time. Record requests for emergency care only can be directed to [phone] at any time.[facility] Allergies Active Allergy Reactions Criticality Noted Date Comments Cantaloupe GI intolerance 11/23/2011 Lucas GI intolerance 11/23/2011 Lamotrigine Hives (Reselect Reaction) [...] 1 % external solution 08/09/2022 Active coenzyme [id number] E 100-5 mg-unit capsule Take by mouth [...] Department Care Team Description 01/07/2024 12:00 PM SPINAL SURGEON Telemedicine Department of Nutrition and Diabetes Education in [place], [place] [address] [place] [address] Veronica Garvin M.B., Ch.B. Madison Sánchez, [place], [place] Obesity Body Mass Index 30-39.9 Adult 12/18/2023 8:00 AM SPINAL SURGEON Telemedicine Department of Nutrition and Diabetes Education in [place], [place] [address] [place] [address] Veronica Garvin M.B., Ch.B. Petar Maria, [place], [place] Obesity Body Mass Index 30-39.9 Adult (Primary Dx) 12/11/2023 8:00 AM SPINAL SURGEON Telemedicine Department of Nutrition and Diabetes Education in [place], [place] [address] [place] [address] Veronica Garvin M.B., Ch.B. Petar Maria, [place], [place] Obesity Body Mass Index 30-39.9 Adult [...] How often do you attend chur or methodist services? More than 4 times [...] Answer Date Recorded PHQ-2 Score 1 09/21/2022 [facility] - [...] slept in a assisted (including now)? No 04/12/2023 Depression Answer Date [...] 98.4 kg (217 lb) 12/18/2023 9:19 AM SPINAL SURGEON Height 166.7 cm (5' 5.63) 04/12/2023 12:53 PM C DT Body Mass Index 35.42 04/12/2023 12:53 PM CDT Plan of Treatment Upcoming Encounters Date Type Department Care Team (Late st Contact Info) Description 03/10/2024 12:00 PM CDT Telemedicine Department of Nutrition and Diabetes Education in [place], [place] [address] [place] [address] Veronica Garvin M.B., Ch.B. [address] [place] [phone] 03/17/2024 12:00 PM CDT Telemedicine Department of Nutrition and Diabetes Education in [place], [place] [address] [place] [address] Veronica Garvin M.B., Ch.B. [address] [place] [phone] Health Maintenance Due Date Last Done Comments Cervical Cancer Screening 2001 Hepatitis C Screening 2001 Hepatitis B Vaccines (1 of 3 - 19+ 3-dose series) 2020 COVID-19 Vaccine (2022-24 season) 2023 08/31/2022, 10/21/2021, 02/26/2021, Additional history exists Depression Screening (Annual PHQ-2) 11/19/2023 Glucose Test for Med Monitoring 04/09/2024 04/09/2023, 04/09/2023, 06/04/2022 DTaP,Tdap,and Td Vaccines (8 - Td or Tdap) 10/04/2031 10/04/2021, 01/02/2013, 07/13/2006, Additional history exists HPV Vaccines Completed 08/11/2014, 03/20, 02/05/2014 Meningococcal Vaccine Completed 06/21/2018, 013 Influenza Vaccine Completed 08/23/2023, , 10/04/2021, Additional history exists Pneumococcal vaccine (0-64 years) Aged Out No longer eligible based on patient's age to complete this topic Medical Devices Implanted Type Area Inseminator Device Identifier Shelf Expiration Date Model / [...] Perry, Ch.B. LAB BLOOD NON ADD -ON [facility] [address] [place] [address], [facility] DTL [facility] [address] [place] [address] from Last 3 Months or Most Recently Relevant to Health Maintenance
--- OUTSIDE RECORDS SUMMARY | 2024-03-07 00:55 | XMS_ITS | Clinical Summary ---
Author Name Unknown Organization [facility] Address [address] [place] [address] Care Team Providers Care Presser All Around Name Role Phone Unavailable Unavailable Unavailable Ifrah Gooden Primary Care Provider [phone] Ifrah Gooden Unavailable Demetria Giles Unavailable [phone] Allergies No known active allergies Medications Medication [...] Comments Blood Pressure 120/75 10/08/2020 8:09 AM ASSISTANT PROFESSOR OF MUSIC Pulse 83 10/08/2020 8:09 AM ASSISTANT PROFESSOR OF MUSIC Temperature 36.1 ??C (97 ??F) 10/08/2020 8:09 AM ASSISTANT PROFESSOR OF MUSIC Respiratory Rate - - Oxygen Saturation - - Inhaled Oxygen Concentration - - Weight 112.1 kg (247 lb 3.2 oz) 10/08/2020 8:09 AM ASSISTANT PROFESSOR OF MUSIC Height 167.6 cm (5' 6) 10/08/2020 8:09 AM ASSISTANT PROFESSOR OF MUSIC Body Mass Index 39.9 10/08/2020 8:09 AM ASSISTANT PROFESSOR OF MUSIC Plan of Treatment Health Maintenance Due Date [...] age to complete this topic Care Teams Presser All Around Relationship Specialty Start Date End Date Ifrah Gooden [address] [place] [address] PCP - General 10/08/20 Referring Provider 08/31/15 Ifrah Gooden [facility] [place] [phone] Referring Provider Pediatrics 10/08/20 Demetria Giles, P.A. [address] [facility] M[address] [place] [address] Referring Provider Neurosurgery 10/08/20
--- OUTSIDE RECORDS SUMMARY | 2024-03-07 00:55 | XMS_ITS | Referral Summary ---
Author Name Unknown Organization [facility] Address [address] [place] [address] Care Team Providers Care Masonry Supervisor Name Role Phone Unavailable Primary Care Provider Unavailabl e Source Comments Patient records contain information from all sites at [facility]. For routine questions regarding patient records, call [phone] during business hours, M-F 8:00 AM - 5:00 PM Central Time. Record requests for emergency care only can be directed to [phone] at any time.[facility] Encounters Date Type Department Care Team Description 01/07/2024 12:00 PM TRAINING AND DEVELOPMENT MANAGER Telemedicine Department of Nutrition and Diabetes Education in [place], [place] [address] [place] [address] Veronica Garvin M.B., Ch.B. Madison Sánchez RDN, [place] Obesity Body Mass Index 30-39.9 Adult 12/18/2023 8:00 AM TRAINING AND DEVELOPMENT MANAGER Telemedicine Department of Nutrition and Diabetes Education in [place], [place] [address] [place] [phone] Veronica Garvin M.B., Ch.B. Petar Maria RDN, [place] Obesity Body Mass Index 30-39.9 Adult (Primary Dx) 12/11/2023 8:00 AM TRAINING AND DEVELOPMENT MANAGER Telemedicine Department of Nutrition and Diabetes Education in [place], [place] [address] [place] [phone] Veronica Garvin M.B., Ch.B. Petar Maria RDN, [place] Obesity Body Mass Index 30-39.9 Adult from Last 3 Months Allergies Active Allergy Reactions Criticality Noted Date Comments Cantaloupe GI intolerance 11/23/2011 Ronda GI intolerance 11/23/2011 Lamotrigine Hives (Reselect Reaction) [...] 1 % external solution 08/09/2022 Active coenzyme [id number] E 100-5 mg-unit capsule Take by mouth [...] week 04/12/2023 How often do you attend [facility] or jew services? More than 4 times per year [...] Answer Date Recorded PHQ-2 Score 1 09/21/2022 [facility] - Occupational Stress Questionnaire Answer [...] Answer Date Recorded Employment status Unemployed/not in [employer] paid workforce and NOT seeking employment 04/12/2023 [...] 98.4 kg (217 lb) 12/18/2023 9:19 AM TRAINING AND DEVELOPMENT MANAGER Height 166.7 cm (5' 5.63) 04/12/2023 12:53 PM C DT Body Mass Index 35.42 04/12/2023 12:53 PM CDT Plan of Treatment Upcoming Encounters Date Type Department Care Team (Late st Contact Info) Description 03/10/2024 12:00 PM CDT Telemedicine Department of Nutrition and Diabetes Education in [place], [place] [address] [place] [address] Veronica Garvin M.B., Ch.B. [address] [place] [phone] 03/17/2024 12:00 PM CDT Telemedicine Department of Nutrition and Diabetes Education in [place], [place] [address] [place] [address] Veronica Garvin M.B., Ch.B. [address] [place] [address], [place] [address] Medical Devices Implanted Type Area Motor Setter Device Identifier Shelf Expiration Date Model / [...] Perry, Ch.B. LAB BLOOD NON ADD -ON [facility] [place] [address] [place] [address], [facility] [address] [place] [address] from Last 3 Months or Most Recently Relevant to Health Maintenance
--- OUTSIDE RECORDS SUMMARY | 2024-03-07 00:55 | XMS_ITS | Encounter Summary ---
Author Name Unknown Organization [facility] Address [address] [place] [id number] Care Team Providers Care Diagnostic Cardiac Sonographer Name Role Phone Joseph Erickson M.D. Primary Care Provider [phone] Unavailable Unavailable Unavailable Ifrah Gooden Primary Care Provider [phone] Ifrah Gooden L Unavailable Demetria Giles Unavailable [phone] Encounter Details Date Type Department Care Team (Late st Contact Info) Description 03/12/2017 Orders Only [facility] Medicine [address] [place] [id number] Li Hamilton R.N. EDS (Stanford-Danlos syndrome) [...] sciatica documented in this encounter Care Teams Diagnostic Cardiac Sonographer Relationship Specialty Start Date End Date Joseph Erickson M.D. [facility] [phone] PCP - General 07/01/15 10/07/20 Ifrah Gooden [address] [place] [address] PCP - General 10/08/20 Referring Provider 08/31/15 Ifrah Gooden [address] [place] [phone] Referring Provider Pediatrics 10/08/20 Demetria Giles, P.A. [address] [facility] [employer] [address] [place] [phone] Referring Provider Neurosurgery 10/08/20 documented as of this encounter
--- OUTSIDE RECORDS SUMMARY | 2024-03-07 00:55 | XMS_ITS | Clinical Summary ---
Author Name Unknown Organization [facility] Address [address] [place] [address] Care Team Providers Care Spinner Hydraulic Name Role Phone Sapphire Coleman MD Primary Care Provider [phone] Allergies Active Allergy Reactions Criticality Noted Date [...] age to complete this topic Care Teams Spinner Hydraulic Relationship Specialty Start Date End Date Sapphire Coleman MD PCP - General 03/27/17
--- OUTSIDE RECORDS SUMMARY | 2024-03-07 00:56 | XMS_ITS | Continuity of Care Document ---
Author Name Unknown Organization [facility] Address [address] [place] [address] Phone Care Team Providers Care Ladle Watcher Name Role Phone Cher Zuñiga CNP Unavailable Unavailable Allergies, Adverse Reactions, Alerts Substance Reaction Status Criticality lamotrigine Active No Information Medications Medication Instructions Dosage Effective Dates (start - stop) Status Comments buspirone 30 mg tablet take 1 tablet by oral route 2 times every day 30 MG - Active Aimovig Autoinjector 140 mg/mL subcutaneous auto-injector inject (140MG) by subcutaneous route every month in the abdomen, thigh, or outer area of upper arm 140 MG - Active Kapspargo Sprinkle 50 mg capsule,extended release take 1 capsule by oral route every day 50 MG - Active Cotempla XR-ODT 25.9 mg extended release disintegrating tablet place 1 tablet by translingual route every day on top of tongue, allow to dissolve then swallow in the morning 25.9 MG - Active Pristiq 100 mg tablet,extended release take 1 tablet by oral route every day 100 MG - Active Medical Cannabis (unknown strength) Not Available - Active BENZTROPINE MESYLATE (unknown strength) take 1 tablet by oral route 2 times every day Not Available - Active DULOXETINE HCL (unknown strength) take 1 capsule by oral route every day Not Available - Active MEDROL (unknown strength) take 1 tablet by oral route 4 times every day with food Not Available - Active TROKENDI XR (unknown strength) take 2 capsule by oral route 2 times every day Not Available - Active GABAPENTIN (unknown strength) take 1 capsule by oral route 3 times every day Not Available - Active Procedures Procedure Date Est Pt Eval Moderate Chemodenervation of muscles facial, trig eminal,???fo Botox 1 Vial/100 Units Est Pt Eval Moderate Chemodenervation of muscles facial, trig eminal,???fo Botox 1 Vial/100 Units Est Pt Eval Moderate No Show Visit Fee No Show Visit Fee Chemodenervation of muscles facial, trig eminal,???fo Botox 1 Vial/100 Units Destrct; Muscl Enervatd-facial Chemodenervation of neck muscle(s), Triggerpoint 1-2 Muscle Est Pt Eval 25 Min No Show Visit Fee Manual Therapy Therapeutic Exercise No Show Visit Fee Therapeutic Exercise Manual Therapy No Show Visit Fee Therapeutic Exercise Manual Therapy PT Eval - Low Complexity Therapeutic Exercise Inj Anes Epidur; Lumb/sac 1 Le Inj Anes Epidur; Lumb/sac 1 Le Inj Anes Agent; Greater Occipt Ultrason Guidan Needle Bx-rad 1 Methylprednisolone Acetate-40 1 Change Control for Diagnosis(s) Change Control for Pharmaceuticals Change Control for Modifier(s) Greater Occipital Block Ultrason Guidan Needle Bx-rad 1 Inj Anes Agent; Greater Occipt Ultrason Guidan Needle Bx-rad 1 Methylprednisolone Acetate-40 1 Change Control for Pharmaceuticals Change Control for other claim elements Greater Occipital Block Ultrason Guidan Needle Bx-rad 1 Est Pt Eval 15 Min Telehealth 1 Est Pt Eval 25 Min Telehealth 1 Inject, Spine, Lumb/sacr, Epi/subarc w/ img Guid Inject, Spine, Lumb/sacr, Epi/subarc w/ img Guid Methylprednisolone Acetate-40 1 Change Control for Pharmaceuticals New Pt Eval 45 Min Advance Directives Directive Yes / No Effective Date File Name Intubation Not Answered N/A N/A Antibiotics Not Answered N/A N/A IV Fluid Support Not Answered N/A N/A Tube Feed Not Answered N/A N/A Other Directive No N/A N/A WARNING:The information contained in this section is historical and is provided for information only and does not constitute a legal document or any assurance that the information is still accurate. Please verify the information with the hammer of the legal document before using it for clinical purposes. Encounters Encounter Description Practice Location Reason(s) For Visit Diagnoses Date Provider Providers Copied on Encounter Est Pt Eval Moderate [facility], [address] [facility] [address], [place], [id number], tel:[phone] [facility] headache (chief complaint) MigraineCervicalgi aBody mass index (BMI) 35.0-35.9, adult Jan- 4 Ketola Loup. [address] [facility] [address], [place], [address], [place]. tel:[phone] Referring Provider: Wade Dominguez, [address], [place], [address] . tel:[phone] [facility], [address] [facility] [address], [place], [place], [address], [place] tel:[phone] [facility] headache (chief complaint) MigraineMigraine, unsp, not intractable, without status migrainosus 4 Angelica Olvera. [address], [place], [place], [address], [place]. tel:[phone] Referring Provider: REFERRAL SELF, MG. Est Pt Eval Moderate [facility], [address], [place], [place], [address], [place] tel:[phone] [facility] headache (chief complaint) Body mass index (BMI) 33.0-33.9, adultMigraineCervi calgia 4 She Qiying. [address], [address], [place], [address], [place]. tel:[phone] Referring Provider: REFERRAL SELFMG. [facility], [address], [place], [place], [address], [place] tel:[phone] [facility] headache (chief complaint) MigraineMigraine, unsp, not intractable, without status migrainosus 3 Angelica Olvera. [address], [place], [place], [address], [place]. tel:[phone] Referring Provider: Wade Dominguez, [address], [place], [address] . tel:[phone] Est Pt Eval Moderate [facility], [address], [place], [place], [address], [place] tel:[phone] [facility] headache (chief complaint) MigrainePain in right ankleBody mass index (BMI) 37.0-37.9, adult 3 She Qiying. [address], [address], [place], [address], [place]. tel:[phone] Referring Provider: Wade Dominguez, [address], [place], [address] . tel:[phone] [facility], [address], [place], [place], [address], [place] tel:[phone] [facility] No Information 3 Andrea Aquino. [address], [place], [address], [place]. tel:[phone] Referring Provider: REFERRAL SELF, MG. [facility], [address], [place], [place], [address], [place] tel:[phone] [facility] No Information 3 Zara Kwon. [address], [address], [place], [place], [address], [place]. tel:[phone] Referring Provider: REFERRAL SELF, MG. [facility], [address], [place], [place], [address], [place] tel:[phone] [facility] headache (chief complaint) Myalgia, unspecified siteMigraine, unsp, not intractable, without status migrainosusMigrain e, unsp, not intractable, without status migrainosus 3 Angelica Olvera. [address], [place], [place], [address], [place]. tel:[phone] Referring Provider: Wade Dominguez, [address], [place], [address] . tel:[phone] [facility], [address], [place], [place], [address], [place] tel:[phone] [facility] back pain (chief complaint) headache (chief complaint) MigraineMigraine, unsp, not intractable, without status migrainosus Oct- 2 Angelica Olvera. [address] [facility] [address], [place], [address], [place]. tel:[phone] Referring Provider: Wade Dominguez, [address], [place], [address] . tel:[phone] [facility], [address], [place], [place], [address], [place] tel:[phone] [facility] headache (chief complaint) back pain (chief complaint) MyalgiaMyalgia, unspecified site 2 Angelica Olvera. [address], [place], [place], [address], [place]. tel:[phone] Referring Provider: Wade Dominguez, [address], [place], [address] . tel:[phone] Est Pt Eval 25 Min [facility], [address], [place], [place], [address], [place] tel:[phone] [facility] headache (chief complaint) back pain (chief complaint) Radiculopathy, cervical regionHeadache, unspecifiedPain in shoulderRadiculopa thy, lumbar regionMigraineBody mass index (BMI) 36.0-36.9, adult 2 Nasrin Goldberg. [address], [address], [place], [address], [place]. tel:[phone] Referring Provider: Wade Dominguez, [address], [place], [address] . tel:[phone] [facility], [address], [place], [place], [address], [place] tel:[phone] [facility] No Information 2 Shazia Bell. [address], [place], [address], [place]. tel:[phone] Referring Provider: GRACE BARTON, MG. [facility], [address], [place], [place], [address], [place] tel:[phone] [facility] CervicalgiaHeadach e, unspecifiedPain in thoracic spine 2 Shazia Bell. [address], [place], [address], [place]. tel:[phone] Referring Provider: Arabella Mccray, [address], [place], [address]. tel:[phone] [facility], [address], [place], [place], [address], [place] tel:[phone] [facility] No Information 2 Tran Ragland. [address], [facility] , [place], [address], [place]. tel:[phone] Referring Provider: REFERRAL SELFMG. [facility], [address], [place], [place], [address], [place] tel:[phone] [facility] CervicalgiaRadicul opathy, cervical regionHeadache, unspecifiedPain in thoracic spine 2 Deidre Power. [address], [place], [address], [place]. tel:[phone] Referring Provider: Jannet Jiang, [address], [place], [address]. tel:[phone] [facility], [address], [place], [place], [address], [place] tel:[phone] [facility] No Information 2 Deidre Power. [address], [place], [address], [place]. tel:[phone] Referring Provider: REFERRAL SELF, MG. [facility], [address], [place], [place], [address], [place] tel:[phone] [facility] CervicalgiaRadicul opathy, cervical regionHeadache, unspecifiedPain in thoracic spine 2 Deidre Power. [address], [place], [address], [place]. tel:[phone] Referring Provider: Jannet Jiang, [address], [place], [address]. tel:[phone] [facility], [address], [place], [place], [address], [place] tel:[phone] [facility] CervicalgiaRadicul opathy, cervical regionHeadache, unspecifiedPain in thoracic spine 2 Tran Ragland. [address], [facility] , [place], [address], [place]. tel:[phone] Referring Provider: Obie Mayfield, [address] [facility], [place], [address]. tel:[phone] [facility], [facility], [address], [place], [place], [address], [place] tel:[phone] [facility] No Information 2 Angelica Peña. [address], [place], [place], [address], [place]. tel:[phone] Referring Provider: Casey Gold, [address], [place], [address] . tel:[phone] [facility], [address], [place], [address], [place] tel:[phone] [facility] back pain (chief complaint) Radiculopathy, lumbar regionRadiculopath y, lumbar region 2 [facility]. [address] [facility] [address], [place], [place], [address], [place]. tel:[phone] Referring Provider: Casey Gold, [address], [place], [address] . tel:[phone] [facility], [address], [place], [address], [place] tel:[phone] [facility] back pain (chief complaint) HeadacheNeuralgia and neuritis, unspecifiedHeadach e, unspecifiedNeuralg ia and neuritis, unspecified 1 [facility]. [address] [facility] [address], [place], [place], [address], [place]. tel:[phone] Referring Provider: Amadou Vasquez, [address] [facility] [address], [place], [address]. tel:[phone] [facility], [address] [facility] [address], [place], [place], [address], [place] tel:[phone] [facility] [place] No Information 1 Chris Tobar. [address], [address], [place]. tel:[phone] Referring Provider: Amadou Vasquez, [address], [place], [address]. tel:[phone] [facility], [address], [place], [address], [place] tel:[phone] [facility] head and neck pain bilateral (chief complaint) CervicalgiaNeuralg iaCervicalgiaNeura lgia and neuritis, unspecified 1 [facility]. [address] [facility] [address], [place], [place], [address], [place]. tel:[phone] Referring Provider: Amadou Vasquez, [address], [place], [address]. tel:[phone] [facility], [facility], [address], [place], [place], [address], [place] tel:[phone] [facility] 1 Chris Tobar. [address], [place], [address], [place]. tel:[phone] Referring Provider: Amadou Vasquez, [address], [place], [address]. tel:[phone] Est Pt Eval 15 Min Telehealth [facility], [facility], [address], [place], [place], [address], [place] tel:[phone] [facility] bilateral neck pain (chief complaint) CervicalgiaMigrain eRadiculopathy, cervical regionRadiculopath y, lumbar region 1 Enrique Ernandez. [address], [place], [address], [place]. tel:[phone] Referring Provider: Oma Nunez , [address], [place], [address]. tel:[phone] Est Pt Eval 25 Min Telehealth [facility], [facility], [address], [place], [place], [address], [place] tel:[phone] [facility] back pain (chief complaint) Radiculopathy, cervical regionMigraine 1 Crow Arellano. [address], [place], [address], [place]. tel:[phone] Referring Provider: [facility], [address], [place], [address] . tel:[phone] [facility], [facility], [address], [place], [place], [address], [place] tel:[phone] [facility] No Information Sep-3 1 Chris Tobar. [address], [place], [address], [place]. tel:[phone] Referring Provider: Amadou Vasquez, [address], [place], [address]. tel:[phone] [facility], [address], [place], [address], [place] tel:[phone] [facility] back pain (chief complaint) Radiculopathy, lumbar regionRadiculopath y, lumbar region Sep-3 1 [facility]. [address], [place], [place], [address], [place]. tel:[phone] Referring Provider: Amadou Vasquez, [address], [place], [address]. tel:[phone] New Pt Eval 45 Min [facility], [facility], [address], [place], [place], [address], [place] tel:[phone] [facility] back pain (chief complaint) headache (chief complaint) CervicalgiaRadicul opathy, cervical regionHeadachePain in shoulderLow back painPain in thoracic spineRadiculopathy , lumbar regionEhlers-Danlo s syndrome, unspecifiedMigrain eBody mass index (BMI) 37.0-37.9, adult Sep-2 1 Angelica Olvera. [address], [place], [place], [address], [place]. tel:[phone] Referring Provider: Wade Dominguez, [address], [place], [address] . 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 Percentile Wt./Will. Percentile BMI percentile Pulse Ox Inhaled Ox 9:20 AM 66.00 in 98.974 kg (218.20 lbs) 35.2 2 kg/m eter (2) 78 /min 115/71 mm[Hg] 2.15 meter(2) 97 % Chief Complaint And Reason For Visit From encounter dated '02/11/2024 09:20'. headache (chief complaint). Description: Severity: 6. The problem is improving. Pertinent negativesinclude fever, loss of consciousness, nausea and vomiting. Reason For Referral Reason For Referral No Information Plan Of Treatment Date Type Action Status Goal Lifestyle education regardin g diet completed Goal Lifestyle education regardin g diet completed Referral Referred To: trigger point injection Ordered: trigger point injection on both sides ordered Referral Referred To: botulinum toxin injection Ordered: botulinum toxin injection ordered Referral Referred To: occipital nerve block Ordered: occipital nerve block ordered Referral Referred To: Physical Therapy Ordered: Physical Therapy. Evaluate and treat Physical Therapy. Evaluate and treat ordered Referral Ordered: Behavioral Health (related to Low back pain) ordered Referral Ordered: Medical Records Request [facility] ordered Referral Referred To: Physical Therapy Ordered: Physical Therapy ordered Referral Ordered: Referrals: Behavioral Health ordered Referral Referred To: lumbar epidural steroid injection Ordered: lumbar epidural steroid injection on both sides L4-5 ordered Appointment Beryl Medel BOOKED History Of Present Illness Encounter Date Complaint History Of Prese nt Illness headache Severity: 6. The problem is improving. Pertinent negatives include fever, loss of consciousness, nausea and vomiting. headache It occurs consta ntly. The problem is unchanged. Location is entire head. There is radiation to neck and shoulders. The patient describes it as pressure and throbbing. Symptom is aggravated by noise, stress and light. Relieving factors include marijuana. headache Location is head . There is radiation to neck and shoulders. The patient describes it as pressure and aching. Symptom is aggravated by bright lights and loud noises. Relieving factors include analgesics, distraction and botox. Associated symptoms include nausea. Pertinent negatives include fever, loss of consciousness and vomiting. headache Severity: 8. The re is radiation to neck and shoulders. headache Severity: 8. It occurs constantly. The problem is unchanged. Location is entire head. Symptom is aggravated by bright lights and noise. Associated symptoms include blurred vision, nausea and neurological symptoms. Pertinent negatives include fever, loss of consciousness and vomiting. headache Severity: 8. The patient describes it as ringing, crushing and and burning. Symptom is aggravated by bright lights. Relieving factors include water. headache Severity: 8. Loc ation is entire head. The patient describes it as ache, stabbing and and throbbing. Symptom is aggravated by stress. Relieving factors include stretching and pain meds and chiropractor. Pertinent negatives include fever and vomiting. back pain Severity level i s 8. Location of pain is upper back, middle back, lower back, neck and both shoulders. The patient describes the pain as an ache, stabbing and throbbing. Symptoms are aggravated by daily activities. Symptoms are relieved by pain meds/drugs, stretching and chiropractor. headache Severity: 8. Loc ation is entire head. The patient describes it as stabbing and throbbing. Symptom is aggravated by stress. Relieving factors include stretching and chiropractor and pain meds. back pain Severity level i s 8. Location of pain is upper back, middle back, lower back, neck and both shoulders.The patient describes the pain as an ache. Symptoms are aggravated by daily activities. Symptoms are relieved by pain meds/drugs, stretching and chiropractor. headache The patient desc ribes it as stabbing and throbbing. Symptom is aggravated by stress. Relieving factors include prescription drugs, stretching and healthcare applications analyst. Associated symptoms include nausea. Pertinent negatives include fever, loss of consciousness and vomiting. back pain Location of pain is upper back, middle back, lower back, neck and shoulders.The patient describes the pain as an ache. Symptoms are aggravated by daily activities. Symptoms are relieved by pain meds/drugs, stretching and healthcare applications analyst. back pain Location of pain is lower back and gluteal area. back pain Location of pain is lower back. head and neck pain bilateral bilateral neck pain The symptoms are reported as being severe. The symptoms occur constantly. Aggravating factors include Bending. Relieving factors include sleep. She states the symptoms are chronic. head and neck pain it radiates through the upper back and spine back pain Location of pain is upper back. Pain is radiated to the neck and head.The patient describes the pain as an ache. Symptoms are aggravated by bending and daily activities. Symptoms are relieved by lying down. back pain Location of pain is lower back and legs. headache Severity: 9. The re is radiation to neck, shoulders, low back and hips. back pain Functional Status Date Functional Assessmen t No Information Instructions Date Instruction Additional Infor cuauhtemoc - Schedule trigger p oint injection for neck and shoulders areas Related to Cervicalgia - Continue to monito r relief from botox injection. Repeat every 3 months to manage migraines.- Ordered repeat bilateral occipital nerve block today, [facility] will call you to schedule- Continue medications from outside provider- Follow up with [facility] as needed or 2 weeks after injection, telehealth is OK Related to Migraine Lifestyle education regarding di et Related to Body mass index [BMI] 35.0-35.9, adult - Schedule trigger p oint injection for neck and shoulders areas Related to Cervicalgia - Ordered repeat bot ox injection, [facility] will call to schedule. Repeat every 3 months to manage migraines.- Follow up with [facility] as needed or 2 weeks after injection, telehealth is OK Related to Migraine Giving encouragement to exercise Related to Body mass index [BMI] 33.0-33.9, adult - Requested medical records from Dr. Fischer at [facility]-Continue to follow up with podiatric as scheduled Related to Pain in right ankle - Ordered repeat bot ox injection, [facility] call to schedule. Repeat every 3 months to manage migraines. Related to Migraine Giving encouragement to exercise Related to Body mass index [BMI] 37.0-37.9, adult -Submitted PA for 200 units of B otox Related to Migraine, unsp, not intractable, without status migrainosus - Sign release of in formation for medical records from [facility] to be sent to [facility]- Schedule Botox injection after insurance approves-Continue current Gabapentin, Aimovig, and triptan medication from outside provider- Follow up as needed Related to Migraine Same plan of care as statement for above diagnosis, no changes Related to Radiculopathy, cervical region Same plan of care as statement for above diagnosis, no changes Related to Headache, unspecified Same plan of care as statement for above diagnosis, no changes Related to Pain in shoulder - Order trigger poin t injection for low back paraspinal muscles Related to Radiculopathy, lumbar region Lifestyle education regarding di et Related to Body mass index [BMI] 36.0-36.9, adult Follow up with physi mak therapy evaluation and Treat (pls add on today)Consider LMBB initial in 3-4 weeks if pain continuesFollow up in the clinic as needed Related to Radiculopathy, lumbar region same Related to Neura lgia and neuritis, unspecified Follow up for the LESI in 1-2 we eks. Related to Headache Follow up for the re peat bilateral Occipital Nerve block in 3-4 weeks. Related to Cervicalgia Same plan of care as statement for above diagnosis, no changes Related to Radiculopathy, lumbar region Same plan of care as statement for above diagnosis, no changes Related to Radiculopathy, cervical region Same plan of care as statement for above diagnosis, no changes Related to Migraine - Keep occipital ner ve block appointment. - Continue with physical therapy. - Contact neurologist for follow up. - Follow up as needed. Related to Cervicalgia -No medications pres cribed today-Ordered occipital nerve block -Schedule and complete physical therapy in [place]-Follow up in one month The risks and benefits of the procedure will be reviewed with the physician on the day of the procedure. Related to Radiculopathy, cervical region Same plan of care as statement for above diagnosis, no changes Related to Migraine Follow up in the cli shalonda as neededFollow up with physical therapy evaluation and treatment Related to Radiculopathy, lumbar region - records from [facility] - URGENT- schedule a lumbar epidural steroid injection at L4-5, will plan for a series if successful - refer to physical therapy- refer to behavioral health - no medications prescribed today - return in one month with advanced practice provider to discuss plan of care moving forward The risks and benefits of the procedure will be reviewed with the physician on the day of the procedure. 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, unspecified Same plan of care as statement for above diagnosis, no changes Related to Cervicalgia Same plan of care as statement for above diagnosis, no changes Related to Pain in thoracic spine Same plan of care as statement for above diagnosis, no changes Related to Pain in shoulder Same plan of care as statement for above diagnosis, no changes Related to Headache Same plan of care as statement for above diagnosis, no changes Related to Radiculopathy, cervical region Jul- Dietary needs education Related to Body mass index [BMI] 37.0-37.9, adult Prescribed activity/exercise edu cation Related to Body mass index [BMI] 37.0-37.9, adult Assessments Type Assessment Date assessment Migraine impression She has been seen by Dr. Rc Irby at [facility] for migraines. Patient received Botox injection on 02/05/24 with some relief but continues to experience . Encouraged to continue to monitor pain relief. numbness in occipital areas and pressure in frontal area. Discussed and ordered repeat occipital NB. Per previous note: Patient received Botox injections on 08/29/23. She reported good relief with only 2-3 migraines and did not need to go to the ER for a couple months. Prior to the injection patient would have migraines 20 out of 30 days and would go to the ER about once a week. When the patient gets migraines they last for a couple days. The migraines are on both sides from occipital areas up to frontal area and she gets auras, shadows in vision, phonophobia and photophobia. Patient states that she has had multiple concussions since the start of the year but not related to falls. The patient is currently taking Aimovig, Rizatriptan, Duloxetine, Gabapentin 600mg, up to QID, Flexeril, Topiramate, and Clonazepam through outside provider. She is also using medical marijuana.She has tried Sumatriptan with some relief assessment Cervicalgia impression Patient reports tens ion and muscle pain in her neck and shoulder region. Recommended she receive TPIs, encouraged to schedule as needed assessment Body mass index [BMI] 35.0-35.9, adult Mental Status Date Cognitive Assessment Orientation - [place] ed to time, place, person, situation. Patient Care Teams Name Effective Dates (start - stop) Status Members No Information
--- OUTSIDE RECORDS SUMMARY | 2024-03-07 00:56 | XMS_ITS | Encounter Summary ---
Author Name Unknown Organization [facility] Address [address] [place] [address] Care Team Providers Care Telesales Supervisor Name Role Phone Unavailable Primary Care Provider Unavailabl e Encounter Details Date Type Department Care Team (Late st Contact Info) Description 12/18/2023 8:00 AM ERECTOR OPERATOR Telemedicine Department of Nutrition and Diabetes Education in [place], [place] [address] [place] [address] [phone] Veronica Garvin M.B., Ch.B. [address] [place] [phone] Petar Maria, LAUR[place], LD [address] [place] [phone] Obesity Body Mass Index 30-39.9 Adult [...] week 04/12/2023 How often do you attend [facility] or baptist services? More than 4 times per year 04/12/2023 Do you belong to any clubs o r organizations such as rastafari groups, unions, fraternal or athletic groups, or [...] place to sleep or slept in a alf (including now)? No 04/12/2023 Depression Answer Date [...] 98.4 kg (217 lb) 12/18/2023 9:19 AM ERECTOR OPERATOR Height - - Body Mass Index 35.42 [...] technology by Esa Maria RDN, SHELTON in [facility] to patient in patient home. I introduced myself to the group and limits to confidentially were reviewed. TOR OPERATOR documented in this encounter Plan of Treatment Upcoming Encounters Date Type Department Care Team (Late st Contact Info) Description 03/10/2024 12:00 PM CDT Telemedicine Department of Nutrition and Diabetes Education in [place], [place] [address] [place] [address] Veronica Garvin M.B., Ch.B. [address] [place] [phone] 03/17/2024 12:00 PM CDT Telemedicine Department of Nutrition and Diabetes Education in [place], [place] [address] [place] [address] Veronica Garvin M.B., Ch.B. [address] [place] [phone] documented as of this encounter Visit Diagnoses Diagnosis Obesity Body Mass Index 30-39.9 Adult- Primary documented in this encounter Additional Health Concerns Assessment Noted Time PHQ-9 Depression Total Score: 8 09/21/20 22 9:29 AM CDT documented as of this encounter
--- OUTSIDE RECORDS SUMMARY | 2024-03-07 00:56 | XMS_ITS | Referral Summary ---
Author Name Unknown Organization [facility] Address [address] [place] [address]. [place] [address] Care Team Providers Care Replenishment Associate Name Role Phone aMrissa Wesley MD Primary Care Provider [phone] Allergies Active Allergy Reactions Criticality Noted Date [...] Active azelastine (ASTELIN) 0.1 % nasal spray [place] 2 sprays in nostril 12/27/2020 Active benztropine [...] Active ZOLMitriptan (ZOMIG) 5 MG nasal spray [place] 1 spray in nostril 09/01/2021 Active topiramate (TOPAMAX) 50 MG tablet TAKE TWO TABLETS BY MOUTH AT BEDTIME 01/31/2021 Active triamcinolone (NASACORT) 55 MCG/ACT nasal aerosol [place] 2 sprays in nostril Active DULoxetine (CYMBALTA) [...] Trachomatis Negative Negative 06/04/2022 3:47 PM CDT [facility] Comment:Negative for C. trac homatis genomic DNA by [employer] real-time, reverse-transcriptase PCR. A negative result does not preclude the presence of C. trachomatis = infection. The results are dependent on proper collection, transport, and processing of the specimen, and the presence of sufficient DNA to be detected. Neisseria gonorrhoeae Negative Negative 06/04/2022 3:47 PM CDT [facility] Comment:Negative for N. gono rrhoeae genomic DNA by [employer] real-time, reverse-transcriptase PCR. A negative result does not preclude the presence of N gonorrhoeae infection. The results are dependent on proper collection, transport, and processing of the specimen, and the presence of sufficient DNA to be detected. Urine VOIDED URINE SPECIMEN / Unknown Non-blood Collection / Unknown 06/04/2022 2:06 PM CDT 06/04/2022 2:14 PM CDT Narrative [facility] - 06/04/2022 3:47 PM CDT Assay performed using [employer] real-time, reverse-transcriptase PCR. Sofía Osman CNP LAB - MICRO GENERAL ORDERABLES [facility] Acute Care Lab [address] [place] [address], [facility] [phone] from Last 3 Months or Most Recently Relevant to Health Maintenance Care Teams Replenishment Associate Relationship Specialty Start Date End Date Marissa Wesley MD [facility] [address] [place] [address] PCP - General Internal Medicine 12/31/21
--- OUTSIDE RECORDS SUMMARY | 2024-03-07 00:56 | XMS_ITS | Encounter Summary ---
Author Name Unknown Organization [facility] Address [address] [place] [address] Care Team Providers Care Cleaner And Preparer Name Role Phone Unavailable Primary Care Provider Unavailabl e Encounter Details Date Type Department Care Team (Late st Contact Info) Description 12/04/2023 8:00 AM WORKERS' COMPENSATION HEARINGS OFFICER Telemedicine Department of Nutrition and Diabetes Education in [place], [place] [address] [place] [address] [phone] Veronica Garvin M.B., Ch.B. [address] [place] [phone] Petar Maria, LAURENN, LD [address] [place] [address] [phone] Obesity Body Mass Index 30-39.9 Adult Social [...] week 04/12/2023 How often do you attend [facility] or evangelical services? More than 4 times per year 04/12/2023 Do you belong to any clubs o r organizations such as oriental orthodox groups, unions, fraternal or athletic groups, [...] [facility] of Occupat ional Health - [...] technology by Esa Maria RDN, LD in [facility] to patient in patient home. I introduced myself to the group and limits to confidentially were reviewed. ERS' COMPENSATION HEARINGS OFFICER documented in this encounter Plan of Treatment Upcoming Encounters Date Type Department Care Team (Late st Contact Info) Description 03/10/2024 12:00 PM CDT Telemedicine Department of Nutrition and Diabetes Education in [place], [place] [address] [place] [phone] Veronica Garvin M.B., Ch.B. [address] [place] [phone] 03/17/2024 12:00 PM CDT Telemedicine Department of Nutrition and Diabetes Education in [place], [place] [address] [place] [phone] Veronica Garvin M.B., Ch.B. [address] [place] [phone] documented as of this encounter Visit Diagnoses Diagnosis Obesity Body Mass Index 30-39.9 Adult documented in this encounter Additional Health Concerns Assessment Noted Time PHQ-9 Depression Total Score: 8 09/21/20 22 9:29 AM CDT documented as of this encounter
--- OUTSIDE RECORDS SUMMARY | 2024-03-07 00:56 | XMS_ITS | Clinical Summary ---
Author Name Unknown Organization [facility] Address [address] [place] [address]. [place] [address] Care Team Providers Care Adjustment Examiner Name Role Phone Marissa Wesley MD Primary [...] Active azelastine (ASTELIN) 0.1 % nasal spray [place] 2 sprays in nostril 12/27/2020 Active benztropine [...] Active ZOLMitriptan (ZOMIG) 5 MG nasal spray [place] 1 spray in nostril 09/01/2021 Active topiramate (TOPAMAX) 50 MG tablet TAKE TWO TABLETS BY MOUTH AT BEDTIME 01/31/2021 Active triamcinolone (NASACORT) 55 MCG/ACT nasal aerosol [place] 2 sprays in nostril Active DULoxetine (CYMBALTA) [...] Assay performed using [employer] real-time, reverse-transcriptase PCR. Sofía Osman FRUIT LOADER LAB - MICRO GENERAL ORDERABLES [facility] Acute Care Lab [address] [place] [phone], [facility] [phone] from Last 3 Months or Most Recently Relevant to Health Maintenance Care Teams Adjustment Examiner Relationship Specialty Start Date End Date Marissa Wesley MD [facility] [address] [place], [place] [phone] PCP - General Internal Medicine 12/31/21
--- OUTSIDE RECORDS SUMMARY | 2024-03-07 00:56 | XMS_ITS ---
Author Name Unknown Organization [facility] Address [address] [place] [address] Care Team Providers Care Automobile Locator Name Role Phone Unavailable Unavailable Unavailable Surgery Details Not on file Complications Check Surgery Details section. Procedure Estimated Blood Loss Check Surgery Details section. Procedure Findings Check Surgery Details section. Procedure Specimens Taken Check Surgery Details section.
--- OUTSIDE RECORDS SUMMARY | 2024-03-07 00:56 | XMS_ITS | Encounter Summary ---
Author Name Unknown Organization [facility] Address [address] [facility] [place] [address] Care Team Providers Care Residential Roofer Helper Name Role Phone Marissa Wesley MD Primary [...] COVID-19? No / Unsure 12/31/2021 5:11 PM CENSUS CLERK documented as of this encounter Plan of Treatment Not on file documented as of this encounter Visit Diagnoses Not on filedocumented in this encounter Care Teams Residential Roofer Helper Relationship Specialty Start Date End Date Marissa Wesley MD [facility] [address] [place] [address] PCP - General Internal Medicine 12/31/21 documented as of this encounter
--- OUTSIDE RECORDS SUMMARY | 2024-03-07 00:56 | XMS_ITS | Encounter Summary ---
Author Name Unknown Organization [facility] Address [address] [place] [address] Care Team Providers Care Weaving Inspector Name Role Phone Unavailable Primary Care Provider Unavailabl e Encounter Details Date Type Department Care Team (Late st Contact Info) Description 01/07/2024 12:00 PM VERIFYING SPECIALIST Telemedicine Department of Nutrition and Diabetes Education in [place], [place] [address] [place] [phone] Veronica Garvin M.B., Ch.B. [address] [place] [phone] Madison Sánchez RDN, LD [address] [place] [phone] Obesity Body Mass Index 30-39.9 Adult Social [...] How often do you attend chur or mandaen services? More than 4 times per year 04/12/2023 Do you belong to any clubs o r organizations such as caodaism groups, unions, fraternal or athletic groups, or [...] 1 09/21/2022 [facility] of Occupat ional Health - Occupational Stress [...] technology by Madison Sánchez RDN, SHELTON in [place], [place] to the patient in Patient's Home FYING SPECIALIST documented in this encounter Plan of Treatment Upcoming Encounters Date Type Department Care Team (Late st Contact Info) Description 03/10/2024 12:00 PM CDT Telemedicine Department of Nutrition and Diabetes Education in [place], [place] [address] [place] [address] Veronica Garvin M.B., Ch.B. [address] [place] [phone] 03/17/2024 12:00 PM CDT Telemedicine Department of Nutrition and Diabetes Education in [place], [place] [address] [place] [phone] Veronica Garvin M.B., Ch.B. [address] [place] [phone] documented as of this encounter Visit Diagnoses Diagnosis Obesity Body Mass Index 30-39.9 Adult documented in this encounter Additional Health Concerns Assessment Noted Time PHQ-9 Depression Total Score: 8 09/21/20 22 9:29 AM CDT documented as of this encounter
--- OUTSIDE RECORDS SUMMARY | 2024-03-07 00:56 | XMS_ITS | Encounter Summary ---
Author Name Unknown Organization [facility] Address [address] [place] [address] Care Team Providers Care Marketing Services Coordinator Name Role Phone Unavailable Primary Care Provider Unavailabl e Encounter Details Date Type Department Care Team (Late st Contact Info) Description 12/11/2023 8:00 AM DIRECTOR FIXED INCOME Telemedicine Department of Nutrition and Diabetes Education in [place], [place] [address] [place] [address] [phone] Veronica Garvin M.B., Ch.B. [address] [place] [phone] Petar Maria, LAURENN, LD [address] [place] [address] [phone] Obesity Body Mass Index 30-39.9 Adult Social [...] week 04/12/2023 How often do you attend [facility] or buddhism services? More than 4 times per year 04/12/2023 Do you belong to any clubs o r organizations such as adventist groups, unions, fraternal or athletic groups, or [...] 09/21/2022 [facility] of Occupat ional Health - [...] place to sleep or slept in a [place] [facility] [place] facility (including now)? No 04/12/2023 Depression Answer Date [...] 97.5 kg (215 lb) 12/11/2023 9:22 AM DIRECTOR FIXED INCOME Height - - Body Mass Index 35.09 [...] technology by Esa Maria RDN, SHELTON in [facility] to patient in patient home. I introduced myself to the group and limits to confidentially were reviewed. CTOR FIXED INCOME documented in this encounter Plan of Treatment Upcoming Encounters Date Type Department Care Team (Late st Contact Info) Description 03/10/2024 12:00 PM CDT Telemedicine Department of Nutrition and Diabetes Education in [place], [place] [address] [place] [address] Veronica Garvin M.B., Ch.B. [address] [place] [phone] 03/17/2024 12:00 PM CDT Telemedicine Department of Nutrition and Diabetes Education in [place], [place] [address] [place] [address] Veronica Garvin M.B., Ch.B. [address] [place] [phone] documented as of this encounter Visit Diagnoses Diagnosis Obesity Body Mass Index 30-39.9 Adult documented in this encounter Additional Health Concerns Assessment Noted Time PHQ-9 Depression Total Score: 8 09/21/20 22 9:29 AM CDT documented as of this encounter
== END 2024-03-03 09:22 | disposition home or self-care (01) ==
LOC: AMB 03-07 00:53
PROVIDERS: PCP Internal Medicine; Visit Provider Emergency Medicine
DX: R42 Dizziness and giddiness (principal); S09.90XA Unspecified injury of head, initial encounter; W18.30XA Fall on same level, unspecified, initial encounter; Y92.039 Unspecified place in apartment as the place of occurrence of the external cause
CPT/HCPCS: A0425; A0429

== ENCOUNTER 2024-03-03 09:44 | Emergency (ER) | payer BC, SELFPAY ==
[2024-03-03] VITALS (9 sets, daily range): BP systolic 119–125; BP diastolic 74–81; PULSE 67–81; RESP 16; TEMP 36.1; O2SAT 100; BMI 34.7
--- NOTE | 2024-03-03 10:24 | CT_ITS ---
Patient: TRIXIE DIANA Facility:?[facility] Patient ID:?[id number] Site Patient ID:?[id number]. Site :?2001 Study:?CT-Head W/O-03/03/2024 11:25:08 AM Ordering Physician:WINDY Final Report: INDICATION: Multiple falls. COMPARISON: None available. Reference made to a prior report dated 09/27/2021. TECHNIQUE: CT of the head without intravenous contrast. Please note that all CT scans at this facility use dose modulation, iterative reconstruction, and/or weight-based dosing when appropriate to reduce radiation dose to as low as reasonably achievable. FINDINGS: The brain is normal in attenuation with preserved mitchell-white matter differentiation. No hydrocephalus. No mass or mass effect. No intracranial hemorrhage. Discontinuous ossification of the anterior falx is noted incidentally. Intact skull base and cranial vault. Visualized orbits are without significant incidental findings. Right frontal recess mucosal thickening/opacification. The visualized paranasal sinuses and mastoid air cells are clear. IMPRESSION: No acute findings. Please note that all CT scans at this facility use dose modulation, iterative reconstruction, and/or weight-based dosing when appropriate to reduce radiation dose to as low as reasonably achievable. Dictated by Fco Cassidy MD @ 03/03/2024 11:36:35 AM Signed by:?Fco Cassidy MD @03/03/2024 11:36:35 AM (Electronic Signature)
--- NOTE | 2024-03-03 10:24 | CT_ITS ---
Patient: TRIXIE DIANA Facility:?[facility] Patient ID:?[id number] Site Patient ID:?[id number]. Site :?2001 Study:?CT-Spine Cervical W/O-03/03/2024 11:25:36 AM Ordering Physician:WINDY Final Report: INDICATION: Multiple falls. COMPARISON: None available. TECHNIQUE: CT of the cervical spine without intravenous contrast. Please note that all CT scans at this facility use dose modulation, iterative reconstruction, and/or weight-based dosing when appropriate to reduce radiation dose to as low as reasonably achievable. FINDINGS: Alignment: No significant spondylolisthesis, widening of the intervertebral disc spaces, interfacetal joints or interspinous distances. Vertebrae: Vertebral bodies, pedicles, laminae, articular, transverse and spinous processes are intact. Soft Tissues: No perivertebral edema or hemorrhage. Extraspinal Anatomy: No significant findings. IMPRESSION: No acute findings. Please note that all CT scans at this facility use dose modulation, iterative reconstruction, and/or weight-based dosing when appropriate to reduce radiation dose to as low as reasonably achievable. Dictated by Fco Cassidy MD @ 03/03/2024 11:38:51 AM Signed by:?Fco Cassidy MD @03/03/2024 11:38:51 AM (Electronic Signature)
[2024-03-03 10:43] LABS: Basophils Absolute Auto 0.02 K/uL (0.00-0.30); Basophils Percent Auto 0.4 % (0.0-3.0); Eosinophils Absolute Auto 0.13 K/uL (0.00-0.50); Eosinophils Percent Auto 2.5 % (0.0-7.0); Hematocrit 42.9 % (33.0-51.0); Hemoglobin* 13.8 gm/dL (12.0-16.0); Lymphocytes Absolute Auto 1.49 K/uL (0.90-2.90); Lymphocytes Percent Auto 28.3 % (20-44); Mean Corpuscular HGB Conc 32 gm/dL (32-36); Mean Corpuscular Hemoglobin 30 pg (26-34); Mean Corpuscular Volume 92 fL (80-100); Monocytes Percent Auto 9.1 % (0.0-11.0); Neutrophils Absolute Auto 3.14 K/uL (1.7-7.0); Neutrophils Percent Auto 59.7 % (42.0-72.0); Platelet Count* 254 K/uL (140-440); RDW Coefficient of Variation % 12.2 % (11.5-15.5); Red Blood Count 4.67 m/uL (4.00-5.20); White Blood Count* 5.26 K/uL (4.50-11.00)
--- OUTSIDE RECORDS SUMMARY | 2024-03-03 10:49 | XMS_ITS | Encounter Summary ---
Author Name Unknown Organization [facility] Address [address] [place] [address] Care Team Providers Care Ore Miner Name Role Phone Unavailable Primary Care Provider Unavailabl e Encounter Details Date Type Department Care Team (Late st Contact Info) Description 12/04/2023 8:00 AM EHS MANAGER Telemedicine Department of Nutrition and Diabetes Education in [place], [place] [address] [place] [address] [phone] Veronica Garvin M.B., Ch.B. [address] [place] [phone] Petar Maria, LAURENN, LD [address] [place] [address] [phone] Obesity Body Mass Index 30-39.9 Adult Social [...] How often do you attend [facility] or sabianist services? More than 4 times per year 04/12/2023 Do you belong to any clubs o r organizations such as christianity groups, unions, fraternal or athletic groups, or [...] Answer Date Recorded PHQ-2 Score 1 09/21/2022 [facility] of Occupat ional Health - [...] place to sleep or slept in a long-term (including now)? No 04/12/2023 Depression Answer Date [...] real-time audio/video technology by Esa Maria RDN, LD in [facility] to patient in patient home. I introduced myself to the group and limits to confidentially were reviewed. MANAGER documented in this encounter Plan of Treatment Upcoming Encounters Date Type Department Care Team (Late st Contact Info) Description 03/10/2024 12:00 PM CDT Telemedicine Department of Nutrition and Diabetes Education in [place], [place] [address] [place] [phone] Veronica Garvin M.B., Ch.B. [address] [place] [phone] 03/17/2024 12:00 PM CDT Telemedicine Department of Nutrition and Diabetes Education in [place], [place] [address] [place] [phone] Veronica Garvin M.B., Ch.B. [address] [place] [phone] documented as of this encounter Visit Diagnoses Diagnosis Obesity Body Mass Index 30-39.9 Adult documented in this encounter Additional Health Concerns Assessment Noted Time PHQ-9 Depression Total Score: 8 09/21/20 22 9:29 AM CDT documented as of this encounter
--- OUTSIDE RECORDS SUMMARY | 2024-03-03 10:49 | XMS_ITS | Clinical Summary ---
Author Name Unknown Organization [facility] Address [address] 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 30 tablet 6 07/18/2011 Active Additional Information Patient not taking.Reported on 01/04/2016 DULoxetine (CYMBALTA) 30 mg PO capsule,delayed release(DR/EC) take 90 mg by mouth 3 (three) times daily , Active clonazePAM (KLONOPIN) 0.5 mg PO tablet take 0.5 mg by mouth daily. Active diphenhydrAMINE (BENADRYL) 25 mg PO capsuleIndications:i tching take 25 mg by mouth Q6H PRN. Indications: itching Active gabapentin (GRALISE) 600 mg PO tablet extended release 24 hr take 1,200 mg by mouth 4 (four) times a day , Active hydrocortisone 1 % TP CreamIndications:itc mg by Topical route as needed. Apply to affected area as instructed. Indications: itching Active triamcinolone (KENALOG) 0.1 % TP CreamIndications:con [...] Oral tablet extended release 24 hr , 12/12/2015 Active Desvenlafaxine ER (PRISTIQ) 100 mg [...] is needed for more refills. 1 Bottle 07/29/2019 Active Active Problems Problem Noted Date [...] Health Maintenance Due Date Last Done Comments CHLAMYDIA SCREENING 2016 HPV VACCINES (1 - 3-dose series) 2016 DTAP/TDAP/TD VACCINES (1 - Tdap) 2020 CERVICAL CANCER SCREENING 3 YEARS 2022 COVID-19 Vaccine (1 - 2022-2 4 season) 2023 INFLUENZA VACCINE 07/20/2024 Pneumococcal Vaccine: Pediat rics (0 to 5 Years) and At-Risk Patients (6+ Years) Aged Out No longer eligible b ased on patient's age to complete this topic Care Teams Boardmarker Relationship Specialty Start Date End Date Sapphire Coleman MD PCP - General 03/27/17
--- OUTSIDE RECORDS SUMMARY | 2024-03-03 10:49 | XMS_ITS | Encounter Summary ---
Author Name Unknown Organization [facility] Address [address] [place] [address] Care Team Providers Care Salvage Supervisor Name Role Phone Unavailable Primary Care Provider Unavailabl e Encounter Details Date Type Department Care Team (Late st Contact Info) Description 12/11/2023 8:00 AM SOLAR ELECTRIC/PHOTOVOLTAIC INSTALLER Telemedicine Department of Nutrition and Diabetes Education in [place], [place] [address] [place] [address] [phone] Veronica Garvin M.B., Ch.B. [address] [place] [phone] Petar Maria, LAURENN, LD [address] [place] [address] [phone] Obesity Body Mass Index 30-39.9 Adult Social [...] week 04/12/2023 How often do you attend [facility] or jehovah's witness services? More than 4 times per year 04/12/2023 Do you belong to any clubs o r organizations such as taoist groups, unions, fraternal or athletic groups, or [...] Date Recorded PHQ-2 Score 1 09/21/2022 [facility] of Occupat ional Health - Occupational Stress [...] 97.5 kg (215 lb) 12/11/2023 9:22 AM SOLAR ELECTRIC/PHOTOVOLTAIC INSTALLER Height - - Body Mass Index 35.09 [...] technology by Esa Maria RDN, [place] in [facility] to patient in patient home. I introduced myself to the group and limits to confidentially were reviewed. R ELECTRIC/PHOTOVOLTAIC INSTALLER documented in this encounter Plan of Treatment Upcoming Encounters Date Type Department Care Team (Late st Contact Info) Description 03/10/2024 12:00 PM CDT Telemedicine Department of Nutrition and Diabetes Education in [place], [place] [address] [place] [phone] Veronica Garvin M.B., Ch.B. [address] [place] [phone] 03/17/2024 12:00 PM CDT Telemedicine Department of Nutrition and Diabetes Education in [place], [place] [address] [place] [phone] Veronica Garvin M.B., Ch.B. [address] [place] [phone] documented as of this encounter Visit Diagnoses Diagnosis Obesity Body Mass Index 30-39.9 Adult documented in this encounter Additional Health Concerns Assessment Noted Time PHQ-9 Depression Total Score: 8 09/21/20 22 9:29 AM CDT documented as of this encounter
--- OUTSIDE RECORDS SUMMARY | 2024-03-03 10:49 | XMS_ITS | Encounter Summary ---
Author Name Unknown Organization [facility] Address [address] [place] [address] Care Team Providers Care Mine Surveyor Name Role Phone Joseph Erickson M.D. Primary Care Provider [phone] Unavailable Unavailable Unavailable Ifrah Gooden Primary Care Provider [phone] Ifrah Gooden L Unavailable Demetria Giles Unavailable [phone] Encounter Details Date Type Department Care Team (Late st Contact Info) Description 03/12/2017 Orders Only [facility] Medicine [address] [place] [phone] Li Hamilton R.N. EDS (Stanford-Danlos syndrome) [...] sciatica documented in this encounter Care Teams Mine Surveyor Relationship Specialty Start Date End Date Joseph Erickson M.D. [facility] [phone] PCP - General 07/01/15 10/07/20 Ifrah Gooden [address] [place] [address] PCP - General 10/08/20 Referring Provider 08/31/15 Ifrah Gooden [address] [place] [phone] Referring Provider Pediatrics 10/08/20 Demetria Giles, P.A. [address] [facility] [employer] [address] [place] [phone] Referring Provider Neurosurgery 10/08/20 documented as of this encounter
--- OUTSIDE RECORDS SUMMARY | 2024-03-03 10:49 | XMS_ITS | Encounter Summary ---
Author Name Unknown Organization [facility] Address [address] [place] [address] Care Team Providers Care Concrete Vibrator Operator Name Role Phone Unavailable Primary Care Provider Unavailabl e Encounter Details Date Type Department Care Team (Late st Contact Info) Description 12/18/2023 8:00 AM DIRECTOR OF CARDIOLOGY Telemedicine Department of Nutrition and Diabetes Education in [place], [place] [address] [place] [phone] Veronica Garvin M.B., Ch.B. [address] [place] [phone] Petar Maria, LAURENN, LD [address] [place] [phone] Obesity Body Mass Index 30-39.9 Adult (Primary Dx) Social History Tobacco Use Types Packs/Day Years [...] week 04/12/2023 How often do you attend [facility] or tenriism services? More than 4 times per year 04/12/2023 Do you belong to any clubs o r organizations such as samaritan groups, unions, fraternal or athletic groups, or [...] - Inhaled Oxygen Concentration - - Weight 98.4 kg (217 lb) 12/18/2023 9:19 AM DIRECTOR OF CARDIOLOGY Height - - Body Mass Index 35.42 04/12/2023 12:53 PM CDT documented in this encounter Progress Notes * Petar Maria RDN, SHELTON - 12/18/2023 8:00 AM CST Today's Weight: Wt 98.4 kg The patient attended [facility] [...] interaction during class. Progress towards previous goals: Due to getting a concussion last week, patient was only able to doone day of her PT exercises, but reports to have walked 3 days for 15-20 minutes last week instead.Walked to school instead of driving. Patient's goal for next week: Track food intake with photograph and be mindful about portions when dining out next week Patient Census: 8 Total Group Time: 60 minutes The patient attended a virtual group class via real-time audio/video technology by Esa Maria RDN, [place] in [facility] to patient in patient home. I introduced myself to the group and limits to confidentially were reviewed. CTOR OF CARDIOLOGY documented in this encounter Plan of Treatment Upcoming Encounters Date Type Department Care Team (Late st Contact Info) Description 03/10/2024 12:00 PM CDT Telemedicine Department of Nutrition and Diabetes Education in [place], [place] [address] [place] [phone] Veronica Garvin M.B., Ch.B. [address] [place] [phone] 03/17/2024 12:00 PM CDT Telemedicine Department of Nutrition and Diabetes Education in [place], [place] [address] [place] [phone] Veronica Garvin M.B., Ch.B. [address] [place] [phone] documented as of this encounter Visit Diagnoses Diagnosis Obesity Body Mass Index 30-39.9 Adult- Primary documented in this encounter Additional Health Concerns Assessment Noted Time PHQ-9 Depression Total Score: 8 09/21/20 22 9:29 AM CDT documented as of this encounter
--- OUTSIDE RECORDS SUMMARY | 2024-03-03 10:49 | XMS_ITS ---
Author Name Unknown Organization [facility] Address [address] [place] [address] Care Team Providers Care Meteorologist In Charge Name Role Phone Unavailable Unavailable Unavailable Surgery Details Not on file Complications Check Surgery Details section. Procedure Estimated Blood Loss Check Surgery Details section. Procedure Findings Check Surgery Details section. Procedure Specimens Taken Check Surgery Details section.
--- OUTSIDE RECORDS SUMMARY | 2024-03-03 10:49 | XMS_ITS | Clinical Summary ---
Author Name Unknown Organization [facility] Address [address] [place] [address] Care Team Providers Care Storage Architect Name Role Phone Unavailable Primary Care Provider Unavailabl e Source Comments Patient records contain information from all sites at [facility]. For routine questions regarding patient records, call [phone] during business hours, M-F 8:00 AM - 5:00 PM Central Time. Record requests for emergency care only can be directed to [phone] at any time.[facility] Allergies Active Allergy Reactions Criticality Noted Date Comments Cantaloupe GI intolerance 11/23/2011 [place] GI intolerance 11/23/2011 Lamotrigine Hives (Reselect Reaction) [...] mg daily, and other strains/dosages as needed Active triamcinolone (KENALOG) 0.5 % cream Apply 1 application topically as needed. 12/27/2020 Active tazarotene (TAZORAC) 0.1 % cream Apply 1 application topically as needed. 12/27/2020 Active topiramate (TOPAMAX) 50 mg tablet Take 50 mg by mouth 2 (two) times a day. 01/31/2021 Active triamcinolone (NASACORT) 55 mcg/actuation nasal spray Administer 2 sprays into nostril(s) as needed. Active tacrolimus (PROTOPIC) 0.1 % ointment Apply 1 application topically as needed. 12/27/2020 Active olopatadine (PATADAY) 0.2 % ophthalmic solution daily. 01/28/2021 Activ e ondansetron ODT (ZOFRAN-ODT) 4 mg disintegrating tablet Take 4 mg by mouth as needed. Active mometasone (ELOCON) 0.1 % cream Apply 1 application topically as needed. 11/11/2020 Active metoprolol succinate (TOPROL-XL) 25 mg 24 hr tablet Take 25 mg by mouth daily. 11/27/2020 Active Cotempla XR-ODT 25.9 mg tablet,disintig ER biphase 24h Take 1 tablet by mouth daily. 02/01/2021 Active levonorgestreL (Liletta) 20.1 mcg/24 hrs (6 yrs) 52 mg IUD 52 mg by intrauterine route once. Active gabapentin (NEURONTIN) 600 mg tablet Take 600 mg by mouth 3 (three) times a day. 08/20/2020 Active Aimovig Autoinjector 70 mg/mL injection Inject 70 mg under the skin every 30 (thirty) days. 02/07/2021 Active EPINEPHrine 0.3 mg/0.3 mL injection syringe Inject 0.3 mg intramuscularly as needed. 09/25/2014 Active econazole nitrate (SPECTAZOLE) 1 % cream Apply 1 application topically as needed. 12/22/2020 Active DULoxetine (CYMBALTA) [address] capsule Take 90 mg by mouth every morning. 02/08/2021 Active clindamycin (CLINDAGEL) 1 % gel Apply 1 application topically as needed. 02/15/2021 Active busPIRone (BUSPAR) 10 mg tablet Take 10 mg by mouth daily. 01/10/2021 Active azelastine (ASTELIN) 137 mcg/spray (0.1 %) nasal spray Administer 2 sprays into each nostril daily. 12/27/2020 Active adapalene (DIFFERIN) 0.3 % gel Apply 1 application topically as needed. 11/11/2020 Active benztropine (COGENTIN) 1 mg tablet Take 1 mg by mouth as needed. 02/12/2021 Active clindamycin (CLEOCIN T) 1 % external solution 08/09/2022 Active coenzyme P21-[id number] E 100-5 mg-unit capsule Take by mouth daily. Acti ve riboflavin (VITAMIN B2) 100 mg tablet Take 100 mg by mouth daily. Active QUEtiapine (SEROquel) 25 mg tablet Take 25 mg by mouth 2 (two) times a day. Active naratriptan (AMERGE) 1 mg tablet as needed. 07/18/2021 Active fexofenadine (CAITLIN) 180 mg tablet Take 180 mg by mouth daily. Active famotidine (PEPCID) 20 mg tablet Take 20 mg by mouth 2 (two) times a day. 12/18/2022 Active desvenlafaxine (PRISTIQ) 100 mg 24 hr tablet Take 100 mg by mouth every morning. 01/19/2023 Active Active Problems Problem Noted Date [...] Encounters Date Type Department Care Team Description 01/07/2024 12:00 PM CITY PLANNER Telemedicine Department of Nutrition and Diabetes Education in [place], [place] [address] [place] [address] Veronica Garvin M.B., Ch.B. Madison Sánchez, NEW, LD Obesity Body Mass Index 30-39.9 Adult 12/18/2023 8:00 AM CITY PLANNER Telemedicine Department of Nutrition and Diabetes Education in [place], [place] [address] [place] [address] Veronica Garvin M.B., Ch.B. Petar Maria, NEW, LD Obesity Body Mass Index 30-39.9 Adult (Primary Dx) 12/11/2023 8:00 AM CITY PLANNER Telemedicine Department of Nutrition and Diabetes Education in [place], [place] [address] [place] [address] Veronica Garvin M.B., Petar Carolina RDN, SHELTON Obesity Body Mass Index 30-39.9 Adult 12/04/2023 8:00 AM CITY PLANNER Telemedicine Department of Nutrition and Diabetes Education in [place], [place] [address] [place] [address] Veronica Garvin M.B., Petar Carolina RDN, SHE[place]TON Obesity Body Mass Index 30-39.9 Adult from [...] often do you attend chur ch or muslim services? More than 4 times per year 04/12/2023 Do you belong to any clubs o r organizations such as sabianist groups, unions, fraternal or athletic groups, or [...] Answer Date Recorded PHQ-2 Score 1 09/21/2022 [facility] - [...] 98.4 kg (217 lb) 12/18/2023 9:19 AM CITY PLANNER Height 166.7 cm (5' 5.63) 04/12/2023 12:53 PM C DT Body Mass Index 35.42 04/12/2023 12:53 PM CDT Plan of Treatment Upcoming Encounters Date Type Department Care Team (Late st Contact Info) Description 03/10/2024 12:00 PM CDT Telemedicine Department of Nutrition and Diabetes Education in [place], [place] [address] [place] [address] Veronica Garvin M.B., Ch.B. [address] [place] [phone] 03/17/2024 12:00 PM CDT Telemedicine Department of Nutrition and Diabetes Education in [place], [place] [address] [place] [address] Veronica Garvin M.B., Ch.B. [address] [place] [phone] Health Maintenance Due Date Last Done Comments Cervical Cancer Screening 2001 Hepatitis C Screening 2001 Hepatitis B Vaccines (1 of 3 - 19+ 3-dose series) 2020 COVID-19 Vaccine (2022- season) 2023 08/31/2022, 10/21/2021, 02/26/2021, Additional history exists Depression Screening (Annual PHQ-2) 11/19/2023 Glucose Test for Med Monitoring 04/09/2024 04/09/2023, 04/09/2023, 06/04/2022 DTaP,Tdap,and Td Vaccines (8 - Td or Tdap) 10/04/2031 10/04/2021, 01/02/2013, 07/13/2006, Additional history exists HPV Vaccines Completed 08/11/2014, 03/20, 02/05/2014 Meningococcal Vaccine Completed 06/21/2018, 013 Influenza Vaccine Completed 08/23/2023, , 08/31/2022, Additional history exists Pneumococcal vaccine (0-64 years) Aged Out No longer eligible based on patient's age to complete this topic Medical Devices Implanted Type Area Software Development Coordinator Device Identifier Shelf Expiration Date Model / Serial / Lot Hardware E.G. Pins/Screws/Mike s-02/17/2018 Implanted:02/17 (Quantity not on file) Hardware e.g. pins/screws/mike s Mouth Description:Permanent retain er Intrauterine Device Intrauterine Device Uterus Description:liletta IUD Procedures Procedure Name Priority Date/Time Associated Diagnosis Comments GLUCOSE, FASTING, S/P Routine 04/09/2023 3:22 PM CDT Obesity Body Mass Index 30-39.9 Adult from Last 3 Months or Most Recently Relevant to Health Maintenance Results * Glucose, Fasting (04/09/2023 3:22 PM CDT) Glucose, P 91 70 - 100 mg/dL 04/09/2023 5:22 PM CDT DTL Last Intake 6 hr 04/09/2023 5:05 PM CDT DTL Blood (Blood, Venous) 04/09/2023 3:22 PM CDT 04/09/2023 5:05 PM CDT Veronica Perry, Ch.B. LAB BLOOD NON ADD -ON [facility] [address] [place] [address], [place] DTL [facility] [address] [place] [address] from Last 3 Months or Most Recently Relevant to Health Maintenance
--- OUTSIDE RECORDS SUMMARY | 2024-03-03 10:49 | XMS_ITS | Encounter Summary ---
Author Name Unknown Organization [facility] Address [address] [place] [address] Care Team Providers Care Refining Equipment Operator Name Role Phone Unavailable Primary Care Provider Unavailabl e Encounter Details Date Type Department Care Team (Late st Contact Info) Description 01/07/2024 12:00 PM MANDOLIN REPAIR PERSON Telemedicine Department of Nutrition and Diabetes Education in [place], [place] [address] [place] [phone] Veronica Garvin M.B., Ch.B. [address] [place] [phone] Madison Sánchez RDN, LD [address] [place] [phone] Obesity Body Mass Index 30-39.9 Adult Social [...] How often do you attend chur or hinduism services? More than 4 times per year 04/12/2023 Do you belong to any clubs o r organizations such as voodoo groups, unions, fraternal or athletic groups, or [...] slept in a jail (including now)? No 04/12/2023 Depression Answer Date [...] as of this encounter Progress Notes * Madison Sánchez, NEW, LD - 01/07/2024 12:00 PM CST Today's Weight: WT: -217 lbs. The patient attended [facility] behavioral weight management group today. Individuals introduced themselves to the group, and limits to confidentiality were reviewed. Today's topic(s) included triggers. Atthe end of this class group members should be able to identify and challenge food-related triggers.. Evidence of learning was demonstrated through appropriate questions and overall interaction duringclass. Progress towards previous goals: patient did well with being mindful of intake while traveling. Patient's goal for next week: get back into exercising 3 times per week. Patient Census: 6 Total Group Time: 43 minutes Consult conducted via real-time audio/video technology by Madison Sánchez RDN, SHELTON in [place], [place] to the patient in Patient's Home OLIN REPAIR PERSON documented in this encounter Plan of Treatment Upcoming Encounters Date Type Department Care Team (Late st Contact Info) Description 03/10/2024 12:00 PM CDT Telemedicine Department of Nutrition and Diabetes Education in [place], [place] [address] [place] [address] Veronica Garvin M.B., Ch.B. [address] [place] [phone] 03/17/2024 12:00 PM CDT Telemedicine Department of Nutrition and Diabetes Education in [place], [place] [address] [place] [address] Veronica Garvin M.B., Ch.B. [address] [place] [phone] documented as of this encounter Visit Diagnoses Diagnosis Obesity Body Mass Index 30-39.9 Adult documented in this encounter Additional Health Concerns Assessment Noted Time PHQ-9 Depression Total Score: 8 09/21/20 22 9:29 AM CDT documented as of this encounter
--- OUTSIDE RECORDS SUMMARY | 2024-03-03 10:49 | XMS_ITS | Referral Summary ---
Author Name Unknown Organization [facility] Address [address] [place] [address] Care Team Providers Care Senior Reservations Agent Name Role Phone Unavailable Primary Care Provider Unavailabl e Source Comments Patient records contain information from all sites at [facility]. For routine questions regarding patient records, call [phone] during business hours, M-F 8:00 AM - 5:00 PM Central Time. Record requests for emergency care only can be directed to [phone] at any time.[facility] Encounters Date Type Department Care Team Description 01/07/2024 12:00 PM ADMISSIONS ADVISOR Telemedicine Department of Nutrition and Diabetes Education in [place], [place] [address] [place] [address] Veronica Garvin M.B., Ch.B. Madison Sánchez RDN, SHEL[place] Obesity Body Mass Index 30-39.9 Adult 12/18/2023 8:00 AM ADMISSIONS ADVISOR Telemedicine Department of Nutrition and Diabetes Education in [place], [place] [address] [place] [address] Veronica Garvin M.B., Ch.B. Petar Maria RDN, SHE[place] Obesity Body Mass Index 30-39.9 Adult (Primary Dx) 12/11/2023 8:00 AM ADMISSIONS ADVISOR Telemedicine Department of Nutrition and Diabetes Education in [place], [place] [address] [place] [address] Veronica Garvin M.B., Ch.B. Petar Maria RDN, SHEL[place] Obesity Body Mass Index 30-39.9 Adult 12/04/2023 8:00 AM ADMISSIONS ADVISOR Telemedicine Department of Nutrition and Diabetes Education in [place], [place] [address] [place] [address] Veronica Garvin M.B., Ch.B. Petar Maria, RDN, LD Obesity Body Mass Index 30-39.9 Adult from Last 3 Months Allergies Active Allergy Reactions Criticality Noted Date Comments Cantaloupe GI intolerance 11/23/2011 [place] GI intolerance 11/23/2011 Lamotrigine Hives (Reselect Reaction) [...] 1 % external solution 08/09/2022 Active coenzyme [id number] E 100-5 mg-unit capsule Take by mouth [...] any clubs o r organizations such as advent groups, unions, fraternal or athletic groups, or [...] Answer Date Recorded PHQ-2 Score 1 09/21/2022 [facility] ional [facility] - Occupational Stress Questionnaire Answer [...] place to sleep or slept in a group home (including now)? No 04/12/2023 Depression Answer [...] 98.4 kg (217 lb) 12/18/2023 9:19 AM ADMISSIONS ADVISOR Height 166.7 cm (5' 5.63) 04/12/2023 12:53 PM C DT Body Mass Index 35.42 04/12/2023 12:53 PM CDT Plan of Treatment Upcoming Encounters Date Type Department Care Team (Late st Contact Info) Description 03/10/2024 12:00 PM CDT Telemedicine Department of Nutrition and Diabetes Education in [place], [place] [address] [place] [address] Veronica Garvin M.B., Ch.B. [address] [place] [address] 03/17/2024 12:00 PM CDT Telemedicine Department of Nutrition and Diabetes Education in [place], [place] [address] [place] [phone] Veronica Garvin M.B., Ch.B. [address] [place] [phone] Medical Devices Implanted Type Area Inhalation Therapy Aide Device Identifier Shelf Expiration Date Model / [...] Perry, Ch.B. LAB BLOOD NON ADD -ON [facility] [address] [place] [address], [facility] DTL [facility] [address] [place] [address] from Last 3 Months or Most Recently Relevant to Health Maintenance
--- OUTSIDE RECORDS SUMMARY | 2024-03-03 10:49 | XMS_ITS | Clinical Summary ---
Author Name Unknown Organization [facility] Address [address] [place] [address] Care Team Providers Care Hollock Maker Name Role Phone Unavailable Unavailable Unavailable Ifrah Gooden Primary Care Provider [phone] Ifrah Gooden Unavailable Demetria Giles Unavailable [phone] Allergies No known active allergies Medications Medication [...] Comments Blood Pressure 120/75 10/08/2020 8:09 AM PRESSURISED CONTAINER FILLER Pulse 83 10/08/2020 8:09 AM PRESSURISED CONTAINER FILLER Temperature 36.1 ??C (97 ??F) 10/08/2020 8:09 AM PRESSURISED CONTAINER FILLER Respiratory Rate - - Oxygen Saturation - - Inhaled Oxygen Concentration - - Weight 112.1 kg (247 lb 3.2 oz) 10/08/2020 8:09 AM PRESSURISED CONTAINER FILLER Height 167.6 cm (5' 6) 10/08/2020 8:09 AM PRESSURISED CONTAINER FILLER Body Mass Index 39.9 10/08/2020 8:09 AM PRESSURISED CONTAINER FILLER Plan of Treatment Health Maintenance Due Date Last Done Comments CERVICAL CANCER SCREENING 2001 HEPATITIS C SCREENING 2001 TDAP/TD VACCINE (1 - Tdap) 2012 DEPRESSION SCREENING 2013 HIV SCREENING 2016 HPV VACCINE (1 - 3-dose series) 2016 COVID-19 VACCINE ( - 2022-24 season) 2023 INFLUENZA VACCINE (Season Ended) 2024 08/15/2019, 08/19/2018, 11/23/2017, Additional history exists ZOSTER SERIES VACCINE (1 of 2) 2051 Pneumococcal Vaccine: Childhood and At-Risk Adult <65 yo Series Aged Out No longer eligible based on patient's age to complete this topic Care Teams Hollock Maker Relationship Specialty Start Date End Date Ifrah Gooden [address] [place] [address] PCP - General 10/08/20 Referring Provider 08/31/15 Ifrah Gooden [facility] [place] [phone] Referring Provider Pediatrics 10/08/20 Demetria Giles, P.A. [address] [facility] [address] [place] [address] Referring Provider Neurosurgery 10/08/20
--- OUTSIDE RECORDS SUMMARY | 2024-03-03 10:50 | XMS_ITS | Referral Summary ---
Author Name Unknown Organization [facility] Address [address] [place] [address]. [place] [address] Care Team Providers Care Transaction Advisory Services Manager Name Role Phone Marissa Wesley MD Primary Care Provider [phone] Allergies Active Allergy Reactions Criticality Noted Date Comments Food 05/01/2022 Cantalope, cucumber, tree nuts. Lamotrigine 05/01/2022 Nuts Anaphylaxis High 12/31/2021 Medications Medication Sig Dispensed Refills Start Date End Date Status levonorgestrel (LILETTA, 52 MG,) 20.1 MCG/DAY IUD 52 mg by Intrauterine route Active medical cannabis (Patient's own supply) Take 1 capsule by mouth Active adapalene (DIFFERIN) 0.3 % external gel Apply 1 Application topically 11/11/2020 Active azelastine (ASTELIN) 0.1 % nasal spray Meredith 2 sprays in nostril 12/27/2020 Active benztropine (COGENTIN) 1 MG tablet Take 1 mg by mouth 02/12/2021 Active busPIRone (BUSPAR) 10 MG tablet 06/02/2020 Active busPIRone (BUSPAR) 10 MG tablet Take 10 mg by mouth 2 times daily 04/19/2022 Active clindamycin (CLEOCIN T) 1 % external solution Active clonazePAM (KLONOPIN) 0.5 MG tablet 2 at bedtime 01/27/2022 Active co-enzyme Q-10 100 MG CAPS capsule Active vitamin B-12 (CYANOCOBALAMIN) 100 MCG tablet Take 100 mcg by mouth Active cyproheptadine (PERIACTIN) 4 MG tablet 1 bid 08/20/2020 Active desvenlafaxine (PRISTIQ) 100 MG 24 hr tablet Take 100 mg by mouth every morning 04/26/2022 Active econazole nitrate 1 % external cream Apply 1 Application topically 12/22/2020 Active EPINEPHrine (ANY BX GENERIC EQUIV) 0.3 MG/0.3ML injection 2-pack Inject 0.3 mg into the muscle 06/21/2020 Active erenumab-aooe (AIMOVIG) 70 MG/ML injection Inject 70 mg Subcutaneous every 30 days 02/07/2021 Active fexofenadine (CAITLIN) 180 MG tablet Take 180 mg by mouth Acti ve gabapentin (NEURONTIN) 600 MG tablet Take 1 tablet by mouth 3 times daily 08/20/2020 Active Methylphenidate 25.9 MG TBED Take 25.9 mg by mouth 02/01/2021 Active metoprolol succinate ER (TOPROL XL) 25 MG 24 hr tablet 1 tab qam 11/27/2020 Active mometasone (ELOCON) 0.1 % external cream Apply 1 Application topically 11/11/2020 Active naratriptan (AMERGE) 1 MG tablet Take 1 tablet by mouth at onset of migraine. May repeat after 4 hours if needed. 07/18/2021 Active olopatadine (PATADAY) 0.2 % ophthalmic solution 06/12/2020 Activ e ondansetron (ZOFRAN ODT) 4 MG ODT tab Take 4 mg by mouth Active prazosin (MINIPRESS) 1 MG capsule TAKE 1 TO 2 CAPSULES BY MOUTH AT BEDTIME 01/06/2022 Active prochlorperazine (COMPAZINE) [address] 25 mg rectally Act matt vitamin B-2 (RIBOFLAVIN) 100 MG TABS tablet Take 100 mg by mouth Act matt tacrolimus (PROTOPIC) 0.1 % external ointment 12/27/2020 Active tazarotene (TAZORAC) 0.1 % external cream Apply 1 Application topically 12/27/2020 Active triamcinolone (ARISTOCORT HP) 0.5 % external cream Apply 1 Application topically 12/27/2020 Active ZOLMitriptan (ZOMIG) 5 MG nasal spray Meredith 1 spray in nostril 09/01/2021 Active topiramate (TOPAMAX) 50 MG tablet TAKE TWO TABLETS BY MOUTH AT BEDTIME 01/31/2021 Active triamcinolone (NASACORT) 55 MCG/ACT nasal aerosol Meredith 2 sprays in nostril Active DULoxetine (CYMBALTA) 30 MG capsule Take 90 mg by mouth 02/08/2021 Activ e Active Problems No known [...] CDT Plan of Treatment Not on file Procedures Procedure Name Priority Date/Time Associated Diagnosis Comments CHLAMYDIA TRACHOMATIS/NEISSERI A GONORRHOEAE BY PCR STAT 06/04/2022 2:06 PM CDT from Last 3 Months or Most Recently Relevant to Health Maintenance Results * Chlamydia trachomatis/Neisseria gonorrhoeae by PCR (06/04/2022 2:06 PM CDT) Chlamydia Trachomatis Negative Negative 06/04/2022 3:47 PM CDT [facility] Comment:Negative for C. trac homatis genomic DNA by tribalX real-time, reverse-transcriptase PCR. A negative result does not preclude the presence of C. trachomatis = infection. The results are dependent on proper collection, transport, and processing of the specimen, and the presence of sufficient DNA to be detected. Neisseria gonorrhoeae Negative Negative 06/04/2022 3:47 PM CDT [facility] Comment:Negative for N. gono rrhoeae genomic DNA by [employer]ep[employer] VISIONid real-time, reverse-transcriptase PCR. A negative result does not preclude the presence of N gonorrhoeae infection. The results are dependent on proper collection, transport, and processing of the specimen, and the presence of sufficient DNA to be detected. Urine VOIDED URINE SPECIMEN / Unknown Non-blood Collection / Unknown 06/04/2022 2:06 PM CDT 06/04/2022 2:14 PM CDT Narrative [facility] - 06/04/2022 3:47 PM CDT Assay performed using tribalX real-time, reverse-transcriptase PCR. Sofía Osman CNP LAB - MICRO GENERAL ORDERABLES [facility] Acute [facility] [address] [place] [address], [facility] [phone] from Last 3 Months or Most Recently Relevant to Health Maintenance Care Teams Transaction Advisory Services Manager Relationship Specialty Start Date End Date Marissa [place] MD [facility] [address] [place] [address] PCP - General Internal Medicine 12/31/21
--- OUTSIDE RECORDS SUMMARY | 2024-03-03 10:50 | XMS_ITS | Encounter Summary ---
Author Name Unknown Organization [facility] Address [address] [facility] [place] [address] Care Team Providers Care Team Leader Name Role Phone Marissa [place] MD Primary Care Provider Encounter Details Date Type Department Care Team [...] COVID-19? No / Unsure 12/31/2021 5:11 PM SOFTWARE VALIDATION ENGINEER documented as of this encounter Plan of Treatment Not on file documented as of this encounter Visit Diagnoses Not on filedocumented in this encounter Care Teams Team Leader Relationship Specialty Start Date End Date Marissa [place] MD [facility] [address] [place] [address] PCP - General Internal Medicine 12/31/21 documented as of this encounter
--- OUTSIDE RECORDS SUMMARY | 2024-03-03 10:50 | XMS_ITS | Clinical Summary ---
Author Name Unknown Organization [facility] Address [address] [place] [address]. [place] [address] Care Team Providers Care Balance Wheel Screw Hole Driller Name Role Phone Marissa Wesley MD Primary [...] Active azelastine (ASTELIN) 0.1 % nasal spray [place] 2 sprays in nostril 12/27/2020 Active benztropine [...] Active ZOLMitriptan (ZOMIG) 5 MG nasal spray [place] 1 spray in nostril 09/01/2021 Active topiramate (TOPAMAX) 50 MG tablet TAKE TWO TABLETS BY MOUTH AT BEDTIME 01/31/2021 Active triamcinolone (NASACORT) 55 MCG/ACT nasal aerosol [place] 2 sprays in nostril Active DULoxetine (CYMBALTA) [...] on patient's age to complete this topic Procedures Procedure Name Priority Date/Time Associated Diagnosis Comments CHLAMYDIA TRACHOMATIS/NEISSERI A GONORRHOEAE BY PCR STAT 06/04/2022 2:06 PM CDT from Last 3 Months or Most Recently Relevant to Health Maintenance Results * Chlamydia trachomatis/Neisseria gonorrhoeae by PCR (06/04/2022 2:06 PM CDT) Chlamydia Trachomatis Negative Negative 06/04/2022 3:47 PM CDT [facility] Comment:Negative for C. trac homatis genomic DNA by Cepheid real-time, reverse-transcriptase PCR. A negative result does not preclude the presence of C. trachomatis = infection. The results are dependent on proper collection, transport, and processing of the specimen, and the presence of sufficient DNA to be detected. Neisseria gonorrhoeae Negative Negative 06/04/2022 3:47 PM CDT [facility] Comment:Negative for N. gono rrhoeae genomic DNA by Cepheid real-time, reverse-transcriptase PCR. A negative result does not preclude the presence of N gonorrhoeae infection. The results are dependent on proper collection, transport, and processing of the specimen, and the presence of sufficient DNA to be detected. Urine VOIDED URINE SPECIMEN / Unknown Non-blood Collection / Unknown 06/04/2022 2:06 PM CDT 06/04/2022 2:14 PM CDT Narrative [facility] - 06/04/2022 3:47 PM CDT Assay performed using Cepheid real-time, reverse-transcriptase PCR. Sofaí Osman C [facility] - MICRO GENERAL ORDERABLES [facility] [address] Room [address] [place] [phone], [facility] [phone] from Last 3 Months or Most Recently Relevant to Health Maintenance Care Teams Balance Wheel Screw Hole Driller Relationship Specialty Start Date End Date Marissa Wesley MD [facility] [address] [place], [place] [id number] PCP - General Internal Medicine 12/31/21
[2024-03-03 10:53] LABS: Slide Review Reflex No
[2024-03-03] MEDS: KETOROLAC 15 MG/ML inj IVP (10:55)
[2024-03-03] MEDS: diphenhydrAMINE 50 MG/ML inj 25 MG IVP (10:55)
[2024-03-03] MEDS: MECLIZINE HCL 25 MG TABLET PO (10:55)
[2024-03-03 11:04] LABS: Chloride* 111 mmol/L (96-114); Potassium* 3.6 mmol/L (3.6-5.1); Sodium* 141 mmol/L (135-149)
[2024-03-03 11:07] LABS: Anion Gap 2 mEq/L (7-15); Blood Urea Nitrogen* 9 mg/dL (5-24); Carbon Dioxide* 28 mmol/L (20-32); Creatinine* 0.6 mg/dL (0.5-1.5); Est. Creatinine Clearance* 137.68; Estimated Glomerular Filt Rate 130 ml/min; Glucose* 102 mg/dL (60-115)
[2024-03-03 11:08] LABS: Calcium* 9.1 mg/dL (8.4-10.6)
[2024-03-03] MEDS: METOCLOPRAMIDE HCL 5 MG/ML INJ 10 MG IVP (11:10)
[2024-03-03 11:21] LABS: Troponin I* < 0.01 ng/mL (0.01-0.04)
[2024-03-03] MEDS: LACTATED RINGERS 1000 ML 1,000 ML IV (11:25)
--- NOTE | 2024-03-03 11:42 | ED.GENADULT ---
HPI - General Adult General Date Seen: 03/03/24 Chief complaint: Dizziness/Vertigo Stated complaint: fall Time Seen by Provider: 03/03/24 09:56 Source: patient Mode of arrival: EMS Limitations: no limitations History of Present Illness HPI narrative: Patient is a 23-year-old female with history of POTS, Stanford-Danlos syndrome, chronic dizziness, migraines, chronic pain syndrome presenting to the emergency department for worsening dizziness, headache, multiple falls. Patient states for the past week she feels ago dizziness has been worse at states the feels like she is floating in the water. Says this has caused her to fall 3 times in hitting her head each time. She not feel safe to drive herself so she called EMS to bring her in. She is also having headache she has she states feels different than her normal headache. This 1 is more severe no only in the frontal region. Denies weakness, numbness, vision changes, abdominal pain, chest pain, shortness of breath. Was nauseated yesterday and vomited 1 time. Again states all the symptoms seem worse than her baseline. Has not taking any specific medications for them though. Related Data Home Medications Medication Instructions Recorded Confirmed clindamycin phosphate 1 % topical 1 applic topical 08/09/22 11/20/23 solution desvenlafaxine succinate 100 mg 100 mg PO 08/09/22 11/20/23 tablet,extended release 24 hr erenumab-aooe 140 mg/mL 140 mg subcut 08/09/22 11/20/23 subcutaneous auto-injector (Aimovig Autoinjector) tacrolimus 0.1 % topical ointment 1 applic topical 08/09/22 11/20/23 tazarotene 0.1 % topical cream 1 applic topical 08/09/22 11/20/23 azelastine 137 mcg (0.1 %) nasal 1 spray intranasal 10/19/22 11/20/23 spray aerosol buspirone 10 mg tablet 10 mg PO QDAY 10/19/22 12/16/23 duloxetine 30 mg capsule,delayed 90 mg PO QDAY 10/19/22 12/16/23 release famotidine 20 mg tablet 20 mg PO BID 10/19/22 12/16/23 gabapentin 600 mg tablet 600 mg PO QDAY 10/19/22 12/16/23 methylphenidate 25.9 mg ER,IR 25.9 mg PO QDAY 10/19/22 12/16/23 disintegrating 24 hr tablet (Cotempla XR-ODT) metoprolol succinate 25 mg 25 mg PO QDAY 10/19/22 12/16/23 tablet,extended release 24 hr olopatadine 0.7 % eye drops ml ophthalmic (eye) 10/19/22 11/20/23 (Pataday Once Daily Relief) prazosin 1 mg capsule 1 - 2 mg PO QPM 10/19/22 12/16/23 topiramate 50 mg tablet 50 mg PO QDAY 10/19/22 12/16/23 triamcinolone acetonide 0.5 % 1 applic topical 10/19/22 11/20/23 topical cream methylphenidate HCl 10 mg tablet mg PO 09/18/23 11/20/23 naratriptan 2.5 mg tablet 2.5 mg PO ONCE PRN 09/18/23 12/16/23 Allergies Allergy/AdvReac Type Severity Reaction Status Date / Time tree nut Allergy Severe Verified 12/16/23 13:42 lamotrigine Allergy Unknown Verified 12/16/23 13:42 Review of Systems Status of ROS: Reports: 10 or more systems reviewed and unremarkable except as noted in History and below [facility] Medical History High vitamin D level (2020) ?E67.3 - Hypervitaminosis D (ICD-10) Surgical History History of ankle surgery ?Z98.890 - Other specified postprocedural states (ICD-10) Social History Smoking Status: Never smoker Do you use any of these nicotine containing products: None Second hand tobacco smoke exposure: No How often do you have a drink containing alcohol: monthly or less How often do you have six or more drinks on one occasion: Never AUDIT-C Alcohol total score: 1 Non-prescribed substance use: marijuana (any form) Non-prescribed substance use details: medical use edibles service: No Exam Narrative: Exam Narrative: Const: Well-nourished, Well-developed, in mild distress Eyes: PERRL, no conjunctival injection, and symmetrical lids HENT: Atraumatic external nose and ears. Moist mucous membranes. Neck: Symmetric, trachea midline, No thyromegaly. CVS: RRR, No murmurs or gallops. Peripheral pulses 2+ and equal in all extremities RESP: Unlabored respiratory effort. Clear to auscultation bilaterally. GI: Nontender/Nondistended, No rebound or guarding. MSK:Extremities w/o deformity, Normal Active ROM Skin: Warm, Dry. No rashes or lesions. Neuro: Normal Muscle tone, No focal neurological deficits. Psych: Awake, Alert, & Oriented x3. Appropriate mood and affect. Const: Vital Signs, click to edit/add: Vital Signs - 24 hr 03/03/24 09:48 03/03/24 09:56 03/03/24 09:57 Temperature 97 F L Pulse Rate 72 73 Pulse Rate [Pulse Oximeter] 75 Respiratory Rate 16 Blood Pressure 122/76 Blood Pressure [Ri ght Upper Arm] 125/75 Pulse Oximetry 100 100 100 Oxygen Delivery Me thod Room Air 03/03/24 10:00 03/03/24 10:01 03/03/24 10:30 Temperature Pulse Rate 81 77 67 Pulse Rate [Pulse Oximeter] Respiratory Rate Blood Pressure 121/74 Blood Pressure [Ri ght Upper Arm] Pulse Oximetry 100 100 100 Oxygen Delivery Me thod 03/03/24 10:31 03/03/24 10:32 Temperature Pulse Rate 72 73 Pulse Rate [Pulse Oximeter] Respiratory Rate Blood Pressure 120/79 Blood Pressure [Ri ght Upper Arm] Pulse Oximetry 100 100 Oxygen Delivery Me thod Course Vital Signs Vital signs: Initial Vital Signs Temperature 97 F L 03/03/24 09:48 Temperature Source Temporal Artery Scan 03/03/24 09:48 Pulse Rate 75 03/03/24 09:48 Respiratory Rate 16 03/03/24 09:48 Blood Pressure 125/75 03/03/24 09:48 Blood Pressure Mean 91 03/03/24 09:48 Blood Pressure Position Supine 03/03/24 09:48 Pulse Oximetry 100 03/03/24 09:48 Oxygen Delivery Method Room Air 03/03/24 09:48 Vital Signs Temperature 97 F L 03/03/24 09:48 Pulse Rate 75 03/03/24 09:48 Respiratory Rate 16 04/15/24 09:48 Blood Pressure 125/75 03/03/24 09:48 Pulse Oximetry 100 03/03/24 09:48 Oxygen Delivery Method Room Air 03/03/24 09:48 Temperature 97 F L 03/03/24 09:48 Pulse Rate 73 03/03/24 10:32 Respiratory Rate 16 03/03/24 09:48 Blood Pressure 120/79 03/03/24 10:31 Pulse Oximetry 100 03/03/24 10:32 Oxygen Delivery Method Room Air 03/03/24 09:48 Medications Administered Medications: Discontinued Medications Generic Name Dose Route Start Last Admin Trade Name Bc PRN Reason Stop Dose Admin Diphenhydramine HCl 25 mg 03/03/24 10:23 03/03/24 10:55 Diphenhydramine 50 Mg/Ml Inj IVP 03/03/24 10:24 25 mg ONCE ONE Administration Lactated Ringer's 1,000 mls @ 1,000 mls/hr 03/03/24 10:23 03/03/24 11:25 Lactated Ringers 1000 Ml IV 03/03/24 11:22 1,000 mls/hr .Q1H ONE Administration Ketorolac Tromethamine 15 mg 03/03/24 10:23 03/03/24 10:55 Ketorolac 15 Mg/Ml Inj IVP 03/03/24 10:24 15 mg ONCE ONE Administration Meclizine HCl 25 mg 03/03/24 10:23 03/03/24 10:55 Meclizine Hcl 25 Mg Tablet PO 03/03/24 10:24 25 mg ONCE ONE Administration Metoclopramide HCl 10 mg 03/03/24 10:23 03/03/24 11:10 Metoclopramide Hcl 5 Mg/Ml Inj IVP 03/03/24 10:24 10 mg ONCE ONE Administration Medical Decision Making MDM Narrative Medical decision making narrative: Patient is a 23-year-old female presenting for multiple complaints. While other symptoms could be related to her migraines with the multiple falls I do want do a scan of her head and neck to make sure there is nothing else going on. Also considered she states the symptoms are worse I will check some lab work to better rule out any electrolyte abnormalities. Patient given meclizine for her dizziness along with a migraine cocktail for headache. Also check a troponin and EKG. Lab work shows no concerning abnormalities. No signs of electrolyte abnormalities or cardiac problems. CT scan is reviewed by myself and the radiologist showed no concerning acute abnormalities. After the medication she is now feeling better. She feels safe for discharge. I think all her symptoms were related to her migraines. No other concerning findings were found. She will be discharged home. Lab Data Labs: Lab Results 03/03/24 Range/Units 10:31 WBC 5.26 (4.50-11.00) K/uL RBC 4.67 (4.00-5.20) m/uL Hgb 13.8 (12.0-16.0) gm/dL Hct 42.9 (33.0-51.0) % MCV 92 (80-100) fL MCH 30 (26-34) pg MCHC 32 (32-36) gm/dL RDW Coeff of Benjamin 12.2 (11.5-15.5) % Plt Count 254 (140-440) K/uL Neut % (Auto) 59.7 (42.0-72.0) % Lymph % (Auto) 28.3 (20-44) % [place] % (Auto) 9.1 (0.0-11.0) % Eos % (Auto) 2.5 (0.0-7.0) % Baso % (Auto) 0.4 (0.0-3.0) % Neut # (Auto) 3.14 (1.7-7.0) K/uL Lymph # (Auto) 1.49 (0.90-2.90) K/uL [place] # (Auto) 0.50 (0.00-0.90) K/UL Eos # (Auto) 0.13 (0.00-0.50) K/uL Baso # (Auto) 0.02 (0.00-0.30) K/uL Abs Immat Gran (auto) 0.00 (0.00-0.30) K/uL Imm/Tot Granulo (auto) 0.0 % Sodium 141 (135-149) mmol/L Potassium 3.6 (3.6-5.1) mmol/L Chloride 111 (96-114) mmol/L Carbon Dioxide 28 (20-32) mmol/L Anion Gap 2 L (7-15) mEq/L BUN 9 (5-24) mg/dL Creatinine 0.6 (0.5-1.5) mg/dL Estimated Creat Clear 137.68 Estimated GFR 130 ml/min Glucose 102 (60-115) mg/dL Calcium 9.1 (8.4-10.6) mg/dL Troponin I < 0.01 L (0.01-0.04) ng/mL Imaging Data CT scan head: Attestation: I have reviewed the pertinent imaging results. Radiologist's impression: No acute findings. Please note that all CT scans at this facility use dose modulation, iterative reconstruction, and/or weight-based dosing when appropriate to reduce radiation dose to as low as reasonably achievable. Dictated by Fco Cassidy MD @ 03/03/2024 11:36:[address] scan cervical: Attestation: I have reviewed the pertinent imaging results. Radiologist's impression: No acute findings. Please note that all CT scans at this facility use dose modulation, iterative reconstruction, and/or weight-based dosing when appropriate to reduce radiation dose to as low as reasonably achievable. Dictated by Fco Cassidy MD @ 03/03/2024 11:38:51 AM ECG Data Attestation: I personally reviewed and interpreted this ECG as follows: Prior ECG tracings: not available for review Interpretation: Normal sinus rhythm with a rate of 73 beats per minute, normal intervals other than a short AR, normal axis, no ST or T-wave abnormality Discharge Plan Discharge Clinical Impression: Migraine without aura Patient Disposition: Home, Self-Care Condition: Improved Instructions: Migraine Headache (ED) Additional Instructions: Continue to treat your migraines per home medications. Follow up with a neurologist or primary care provider if symptoms persist. Return for new worsening symptoms Prescriptions: No Action methylphenidate HCl 10 mg tablet PO naratriptan 2.5 mg tablet 2.5 mg PO ONCE PRN azelastine 137 mcg (0.1 %) aerosol,spray 1 spray intranasal prazosin 1 mg capsule 1 - 2 mg PO QPM Patient Comments: TAKE 1 TO 2 CAPSULES BY MOUTH AT BEDTIME Pataday Once Daily Relief 0.7 % drops ophthalmic (eye) Patient Comments: INSTILL 1 DROP IN BOTH EYES DAILY. triamcinolone acetonide 0.5 % cream 1 applic topical Patient Comments: APPLY AT BEDTIME FOR THUMBS tazarotene 0.1 % cream 1 applic TOPICAL tacrolimus 0.1 % ointment 1 applic TOPICAL Patient Comments: APPLY TWICE A DAY FOR BREAST RASH clindamycin phosphate 1 % solution 1 applic TOPICAL Patient Comments: APPLY TWICE A DAY FOR ACTIVE ACNE desvenlafaxine succinate 100 mg tablet extended release 24 hr 100 mg PO Aimovig Autoinjector 140 mg/mL auto-injector 140 mg SUBCUT metoprolol succinate 25 mg tablet extended release 24 hr 25 mg PO QDAY gabapentin 600 mg tablet 600 mg PO QDAY topiramate 50 mg tablet 50 mg PO QDAY Cotempla XR-ODT 25.9 mg tablet,disinteg ER biphase 24h 25.9 mg PO QDAY famotidine 20 mg tablet 20 mg PO BID Patient Comments: TAKE 1 TABLET BY MOUTH IN THE MORNING AND 1 TABLET IN THE EVENING. duloxetine 30 mg capsule,delayed release(DR/EC) 90 mg PO QDAY Patient Comments: TAKE 3 CAPSULES BY MOUTH BY MOUTH EVERY MORNING buspirone 10 mg tablet 10 mg PO QDAY Follow Up/Referrals: Marissa Wesley MD [Primary Care Provider] - Stand Alone Forms: [facility] Info Instructions
== END 2024-03-03 12:20 | disposition home or self-care (01) ==
PROVIDERS: Emergency Provider Student in an Organized Health Care Education/Training Program; PCP Internal Medicine
DX: G43.909 Migraine, unspecified, not intractable, without status migrainosus (principal)
CPT/HCPCS: 36415; 70450; 72125; 80048; 84484; 85025; 93005; 96374; 96375; 99283; 99284; A9270; J1200; J1885; J2765; J7120

== ENCOUNTER 2024-04-03 08:20 | Outpatient (CLI) | payer BC, SELFPAY ==
--- OUTSIDE RECORDS SUMMARY | 2024-04-20 23:28 | XMS_ITS ---
Author Organization [facility] Address [address] [place] [address] Care Team Providers Care Cosmetic Sales Assistant Name Role Phone Unavailable Unavailable Unavailable Surgery Details Not on file Complications Check Surgery Details section. Procedure Estimated Blood Loss Check Surgery Details section. Procedure Findings Check Surgery Details section. Procedure Specimens Taken Check Surgery Details section.
--- OUTSIDE RECORDS SUMMARY | 2024-04-20 23:28 | XMS_ITS | Encounter Summary ---
Author Organization [facility] Address [address] [place] [address] Care Team Providers Care Office Clerk Routine Name Role Phone Joseph Erickson M.D. Primary Care Provider Unavailable Unavailable Unavailable Ifrah Gooden Primary Care Provider [phone] Ifrah Gooden L Unavailable Demetria Giles Unavailable [phone] Encounter Details Date Type Department Care Team (Late st Contact Info) Description 03/12/2017 Orders Only [facility] Medicine [address] [place] [address] Li Hamilton R.N. EDS (Stanford-Danlos syndrome) [...] sciatica documented in this encounter Care Teams Office Clerk Routine Relationship Specialty Start Date End Date Jospeh Erickson M.D. [address] [place] [phone] PCP - General 07/01/15 10/07/20 Ifrah Gooden [address] [place] [address] PCP - General 10/08/20 Referring Provider 08/31/15 Ifrah Gooden [facility] [place] [address] Referring Provider Pediatrics 10/08/20 Demetria Giles, P.A. [address] [facility]/ [address] [place] [phone] Referring Provider Neurosurgery 10/08/20 documented as of this encounter
--- OUTSIDE RECORDS SUMMARY | 2024-04-20 23:28 | XMS_ITS | Patient Health Record ---
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
--- OUTSIDE RECORDS SUMMARY | 2024-04-20 23:28 | XMS_ITS | Clinical Summary ---
Author Organization [facility] Address [address] [place] [address] Care Team Providers Care Kennel Manager Name Role Phone Unavailable Unavailable Unavailable Ifrah Gooden Primary Care Provider [phone] Ifrah Gooden Unavailable Demetria Giles Unavailable [phone] Allergies No known active allergies Medications Medication [...] Comments Blood Pressure 120/75 10/08/2020 8:09 AM HUMAN RELATIONS PROFESSOR Pulse 83 10/08/2020 8:09 AM HUMAN RELATIONS PROFESSOR Temperature 36.1 ??C (97 ??F) 10/08/2020 8:09 AM HUMAN RELATIONS PROFESSOR Respiratory Rate - - Oxygen Saturation - - Inhaled Oxygen Concentration - - Weight 112.1 kg (247 lb 3.2 oz) 10/08/2020 8:09 AM HUMAN RELATIONS PROFESSOR Height 167.6 cm (5' 6) 10/08/2020 8:09 AM HUMAN RELATIONS PROFESSOR Body Mass Index 39.9 10/08/2020 8:09 AM HUMAN RELATIONS PROFESSOR Plan of Treatment Health Maintenance Due Date [...] age to complete this topic Care Teams Kennel Manager Relationship Specialty Start Date End Date Ifrah Gooden [address] [place] [address] PCP - General 10/08/20 Referring Provider 08/31/15 Ifrah Gooden [facility] [place] [phone] Referring Provider Pediatrics 10/08/20 Demetria Giles, PKarriA. [address] [facility] M/ [address] [place] [address] Referring Provider Neurosurgery 10/08/20
--- OUTSIDE RECORDS SUMMARY | 2024-04-20 23:28 | XMS_ITS | Referral Summary ---
Author Organization [facility] Address [address] [place] [address] Care Team Providers Care Back Maker Name Role Phone Unavailable Primary Care Provider Unavailabl e Source Comments Patient records contain information from all sites at [facility]. For routine questions regarding patient records, call [phone] during business hours, M-F 8:00 AM - 5:00 PM Central Time. Record requests for emergency care only can be directed to [phone] at any time.[facility] Encounters Date Type Department Care Team Description 03/17/2024 12:00 PM CDT Telemedicine Department of Nutrition and Diabetes Education in [place], [place] [address] [place] [address] Veronica Garvin M.B., Ch.B. Ruth Ann Ruiz, M.S., RDN, LD Obesity Body Mass Index 30-39.9 Adult 03/10/2024 12:00 PM CDT Telemedicine Department of Nutrition and Diabetes Education in [place], [place] [address] [place] [address] Veronica Garvin M.B., Ch.B. Ruth Ann Ruiz, M.S., RDN, LD Obesity Body Mass Index 30-39.9 Adult from Last 3 Months Allergies Active Allergy Reactions Criticality Noted Date Comments Cantaloupe GI intolerance 11/23/2011 L[place] Wolf GI intolerance 11/23/2011 Lamotrigine Hives (Reselect Reaction) [...] 1 % external solution 08/09/2022 Active coenzyme [id number] E 100-5 mg-unit capsule Take by mouth [...] How often do you attend chur or synagogue services? More than 4 times per year 04/12/2023 Do you belong to any clubs o r organizations such as rastafarian groups, unions, fraternal or athletic groups, or [...] Answer Date Recorded PHQ-2 Score 1 09/21/2022 [facility] - Occupational [...] - Inhaled Oxygen Concentration - - Weight 97.7 kg (215 lb 6.2 oz) 03/10/2024 1:15 P M CDT Height 166.7 cm (5' 5.63) 04/12/2023 12:53 PM C DT Body Mass Index 35.16 04/12/2023 12:53 PM CDT Plan of Treatment Not on file Medical Devices Implanted Type Area Trainman Device Identifier Shelf Expiration Date Model / [...] CDT 04/09/2023 5:05 PM CDT Veronica Perry, B. LAB BLOOD NON ADD -ON [facility] [address] [place] [address], [facility] [address] [place] [address] from Last 3 Months or Most Recently Relevant to Health Maintenance
--- OUTSIDE RECORDS SUMMARY | 2024-04-20 23:28 | XMS_ITS | Continuity of Care Document ---
[facility] Address [address] [place] [address] Phone Care Team Providers Care Ladle Puller Name Role Phone Miquel Vogt PA-C Unavailable Unavailable Allergies, Adverse Reactions, Alerts Substance [...] Not Available - Active Procedures Procedure Date No Show Visit Fee Inj Anes Agent Greater Occipt 4 Ultrason Guidan Needle Bx-rad 4 Change Control for Modifier(s) 24 No Show Visit Fee Greater Occipital Block Ultrason Guidan Needle Bx-rad 4 Verified No Separate Anesthesia 024 Est Pt Eval Moderate Chemodenervation of muscles [...] Exercise Inj Anes Epidur; Lumb/sac 1 Le 22 Inj Anes Epidur; Lumb/sac 1 Le 22 Inj Anes Agent; Greater Occipt 21 Ultrason Guidan Needle Bx-rad 1 Methylprednisolone Acetate-40 1 Change Control for Diagnosis(s) Change Control for Pharmaceuticals Change Control for Modifier(s) Greater Occipital Block Ultrason Guidan Needle Bx-rad 1 Inj Anes Agent; Greater Occipt Ultrason Guidan Needle Bx-rad 1 Methylprednisolone Acetate-40 1 Change Control for Pharmaceuticals Aug- Change Control for other claim elements Greater [...] Yes / No Effective Date File Name No Information Encounters Encounter Description Practice Location Reason(s) For Visit Diagnoses Date Provider Providers Copied on Encounter [facility], [address], [place], [place], [address], [place] tel:[phone] [facility] No Information 4 Sin Lafleur. [address], [place], [address], [place]. tel:[phone] Referring Provider: Wade Dominguez, [address], [address] . tel:[phone] [facility], [address], [place], [address], [place] tel:[phone] [facility] bilateral neck pain (chief complaint) Occipital neuralgiaOccipital neuralgia 4 [facility]. [address], [place], [place], [address], [place]. tel:[phone] Referring Provider: Amadou Jones, [address], [place], [address]. tel:[phone] [facility], [address], [place], [place], [address], [place] tel:[phone] [facility] No Information 4 Vernner Amadou. [address], [place], [address], [place]. tel:[phone] Referring Provider: Wade Dominguez, [address], [place], [address] . tel:[phone] [facility], [address], [place], [place], [address], [place] tel:[phone] [facility] No Information 4 Chris Tobar. [address], [place], [address], [place]. tel:[phone] Referring Provider: Amadou Jones, [address], [place], [address]. tel:[phone] [facility], [address], [place], [place], [address], [place] tel:[phone] [facility] No Information 4 Chris Tobar. [address], [place], [address], [place]. tel:[phone] Referring Provider: Amadou Jones, [address], [place], [address]. tel:[phone] Est Pt Eval Moderate [facility], [facility], [address], [place], [place], [address], [place] tel:[phone] [facility] headache (chief complaint) MigraineCervicalgi aBody mass index (BMI) 35.0-35.9, adult 4 Zara Kwon. [address], [address], [place], [place], [address], [place]. tel:[phone] Referring Provider: Wade Dominguez, [address], [place], [address] . tel:[phone] [facility], [address], [place], [place], [address], [place] tel:[phone] [facility] headache (chief complaint) MigraineMigraine, unsp, not intractable, without status migrainosus 4 Angelica Olvera. [address], [place], [place], [address], [place]. tel:[phone] Referring Provider: REFERRAL SELFMG. Est Pt Eval Moderate [facility], [facility], [address], [place], [place], [address], [place] tel:[phone] [facility] headache (chief complaint) Body mass index (BMI) 33.0-33.9, adultMigraineCervi calgia 4 Nasrin Goldberg. [address], [address], [place], [address], [place]. tel:[phone] Referring Provider: REFERRAL MG BARTON. [facility], [address], [place], [place], [address], [place] tel:[phone] [facility] headache (chief complaint) MigraineMigraine, unsp, not intractable, without status migrainosus 3 Angelica Olvera. [address], [place], [place], [address], [place]. tel:[phone] Referring Provider: Wade Dominguez, [address], [place], [address] . tel:[phone] Est Pt Eval Moderate [facility], [facility], [address], [place], [place], [address], [place] tel:[phone] [facility] headache (chief complaint) MigrainePain in right ankleBody mass index (BMI) 37.0-37.9, adult Sep-2 3 She Qiying. [address], [address], [place], [address], [place]. tel:[phone] Referring Provider: Wade Dominguez, [address], [place], [address] . tel:[phone] [facility], [address], [place], [place], [address], [place] tel:[phone] [facility] No Information 3 Mendez Kenia. [address] , [place], [address], [place]. tel:[phone] Referring Provider: REFERRAL SELF, MG. CHESTER Villa, [address], [place], [place], [address], [place] tel:[phone] [facility] No Information 3 Ketola Kerr. [address], [address], [place], [place], [address], [place]. tel:[phone] Referring Provider: REFERRAL SELF, MG. CHESTER Villa, [address], [place], [place], [address], [place] tel:[phone] [facility] headache (chief complaint) Myalgia, unspecified siteMigraine, unsp, not intractable, without status migrainosusMigrain e, unsp, not intractable, without status migrainosus Fe 3 Angelica Olvera. [address], [place], [place], [address], [place]. tel:[phone] Referring Provider: Wade Dominguez, [address], [place], [address] . tel:[phone] [facility], [address], [place], [place], [address], [place] tel:[phone] [facility] back pain (chief complaint) headache (chief complaint) MigraineMigraine, unsp, not intractable, without status migrainosus 2 Angelica Olvera. [address], [place], [place], [address], [place]. tel:[phone] Referring Provider: Wade Dominguez, [address], [place], [address] . tel:[phone] [facility] [address], [place], [place], [address], [place] tel:[phone] [facility] headache (chief complaint) back pain (chief complaint) MyalgiaMyalgia, unspecified site 2 Angelica lOvera. [address], [place], [place], [address], [place]. tel:[phone] Referring Provider: Wade Dominguez, [address], [place], [address] . tel:[phone] Est Pt Eval 25 Min [facility], [address], [place], [place], [address], [place] tel:[phone] [facility] headache (chief complaint) back pain (chief complaint) Radiculopathy, cervical regionHeadache, unspecifiedPain in shoulderRadiculopa thy, lumbar regionMigraineBody mass index (BMI) 36.0-36.9, adult 2 Nasrin Goldberg. [address], [address], [place], [address], [place]. tel:[phone] Referring Provider: Wade Dominguez, [address], [place], [address] . tel:[phone] CHESTER Villa, [address], [place], [place], [address], [place] tel:[phone] [facility] No Information 2 Shazia Bell. [address], [place], [address], [place]. tel:[phone] Referring Provider: REFERRAL SELF, MG. ELICIA Villa, [address], [place], [place], [address], [place] tel:[phone] [facility] CervicalgiaHeadach e, unspecifiedPain in thoracic spine 2 Shazia Bell. [address], [place], [address], [place]. tel:[phone] Referring Provider: Arabella Mccray, [address], [place], [address]. tel:[phone] [facility], [address], [place], [place], [address], [place] tel:[phone] [facility] No Information 2 Tran Ragland. [address], [facility] , [place], [address], [place]. tel:[phone] Referring Provider: REFERRAL SELF, MG. ELICIA Villa, [address], [place], [place], [address], [place] tel:[phone] [facility] CervicalgiaRadicul opathy, cervical regionHeadache, unspecifiedPain in thoracic spine 2 Deidre Power. [address], [place], [address], [place]. tel:[phone] Referring Provider: Jannet Jiang, [address], [place], [address]. tel:[phone] [facility], [address], [place], [place], [address], [place] tel:[phone] [facility] No Information 2 Deidre Power. [address], [place], [address], [place]. tel:[phone] Referring Provider: MG WITT. [facility], [address], [place], [place], [address], [place] tel:[phone] [facility] CervicalgiaRadicul opathy, cervical regionHeadache, unspecifiedPain in thoracic spine 2 Deidre Power. [address], [place], [address], [place]. tel:[phone] Referring Provider: Jannet Jiang, [address], [place], [address]. tel:[phone] [facility], [address], [place], [place], [address], [place] tel:[phone] [facility] CervicalgiaRadicul opathy, cervical regionHeadache, unspecifiedPain in thoracic spine 2 Tran Ragland. [address], [facility] , [place], [address], [place]. tel:[phone] Referring Provider: Obie Mayfield, [address] [facility], [place], [address]. tel:[phone] [facility], [address], [place], [place], [address], [place] tel:[phone] [facility] No Information 2 Angelica Peña. [address], [place], [place], [address], [place]. tel:[phone] Referring Provider: Casey Gold, [address], [place], [address] . tel:[phone] [facility] [place], [address], [place], [address], [place] tel:[phone] [facility] back pain (chief complaint) Radiculopathy, lumbar regionRadiculopath y, lumbar region 2 [facility]. [address], [place], [place], [address], [place]. tel:[phone] Referring Provider: Casey Gold, [address], [place], [address] . tel:[phone] [facility], [facility], [address], [place], [place], [address], [place] tel:[phone] [facility] No Information 1 Chris Tobar. [address], [place], [address], [place]. tel:[phone] Referring Provider: Amadou Jones, [address], [address]. tel:[phone] [facility] [place], [address], [place], [address], [place] tel:[phone] [facility] back pain (chief complaint) HeadacheNeuralgia and neuritis, unspecifiedHeadach e, unspecifiedNeuralg ia and neuritis, unspecified 1 [facility]. [address], [place], [place], [address], [place]. tel:[phone] Referring Provider: Amadou Jones, [address], [place], [address]. tel:[phone] [facility], [address], [place], [address], [place] tel:[phone] [facility] head and neck pain bilateral (chief complaint) CervicalgiaNeuralg iaCervicalgiaNeura lgia and neuritis, unspecified 1 [facility]. [address], [place], [place], [address], [place]. tel:[phone] Referring Provider: Amadou Jones, [address], [place], [address]. tel:[phone] [facility], [address], [place], [place], [address], [place] tel:[phone] [facility] No Information 1 Chris Tobar. [address], [place], [address], [place]. tel:[phone] Referring Provider: Amadou Jones, [address], [place], [address]. tel:[phone] Est Pt Eval 15 Min Telehealth [facility], [facility], [address], [place], [place], [address], [place] tel:[phone] [facility] bilateral neck pain (chief complaint) CervicalgiaMigrain eRadiculopathy, cervical regionRadiculopath y, lumbar region 1 Enrique Ernandez. [address], [address], [place], [address], [place]. tel:[phone] Referring Provider: Oma Nunez , [address], [place], [address]. tel:[phone] Est Pt Eval 25 Min Telehealth [facility], [address], [place], [place], [address], [place] tel:[phone] [facility] back pain (chief complaint) Radiculopathy, cervical regionMigraine 1 Crow Arellano. [address], [place], [address], [place]. tel:[phone] Referring Provider: Wade Dominguez, [address], [place], [address] . tel:[phone] [facility], [address], [place], [place], [address], [place] tel:[phone] [facility] No Information Sep-3 1 Chris Tobar. [address], [place], [address], [place]. tel:[phone] Referring Provider: Amadou Jones, [address], [place], [address]. tel:[phone] [facility], [address], [place], [address], [place] tel:[phone] [facility] back pain (chief complaint) Radiculopathy, lumbar regionRadiculopath y, lumbar region Sep-3 0 1 [facility]. [address], [place], [place], [address], [place]. tel:[phone] Referring Provider: Amadou Jones, [address], [place], [address]. tel:[phone] New Pt Eval 45 Min [facility], [address], [place], [place], [address], tel:[phone] [facility] back pain (chief complaint) headache (chief complaint) CervicalgiaRadicul opathy, cervical regionHeadachePain in shoulderLow back painPain in thoracic spineRadiculopathy , lumbar regionEhlers-Danlo s syndrome, unspecifiedMigrain eBody mass index (BMI) 37.0-37.9, adult Sep-2 Angelica Olvera. [address], [place], [place], [address], [place]. tel:[phone] Referring Provider: Wade Dominguez, [address], [place], [address] . tel:[phone] Family History Family Member Type Diagnosis Age At Onset No Information Payers Payer name Insurance type Covered republican ID Authoriza tirubio(s) No Information Social History Type Description Quantity Date Captured Comments Sex Female Smoking Status No Information Chief Complaint And Reason For Visit No Information Reason For Referral Reason For Referral No [...] pain) ordered Referral Ordered: Medical Records Request [facility] ordered Referral Referred To: Physical Therapy Ordered: Physical Therapy ordered Referral Ordered: Referrals: Behavioral Health ordered Referral Referred To: lumbar epidural steroid injection Ordered: lumbar epidural steroid injection on both sides L4-5 ordered History Of Present Illness Encounter Date Complaint History Of Prese nt Illness bilateral neck pain headache Severity: 6. The problem is improving. [...] by bright lights. Relieving factors include water. back pain Severity level i s 8. [...] and chiropractor and pain meds. back pain Location of pain is upper back, middle back, lower back, neck and shoulders.The patient describes the pain as an ache. Symptoms are aggravated by daily activities. Symptoms are relieved by pain meds/drugs, stretching and infant caregiver. headache The patient desc ribes it as stabbing and throbbing. Symptom is aggravated by stress. Relieving factors include prescription drugs, stretching and infant caregiver. Associated symptoms include nausea. Pertinent negatives include fever, loss of consciousness and vomiting. back pain Location of pain is lower [...] of pain is lower back and legs. back pain headache Severity: 9. The re is radiation to neck, shoulders, low back and hips. Functional Status Date Functional Assessmen t No Information Instructions Date Instruction Additional Infor cuauhtemoc - Follow up in the clinic Relate d to Occipital neuralgia - Continue to monito r relief from botox injection. Repeat every 3 months to manage migraines.- Ordered repeat bilateral occipital nerve block today, [facility] will call you to schedule- Continue medications from outside provider- Follow up with [facility] as needed or 2 weeks after injection, telehealth is OK Related to Migraine - Schedule trigger p oint injection for neck and shoulders areas Related to Cervicalgia Lifestyle education regarding di et Related to [...] Requested medical records from Dr. Fischer at [facility]-Continue to follow up with podiatric as scheduled [...] of in formation for medical records from [facility] to be sent to [facility]- Schedule [...] as needed Related to Radiculopathy, lumbar region Follow up for the LESI in 1-2 we eks. Related to Headache same Related to Neura lgia and neuritis, unspecified Follow up for the re peat bilateral Occipital Nerve block in 3-4 weeks. Related to Cervicalgia Same plan of care as statement for above diagnosis, no changes Related to Radiculopathy, lumbar region - Keep occipital ner ve block appointment. - Continue with physical therapy. - Contact neurologist for follow up. - Follow up as needed. Related to Cervicalgia Same plan of care as statement for above diagnosis, no changes Related to Migraine Same plan of care as statement for above diagnosis, no changes Related to Radiculopathy, cervical region Same plan of care as statement for above diagnosis, no changes Related to Migraine -No medications pres cribed today-Ordered occipital nerve block -Schedule and complete physical therapy in [place]-Follow up in one month The risks and benefits of the procedure will be reviewed with the physician on the day of the procedure. Related to Radiculopathy, cervical region Follow up in the i shalonda as neededFollow up with physical therapy evaluation and treatment Related to Radiculopathy, lumbar region - records from [facility] - URGENT- schedule a lumbar epidural steroid [...] no changes Related to Pain in shoulder Prescribed activity/exercise edu cation Related to Body mass index [BMI] 37.0-37.9, adult Dietary needs education Related to Body mass index [BMI] 37.0-37.9, adult Assessments Type Assessment Date No Information Patient Care Teams Name Effective Dates (start - stop) Status Members No Information
--- OUTSIDE RECORDS SUMMARY | 2024-04-20 23:28 | XMS_ITS | Clinical Summary ---
Author Organization [place] Address [address] [facility] [place] [address] Care Team Providers Care Plywood Layup Line Core Feeder Name Role Phone Marissa Wesley MD Primary [...] Active azelastine (ASTELIN) 0.1 % nasal spray [place] 2 sprays in nostril 12/27/2020 Active benztropine [...] Active ZOLMitriptan (ZOMIG) 5 MG nasal spray [place] 1 spray in nostril 09/01/2021 Active topiramate (TOPAMAX) 50 MG tablet TAKE TWO TABLETS BY MOUTH AT BEDTIME 01/31/2021 Active triamcinolone (NASACORT) 55 MCG/ACT nasal aerosol [place] 2 sprays in nostril Active DULoxetine (CYMBALTA) [...] Vaccine ( season) 2023 10/21/2021, 02/26/2021, 02/05/2021 PHQ-2 (once per calendar year) 2023 INFLUENZA VACCINE (Season Ended) 2024 10/04/2021, 08/31/2020, 08/15/2019, Additional history exists DTAP/TDAP/TD IMMUNIZATION (8 - Td or Tdap) [...] Trachomatis Negative Negative 06/04/2022 3:47 PM CDT [facility] Comment:Negative for C. trac homatis genomic DNA by Cepheid real-time, reverse-transcriptase PCR. A negative result does not preclude the presence of C. trachomatis = infection. The results are dependent on proper collection, transport, and processing of the specimen, and the presence of sufficient DNA to be detected. Neisseria gonorrhoeae Negative Negative 06/04/2022 3:47 PM CDT [facility] Comment:Negative for N. gono rrhoeae genomic [...] 2:06 PM CDT 06/04/2022 2:14 PM CDT [facility] - 06/04/2022 3:47 PM CDT Assay performed using CepSprioid real-time, reverse-transcriptase PCR. Sofía Osman CNP LAB - MICRO GENERAL ORDERABLES [facility] [address] [place] [address], [facility] [phone] from Last 3 Months or Most Recently Relevant to Health Maintenance Care Teams Plywood Layup Line Core Feeder Relationship Specialty Start Date End Date Marissa Wesley MD [facility] [address] [place] [address] PCP - General Internal Medicine 12/31/21
--- OUTSIDE RECORDS SUMMARY | 2024-04-20 23:28 | XMS_ITS | Clinical Summary ---
Author Organization [facility] Address [address] [place] [address] [place] [address] Care Team Providers Care Multi Line Claims Adjuster Name Role Phone Sapphire Coleman MD Primary Care Provider [phone] Allergies Active Allergy Reactions Criticality Noted Date [...] age to complete this topic Care Teams Multi Line Claims Adjuster Relationship Specialty Start Date End Date Sapphire Coleman MD PCP - General 03/27/17
--- OUTSIDE RECORDS SUMMARY | 2024-04-20 23:28 | XMS_ITS | Encounter Summary ---
Author Organization [facility] Address [address] [place] [address] Care Team Providers Care Cargo Trimmer Name Role Phone Unavailable Primary Care Provider Unavailabl e Encounter Details Date Type Department Care Team (Late st Contact Info) Description 03/10/2024 12:00 PM CDT Telemedicine Department of Nutrition and Diabetes Education in [place], [place] [address] [place] [phone] Veronica Garvin M.B., Ch.B. [address] [place] [phone] Ruth Ann Ruiz M.SKarri, RDN, LD [address] [place] [phone] Obesity Body Mass Index 30-39.9 Adult Social [...] How often do you attend chur or yazidi services? More than 4 times per year 04/12/2023 Do you belong to any clubs o r organizations such as shinto groups, unions, fraternal or athletic groups, or [...] Score 1 09/21/2022 [facility] - Occupational Stress Questionnaire Answer Date [...] oz) 03/10/2024 1:15 P M CDT Height - - Body Mass Index 35.16 04/12/2023 12:53 PM CDT documented in this encounter Miscellaneous Notes * Group Note - Ruth Ann Ruiz M.S., SHELTON WOLFF - 03/10/2024 12:00 PM CDT 03/10/2024 Start Time: 12:00 PM End Time: 1:00 PM Electrician Underground: Ruth Ann Ruiz M.S., [place] WOLFF Today's Weight: 215 pounds The patient attended [facility] [...] interaction during class. Progress towards previous goals: did not do well with doing exercises but has been walking to school 2 days per week Patient's goal for next week: do exercises once per week, walk to school 2 times per week, eat 1 serving of vegetables with dinner 3 times per week Patient Census: 8 Total Group Time: 60 minutes The patient attended a virtual group class via real-time audio/video technology by Ruth Ann Ruiz M.S., SHELTON WOLFF in [facility] to patient in patient home. I introduced myself to the group and limits to confidentially were reviewed. documented in this encounter Plan of Treatment Not on file documented as of this encounter Visit Diagnoses Diagnosis Obesity Body Mass Index 30-39.9 Adult documented in this encounter Additional Health Concerns Assessment Noted Time PHQ-9 Depression Total Score: 8 09/21/20 22 9:29 AM CDT documented as of this encounter
--- OUTSIDE RECORDS SUMMARY | 2024-04-20 23:28 | XMS_ITS | Patient Health Record ---
Author Organization [facility] Address [address] [place] [phone] Care Team Providers Care Bandsaw Operator Name Role Phone Dalia Narvaez MD Primary Care Provider MICHELLE Hudson Unavailable [phone] Allergies Allergen (clinical drug ingredient) Drug/Non Drug Allergy documented on EMR Reaction Allergy Type Onset Date Status Tree Nuts Unknown Allergy Active Reason For Referral No Information Medications Medication SIG (Take, Route, Frequency, Duration) Notes [...] ZOLMitriptan 5 MG as directed Nasally Active Social History Tobacco Use: Social History Observation Description Date Details (start date - stop date) Never Smoker NA - NA Tobacco Use/Smoking Question Answer Notes Are you a nonsmoker Problems Problem Type SNOMED Code ICD Code Onset Dates Problem Status W/U Status Risk Notes Problem 555797391 Chronic pain syndrome (G89.4) Active confirmed Problem [id number] Intractable chronic migraine without aura and without status migrainosus (G43.719) Active confirmed Encounters Encounter Location Date Provider Diagnosis [facility] [address] [facility] [address] [place] [phone] 11/17/2023 MICHELLE HARRELL Plan Of Treatment No Information Insurance Providers Payer Name Payer Address Payer Phone Subscriber Number Group Number Insured Name Patient Relationship to Insured Coverage Start Date Coverage End Date [facility] [address] [place] [address] [id number] Beryl Medel Self - patient is the insured Medical (General) History Medical History History ICD Code Head Injury Migraines Anxiety Depression Insomnia Ehlos-Danlos syndrome POTS Chronic pain Spinal instability chronic dizziness and nausea ADD PTSD Insomnia Foramination Surgical History Surgery Date(Month/Year)
--- OUTSIDE RECORDS SUMMARY | 2024-04-20 23:28 | XMS_ITS | Encounter Summary ---
Author Organization [facility] Address [address] [place] [address] Care Team Providers Care Vpk Teacher Name Role Phone Unavailable Primary Care Provider Unavailabl e Encounter Details Date Type Department Care Team (Late st Contact Info) Description 03/17/2024 12:00 PM CDT Telemedicine Department of Nutrition and Diabetes Education in [place], [place] [address] [place] [phone] Veronica Garvin M.B., Ch.B. [address] [place] [phone] Ruth Ann Ruiz M.SKarri, RDN, LD [address] [place] [phone] Obesity Body Mass Index 30-39.9 Adult Social [...] How often do you attend chur or uatsdin services? More than 4 times per year 04/12/2023 Do you belong to any clubs o r organizations such as amish groups, unions, fraternal or athletic groups, or [...] Date Recorded PHQ-2 Score 1 09/21/2022 [facility] - Occupational Stress Questionnaire Answer Date [...] place to sleep or slept in a prison (including now)? No 04/12/2023 Depression Answer Date [...] Ruth Ann Ruiz M.S., RDN, LD - 03/17/2024 12:00 PM CDT 03/17/2024 Start Time: 12:00 PM End Time: 1:00 PM Continuous Mining Machine Lode Miner: Ruth Ann Ruiz M.S., [place], [place] Today's Weight: same The patient attended [facility] [...] interaction during class. Progress towards previous goals: walked to school two days and did one day of exercises Patient's goal for next week: try a new recipe every other week Patient Census: 8 Total Group Time: 60 minutes The patient attended a virtual group class via real-time audio/video technology by Ruth Ann Ruiz M.S., NEW, [place] in [facility] to patient in patient home. I introduced [...]
--- OUTSIDE RECORDS SUMMARY | 2024-04-20 23:28 | XMS_ITS | Clinical Summary ---
Author Organization [facility] Address [address] [place] [address] Care Team Providers Care Client Services Coordinator Name Role Phone Unavailable Primary Care Provider Unavailabl e Source Comments Patient records contain information from all sites at [facility]. For routine questions regarding patient records, call [phone] during business hours, M-F 8:00 AM - 5:00 PM Central Time. Record requests for emergency care only can be directed to [phone] at any time.[facility] Allergies Active Allergy Reactions Criticality Noted Date Comments Cantaloupe GI intolerance 11/23/2011 Norris GI intolerance 11/23/2011 Lamotrigine Hives (Reselect Reaction) [...] 1 % external solution 08/09/2022 Active coenzyme [id number] E 100-5 mg-unit capsule Take by mouth [...] Department of Nutrition and Diabetes Education in [place], [place] [address] [place] [phone] Veronica Garvin M.B., Ruth Ann Forde, M.S., NEW, [place] Obesity Body Mass Index 30-39.9 Adult 03/10/2024 12:00 PM CDT Telemedicine Department of Nutrition and Diabetes Education in [place], [place] [address] [place] [phone] Veronica Garvin M.B., Ruth Ann Forde, M.S., [place], [place] Obesity Body Mass Index 30-39.9 [...] often do you attend chur ch or methodist services? More than 4 times per year 04/12/2023 Do you belong to any clubs o r organizations such as anabaptist groups, unions, fraternal or athletic groups, or [...] Answer Date Recorded PHQ-2 Score 1 09/21/2022 [facility] [place] [facility] - Occupational Stress Questionnaire Answer Date [...] 04/12/2023 12:53 PM CDT Plan of Treatment Health Maintenance [...] this topic Medical Devices Implanted Type Area Lacquer Sizer Device Identifier Shelf Expiration Date Model / [...] Perry, Ch.B. LAB BLOOD NON ADD -ON [facility] [address] [place] [address], [facility] DTL [facility] [address] [place] [address] from Last 3 Months or Most Recently Relevant to Health Maintenance
--- OUTSIDE RECORDS SUMMARY | 2024-04-20 23:29 | XMS_ITS | Referral Summary ---
Author Organization [place] Address [address] [facility] [place] [address] Care Team Providers Care Senior Treasury Analyst Name Role Phone Marissa Wesley MD Primary [...] Active azelastine (ASTELIN) 0.1 % nasal spray [place] 2 sprays in nostril 12/27/2020 Active benztropine [...] Active ZOLMitriptan (ZOMIG) 5 MG nasal spray [place] 1 spray in nostril 09/01/2021 Active topiramate (TOPAMAX) 50 MG tablet TAKE TWO TABLETS BY MOUTH AT BEDTIME 01/31/2021 Active triamcinolone (NASACORT) 55 MCG/ACT nasal aerosol [place] 2 sprays in nostril Active DULoxetine (CYMBALTA) [...] gonorrhoeae by PCR (06/04/2022 2:06 PM CDT) Pathologist [facility] Chlamydia Trachomatis Negative Negative 06/04/2022 3:47 PM CDT [facility] Comment:Negative for C. trac homatis genomic DNA by Doochoo real-time, reverse-transcriptase PCR. A negative result does not preclude the presence of C. trachomatis = infection. The results are dependent on proper collection, transport, and processing of the specimen, and the presence of sufficient DNA to be detected. Neisseria gonorrhoeae Negative Negative 06/04/2022 3:47 PM CDT [facility] Comment:Negative for N. gono rrhoeae genomic DNA by CepMarket6id real-time, reverse-transcriptase PCR. A negative result does not preclude the presence of N gonorrhoeae infection. The results are dependent on proper collection, transport, and processing of the specimen, and the presence of sufficient DNA to be detected. Urine VOIDED URINE SPECIMEN / Unknown Non-blood Collection / Unknown 06/04/2022 2:06 PM CDT 06/04/2022 2:14 PM CDT Narrative [facility] - 06/04/2022 3:47 PM CDT Assay performed using Doochoo real-time, reverse-transcriptase PCR. Sofía Osman CNP LAB - MICRO GENERAL ORDERABLES [facility] [address] [place] [address], [facility] [phone] from Last 3 Months or Most Recently Relevant to Health Maintenance Care Teams Senior Treasury Analyst Relationship Specialty Start Date End Date Marissa Wesley MD [facility] [address] [place] [address] PCP - General Internal Medicine 12/31/21
--- OUTSIDE RECORDS SUMMARY | 2024-04-20 23:29 | XMS_ITS | Encounter Summary ---
Author Organization [place] Address [address] [facility] [place] [address] Care Team Providers Care Coordinator Of Placement Name Role Phone Marissa Wesley MD Primary Care Provider [phone] Encounter Details Date Type Department Care Team [...] COVID-19? No / Unsure 12/31/2021 5:11 PM MATURITY CHECKER documented as of this encounter Plan of Treatment Not on file documented as of this encounter Visit Diagnoses Not on filedocumented in this encounter Care Teams Coordinator Of Placement Relationship Specialty Start Date End Date Marissa Wesley MD [facility] [address] [place] [address] PCP - General Internal Medicine 12/31/21 documented as of this encounter
== END 2024-04-03 08:21 | disposition home or self-care (01) ==
LOC: NFLDREF 04-20 23:25
PROVIDERS: PCP Internal Medicine; Referring Provider Internal Medicine; Visit Provider Physician Assistant
DX: N39.0 Urinary tract infection, site not specified (principal); B96.20 Unspecified Escherichia coli [E. coli] as the cause of diseases classified elsewhere
CPT/HCPCS: 87086; 87186